=== PATIENT | female | born 1945 | race Caucasian/White ===

== ENCOUNTER 2024-12-25 12:41 | Emergency (ER) | payer MEDICARE, BC, SELFPAY ==
--- OUTSIDE RECORDS SUMMARY | 2024-12-12 08:05 | XMS_ITS | Encounter Summary ---
Author Organization [facility] Address [address] [facility] [place] [address] Care Team Providers Care Machine Filler Shredder Name Role Phone Jadyn Leung MD Primary Care Provider [phone] Jadyn Leung MD Unavailable [phone] Encounter Details Date Type Department Care Team (Late st Contact Info) Description 12/12/2024 8:05 AM EDT Ancillary Procedure [facility] [address] [place] [address] Social History Tobacco Use Types Packs/Day Years Used Date Smoking Tobacco: Unknown Alcohol Use Standard Drinks/Week Comments Yes 0 (1 standard drink = 0.6 oz pure alcohol) monthly, Caffeine intake: 1 cup coffee PHQ-2 Answer Date Recorded Patient Health Questionnaire-2 Score 0 10/20/2022 Comments No Sex and Gender Information Value Date Recorded Sex Assigned at Not on file Legal Sex Female 7:24 PM EDT Gender Identity Not on file Sexual Orientation Not on file documented as of this encounter Plan of Treatment Upcoming Encounters Date Type Department Care Team (Late st Contact Info) Description 02/06/2025 1:15 PM EST Office Visit [facility] [address] [place] [address] Catalino Collins DO [address] [place], [place] [id number] documented as of this encounter Visit Diagnoses Not on filedocumented in this encounter Additional Health Concerns Assessment Noted Time PHQ-9 Depression Total Score: 0 10/20/19 23 12:00 PM EDT documented as of this encounter Care Teams Machine Filler Shredder Relationship Specialty Start Date End Date Jadyn Leung MD [address] [place] [address] PCP - General Family Medicine 08/11/22 Jadyn Leung MD [address] [place] [address] PCP - ACO Reach 07/21/23 documented as of this encounter
--- OUTSIDE RECORDS SUMMARY | 2024-12-12 09:45 | XMS_ITS | Encounter Summary ---
Author Organization [facility] Address [address] [facility] [place] [address] Care Team Providers Care Manager Purchasing Name Role Phone Jadyn Leung MD Primary Care Provider [phone] Jadyn Leung MD Unavailable [phone] Encounter Details Date Type Department Care Team (Late st Contact Info) Description 12/12/2024 9:45 AM EDT Ancillary Procedure [facility] [address] [place] [address] Social History Tobacco Use Types [...] Description 02/06/2025 1:15 PM EST Office Visit [facility] [address] [address] Catalino Collins DO [address] [place], [place] [phone] documented as of this encounter Visit Diagnoses Not on filedocumented in this encounter Additional Health Concerns Assessment Noted Time PHQ-9 Depression Total Score: 0 10/20/19 23 12:00 PM EDT documented as of this encounter Care Teams Manager Purchasing Relationship Specialty Start Date End Date Jadyn Leung MD [address] [place] [address] PCP - General Family Medicine 08/11/22 Jadyn Leung MD [address] [place] [address] PCP - ACO Reach 07/21/23 documented as of this encounter
--- OUTSIDE RECORDS SUMMARY | 2024-12-12 09:45 | XMS_ITS | Encounter Summary ---
Author Organization [facility] Address [address] [facility] [place] [address] Care Team Providers Care Coagulating Bath Mixer Name Role Phone Jadyn Leung MD Primary Care Provider [phone] Jadyn Leung MD Unavailable [phone] Reason for Visit * Reason Comments Post-op R Hip Bipolar Chaitanya Encounter Details Date Type Department Care Team (Late st Contact Info) Description 12/12/2024 9:45 AM EDT Office Visit [facility] [address] [place] [id number] Catalino Collins DO [address] [place] [address] Closed fracture of right hip requiring operative repair, sequela (Primary Dx); Right elbow pain Social History Tobacco Use Types Packs/Day Years [...] on file documented as of this encounter Last Filed Vital Signs Vital Sign Reading Time Taken Comments Blood Pressure - - Pulse - - Temperature - - Respiratory Rate - - Oxygen Saturation - - Inhaled Oxygen Concentration - - Weight - - Height 162.6 cm (5' 4 ) 12/12/2024 9:33 AM EDT Body Mass Index - - documented in this encounter Progress Notes * Latha Rodriguez - 12/12/2024 9:45 AM EDT Images from the original note were not included. Tracie Banuelos is a 79 y.o. female presents with chief complaint of PO < 90 days status post right bipolar hemiarthroplasty for displaced femoral neck fracture with right supracondylar elbow fracture. HPI: Usha is here for her first postoperative visit. She went to transitional care unit. She has had some drainage. They did call initially with this two to three weeks ago. There has been no follow up with this. She is barely mobile. She is still confused and has some dementia as well as alcohol encephalopathy. Her spouse is present and very supportive. He presents to the office today. SUBJECTIVE: MEDICATIONS: Current Outpatient Medications Medication Instructions carboxymethylcellulose (Artificial Tears) 1 % ophthalmic solution 1 drop, 3 times daily diphenhydrAMINE-zinc acetate (BENADryl) cream 3 times daily PRN folic acid (FOLVITE) 0.4 mg, Daily magnesium hydroxide (Milk of Magnesia) 400 MG/5ML suspension Nightly Multiple Vitamin (multivitamin) tablet 1 tablet, Daily nystatin (Mycostatin) 844463 UNIT/GM powder 2 times daily oxyCODONE-acetaminophen (Percocet) 5-325 MG tablet Take by mouth pantoprazole (ProtoNix) 40 MG EC tablet TAKE 1 TABLET BY MOUTH EVERY DAY IN THE MORNING DO NOT SPLIT, CRUSH, OR CHEW pramipexole (MIRAPEX) 0.25 mg, Oral, Nightly Probiotic Product (PROBIOTIC BLEND PO) sodium chloride 1 g, Oral, Daily Thiamine HCl (vitamin B-1) 250 MG tablet ALLERGIES: Allergies Allergen Reactions Codeine Unknown Moxifloxacin Unknown Penicillin G Unknown SURGICAL HISTORY: Past Surgical History: Procedure Laterality Date ADENOIDECTOMY APPENDECTOMY 1964 CATARACT EXTRACTION GALLBLADDER SURGERY 1971 NEUROMA SURGERY Right foot OTHER SURGICAL HISTORY repatcher sx OTHER SURGICAL HISTORY ovarian cysts PARTIAL HYSTERECTOMY 1975 SPINE SURGERY disk x 4 TONSILLECTOMY FAMILY HISTORY: Family History Problem Relation Name Age of Onset Leukemia Mother Heart attack Father Diabetes Maternal Grandmother Diabetes Maternal Grandfather Breast cancer Other grandmother, cousin, aunt Colon cancer Other uncle SOCIAL HISTORY: Social History Tobacco Use Smoking status: Unknown Substance Use Topics Alcohol use: Yes Comment: monthly, Caffeine intake: 1 cup coffee Drug use: Defer Depression: Not at risk (10/20/2022) PHQ-2 PHQ-2 Score: 0 REVIEW OF SYMPTOMS: The review of systems, history and current medications list are all reviewed today. OBJECTIVE: Visit Vitals Ht 5' 4 LMP (LMP Unknown) BMI 18.44 kg/m?? OB Status Postmenopausal Smoking Status Unknown BSA 1.48 m?? Physical Exam On physical exam, she is alert and oriented. Vital signs are stable. She is not toxic. She still is confused. Her elbow splint is removed. She does have dry skin and flaking. Elbow alignment is appropriate. Fracture tenderness is mild. She has a stable arc of motion with stiffness as expected. She is neurovascularly intact distally. She did scratch her arm which required a band aid. The right hip required three people to stand her today. We are not able to get x-rays in the officedue to the inability to stand and hold still. She subsequently has an intact incision. The mid portion has a draining hematoma seroma. There is no active purulence. There is mild drainage on the gauze. The hip appears to be clinically reduced, although she holds her leg internally rotated, but length appears to be acceptable. She has minimal pain with stance phase on the hip itself. X-rays will be ordered through transitional care unit. We will call her Kennedi with the results as soon as we get these. Unfortunately we could not accommodate her immobility today in the office with our standing x-ray plates. ASSESSMENT AND PLAN: Assessment/Plan Status post right bipolar hemiarthroplasty for displaced fracture. Hematoma seroma with drainage. Right supracondylar elbow fracture. History of alcohol abuse. Dementia. Metabolic syndrome. The nature of the findings were discussed at length. It is a very challenging situation. Her tissues are not overly compatible with good healing. We did place a new dressing on the hip today. We willconsult wound care through TCU to see if they can get this to dry up. She states she is on antibiotic. We do not have an active MAR. We will call weekly to check on her. Pending x-rays, we will change her weight bearing status. We discussed if there is continued drainage, hematoma, seroma or infection or any form of instability or dislocation of the hip, this would require tertiary referral due to her medical comorbidities. We discussed her elbow. Splint was reapplied today. If her x-ray is stable, we will progress out of that and start active and passive range of motion exercises. Further information pending the x-ray findings. It will be done this afternoon and we will coordinate with chicho through nursing care with discussion of options. They voice verbal understanding. Spouse ispresent. She is discharged in stable condition. Addendum: Follow up on x-rays from Mila from TCU done this afternoon shows her bipolar hemiarthroplasty to be dislocated. 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 It appears to be somewhat subacute on x-ray. Her x-ray of her humerus shows progressive healing of the supracondylar fracture. Degenerative changes are noted. There is no significant displacement or angulation. There is progressive healing. A lengthy conversation occurred with the , Kennedi, as well as Fiona TCU nurse. Given hermedical comorbidities and significant issues with poor heal ability, it is not recommended her to go to the Emergency Room. Conversation occurred with ER staff as well with sedation issues. The recomm endation is tertiary referral to attempt to try to do more of a constrained product or total hip replacement, if they will do this. She does have significant medical compromise with cachexia, alcoholabuse, dementia. Of note, nursing staff from the TCU does state she has not been compliant with abduction pillow placement throughout the last month. She, per Dr. Burton, is going to be shipped laterally to a tertiary level 1 center for further treatment and discussion of options. Follow up here will be postoperatively as needed. Cosigned by Catalino Collins DO at 12/15/2024 2:25 PM EDT documented in this encounter Plan of Treatment Upcoming Encounters Date Type Department Care Team (Late st Contact Info) Description 02/06/2025 1:15 PM EST Office Visit [facility] [address] [place] [address] Catalino Collins DO [address] [place] [address] Scheduled Orders Name Type Priority Associated Diagnoses Orde r Schedule XR elbow 3+ views right Imaging Routine Right elbow pain Expected: 12/12/2024, Expires: 12/12/2025 XR hip right 2 or 3 views Imaging Routine Closed fracture of right hip requiring operative repair, sequela Expected: 12/12/2024, Expires: 12/12/2025 documented as of this encounter Visit Diagnoses Diagnosis Closed fracture of right hip requiring operative repair, sequela- Primary Right elbow pain Pain in joint, upper arm documented in this encounter Additional Health Concerns Assessment Noted Time PHQ-9 Depression Total Score: 0 10/20/19 23 12:00 PM EDT documented as of this encounter Care Teams Coagulating Bath Mixer Relationship Specialty Start Date End Date Jadyn Leung MD [address] [place] [address] PCP - General Family Medicine 08/11/22 Jadyn Leung MD [address] [place] [address] PCP - ACO Reach 07/21/23 documented as of this encounter
--- OUTSIDE RECORDS SUMMARY | 2024-12-12 09:50 | XMS_ITS | Encounter Summary ---
Author Organization [facility] Address [address] [facility] [place] [address] Care Team Providers Care Senior Automation Engineer Name Role Phone Jadyn Leung MD Primary Care Provider [phone] Jadyn Leung MD Unavailable [phone] Encounter Details Date Type Department Care Team (Late st Contact Info) Description 12/12/2024 9:50 AM EDT Ancillary Procedure [facility] [address] [facility] [place] [address] Social History Tobacco Use Types [...] Description 02/06/2025 1:15 PM EST Office Visit [facility] [address] [place] [address] Catalino Collins DO [address] [place], [place] [id number] documented as of this encounter Visit Diagnoses Not on filedocumented in this encounter Additional Health Concerns Assessment Noted Time PHQ-9 Depression Total Score: 0 10/20/19 23 12:00 PM EDT documented as of this encounter Care Teams Senior Automation Engineer Relationship Specialty Start Date End Date Jadyn Leung MD [address] [place] [address] PCP - General Family Medicine 08/11/22 Jadyn Leung MD [address] [place] [address] PCP - ACO Reach 07/21/23 documented as of this encounter
--- OUTSIDE RECORDS SUMMARY | 2024-12-13 15:18 | XMS_ITS | Encounter Summary ---
Author Organization [facility] Address [address], [address] [place] [address] Care Team Providers Care Purchasing Expeditor Name Role Phone Anju Jacobsen MD Primary Care Provider [phone] Reason for Visit * Reason Comments Hip Pain * Auth/Cert Specialty Diagnoses / Procedures Referred By Contac t Referred To Contact Diagnoses Anterior dislocation of right hip, initial encounter (HCC) Naif Barron DO [address] [place] [address] [place] [address] Phone: tel: fax: [facility] [address] [place] [address] Referral ID Status Reason Start Date Expiration Date Visits Re quested Visits Authorized [id number] Encounter Details Date Type Department Care Team (Late st Contact Info) Description 12/13/2024 3:18 PM EDT - 12/20/2024 2:16 PM EDT Hospital Encounter [facility] Ortho/Med Surg [address] [place] [id number] Alek Joe MD [address] [place] [address] [address] Francisco Dalton DO [address] [place] [address] Naif Barron DO [address] [place] [address] [address] [place], [place] [id number] All Schmidt DO [address] [place] [address] Edgar Roche MD [address] [place] [address] Closed dislocation of right hip, initial encounter (HCC) (Primary Dx); 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 No 12/14/2024 In the past 12 months, how m any times have you moved where you were living? 0 12/14/2024 At any time in the past 12 [facility], were you homeless or living in a mcc (including now)? No 12/14/2024 AUDIT-C Answer Date Recorded Q1: How often do you have a drink containing alcohol? Never 12/13/2024 Q2: How many drinks containi ng alcohol do you have on a typical day when you are drinking? Patient does not drink Q3: How often do you have si x or more drinks on one occasion? Never 12/13/2024 Hunger Vital Sign Answer Date Recorded Within the past 12 months, y ou worried that your food would run out before you got the money to buy more. Never true 12/15/19 25 Within the past 12 months, t he food you bought just didn't last and you didn't have money to get more. Never true 12/14/2024 PRAPARE - Transportation Answer Date Re corded In the past 12 months, has l ack of transportation kept you from medical appointments or from getting medications? No 11/21 In the past 12 months, has l ack of transportation kept you from meetings, work, or from getting things needed for daily living? No 12/14/2024 [facility] Utilities Answer Date Recorded In the past 12 months has e electric, gas, oil, or water [employer] threatened to shut off services in your home? No 12/14/2024 Interpersonal Safety Domain Source: IP Abuse Scr eening Answer Date Recorded Physical abuse Denies 12/14/2024 Verbal abuse Denies 12/14/2024 Emotional abuse Denies 12/14/2024 Financial abuse Denies 12/14/2024 Sexual abuse Denies 12/14/2024 Comments Unknown Sex and Gender Information Value Date Recorded Sex Assigned at Not on file Legal Sex Female 11:43 PM EST Gender Identity Not on file Sexual Orientation Not on file documented as of this encounter Last Filed Vital Signs Vital Sign Reading Time Taken Comments Blood Pressure 153/60 12/20/2024 7:27 AM EDT Pulse 77 12/20/2024 7:27 AM EDT Temperature 36.5 C (97.7 F) 12/20/2024 7:27 AM EDT Respiratory Rate 14 12/20/2024 7:27 AM EDT Oxygen Saturation 98% 12/20/2024 8:46 AM EDT Inhaled Oxygen Concentration - - Weight 54.9 kg (121 lb) 12/14/2024 12:42 PM EDT Height 162.6 cm (5' 4 ) 12/14/2024 12:42 PM EDT Body Mass Index 20.77 12/14/2024 12:42 PM EDT documented in this encounter Functional Status documented as of this encounter Discharge Summaries * Edgar Roche MD - 12/20/2024 9:27 AM EDT Images from the original note were not included. [facility] Office: [phone] Flex Nicolas DO, Solo Rivas DO, Ananda Galaviz DO, Wilner Wilson DO, Zabrina Landin MD, Charmaine Kendrick MD, Vandana Sotomayor MD, Jaki Borja MD, Antwan Fowler MD, Hermilo Qureshi MD, Nikole Coleman MD, All Schmidt DO, Catalino Nicolas DO, Kate Ling MD, Ranjit Vann DO, Bev Connolly MD, Lisa Caceres MD, America Tucker MD, Lamont Maguire MD, Ankit Ridley MD,Edgar Roche MD, Quinten Quigley MD, River Zuniga MD, Kolby Vasquez MD, Lucius Nickerson DO,Briana Newberry MD, Naif Barron DO, Jimy Davis MD, Moises Valentine MD, All Duong MD, Elen Duong MD, Elaine Herzog MD, Esther Eason, BICYCLE COURIER, Roxana Dimas, BICYCLE COURIER, Lucius Ramos, BICYCLE COURIER, Samira, [facility], Fany Limon, BICYCLE COURIER, Leeann Costello, BICYCLE COURIER, Trini Lewis, BICYCLE COURIER, Sherice Dolan, BICYCLE COURIER, Grecia Brown, PA-C, Gloria Tucker, BICYCLE COURIER, Rosalia Franco, BICYCLE COURIER, Sylwia Foreman, BICYCLE COURIER, Harleen Mercado, BICYCLE COURIER, Franklin Valencia, PA-C, Barbara Stapleton, PA-C, Joana Geiger, BICYCLE COURIER, Isreal Taylor, BICYCLE COURIER, Melyssa Hernadez, BICYCLE COURIER, Sagrario Gould, HEARING STENOGRAPHER, Kelly Lopes, BICYCLE COURIER, Tena Blanchard, BICYCLE COURIER [facility] IN-PATIENT SERVICE [facility] Discharge Summary Patient ID: Suzan Escalona : 1945 ACCOUNT: [id number] Patient's PCP: Anju Jaocbsen MD Admit Date: 12/13/2024 Discharge Date: 12/20/2024 Length of Stay: 7 Code Status: Prior Admitting Physician: No admitting provider for patient encounter. Discharge Physician: Edgar Delaney Sra, MD Active Discharge Diagnoses: Hospital Problem Lists: Principal Problem: Anterior dislocation of right hip, initial encounter ([facility]) Active Problems: GERD (gastroesophageal reflux disease) Anemia Hyponatremia Hypokalemia Closed dislocation of right hip (HCC) Infection of right prosthetic hip joint CRP elevated Acute on chronic urinary retention Moderate malnutrition Resolved Problems: Hypothyroidism Admission Condition: stable Discharged Condition: stable Hospital Stay: Hospital Course: 79-year-old female who was admitted for right hip anterior dislocation from previous hemiarthroplasty with infection, seen by orthopedic surgery, ID status post Procedure (DOS): 12/14/24 Explantation with placement of antibiotic cement spacer right hip Prophylactic cable fixation right proximal femur Saucerization right femur Application Prevena negative pressure wound Plan to discharge on aspirin twice daily for 30 days and follow-up with Dr. Abarca on 01/01, recommended Posterior Hip Precautions Don???t bend your hip past a 90 degree angle. Don???t cross your legs. Don???t twist your hip inwards- keep knees and toes pointed upwards. Patient has been on Zosyn/Zyvox plan to discharge on ceftriaxone/daptomycin for 6 weeks followed bydoxycycline recommended follow-up with ID as outpatient Received 2 units of PRBC/Venofer for anemia Was recommended dysphagia diet however per patient's POA refused this recommendation Has had low potassium/magnesium throughout the stay will plan to send on supplements Currently stable for discharge Significant therapeutic interventions: As described above Significant Diagnostic Studies: Labs / Micro: CBC: Lab Results Component Value Date/Time WBC 5.8 12/20/2024 06:09 AM RBC 2.44 12/20/2024 06:09 AM HGB 7.2 12/20/2024 06:09 AM HCT 21.2 12/20/2024 06:09 AM MCV 86.9 12/20/2024 06:09 AM MCH 29.5 12/20/2024 06:09 AM MCHC 34.0 12/20/2024 06:09 AM RDW 14.1 12/20/2024 06:09 AM PLT 296 12/20/2024 06:09 AM BMP: Lab Results Component Value Date/Time GLUCOSE 106 12/20/2024 06:09 AM NA 129 12/20/2024 06:09 AM K 3.1 12/20/2024 06:09 AM CL 96 12/20/2024 06:09 AM CO2 21 12/20/2024 06:09 AM ANIONGAP 12 12/20/2024 06:09 AM BUN 3 12/20/2024 06:09 AM CREATININE 0.4 12/20/2024 06:09 AM CALCIUM 7.8 12/20/2024 06:09 AM LABGLOM >90 12/20/2024 06:09 AM HFP: No components found for: AP , ALB , PROT , SGOT , SGPT , TBIL , DBILCALC CMP: Lab Results Component Value Date/Time GLUCOSE 106 12/20/2024 06:09 AM NA 129 12/20/2024 06:09 AM K 3.1 12/20/2024 06:09 AM CL 96 12/20/2024 06:09 AM CO2 21 12/20/2024 06:09 AM BUN 3 12/20/2024 06:09 AM CREATININE 0.4 12/20/2024 06:09 AM ANIONGAP 12 12/20/2024 06:09 AM ALKPHOS 80 12/14/2024 04:11 AM ALT 11 12/14/2024 04:11 AM AST 40 12/14/2024 04:11 AM BILITOT 0.3 12/14/2024 04:11 AM ALBUMIN 2.5 12/14/2024 04:11 AM LABGLOM >90 12/20/2024 06:09 AM CALCIUM 7.8 12/20/2024 06:09 AM PT/INR: Lab Results Component Value Date/Time PROTIME 20.0 12/14/2024 04:11 AM INR 1.6 12/14/2024 04:11 AM PTT: No results found for: APTT FLP: No results found for: CHOL , TRIG , HDL U/A: No results found for: COLORU , TURBIDITY , SPECGRAV , HGBUR , PHUR , PROTEINU , GLUCOSEU , KETUA , BILIRUBINUR , UROBILINOGEN , NITRU , LEUKOCYTESUR TSH: Lab Results Component Value Date/Time TSH 0.97 12/15/2024 06:40 AM Radiology: IR PICC WO SQ PORT/PUMP > 5 YEARS Result Date: 12/19/2024 Successful ultrasound and fluoroscopy guided left upper extremity PICC placement; PICC is ready foruse at this time. FL MODIFIED BARIUM SWALLOW W VIDEO Result Date: 12/15/2024 1. Deep penetration without aspiration, followed by reflexive cough with the thin liquid substance.2. Penetration without aspiration with the thick liquid substance. 3. No penetration or aspiration with the pureed/pudding thick substance. Please see separate speech pathology report for full discussion of findings and recommendations. XR HIP 2-3 VW W PELVIS RIGHT Result Date: 12/14/2024 1. 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 CT HEAD WO CONTRAST Result Date: 12/14/2024 1. No acute intracranial abnormality. 2. Severe chronic microvascular disease. 3. 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 CT HIP RIGHT WO CONTRAST Result Date: 12/14/2024 1. Right hip arthroplasty hardware. No obvious periprosthetic lucency or acute osseous abnormality.2. Region of fluid overlying the right greater trochanter measuring 7.0 x 1.9 x 3.8 cm likely a seroma. Infection/abscess or liquefying hematoma not entirely excluded in the appropriate clinical setting. 3. Gas in the subcutaneous fat along the right posterolateral thigh which may be related to recent surgery, trauma and/or infection. 4. Zjfs-ni-miqabjaf edema in the subcutaneous fat about the bilateral hip/thighs, right greater than left. 5. Moderate edema/fluid in the presacral fat. 6. Mild fat stranding of the urinary bladder which can be seen with cystitis. Correlate with urinalysis. 7. Mild left hip osteoarthrosis. XR CHEST PORTABLE Result Date: 12/14/2024 No acute airspace disease identified. XR FEMUR RIGHT (MIN 2 VIEWS) Result Date: 12/14/2024 1. Right hip prosthesis in place. XR HIP RIGHT (2-3 VIEWS) Result Date: 12/13/2024 Successful reduction right total hip arthroplasty. No fracture. Consultations: Consults: Final Specialist Recommendations/Findings: IP CONSULT TO ORTHOPEDIC SURGERY IP CONSULT TO INTERNAL MEDICINE IP CONSULT TO INFECTIOUS DISEASES IP CONSULT TO VASCULAR ACCESS TEAM IP CONSULT TO VASCULAR ACCESS TEAM IP CONSULT TO VASCULAR ACCESS TEAM The patient was seen and examined on day of discharge and this discharge summary is in conjunction with any daily progress note from day of discharge. Discharge plan: Disposition: [facility] Physician Follow Up: Rafaela Yen MD [address], [address] [facility] [address] Schedule an appointment as soon as possible for a visit in 1 month(s) Anju Jacobsen MD [facility], [address] [facility] [address] Schedule an appointment as soon as possible for a visit in 1 week(s) Requiring Further Evaluation/Follow Up POST HOSPITALIZATION/Incidental Findings: As described above Diet: regular diet Activity: As tolerated Instructions to Patient: Orthopaedic Instructions: -Weight bearing status: Weight bearing as tolerated with the right leg. - The Prevena, the negative pressure dressing overlying the surgical site. Has an internal battery that will roughly 7 days. When this happens you are free to cut the cord from the machine. Please keep foam on however. Please keep the machine charged up to this point. -Posterior hip precautions - avoid flexion and internal rotation of hip, do no cross leg over other, avoid bending at the waist past 90 degrees -Do not remove dressings until your post-operative follow up visit. -Always look for signs of compartment syndrome: pain out of proportion to the injury, pain not controlled with pain medication, numbness in digits, changing of color of digits (paleness). If these signs occur return to ED immediately for reassessment. -Ice (20 minutes on and off 1 hour) and elevate to reduce swelling and throbbing pain. -Should urinate within 8 hours of surgery. -Call the office or come to Emergency Room if signs of infection appear (hot, swollen, red, draining pus, fever) -Take medications as prescribed. -Wean off narcotics (percocet/norco) as soon as possible. Do not take tylenol if still taking narcotics. -Follow up with Dr. Abarca in his office on 01/01 at 8:00am. Call [phone] to schedule/confirmor with any questions/concerns. Discharge Medications: Medication List START taking these medications ascorbic acid 500 MG tablet Commonly known as: VITAMIN C aspirin 81 MG chewable tablet Take 1 tablet by mouth in the morning and at bedtime cefTRIAXone infusion Commonly known as: ROCEPHIN Infuse 2,000 mg intravenously every 12 hours Stop after 01/27/25 - then stop and pull line - DAPTOmycin infusion Commonly known as: CUBICIN Infuse 219.2 mg intravenously in the morning. 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 ferrous sulfate 325 (65 Fe) MG tablet Commonly known as: IRON 325 magnesium oxide 400 MG tablet Commonly known as: MAG-OX Take 1 tablet by mouth daily potassium chloride 10 MEQ extended release tablet Commonly known as: KLOR-CON M Take 1 tablet by mouth 2 times daily therapeutic multivitamin-minerals tablet CHANGE how you take these medications oxyCODONE-acetaminophen 5-325 MG per tablet Commonly known as: PERCOCET Take 1 tablet by mouth every 6 hours as needed for Pain for up to 5 days. Max Daily Amount: 4 tablets What changed: when to take this pantoprazole 40 MG tablet Commonly known as: PROTONIX What changed: Another medication with the same name was removed. Continue taking this medication, and follow the directions you see here. pramipexole 0.25 MG tablet Commonly known as: MIRAPEX What changed: Another medication with the same name was removed. Continue taking this medication, and follow the directions you see here. CONTINUE taking these medications carboxymethylcellulose 1 % ophthalmic solution magnesium hydroxide 400 MG/5ML suspension Commonly known as: MILK OF MAGNESIA sodium chloride 1 g tablet STOP taking these medications folic acid 1 MG tablet Commonly known as: FOLVITE ibuprofen 800 MG tablet Commonly known as: ADVIL;MOTRIN levothyroxine 25 MCG tablet Commonly known as: SYNTHROID oxyBUTYnin 5 MG tablet Commonly known as: DITROPAN sulfamethoxazole-trimethoprim 400-80 MG per tablet Commonly known as: BACTRIM;SEPTRA thiamine 100 MG/ML injection Commonly known as: B-1 Where to Get Your Medications You can get these medications from any pharmacy Bring a paper prescription for each of these medications oxyCODONE-acetaminophen 5-325 MG per tablet Information about where to get these medications is not yet available Ask your nurse or doctor about these medications aspirin 81 MG chewable tablet cefTRIAXone infusion DAPTOmycin infusion magnesium oxide 400 MG tablet potassium chloride 10 MEQ extended release tablet Discharge Procedure Orders Basic Metabolic Panel Standing Status: Future Standing Exp. Date: 12/17/25 Order Comments: Send results to Anju Jacobsen MD Time Spent on discharge is 35 mins in patient examination, evaluation, counseling as well as medication reconciliation, prescriptions for required medications, discharge plan and follow up. Electronically signed by Edgar Delaney Sra, MD 12/20/2024 4:55 PM Thank you Anju Callejas MD for the opportunity to be involved in this patient's care. documented in this encounter Discharge Instructions * Discharge Instructions* Antwan Martines DO - 12/14/2024 5:18 PM EDT Orthopaedic Instructions: -Weight bearing status: Weight bearing as tolerated with the right leg. - The Prevena, the negative pressure dressing overlying the surgical site. Has an internal battery that will roughly 7 days. When this happens you are free to cut the cord from the machine. Please keep foam on however. Please keep the machine charged up to this point. -Posterior hip precautions - avoid flexion and internal rotation of hip, do no cross leg over other, avoid bending at the waist past 90 degrees -Do not remove dressings until your post-operative follow up visit. -Always look for signs of compartment syndrome: pain out of proportion to the injury, pain not controlled with pain medication, numbness in digits, changing of color of digits (paleness). If these signs occur return to ED immediately for reassessment. -Ice (20 minutes on and off 1 hour) and elevate to reduce swelling and throbbing pain. -Should urinate within 8 hours of surgery. -Call the office or come to Emergency Room if signs of infection appear (hot, swollen, red, draining pus, fever) -Take medications as prescribed. -Wean off narcotics (percocet/norco) as soon as possible. Do not take tylenol if still taking narcotics. -Follow up with Dr. Abarca in his office on 01/01 at 8:00am. Call [phone] to schedule/confirmor with any questions/concerns. * Discharge Instr - JOSE MANUEL* Nikki Hartley RN - 12/17/2024 4:00 PM EDT Continuity of Care Form Patient Name: Suzan Escalona : 1945 Admit date: 12/13/2024 Discharge date: 12/20/24 Code Status Order: DNR-CC Advance Directives: Date/Time Healthcare Directive Type of Healthcare Directive Copy in Chart Healthcare Agent Appointed Healthcare Agent's Name Healthcare Agent's Phone Number 12/14/24 1243 No, patient does not have an advance directive for healthcare treatment -- -- -- -- -- Admitting Physician: All Taylor DO PCP: Anju Jacobsen MD Discharging Nurse: [facility] Unit/Room#: 0234/0234-01 Discharging Unit Emergency Contact: Extended Emergency Contact Information Primary Emergency Contact: Erwin Escalona [facility] Mobile Relation: Spouse Past Surgical History: Past Surgical History: Procedure Laterality Date APPENDECTOMY BACK SURGERY CHOLECYSTECTOMY COLONOSCOPY 2005 2015 HIP SURGERY Right 12/14/2024 HIP IRRIGATION AND DEBRIDEMENT, REVISION OF HEMIARTHROPLASTY - Right HIP SURGERY Right 12/14/2024 HIP IRRIGATION AND DEBRIDEMENT, REVISION OF HEMIARTHROPLASTY performed by Ramses Abarca DO at [facility] OR HYSTERECTOMY (CERVIX STATUS UNKNOWN) Immunization History: Immunization History Administered Date(s) Administered COVID-19, Inactive, MODERNA BLUE border, Primary or Immunocompromised, (age 12y+) 06/18/2020, 07/16/2020, 08/09/2020, 10/08/2021 COVID-19, Inactive, MODERNA Bivalent, (age 12y+) 04/29/2022 Active Problems: Patient Active Problem List Diagnosis Code Lumbar degenerative disc disease M51.369 Anterior dislocation of right hip, initial encounter ([facility]) S73.034A Hypothyroidism E03.9 GERD (gastroesophageal reflux disease) K21.9 Anemia D64.9 Hyponatremia E87.1 Hypokalemia E87.6 Closed dislocation of right hip ([facility]) S73.004A Infection of right prosthetic hip joint T84.51XA CRP elevated R79.82 Acute on chronic urinary retention R33.9 Isolation/Infection: Isolation No Isolation Patient Infection Status None to display Nurse Assessment: Last Vital Signs: BP 136/67 Pulse 82 Temp 97.2 ??F (36.2 ??C) (Oral) Resp 20 Ht 1.626 m (5'4 ) Wt 54.9 kg (121 lb) SpO2 99% BMI 20.77 kg/m?? Last documented pain score (0-10 scale): Pain Level: 5 Last Weight: Wt Readings from Last 1 Encounters: 12/14/24 54.9 kg (121 lb) Mental Status: oriented and alert IV Access: - PICC - site L Basilic, insertion date: 12/19/24 Nursing Mobility/ADLs: Walking Dependent Transfer Dependent Bathing Dependent Dressing Dependent Toileting Dependent Feeding Assisted Special Inspector Independent Med Delivery split in half one at a time with water Wound Care Documentation and Therapy: Wound 12/14/24 Thigh Right (Active) Dressing Status Clean;Dry;Intact 12/17/24 0800 Wound Cleansed Not Cleansed 12/17/24 0800 Dressing/Treatment Negative pressure wound therapy;Foam 12/17/24 0800 Wound Assessment Other (Comment) 12/17/24 0800 Drainage Amount None (dry) 12/17/24 0800 Odor None 12/17/24 0800 Patience-wound Assessment Other (Comment) 12/17/24 0800 Margins Other (Comment) 12/17/24 0800 Number of days: 3 Incision 12/14/24 Hip Right (Active) Dressing Status Clean;Dry;Intact 12/17/24 0800 Incision Cleansed Not Cleansed 12/17/24 0800 Dressing/Treatment Foam 12/17/24 0800 Closure Other (Comment) 12/17/24 0800 Incision Assessment Other (Comment) 12/17/24 0800 Drainage Amount None (dry) 12/17/24 0800 Odor None 12/17/24 0800 Patience-incision Assessment Other (Comment) 12/17/24 0800 Number of days: 3 Elimination: Continence: Bowel: No Bladder: No Urinary Catheter: Last Change Date 12/20/24 Colostomy/Ileostomy/Ileal Conduit: No Date of Last BM: 12/19/24 Intake/Output Summary (Last 24 hours) at 12/17/2024 1559 Last data filed at 12/17/2024 0444 Gross per 24 hour Intake -- Output 1150 ml Net -1150 ml I/O last 3 completed shifts: In: - Out: 1924 [Urine:1924] Safety Concerns: History of Falls (last 30 days) and At Risk for Falls Impairments/Disabilities: None Nutrition Therapy: Current Nutrition Therapy: - Oral Diet: General Routes of Feeding: Oral Liquids: Thin Liquids Daily Fluid Restriction: no Last Modified Barium Swallow with Video (Video Swallowing Test): not done Treatments at the Time of Hospital Discharge: Respiratory Treatments: none Oxygen Therapy: is not on home oxygen therapy. Ventilator: - No ventilator support Rehab Therapies: Physical Therapy and Occupational Therapy Weight Bearing Status/Restrictions: No weight bearing restrictions Other Medical Equipment (for information only, NOT a DME order): walker Other Treatments: none Patient's personal belongings (please select all that are sent with patient): leticia ROE SIGNATURE: CASE MANAGEMENT/SOCIAL WORK SECTION Inpatient Status Date: 12-13-2024 Readmission Risk Assessment Score: [facility] RISK OF UNPLANNED READMISSION 2.0 16.9 Total Score Discharging to Facility/ Agency Name: Jasmin Ramirez Address: Phone: Fax: Dialysis Facility (if applicable) Name: Address: Dialysis Schedule: Phone: Fax: Licensed Psychiatric Technician/Bid Writer signature: PHYSICIAN SECTION Prognosis: Fair Condition at Discharge: Stable Rehab Potential (if transferring to Rehab): Fair Recommended Labs or Other Treatments After Discharge: DNR CC. Diet waiver has been signed. Recommend nutritional supplements with meals. Patient enjoys Magic cup. Continue antibiotics. . Recommend chronic indwelling catheter exchange on the first of the month. BMP in 2 days post DC to evaluate sodium levels which are chronically low Follow up with PCP and infectious disease doctor as outpatient Follow up with 01/01. Posterior Hip Precautions Don???t bend your hip past a 90 degree angle. Don???t cross your legs. Don???t twist your hip inwards- keep knees and toes pointed upwards. Physician Certification: I certify the above information and transfer of Suzan Escalona is necessaryfor the continuing treatment of the diagnosis listed and that she requires Jail Facilityfor less [facility] days. Update Admission H&P: Changes in H&P as follows - see discharge summary PHYSICIAN SIGNATURE: documented in this encounter Medications at Time of Discharge potassium chloride (KLOR-CON M) 10 MEQ extended release tablet Take 1 tablet by mouth 2 times daily 12/20/2024 magnesium oxide (MAG-OX) 400 MG tablet Take 1 tablet by mouth daily 12/20/2024 aspirin 81 MG chewable tablet Take 1 tablet by mouth in the morning and at bedtime 12/19/2024 DAPTOmycin (CUBICIN) infusion Infuse 219.2 mg intravenously in the morning. Till 01/27/25- cpk cbc diff creat LFT 2 x per week -no line draw - stop after 01/27 and pull ;line -and start doxy 100 mg po bid x chcf - if CK 200 stop dapto and call Dr Yen ID [id number] - 4457. 7 g 1 12/18/2024 cefTRIAXone (ROCEPHIN) infusion Infuse 2,000 mg intravenously every 12 hours Stop after 01/27/25 - then stop and pull line - 120 g 1 12/18/2024 pramipexole (MIRAPEX) 0.25 MG tablet Take 1 tablet by mouth nightly pantoprazole (PROTONIX) 40 MG tablet Take 1 tablet by mouth daily Multiple Vitamins-Mineral s (THERAPEUTIC MULTIVITAMIN-MIN ERALS) tablet Take 1 tablet by mouth daily ascorbic acid (VITAMIN C) 500 MG tablet Take 1 tablet by mouth daily ferrous sulfate (IRON 325) 325 (65 Fe) MG tablet Take 1 tablet by mouth daily (with breakfast) sodium chloride 1 g tablet Take 1 tablet by mouth 3 times daily carboxymethylcel lulose 1 % ophthalmic solution Place 1 drop into both eyes every 2 hours as needed for Dry Eyes magnesium hydroxide (MILK OF MAGNESIA) 400 MG/5ML suspension Take 30 mLs by mouth daily as needed for Constipation oxyCODONE-acetam inophen (PERCOCET) 5-325 MG per tabletIndication s:Closed dislocation of right hip, initial encounter ([facility]) Take 1 tablet by mouth every 6 hours as needed for Pain for up to 5 days. Max Daily Amount: 4 tablets 20 tablet 12/17/2024 documented as of this encounter Progress Notes * Edgar Roche MD - 12/20/2024 2:16 PM EDT Physician Progress Note PATIENT: SUZAN ESCALONA CSN #: [id number] : 1945 ADMIT DATE: 12/13/2024 3:18 PM DISCH DATE: 12/20/2024 2:16 PM RESPONDING PROVIDER #: Edgar Saavedra Sra, MD QUERY TEXT: The attending physician is required to clarify conflicting documentation in the medical record. Noted documentation of Acute encephalopathy: Dementia versus metabolic in H&P and the PN from 12/14 on. Based on your medical judgement, please clarify the following: The clinical indicators include: Admission with fall and multiple fractures. Noted to have ongoing dementia with alcohol abuse with chronic hyponatremia, hypokalemia and Hypomagnesium LABS- - NA- 136, 130, 128, 127, 131 - K - 3.4, 3.4, 3.1, 3.3, 3.2 - MAG - 1.0, 1.7, 1.4, 1.6, MENTATION 12/14 @ 1700- oriented to person, time 12/15@ 0400- oriented to person, time, situation 12/15 @ 0820-Orineted to person, situation. 12/17 @ 0800 - oriented to person, place and situation 12/18 @ 0800- A&O x4 - Neuro checks every 4 hours or as needed. - correct electrolyte abnormalities Options provided: -- After Study, metabolic encephalopathy with underlying dementia confirmed -- After Study, metabolic encephalopathy ruled out and only dementia -- Other - I will add my own diagnosis -- Disagree - Not applicable / Not valid -- Refer to Clinical Documentation Reviewer PROVIDER RESPONSE TEXT: After Study, metabolic encephalopathy ruled out and only dementia Query created by: Catalino Thompson on 12/19/2024 8:49 AM Electronically signed by: Edgar Saavedra Sra, MD 12/22/2024 9:19 AM * Nikki Hartley RN - 12/20/2024 1:00 PM EDT Report called to Jasmin, all questions answered. Pt left with all belongings via transport. * Rafaela Yen MD - 12/20/2024 10:14 AM EDT Images from the original note were not included. [facility] - Infectious diseases evaluation admission date 12/13/2024 reason for consultation: Right hip drainage Impression : Current: Right hip hemiarthroplasty November 10, 202412/13 dislocated hip, had to be repositioned and surgery 12/13 surgical wound drainage - infected deep hardware Explantation 12/14 CRP elevation 88 Other: Discussion / summary of stay / plan of care/ Recommendations: HENCE: R hip prosthetic infection hardware removal 12/14 and cx sent neg BC neg Swall study abnormal but no aspiration antibiotics IV Zosyn and zyvox- stop both since all cx are neg and Dc on ceftriaxone and daptomycin v- CPK 50 I will reconsiled 6 weeks then jail doxy Case disc w Dr Abarca and family Infection Control Recommendations [place] Precautions Contact Isolation Antimicrobial Stewardship Recommendations Simplification of therapy Targeted therapy History of Present Illness: Initial history: Suzan Escalona is a 79 y.o.-year-old female who had a right hip hemiarthroplasty in November 10, 2024,comes in because of pain in that right hip, along with active drainage from the surgical site ongoing for few days. X-ray suggested a dislocation of the right hip. She does have slight dementia, some confusion at baseline, CRP 88, WBC normal Taken to surgery will include a reduction fracture dislocation, Infectious disease consulted for concern for surgical wound infection No Surgical wound culture taken Blood cultures are pending negative No fever Interval changes 12/20/2024 Patient Vitals for the past 8 hrs: BP Temp Temp src Pulse Resp SpO2 12/20/24 0846 -- -- -- -- -- 98 % 12/20/24 0727 (!) 153/60 97.7 ??F (36.5 ??C) Oral 77 14 100 % 12/15 No fever and no chills - abd soft non tender- Confused and OR cx pend 12/18 Confused pleasant - abd soft pain controlled 12/19 Confused - eating well - abd soft non tender - no rash - CK ok - and all cx still neg 12/20 Confused pleasant - no fever - picc in place Summary of relevant labs: Labs: Micro: Procedures Cardiology Imaging: I have personally reviewed the past medical history, past surgical history, medications, social history, and family history, and I haveupdated the database accordingly. Allergies: Moxifloxacin, Codeine, Duramorph [morphine], and Penicillins Review of Systems: Review of Systems Constitutional: Negative for activity change, chills, diaphoresis, fatigue and fever. HENT: Negative for congestion. Eyes: Negative for photophobia, discharge and redness. Respiratory: Negative for apnea. Cardiovascular: Negative for chest pain. Gastrointestinal: Negative for abdominal pain. Endocrine: Negative for cold intolerance, polyphagia and polyuria. Genitourinary: Negative for dysuria. Musculoskeletal: Positive for arthralgias. Skin: Negative for color change. Allergic/Immunologic: Negative for immunocompromised state. Neurological: Negative for dizziness. Hematological: Negative for adenopathy. Psychiatric/Behavioral: Negative for agitation. Physical Examination : Physical Exam Constitutional: General: She is not in acute distress. Appearance: Normal appearance. She is not ill-appearing, toxic-appearing or diaphoretic. HENT: Head: Normocephalic and atraumatic. Nose: Nose normal. Mouth/Throat: Mouth: Mucous membranes are moist. Eyes: General: No scleral icterus. Conjunctiva/sclera: Conjunctivae normal. Cardiovascular: Rate and Rhythm: Normal rate and regular rhythm. Heart sounds: No murmur heard. No friction rub. Pulmonary: Effort: No respiratory distress. Breath sounds: No stridor. No wheezing. Abdominal: General: There is no distension. Tenderness: There is no abdominal tenderness. Musculoskeletal: General: Tenderness present. No swelling, deformity or signs of injury. Cervical back: No rigidity. Skin: Coloration: Skin is not jaundiced or pale. Findings: No bruising, erythema, lesion or rash. Neurological: Mental Status: She is alert and oriented to person, place, and time. Cranial Nerves: No cranial nerve deficit. Psychiatric: Mood and Affect: Mood normal. Thought Content: Thought content normal. Past Medical History: Past Medical History: Diagnosis Date Anemia GERD (gastroesophageal reflux disease) Hypothyroidism Past Surgical History: Past Surgical History: Procedure Laterality Date APPENDECTOMY BACK SURGERY CHOLECYSTECTOMY COLONOSCOPY 2005 2015 HIP SURGERY Right 12/14/2024 HIP IRRIGATION AND DEBRIDEMENT, REVISION OF HEMIARTHROPLASTY - Right HIP SURGERY Right 12/14/2024 HIP IRRIGATION AND DEBRIDEMENT, REVISION OF HEMIARTHROPLASTY performed by Ramses Abarca DO at [facility] OR HYSTERECTOMY (CERVIX STATUS UNKNOWN) Medications: aspirin 81 mg Oral BID cefTRIAXone (ROCEPHIN) IV 2,000 mg IntraVENous Q24H DAPTOmycin (CUBICIN) 330 mg in sodium chloride 0.9 % 50 mL IVPB 6 mg/kg IntraVENous Q24H sodium chloride flush 5-40 mL IntraVENous 2 times per day lidocaine 1 % injection 50 mg IntraDERmal Once sodium chloride 2 g Oral TID WC sodium chloride flush 5-40 mL IntraVENous 2 times per day ferrous sulfate 325 mg Oral Daily with breakfast ascorbic acid 500 mg Oral Daily therapeutic multivitamin-minerals 1 tablet Oral Daily pantoprazole 40 mg Oral Daily pramipexole 0.25 mg Oral Nightly thiamine 100 mg Oral Daily Social History: Social History Socioeconomic History Marital status: Spouse name: Not on file Number of children: Not on file Years of education: Not on file Highest education level: Not on file Occupational History Not on file Tobacco Use Smoking status: Never Smokeless tobacco: Never Substance and Sexual Activity Alcohol use: Never Drug use: Not on file Sexual activity: Not on file Other Topics Concern Not on file Social History Narrative Not on file Social Drivers of Health Financial Resource Strain: Not on file Food Insecurity: No Food Insecurity (12/14/2024) Hunger Vital Sign Worried About Running Out of Food in the Last Year: Never true Ran Out of Food in the Last Year: Never true Transportation Needs: No Transportation Needs (12/14/2024) PRAPARE - Transportation Lack of Transportation (Medical): No Lack of Transportation (Non-Medical): No Physical Activity: Not on file Stress: Not on file Social Connections: Not on file Intimate Partner Violence: Not on file Housing Stability: Low Risk (12/14/2024) Housing Stability Vital Sign Unable to Pay for Housing in the Last Year: No Number of Times Moved in the Last Year: 0 Homeless in the Last Year: No Family History: Family History Problem Relation Age of Onset Cancer Mother leukemia Medical Decision Making: I have independently reviewed/ordered the following labs: CBC with Differential: Recent Labs 12/17/24 1513 12/19/24 0503 WBC -- 7.3 HGB 9.3* 7.5* HCT 29.1* 23.0* PLT -- 293 LYMPHOPCT -- 16* MONOPCT -- 9 EOSPCT -- 19* BMP: Recent Labs 12/18/24 0832 12/19/24 0503 12/19/24 2034 NA 127* 128* -- K 3.2* 3.1* -- CL 98 95* -- CO2 19* 17* -- BUN 6* 4* -- CREATININE 0.4* 0.4* -- MG 1.6 1.3* 2.1 Hepatic Function Panel: No results for input(s): LABALBU , BILIDIR , IBILI , BILITOT , ALKPHOS , ALT , AST in the last 72 hours. Invalid input(s): PROT No results for input(s): RPR in the last 72 hours. No results for input(s): HIV in the last 72 hours. No results for input(s): BC in the last 72 hours. Lab Results Component Value Date/Time CREATININE 0.4 12/19/2024 05:03 AM GLUCOSE 71 12/19/2024 05:03 AM Detailed results: Thank you for allowing us to participate in the care of this patient.Please call with questions. This note is created with the assistance of a speech recognition program. While intending to generate adocument that actually reflects the content of the visit, the document can still have some errors including those of syntax and sound a like substitutions which may escape proof reading. It such instances, actual meaningcan be extrapolated by contextual diversion. Rafaela Yen MD Office: Perfect serve / office [phone] * Wendy Samuel, CONTROL CENTER OPERATOR - 12/20/2024 9:51 AM EDT Physical Therapy Facility/Department: [address] ORTHO/MED SURG Physical Therapy Daily Treatment Note Patient Name: Suzan Escalona : 1945 Date of Service: 12/20/2024 Chief Complaint Patient presents with Hip Pain Past Medical History: has a past medical history of Anemia, GERD (gastroesophageal reflux disease),and Hypothyroidism. Past Surgical History: has a past surgical history that includes Appendectomy; back surgery; Cholecystectomy; Colonoscopy (2005 2015); Hysterectomy; hip surgery (Right, 12/14/2024); and hip surgery (Right, 12/14/2024). Discharge Recommendations Discharge Recommendations: Patient would benefit from continued therapy after discharge PT Equipment Recommendations Equipment Needed: No (pt states that she owns a RW. Pt requires extensive assistance to ambulate atthis time.) Assessment Body Structures, Functions, Activity Limitations Requiring Skilled Therapeutic Intervention: Decreased functional mobility ;Decreased strength;Decreased endurance;Increased pain;Decreased safe awareness Assessment: Pt had a decline in PT session today requiring maxAx2 for all bed mobility and dependent to maintain R hip precautions. Pt required maxA to maintain sitting at EOB d/t significant L lateral lean as pt pushing with R UE; unable to correct with several attempts. Pt is WBAT R LE with posterior hip precautions. She could benefit from a continuation of PT for gait , strengthening and functional mobility prior to her DC Therapy Prognosis: Fair Activity Tolerance Activity Tolerance: Patient limited by pain, Treatment limited secondary to decreased cognition Safety Devices Type of Devices: Bed alarm in place, Call light within reach, Gait belt, Patient at risk for falls,Nurse notified, Left in bed, Heels elevated for pressure relief (positioned R LE in neutral position) AM-PAC AM-PAC Basic Mobility - Inpatient How much help is needed turning from your back to your side while in a flat bed without using bedrails?: Total How much help is needed moving from lying on your back to sitting on the side of a flat bed withoutusing bedrails?: Total How much help is needed moving to and from a bed to a chair?: Total How much help is needed standing up from a chair using your arms?: Total How much help is needed walking in hospital room?: Total How much help is needed climbing 3-5 steps with a railing?: Total AM-[facility] Inpatient Mobility Raw Score : 6 AM-[facility] Inpatient T-Scale Score : 23.55 Mobility Inpatient CMS 0-100% Score: 100 Mobility Inpatient [facility] G-Code Modifier : CN Restrictions/Precautions Restrictions/Precautions Restrictions/Precautions: Weight Bearing Activity Level: Up with Assist Required Braces or Orthoses?: No Lower Extremity Weight Bearing Restrictions Right Lower Extremity Weight Bearing: Weight Bearing As Tolerated Position Activity Restriction Hip Precautions: Posterior hip precautions;No hip flexion > 90 degrees;No ADduction;No hip internal rotation (Per Ortho note: Posterior Hip Precautions Don???t bend your hip past a 90 degree angle. Don???t cross your legs. Don???t twist your hip inwards- keep knees and toes pointed upwards.) Other Position/Activity Restrictions: s/p: R HIP IRRIGATION AND DEBRIDEMENT, REVISION OF HEMIARTHROPLASTY on 12/14. 1500mL restriction. Restraints Restraints Initially in Place: No Subjective General Patient assessed for rehabilitation services?: Yes Response To Previous Treatment: Patient unable to report, no changes reported from family or staff (d/t cognition.) Family/Caregiver Present: No General General Comments: Pt retired to bed. pillow between B knees to keep R hip in neutral position, offloading B heel. Call light. Bed alarm set. RN present. Subjective Subjective: RN and pt agreeable to PT. Pt alert in bed upon arrival. Pt confused t/o session requiring max redirection. Pain Pre-Pain: 8 Post-Pain: 7 Pain Location: Right;Hip Pain Interventions: Repositioning;Rest;Other (Comment) (distraction. emotional support. positioned R hip in neutral with supportive pillows. RN present) Objective Orientation Overall Orientation Status: Impaired Orientation Level: Oriented to place;Oriented to person;Disoriented to situation Cognition Overall Cognitive Status: Exceptions Arousal/Alertness: Appropriate responses to stimuli Following Commands: Follows one step commands with increased time;Follows one step commands with repetition;Inconsistently follows commands Attention Span: Difficulty dividing attention;Difficulty attending to directions Safety Judgement: Decreased awareness of need for assistance;Decreased awareness of need for safety Problem Solving: Decreased awareness of errors;Assistance required to implement solutions;Assistance required to generate solutions;Assistance required to identify errors made;Assistance required to correct errors made Insights: Decreased awareness of deficits Initiation: Requires cues for all Sequencing: Requires cues for all Cognition Comment: pt very resistive to movement using R UE to push to the L. Mobility Bed mobility Rolling to Left: Substantial/Maximal assistance;2 Person assistance (HOB flat. Pillow between B knees with support given to R LE to maintain hip precautions. Pt grabbing for bed rail and pushing withR UE so had to defer pt from using bed rail.) Rolling to Right: Substantial/Maximal assistance;2 Person assistance (HOB flat. pillow between B knees. Slight roll for linen adjustment maintaining R hip precautions.) Supine to Sit: Substantial/Maximal assistance;2 Person assistance (HOB elevated ~30 degrees. Progressed pt to left side of bed with use of protective sheet maintaining R hip precautions. Pt yelling t/o because of R hip pain.) Sit to Supine: 2 Person assistance;Dependent/Total Scooting: Substantial/Maximal assistance;2 Person assistance Bed Mobility Comments: Once positioned at EOB, pt required maxA to maintain sitting balance with B UEs on B elevated bed rails. Deferred R UE from holding onto bed rail as pt with significant L lateral lean as pt pushing with R UE with attempts to redirect but unable. Returned pt to supine d/t safety concerns. Transfers Comment: deferred d/t poor sitting balance. Balance Balance Posture: Poor Sitting - Static: Poor Sitting - Dynamic: Poor Comments: Assessed sitting at EOB maxA Exercise PT Exercises PROM Exercises: R LE: ankle pumps and knee<>chest to 70 degrees of hip flexion maintaining R hip in neutral position returning to R knee extension x 10 reps with slow, controlled mvmt d/t pain.gastro stretch x 3 reps,20s hold. A/AROM Exercises: L LE: ankle pumps and knee<>chest x 10 reps with slow, controlled mvmt. gastro stretch x 3 reps,20s hold. Patient Education Patient Education Education Given To: Patient Education Provided: Role of Therapy;Orientation;Precautions;Mobility Training;Fall Prevention Strategies Education Provided Comments: max verbal and tactile cues for all mobility. Importance of movement and ROM. Education Method: Verbal Barriers to Learning: Cognition;Readiness to Learn Education Outcome: Continued education needed Plan Physical Therapy Plan General Plan: 6-7 times per week Current Treatment Recommendations: Strengthening, Balance training, Functional mobility training, Transfer training, Gait training, Endurance training, Stair training, Pain management, Safety education & training, Therapeutic activities Goals Short Term Goals Time Frame for Short Term Goals: 10 visits Short Term Goal 1: transfers with SBA Short Term Goal 2: amb 50 ft with a RW x SBA with WBAT R LE Short Term Goal 3: ascend/descend 2 steps with SBA Short Term Goal 4: 20 min strengthening exercises x SBA Minutes PT Individual Minutes Time In: 855 Time Out: 926 Minutes: 31 Time Code Minutes Timed Code Treatment Minutes: 28 Minutes Cosigned by Juan Wade PT at 12/20/2024 3:44 PM EDT * Edgar Roche MD - 12/19/2024 7:12 PM EDT Images from the original note were not included. [facility] Office: [phone] Flex Nicolas DO, Solo Rivas DO, Ananda Galaviz DO, Wilner Wilson DO, Zabrina Landin MD, Charmaine Kendrick MD, Vandana Sotomayor MD, Jaki Borja MD, Antwan Fowler MD, Hermilo Qureshi MD, Nikole Coleman MD, All Schmidt DO, Catalino Nicolas DO, Kate Ling MD, Ranjit Vann DO, Bev Connolly MD, Lisa Caceres MD, America Tucker MD, Lamont Maguire MD, Ankit Ridley MD,Edgar Roche MD, Quinten Quigley MD, River Zuniga MD, Kolby Vasquez MD, Lucius Nickerson DO,Briana Newberry MD, Naif Barron DO, Jimy Davis MD, Moises Valentine MD, All Duong MD, Elen Duong MD, Elaine Herzog MD, Esther Eason, BICYCLE COURIER, Roxana Dimas, BICYCLE COURIER, Lucius Ramos, BICYCLE COURIER, Samira [facility], Fany Limon, BICYCLE COURIER, Leeann Costello, BICYCLE COURIER, Trini Lewis, BICYCLE COURIER, Sherice Dolan, BICYCLE COURIER, Grecia Brown, PA-C, Gloria Tucker, BICYCLE COURIER, Rosalia Franco, BICYCLE COURIER, Sylwia Foreman, BICYCLE COURIER, Harleen Mercado, BICYCLE COURIER, Franklin Valencia, PA-C, Barbara Stapleton, PA-C, Joana Geiger, BICYCLE COURIER, Isreal Taylor, BICYCLE COURIER, Melyssa Hernadez, BICYCLE COURIER, Sagrario Gould, [facility], Kelly Lopes, [facility], Tena Blanchard, [facility] IN-PATIENT SERVICE [facility] Progress Note 12/19/2024 7:21 PM Name: Suzan Escalona Acct: [id number] Room: 0234/0234-01 IP Day: 6 Admit Date: 12/13/2024 3:18 PM PCP: Anju Jacobsen MD Code Status: DNR-CC Subjective: Seen at bedside, hemodynamically stable Intermittently confused Labs reviewed electrolytes replaced Hemoglobin 7.5 Brief History: Per previous documentation 79-year-old [facility] pain. Patient had a fall on 11/08, underwent right hip hemiarthroplasty on 11/10/2024. X-ray performed on 12/13 showed complete superior dislocation of right hip. Transferred to ED for further evaluation. Unclear when dislocation happened. Patient did not have any fall or trauma at facility, she was found tohave an anterior dislocation of her right hip. Ortho was consulted in the emergency department. Shehad a closed reduction in the emergency department with anesthesia and plan is for OR intervention on 12/14/2024. Initially there were concerns for encephalopathy and UTI. She does have a chronic indwelling Cam catheter from the facility. Patient was made a full code for surgery however postprocedure she is going to return to a DNR CC it would appear. There is dementia at baseline per patient's spouse documented on H&P Medications: Allergies: Allergies Allergen Reactions Moxifloxacin Anaphylaxis Codeine Other reaction(s): Mental Status Change Duramorph [Morphine] Rash Penicillins Nausea And Vomiting Current Meds: Scheduled Meds: aspirin 81 mg Oral BID cefTRIAXone (ROCEPHIN) IV 2,000 mg IntraVENous Q24H DAPTOmycin (CUBICIN) 330 mg in sodium chloride 0.9 % 50 mL IVPB 6 mg/kg IntraVENous Q24H sodium chloride flush 5-40 mL IntraVENous 2 times per day lidocaine 1 % injection 50 mg IntraDERmal Once sodium chloride 2 g Oral TID WC sodium chloride flush 5-40 mL IntraVENous 2 times per day ferrous sulfate 325 mg Oral Daily with breakfast ascorbic acid 500 mg Oral Daily therapeutic multivitamin-minerals 1 tablet Oral Daily pantoprazole 40 mg Oral Daily pramipexole 0.25 mg Oral Nightly thiamine 100 mg Oral Daily Continuous Infusions: sodium chloride sodium chloride PRN Meds: sodium chloride flush, sodium chloride, sodium chloride flush, sodium chloride, potassiumchloride OR potassium alternative oral replacement OR potassium chloride, magnesium sulfate, ondansetron OR ondansetron, polyethylene glycol, acetaminophen OR acetaminophen, hypromellose, oxyCODONE-acetaminophen OR oxyCODONE-acetaminophen Data: Vitals: BP (!) 173/52 Pulse 82 Temp 97.7 ??F (36.5 ??C) (Axillary) Resp 16 Ht 1.626 m (5' 4 ) Wt 54.9 kg (121 lb) SpO2 99% BMI 20.77 kg/m?? Temp (24hrs), Av.8 ??F (36.6 ??C), Min:97.7 ??F (36.5 ??C), Max:97.9 ??F (36.6 ??C) Recent Labs 12/19/24 1700 POCGLU 97 I/O (24Hr): Intake/Output Summary (Last 24 hours) at 12/19/2024 1921 Last data filed at 12/19/2024 1842 Gross per 24 hour Intake -- Output 2200 ml Net -2200 ml Labs: Hematology: Recent Labs 12/17/24 0427 12/17/24 0841 12/17/24 1513 12/19/24 0503 WBC 6.9 -- -- 7.3 RBC 2.39* -- -- 2.57* HGB 7.0* 7.3* 9.3* 7.5* HCT 20.9* 21.1* 29.1* 23.0* MCV 87.4 -- -- 89.5 MCH 29.3 -- -- 29.2 MCHC 33.5 -- -- 32.6 RDW 13.5 -- -- 13.8 PLT 190 -- -- 293 MPV 9.4 -- -- 9.7 CRP 20.7* -- -- 16.8* Chemistry: Recent Labs 12/17/2442612/18/24 0832 12/19/24 0503 NA 128* 127* 128* K 3.3* 3.2* 3.1* CL 98 98 95* CO2 22 19* 17* GLUCOSE 88 78 71* BUN 7* 6* 4* CREATININE 0.5* 0.4* 0.4* MG 1.4* 1.6 1.3* ANIONGAP 8* 10 16 LABGLOM >90 >90 >90 CALCIUM 8.2* 7.8* 8.0* CKTOTAL -- -- 70 Recent Labs 12/19/24 1700 POCGLU 97 ABG: Lab Results Component Value Date/Time PHART 7.333 12/14/2024 04:06 PM TWU5HYO 41.1 12/14/2024 04:06 PM PO2ART 203.9 12/14/2024 04:06 PM WGZ5QKL 21.3 12/14/2024 04:06 PM NBEA 4.2 12/14/2024 04:06 PM X7HVPSHY 99.3 12/14/2024 04:06 PM FIO2 60% 12/14/2024 04:06 PM Lab Results Component Value Date/Time SPECIAL Site: Swab 12/14/2024 03:35 PM Lab Results Component Value Date/Time CULTURE NORMAL SKIN DANN 12/14/2024 03:35 PM CULTURE No anaerobic organisms isolated at 5 days. 12/14/2024 03:35 PM Radiology: FL MODIFIED BARIUM SWALLOW W VIDEO Result Date: 12/15/2024 1. Deep penetration without aspiration, followed by reflexive cough with the thin liquid substance.2. Penetration without aspiration with the thick liquid substance. 3. No penetration or aspiration with the pureed/pudding thick substance. Please see separate speech pathology report for full discussion of findings and recommendations. XR HIP 2-3 VW W PELVIS RIGHT Result Date: 12/14/2024 1. 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 CT HEAD WO CONTRAST Result Date: 12/14/2024 1. No acute intracranial abnormality. 2. Severe chronic microvascular disease. 3. 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 CT HIP RIGHT WO CONTRAST Result Date: 12/14/2024 1. Right hip arthroplasty hardware. No obvious periprosthetic lucency or acute osseous abnormality.2. Region of fluid overlying the right greater trochanter measuring 7.0 x 1.9 x 3.8 cm likely a seroma. Infection/abscess or liquefying hematoma not entirely excluded in the appropriate clinical setting. 3. Gas in the subcutaneous fat along the right posterolateral thigh which may be related to recent surgery, trauma and/or infection. 4. [id number] edema in the subcutaneous fat about the bilateral hip/thighs, right greater than left. 5. Moderate edema/fluid in the presacral fat. 6. Mild fat stranding of the urinary bladder which can be seen with cystitis. Correlate with urinalysis. 7. Mild left hip osteoarthrosis. XR CHEST PORTABLE Result Date: 12/14/2024 No acute airspace disease identified. XR FEMUR RIGHT (MIN 2 VIEWS) Result Date: 12/14/2024 1. Right hip prosthesis in place. XR HIP RIGHT (2-3 VIEWS) Result Date: 12/13/2024 Successful reduction right total hip arthroplasty. No fracture. XR HIP RIGHT (2-3 VIEWS) Result Date: 12/13/2024 1. Right hip dislocation with the femoral head seen superior in relation to the acetabulum. 2. Right hip hemiarthroplasty. Physical Examination: General appearance: alert, cooperative and no distress, frail, elderly Mental Status: Confused intermittently Lungs: clear to auscultation bilaterally, normal effort Heart: regular rate and rhythm, no murmur Abdomen: soft, nontender, nondistended, normal bowel sounds, no masses, hepatomegaly, splenomegaly Extremities: no edema, redness, tenderness in the calves Skin: no gross lesions, rashes, induration Assessment: Hospital Problems Last Modified POA * (Principal) Anterior dislocation of right hip, initial encounter ([facility]) 12/13/2024 Yes GERD (gastroesophageal reflux disease) 12/13/2024 Yes Anemia 12/13/2024 Yes Hyponatremia 12/13/2024 Yes Hypokalemia 12/13/2024 Yes Closed dislocation of right hip ([facility]) 12/14/2024 Yes Infection of right prosthetic hip joint 12/14/2024 Yes CRP elevated 12/14/2024 Yes Acute on chronic urinary retention 12/17/2024 Yes Moderate malnutrition 12/18/2024 Yes Plan: Right hip anterior dislocation from previous hemiarthroplasty with infection: Ortho signed off. WBAT to RLE. ASA 81 mg BID for 30 days. Follow up with 01/01. Posterior Hip Precautions Don???t bend your hip past a 90 degree angle. Don???t cross your legs. Don???t twist your hip inwards- keep knees and toes pointed upwards. Pain medications as needed Surgical site infection: Right hip. Antibiotics per infectious disease, has been on Zosyn/Zyvox plan to discharge on ceftriaxone/daptomycin IV for 6 weeks followed by doxycycline Chronic hyponatremia Continue sodium tablets, fluid restriction Hypokalemia/hypomagnesemia: Monitor and replace Dementia with delirium Could be worsened by infection and hospital stay. CT head completed on admission demonstrated no acute findings, did demonstrate severe chronic microvascular disease and old bilateral basal ganglier lacunar infarcts Mentation is improving Acute anemia on normocytic normochromic anemia: Status post 2 PRBC status post Venofer currently onoral iron supplementation continue to monitor H&H transfuse as needed Chronic indwelling cath: Patient had Cam exchanged at [employer] on 11/20/2024 per patient's spouse. Will aim to have this exchanged again on 12/20/2024 as patient is still admitted Dysphagia: Patient passed a modified barium swallow study with dysphagia 1 diet with thin liquids however patient's POA is refusing this recommendation GERD continue Protonix Continues to be stable for discharge, awaiting placement Medical Decision Making: Medium Disposition awaiting placement Edgar Delaney Sra, MD 12/19/2024 7:21 PM * Harleen Lawson RN - 12/19/2024 4:37 PM EDT PICC line trimmed at 34cm * Hollie Whitmore, OT - 12/19/2024 2:42 PM EDT Occupational Therapy Occupational Therapy Initial Evaluation Facility/Department: [address] ORTHO/MED SURG Patient Name: Suzan Escalona : 1945 Date of Service: 12/19/2024 Chief Complaint Patient presents with Hip Pain Past Medical History: has a past medical history of Anemia, GERD (gastroesophageal reflux disease),and Hypothyroidism. Past Surgical History: has a past surgical history that includes Appendectomy; back surgery; Cholecystectomy; Colonoscopy (2005 2015); Hysterectomy; hip surgery (Right, 12/14/2024); and hip surgery (Right, 12/14/2024). Discharge Recommendations Discharge Recommendations: Patient would benefit from continued therapy after discharge OT Equipment Recommendations Equipment Needed: (CTA) Assessment Performance deficits / Impairments: Decreased functional mobility ;Decreased ADL status;Decreased strength;Decreased safe awareness;Decreased cognition;Decreased endurance;Decreased balance;Decreasedhigh-level IADLs;Decreased posture Assessment: Pt currently requiring assistance to complete ADLs, functional transfers, and functional mobility this date; therefore pt is currently unsafe to return to prior living arrangements. Pt would continue to benefit from OT services to address deficits listed above and improve overall functional performance prior to discharge. Prognosis: Good Decision Making: Medium Complexity REQUIRES OT FOLLOW-UP: Yes Activity Tolerance Activity Tolerance: Patient limited by pain, Treatment limited secondary to decreased cognition Safety Devices Type of Devices: Bed alarm in place, Call light within reach, Gait belt, Patient at risk for falls,Nurse notified, Left in bed AM-PAC AM-PAC Daily Activity - Inpatient How much help is needed for putting on and taking off regular lower body clothing?: A Lot How much help is needed for bathing (which includes washing, rinsing, drying)?: A Lot How much help is needed for toileting (which includes using toilet, bedpan, or urinal)?: A Lot How much help is needed for putting on and taking off regular upper body clothing?: A Little How much help is needed for taking care of personal grooming?: A Little How much help for eating meals?: None [facility] Inpatient Daily Activity Raw Score: 16 [facility] Inpatient ADL T-Scale Score : 35.96 ADL Inpatient CMS 0-100% Score: 53.32 ADL Inpatient CMS G-Code Modifier : CK Restrictions/Precautions Restrictions/Precautions Restrictions/Precautions: Weight Bearing Activity Level: Up with Assist Required Braces or Orthoses?: No Lower Extremity Weight Bearing Restrictions Right Lower Extremity Weight Bearing: Weight Bearing As Tolerated Position Activity Restriction Hip Precautions: Posterior hip precautions;No hip flexion > 90 degrees;No ADduction;No hip internal rotation Other Position/Activity Restrictions: s/p: R HIP IRRIGATION AND DEBRIDEMENT, REVISION OF HEMIARTHROPLASTY on 12/14 Restraints Restraints Initially in Place: No Subjective General Patient assessed for rehabilitation services?: Yes Family / Caregiver Present: No General Comment Comments: RN ok'd OT tom this date. Pt agreeable to therapy with encouragement, limited by decreased cognition. Pain Pre-Pain: 8 Post-Pain: 8 Pain Location: Right;Hip;Back Pain Descriptor: Aching Pain Interventions: Repositioning;Rest Home Setup/Prior Level of Function Social/Functional History Lives With: Spouse Type of Home: House Home Layout: One level Home Access: Stairs to enter with rails Entrance Stairs - Number of Steps: 4 Entrance Stairs - Rails: Right Bathroom Toilet: Standard Bathroom Equipment: Grab bars in shower Home Equipment: Walker - Rolling Receives Help From: Family;Other (Comment) Prior Level of Assist for ADLs: Independent Prior Level of Assist for Homemaking: Independent Homemaking Responsibilities: No () Prior Level of Assist for Ambulation: Independent household ambulator, with or without device Prior Level of Assist for Transfers: Independent Active Wrapper Stemmer Operator: No Patient's Wrapper Stemmer Operator Info: 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 Leisure & Hobbies: Likes to watch TV Additional Comments: She is R hand dominate Vision/Hearing Vision Vision: Impaired Vision Exceptions: Wears glasses for reading Hearing Hearing: Within functional limits BUE Assessment Gross Assessment AROM: Within functional limits Strength: Generally decreased, functional (BUE's grossly 4/5) Coordination: Within functional limits Tone: Normal Sensation: Intact Objective Orientation Overall Orientation Status: Within Functional Limits Cognition Overall Cognitive Status: Exceptions Arousal/Alertness: Appropriate responses to stimuli Following Commands: Follows one step commands with increased time;Follows one step commands with repetition Attention Span: Attends with cues to redirect;Difficulty attending to directions Safety Judgement: Decreased awareness of need for assistance;Decreased awareness of need for safety Problem Solving: Decreased awareness of errors;Assistance required to implement solutions;Assistance required to generate solutions;Assistance required to identify errors made;Assistance required to correct errors made Insights: Decreased awareness of deficits Initiation: Requires cues for some Sequencing: Requires cues for some Activities of Daily Living Feeding: Independent;Setup;Based on clinical judgement Grooming: Stand by assistance;Based on clinical judgement UE Bathing: Stand by assistance;Based on clinical judgement LE Bathing: Maximum assistance;Based on clinical judgement UE Dressing: Stand by assistance;Based on clinical judgement LE Dressing: Maximum assistance;Based on clinical judgement Toileting: Maximum assistance Toileting Skilled Clinical Factors: Pt standing at EOB for brief change with Max A for transfer,hygiene and brief management. Balance Balance Sitting: With support (unsupported sitting during functional activities with Min A d/t posterior lean. pt sitting unsupported for ~20 mins) Standing: With support (static standing at EOB with Max A and use of RW. Pt standing for total of ~3 mins with x1 seated rest break) Transfers/Mobility Bed mobility Rolling to Left: Substantial/Maximal assistance Rolling to Right: Substantial/Maximal assistance Supine to Sit: Substantial/Maximal assistance Sit to Supine: Substantial/Maximal assistance Scooting: Substantial/Maximal assistance Bed Mobility Comments: HOB elevated. Pt requiring assistance for BLE and trunk progression. Pt rolling to R/L sides of bed while supine for brief change. Transfers Sit to stand: Maximum assistance Stand to sit: Maximum assistance Transfer Comments: Pt with x2 STS transfers from EOB with Max A and use of RW. Functional Mobility: Unable to assess (Comment) Functional Mobility Skilled Clinical Factors: TOM d/t poor standing balance and tolerance. Patient Education Patient Education Education Given To: Patient Education Provided: Role of Therapy;Plan of Care;ADL Adaptive Strategies;Transfer Training;Energy Conservation;Precautions;Fall Prevention Strategies Education Method: Demonstration;Verbal Barriers to Learning: Cognition Education Outcome: Continued education needed Goals Short Term Goals Time Frame for Short Term Goals: By discharge, pt will: Short Term Goal 1: demo UB ADLs Independently. Short Term Goal 2: demo LB ADLs with Min A, adaptive techniques PRN. Short Term Goal 3: demo safe functional transfers/mobility with Min A, LRD PRN for engagement in ADLs. Short Term Goal 4: demo dynamic standing during functional activities for 5+ mins with Min A, LRD PRN. Short Term Goal 5: engage in 25+ mins of functional activities to improve overall endurance and independence. Plan Occupational Therapy Plan Times Per Week: 3-5x/wk Current Treatment Recommendations: Balance training, Functional mobility training, Endurance training, Pain management, Safety education & training, Patient/Caregiver education & training, Equipment evaluation, education, & procurement, Self-Care / ADL, Cognitive reorientation, Cognitive/Perceptual training, Strengthening Minutes OT Individual Minutes Time In: 1028 Time Out: 1109 Minutes: 41 Time Code Minutes Timed Code Treatment Minutes: 38 Minutes * Rafaela Yen MD - 12/19/2024 1:48 PM EDT Images from the original note were not included. [facility] - Infectious diseases evaluation admission date 12/13/2024 reason for consultation: Right hip drainage Impression : Current: Right hip hemiarthroplasty November 10, 202412/13 dislocated hip, had to be repositioned and surgery 12/13 surgical wound drainage - infected deep hardware Explantation 12/14 CRP elevation 88 Other: Discussion / summary of stay / plan of care/ Recommendations: HENCE: R hip prosthetic infection hardware removal 12/14 and cx sent neg BC neg Swall study abnormal but no aspiration antibiotics IV Zosyn and zyvox- stop both since all cx are neg and Dc on ceftriaxone and daptomycin v- I will reconsiled 6 weeks then jail doxy Case disc w Dr Abarca and family Infection Control Recommendations [place] Precautions Contact Isolation Antimicrobial Stewardship Recommendations Simplification of therapy Targeted therapy History of Present Illness: Initial history: Suzan Escalona is a 79 y.o.-year-old female who had a right hip hemiarthroplasty in November 10, 2024,comes in because of pain in that right hip, along with active drainage from the surgical site ongoing for few days. X-ray suggested a dislocation of the right hip. She does have slight dementia, some confusion at baseline, CRP 88, WBC normal Taken to surgery will include a reduction fracture dislocation, Infectious disease consulted for concern for surgical wound infection No Surgical wound culture taken Blood cultures are pending negative No fever Interval changes 12/19/2024 Patient Vitals for the past 8 hrs: BP Temp Temp src Pulse Resp SpO2 12/19/24 1112 -- 97.7 ??F (36.5 ??C) Axillary 78 18 -- 12/19/24 0740 (!) 153/61 97.7 ??F (36.5 ??C) Axillary 81 16 99 % 12/15 No fever and no chills - abd soft non tender- Confused and OR cx pend 12/18 Confused pleasant - abd soft pain controlled 12/19 Confused - eating well - abd soft non tender - no rash - CK ok - and all cx still neg Summary of relevant labs: Labs: Micro: Procedures Cardiology Imaging: I have personally reviewed the past medical history, past surgical history, medications, social history, and family history, and I haveupdated the database accordingly. Allergies: Moxifloxacin, Codeine, Duramorph [morphine], and Penicillins Review of Systems: Review of Systems Constitutional: Negative for activity change, diaphoresis and fatigue. HENT: Negative for congestion. Eyes: Negative for photophobia, discharge and redness. Respiratory: Negative for apnea. Cardiovascular: Negative for chest pain. Gastrointestinal: Negative for abdominal pain. Endocrine: Negative for cold intolerance, polyphagia and polyuria. Genitourinary: Negative for dysuria. Musculoskeletal: Positive for arthralgias. Skin: Negative for color change. Allergic/Immunologic: Negative for immunocompromised state. Neurological: Negative for dizziness. Hematological: Negative for adenopathy. Psychiatric/Behavioral: Negative for agitation. Physical Examination : Physical Exam Constitutional: General: She is not in acute distress. Appearance: Normal appearance. She is not ill-appearing, toxic-appearing or diaphoretic. HENT: Head: Normocephalic and atraumatic. Nose: Nose normal. Mouth/Throat: Mouth: Mucous membranes are moist. Eyes: General: No scleral icterus. Conjunctiva/sclera: Conjunctivae normal. Cardiovascular: Rate and Rhythm: Normal rate and regular rhythm. Heart sounds: No murmur heard. No friction rub. Pulmonary: Effort: No respiratory distress. Breath sounds: No stridor. No wheezing. Abdominal: General: There is no distension. Tenderness: There is no abdominal tenderness. Musculoskeletal: General: Tenderness present. No swelling, deformity or signs of injury. Cervical back: No rigidity. Skin: Coloration: Skin is not jaundiced or pale. Findings: No bruising or erythema. Neurological: Mental Status: She is alert and oriented to person, place, and time. Cranial Nerves: No cranial nerve deficit. Psychiatric: Mood and Affect: Mood normal. Thought Content: Thought content normal. Past Medical History: Past Medical History: Diagnosis Date Anemia GERD (gastroesophageal reflux disease) Hypothyroidism Past Surgical History: Past Surgical History: Procedure Laterality Date APPENDECTOMY BACK SURGERY CHOLECYSTECTOMY COLONOSCOPY 2005 2015 HIP SURGERY Right 12/14/2024 HIP IRRIGATION AND DEBRIDEMENT, REVISION OF HEMIARTHROPLASTY - Right HIP SURGERY Right 12/14/2024 HIP IRRIGATION AND DEBRIDEMENT, REVISION OF HEMIARTHROPLASTY performed by Ramses Abarca DO at [facility] OR HYSTERECTOMY (CERVIX STATUS UNKNOWN) Medications: aspirin 81 mg Oral BID cefTRIAXone (ROCEPHIN) IV 2,000 mg IntraVENous Q24H DAPTOmycin (CUBICIN) 330 mg in sodium chloride 0.9 % 50 mL IVPB 6 mg/kg IntraVENous Q24H sodium chloride flush 5-40 mL IntraVENous 2 times per day lidocaine 1 % injection 50 mg IntraDERmal Once sodium chloride 2 g Oral TID WC sodium chloride flush 5-40 mL IntraVENous 2 times per day ferrous sulfate 325 mg Oral Daily with breakfast folic acid 1 mg Oral Daily ascorbic acid 500 mg Oral Daily therapeutic multivitamin-minerals 1 tablet Oral Daily pantoprazole 40 mg Oral Daily pramipexole 0.25 mg Oral Nightly thiamine 100 mg Oral Daily Social History: Social History Socioeconomic History Marital status: Spouse name: Not on file Number of children: Not on file Years of education: Not on file Highest education level: Not on file Occupational History Not on file Tobacco Use Smoking status: Never Smokeless tobacco: Never Substance and Sexual Activity Alcohol use: Never Drug use: Not on file Sexual activity: Not on file Other Topics Concern Not on file Social History Narrative Not on file Social Drivers of Health Financial Resource Strain: Not on file Food Insecurity: No Food Insecurity (12/14/2024) Hunger Vital Sign Worried About Running Out of Food in the Last Year: Never true Ran Out of Food in the Last Year: Never true Transportation Needs: No Transportation Needs (12/14/2024) PRAPARE - Transportation Lack of Transportation (Medical): No Lack of Transportation (Non-Medical): No Physical Activity: Not on file Stress: Not on file Social Connections: Not on file Intimate Partner Violence: Not on file Housing Stability: Low Risk (12/14/2024) Housing Stability Vital Sign Unable to Pay for Housing in the Last Year: No Number of Times Moved in the Last Year: 0 Homeless in the Last Year: No Family History: Family History Problem Relation Age of Onset Cancer Mother leukemia Medical Decision Making: I have independently reviewed/ordered the following labs: CBC with Differential: Recent Labs 12/17/24 0427 12/17/24 0841 12/17/24 1513 12/19/24 0503 WBC 6.9 -- -- 7.3 HGB 7.0* < > 9.3* 7.5* HCT 20.9* < > 29.1* 23.0* PLT 190 -- -- 293 LYMPHOPCT -- -- -- 16* MONOPCT -- -- -- 9 EOSPCT -- -- -- 19* < > = values in this interval not displayed. BMP: Recent Labs 12/18/24 0832 12/19/24 0503 NA 127* 128* K 3.2* 3.1* CL 98 95* CO2 19* 17* BUN 6* 4* CREATININE 0.4* 0.4* MG 1.6 1.3* Hepatic Function Panel: No results for input(s): LABALBU , BILIDIR , IBILI , BILITOT , ALKPHOS , ALT , AST in the last 72 hours. Invalid input(s): PROT No results for input(s): RPR in the last 72 hours. No results for input(s): HIV in the last 72 hours. No results for input(s): BC in the last 72 hours. Lab Results Component Value Date/Time CREATININE 0.4 12/19/2024 05:03 AM GLUCOSE 71 12/19/2024 05:03 AM Detailed results: Thank you for allowing us to participate in the care of this patient.Please call with questions. This note is created with the assistance of a speech recognition program. While intending to generate adocument that actually reflects the content of the visit, the document can still have some errors including those of syntax and sound a like substitutions which may escape proof reading. It such instances, actual meaningcan be extrapolated by contextual diversion. Rafaela Yen MD Office: [facility] / office [phone] * Juan Wade, PT - 12/19/2024 12:41 PM EDT Physical Therapy Facility/Department: [address] ORTHO/MED SURG Physical Therapy Initial Evaluation Patient Name: Suzan Escalona : 1945 Date of Service: 12/19/2024 Chief Complaint Patient presents with Hip Pain Past Medical History: has a past medical history of Anemia, GERD (gastroesophageal reflux disease),and Hypothyroidism. Past Surgical History: has a past surgical history that includes Appendectomy; back surgery; Cholecystectomy; Colonoscopy (2005 2015); Hysterectomy; hip surgery (Right, 12/14/2024); and hip surgery (Right, 12/14/2024). Discharge Recommendations Discharge Recommendations: Patient would benefit from continued therapy after discharge PT Equipment Recommendations Equipment Needed: No Assessment Body Structures, Functions, Activity Limitations Requiring Skilled Therapeutic Intervention: Decreased functional mobility , Decreased strength, Decreased endurance, Increased pain, Decreased safe awareness Assessment: The pt took 2 steps with a RW x mod assist with WBAT R LE. Transfer sit to stand x 3 with a RW x mod assist with WBAT R LE. She could benefit from a continuation of PT for gait , strengthening and functional mobility prior to her DC Therapy Prognosis: Good Decision Making: Medium Complexity Requires PT Follow-Up: Yes Activity Tolerance Activity Tolerance: Patient limited by pain, Patient limited by endurance, Patient limited by fatigue Safety Devices Type of Devices: Bed alarm in place, Call light within reach, Left in bed, Patient at risk for falls, Gait belt [facility] Basic Mobility - Inpatient How much help is needed turning from your back to your side while in a flat bed without using bedrails?: A Little How much help is needed moving from lying on your back to sitting on the side of a flat bed withoutusing bedrails?: A Little How much help is needed moving to and from a bed to a chair?: A Lot How much help is needed standing up from a chair using your arms?: A Lot How much help is needed walking in hospital room?: A Lot How much help is needed climbing 3-5 steps with a railing?: Total [facility] Inpatient Mobility Raw Score : 13 [facility] Inpatient T-Scale Score : 36.74 Mobility Inpatient CMS 0-100% Score: 64.91 Mobility Inpatient [facility] G-Code Modifier : CL Restrictions/Precautions Restrictions/Precautions Restrictions/Precautions: Weight Bearing Activity Level: Up with Assist Required Braces or Orthoses?: No Lower Extremity Weight Bearing Restrictions Right Lower Extremity Weight Bearing: Weight Bearing As Tolerated Position Activity Restriction Hip Precautions: Posterior hip precautions, No hip flexion > 90 degrees, No ADduction, No hip internal rotation Other Position/Activity Restrictions: s/p: R HIP IRRIGATION AND DEBRIDEMENT, REVISION OF HEMIARTHROPLASTY on 12/14 Restraints Restraints Initially in Place: No Subjective General Patient assessed for rehabilitation services?: Yes Response To Previous Treatment: Not applicable Family/Caregiver Present: No Follows Commands: Within Functional Limits Subjective Subjective: The pt was agreeable to a PT evaluation Pain Pre-Pain: 8 Post-Pain: 8 Pain Location: Right;Hip;Back Pain Descriptor: Aching Pain Interventions: Repositioning;Rest Home Setup/Prior Level of Function Social/Functional History Lives With: Spouse Type of Home: House Home Layout: One level Home Access: Stairs to enter with rails Entrance Stairs - Number of Steps: 4 Entrance Stairs - Rails: Right Bathroom Toilet: Standard Bathroom Equipment: Grab bars in shower Home Equipment: Walker - Rolling Receives Help From: Family, Other (Comment) Prior Level of Assist for ADLs: Independent Prior Level of Assist for Homemaking: Independent Homemaking Responsibilities: No () Prior Level of Assist for Ambulation: Independent household ambulator, with or without device Prior Level of Assist for Transfers: Independent Active Wrapper Stemmer Operator: No Patient's Wrapper Stemmer Operator Info: 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 Leisure & Hobbies: Likes to watch TV Additional Comments: She is R hand dominate Vision/Hearing Vision Vision: Impaired Vision Exceptions: Wears glasses for reading Hearing Hearing: Within Functional Limits Objective Orientation Overall Orientation Status: Within Functional Limits Cognition Overall Cognitive Status: Exceptions Arousal/Alertness: Appropriate responses to stimuli Following Commands: Follows one step commands with increased time;Follows one step commands with repetition Attention Span: Attends with cues to redirect;Difficulty attending to directions Safety Judgement: Decreased awareness of need for assistance;Decreased awareness of need for safety Problem Solving: Decreased awareness of errors;Assistance required to implement solutions;Assistance required to generate solutions;Assistance required to identify errors made;Assistance required to correct errors made Insights: Decreased awareness of deficits Initiation: Requires cues for some Sequencing: Requires cues for some AROM RLE (degrees) RLE AROM: WFL AROM LLE (degrees) LLE AROM : WNL AROM RUE (degrees) RUE AROM : WFL AROM LUE (degrees) LUE AROM : WFL Strength RLE Comment: N/T Strength LLE Strength LLE: WFL Strength RUE Strength RUE: WFL Strength LUE Strength LUE: WFL Mobility Bed mobility Supine to Sit: Partial/Moderate assistance Sit to Supine: Partial/Moderate assistance Scooting: Partial/Moderate assistance Transfers Sit to Stand: Substantial/Maximal assistance Stand to Sit: Substantial/Maximal assistance Ambulation Surface: Level tile Device: Rolling Walker Assistance: Substantial/Maximal assistance Distance: 2 steps with a RW x mod assist with WBAT R LE Transfer sit to stand x 3 with a RW x mod assist with WBAT R LE Balance Balance Posture: Good Sitting - Static: Good Sitting - Dynamic: Fair Standing - Static: Poor Standing - Dynamic: Poor Exercise Patient Education Patient Education Education Given To: Patient Education Provided: Role of Therapy;Plan of Care Education Method: Verbal Barriers to Learning: None Education Outcome: Verbalized understanding Plan Physical Therapy Plan General Plan: 6-7 times per week Current Treatment Recommendations: Strengthening, Balance training, Functional mobility training, Transfer training, Gait training, Endurance training, Stair training, Pain management, Safety education & training, Therapeutic activities Goals Short Term Goals Time Frame for Short Term Goals: 10 visits Short Term Goal 1: transfers with SBA Short Term Goal 2: amb 50 ft with a RW x SBA with WBAT R LE Short Term Goal 3: ascend/descend 2 steps with SBA Short Term Goal 4: 20 min strengthening exercises x SBA Minutes PT Individual Minutes Time In: 0750 Time Out: 08 Minutes: 28 * Hali Ridley SLP - 12/19/2024 10:58 AM EDT [facility] Speech Language Pathology Date: 12/19/2024 Patient Name: Suzan Escalona Date of : 1945 AGE: 79 y.o. Patient Not Available for Speech Therapy Due to: [] Testing [] Hemodialysis [] Cancelled by RN [] Surgery [] Intubation/Sedation/Pain Medication [] Medical instability [x] Other: Pt with PT/OT. Next scheduled treatment: 12/19 PM as able. Completed by: Hali Ridley M.A., [facility]-TELESCOPE OPERATOR * Rafaela Yen MD - 12/18/2024 3:53 PM EDT Images from the original note were not included. [facility] - Infectious diseases evaluation admission date 12/13/2024 reason for consultation: Right hip drainage Impression : Current: Right hip hemiarthroplasty November 10, 202412/13 dislocated hip, had to be repositioned and surgery 12/13 surgical wound drainage - infected deep hardware Explantation 12/14 CRP elevation 88 Other: Discussion / summary of stay / plan of care/ Recommendations: HENCE: R hip prosthetic infection hardware removal 12/14 and cx sent neg BC neg Swall study abnormal but no aspiration antibiotics IV Zosyn and zyvox- stop both since all cx are neg and Dc on ceftriaxone and daptomycin v- I will reconsiled 6 weeks then jail doxy Case disc w Dr Abarca and family Infection Control Recommendations [place] Precautions Contact Isolation Antimicrobial Stewardship Recommendations Simplification of therapy Targeted therapy History of Present Illness: Initial history: Suzan Escalona is a 79 y.o.-year-old female who had a right hip hemiarthroplasty in November 10, 2024,comes in because of pain in that right hip, along with active drainage from the surgical site ongoing for few days. X-ray suggested a dislocation of the right hip. She does have slight dementia, some confusion at baseline, CRP 88, WBC normal Taken to surgery will include a reduction fracture dislocation, Infectious disease consulted for concern for surgical wound infection No Surgical wound culture taken Blood cultures are pending negative No fever Interval changes 12/18/2024 Patient Vitals for the past 8 hrs: BP Temp Temp src Pulse Resp SpO2 12/18/24 0845 (!) 168/84 98 ??F (36.7 ??C) Oral (!) 111 16 100 % 12/15 No fever and no chills - abd soft non tender- Confused and OR cx pend 12/18 Confused pleasant - abd soft pain controlled Summary of relevant labs: Labs: Micro: Procedures Cardiology Imaging: I have personally reviewed the past medical history, past surgical history, medications, social history, and family history, and I haveupdated the database accordingly. Allergies: Moxifloxacin, Codeine, Duramorph [morphine], and Penicillins Review of Systems: Review of Systems Constitutional: Negative for activity change. HENT: Negative for congestion. Eyes: Negative for photophobia, discharge and redness. Respiratory: Negative for apnea. Cardiovascular: Negative for chest pain. Gastrointestinal: Negative for abdominal pain. Endocrine: Negative for cold intolerance, polyphagia and polyuria. Genitourinary: Negative for dysuria. Musculoskeletal: Positive for arthralgias. Skin: Negative for color change. Allergic/Immunologic: Negative for immunocompromised state. Neurological: Negative for dizziness. Hematological: Negative for adenopathy. Psychiatric/Behavioral: Negative for agitation. Physical Examination : Physical Exam Constitutional: General: She is not in acute distress. Appearance: Normal appearance. She is not ill-appearing, toxic-appearing or diaphoretic. HENT: Head: Normocephalic and atraumatic. Nose: Nose normal. Mouth/Throat: Mouth: Mucous membranes are moist. Eyes: General: No scleral icterus. Conjunctiva/sclera: Conjunctivae normal. Cardiovascular: Rate and Rhythm: Normal rate and regular rhythm. Heart sounds: No murmur heard. No friction rub. Pulmonary: Effort: No respiratory distress. Breath sounds: No stridor. No wheezing. Abdominal: General: There is no distension. Tenderness: There is no abdominal tenderness. Musculoskeletal: General: Tenderness present. No swelling, deformity or signs of injury. Cervical back: No rigidity. Skin: Coloration: Skin is not jaundiced. Findings: No bruising. Neurological: Mental Status: She is alert and oriented to person, place, and time. Cranial Nerves: No cranial nerve deficit. Psychiatric: Mood and Affect: Mood normal. Thought Content: Thought content normal. Past Medical History: Past Medical History: Diagnosis Date Anemia GERD (gastroesophageal reflux disease) Hypothyroidism Past Surgical History: Past Surgical History: Procedure Laterality Date APPENDECTOMY BACK SURGERY CHOLECYSTECTOMY COLONOSCOPY 2005 2015 HIP SURGERY Right 12/14/2024 HIP IRRIGATION AND DEBRIDEMENT, REVISION OF HEMIARTHROPLASTY - Right HIP SURGERY Right 12/14/2024 HIP IRRIGATION AND DEBRIDEMENT, REVISION OF HEMIARTHROPLASTY performed by Ramses Abarca DO at [facility] OR HYSTERECTOMY (CERVIX STATUS UNKNOWN) Medications: aspirin 81 mg Oral BID sodium chloride 2 g Oral TID WC linezolid 600 mg Oral 2 times per day sodium chloride flush 5-40 mL IntraVENous 2 times per day ferrous sulfate 325 mg Oral Daily with breakfast folic acid 1 mg Oral Daily ascorbic acid 500 mg Oral Daily therapeutic multivitamin-minerals 1 tablet Oral Daily pantoprazole 40 mg Oral Daily pramipexole 0.25 mg Oral Nightly thiamine 100 mg Oral Daily piperacillin-tazobactam 3,375 mg IntraVENous Q8H Social History: Social History Socioeconomic History Marital status: Spouse name: Not on file Number of children: Not on file Years of education: Not on file Highest education level: Not on file Occupational History Not on file Tobacco Use Smoking status: Never Smokeless tobacco: Never Substance and Sexual Activity Alcohol use: Never Drug use: Not on file Sexual activity: Not on file Other Topics Concern Not on file Social History Narrative Not on file Social Drivers of Health Financial Resource Strain: Not on file Food Insecurity: No Food Insecurity (12/14/2024) Hunger Vital Sign Worried About Running Out of Food in the Last Year: Never true Ran Out of Food in the Last Year: Never true Transportation Needs: No Transportation Needs (12/14/2024) PRAPARE - Transportation Lack of Transportation (Medical): No Lack of Transportation (Non-Medical): No Physical Activity: Not on file Stress: Not on file Social Connections: Not on file Intimate Partner Violence: Not on file Housing Stability: Low Risk (12/14/2024) Housing Stability Vital Sign Unable to Pay for Housing in the Last Year: No Number of Times Moved in the Last Year: 0 Homeless in the Last Year: No Family History: Family History Problem Relation Age of Onset Cancer Mother leukemia Medical Decision Making: I have independently reviewed/ordered the following labs: CBC with Differential: Recent Labs 12/16/24 1103 12/17/24 0427 12/17/24 0841 12/17/24 1513 WBC 9.2 6.9 -- -- HGB 8.4* 7.0* 7.3* 9.3* HCT 25.0* 20.9* 21.1* 29.1* PLT 206 190 -- -- BMP: Recent Labs 12/17/24 0427 12/18/24 0832 NA 128* 127* K 3.3* 3.2* CL 98 98 CO2 22 19* BUN 7* 6* CREATININE 0.5* 0.4* MG 1.4* 1.6 Hepatic Function Panel: No results for input(s): LABALBU , BILIDIR , IBILI , BILITOT , ALKPHOS , ALT , AST in the last 72 hours. Invalid input(s): PROT No results for input(s): RPR in the last 72 hours. No results for input(s): HIV in the last 72 hours. No results for input(s): BC in the last 72 hours. Lab Results Component Value Date/Time CREATININE 0.4 12/18/2024 08:32 AM GLUCOSE 78 12/18/2024 08:32 AM Detailed results: Thank you for allowing us to participate in the care of this patient.Please call with questions. This note is created with the assistance of a speech recognition program. While intending to generate adocument that actually reflects the content of the visit, the document can still have some errors including those of syntax and sound a like substitutions which may escape proof reading. It such instances, actual meaningcan be extrapolated by contextual diversion. Rafaela Yen MD Office: [facility] / office [phone] * All Schmidt DO - 12/18/2024 3:25 PM EDT Physician Progress Note PATIENT: SUZAN ESCALONA CSN #: [id number] : 1945 ADMIT DATE: 12/13/2024 3:18 PM DISCH DATE: RESPONDING PROVIDER #: All Schmidt DO QUERY TEXT: Based on your medical judgment, please clarify these findings and document if any of the following are being evaluated and/or treated: The clinical indicators include: admission with an infected Right prosthetic joint with dislocation. Already noted to have Iron deficiency anemia. 12/14 - OP note- removed joint and replaced with temporary spacer with antibiotics. EBL- 225 ml HBG - - 12/13 - 8.0; 12/14 - 7.9, 9.1, 10.3 12/14 - IV - PRBC X2 12/14- IV D5% and 0.45% NS @ 50 IV - Zosyn, Ancef, Vancomycin. Options provided: -- Precipitous drop in Hemoglobin and Hematocrit -- Postoperative acute blood loss anemia -- Acute blood loss anemia -- Other - I will add my own diagnosis -- Disagree - Not applicable / Not valid -- Refer to Clinical Documentation Reviewer PROVIDER RESPONSE TEXT: This patient has postoperative acute blood loss anemia. Query created by: Catalino Thompson on 12/15/2024 9:49 AM Electronically signed by: All Schmidt DO 12/18/2024 3:24 PM * Nuvia Sims RD - 12/18/2024 1:40 PM EDT Comprehensive Nutrition Assessment Type and Reason for Visit: Reassess Nutrition Recommendations/Plan: Modify ONS to Ensure Clear BID Encourage PO intake as able Will monitor PO/ONS intake, wt, GI status, and POC Malnutrition Assessment: Malnutrition Status: Moderate malnutrition (12/18/24 1338) Context: Chronic Illness Findings of the 6 clinical characteristics of malnutrition: Energy Intake: Unable to assess Weight Loss: Unable to assess Body Fat Loss: (Moderate body fat loss) Orbital, Triceps, Buccal region Muscle Mass Loss: Severe muscle mass loss Temples (temporalis), Clavicles (pectoralis & deltoids), Hand (interosseous) Fluid Accumulation: Mild Extremities [place] Former Strength: Not Performed Nutrition Assessment: RD f/u for intake. Pt s/p ortho surgery. PO intake reported as 50-75% of meals. Pt was ordered Ensure and then Magic Cup. Pt reports not liking them. RD to try Ensure Clear, pt is agreeable. NFPE finds moderate to severe muscle/fat loss. Pt meets criteria for moderate (at least) malnutrition. RD will continue to monitor per protocol. Nutrition Related Findings: LBM on 12/18. Non-pitting RUE; trace RLE edema. Wound Type: Pressure Injury Current Nutrition Intake & Therapies: Average Meal Intake: 51-75% Average Supplements Intake: 0% ADULT DIET; Regular ADULT ORAL NUTRITION SUPPLEMENT; Dinner, Breakfast; Clear Liquid Oral Supplement Anthropometric Measures: Height: 162.6 cm (5' 4 ) [place] Body Weight (IBW): 120 lbs (55 kg) Current Body Weight: 54.9 kg (121 lb 0.5 oz), 100.9 % IBW. Current BMI (kg/m2): 20.8 Estimated Daily Nutrient Needs: Energy Requirements Based On: Kcal/kg Weight Used for Energy Requirements: Current Energy (kcal/day): 0371-7610 kcals/day Weight Used for Protein Requirements: Current Protein (g/day): 66-76 g/day Method Used for Fluid Requirements: 1 ml/kcal Fluid (ml/day): 2135-6592 ml/day Nutrition Diagnosis: Moderate malnutrition related to inadequate protein-energy intake as evidenced by criteria as identified in malnutrition assessment Nutrition Interventions: Food and/or Nutrient Delivery: Continue Current Diet, Modify Oral Nutrition Supplement Nutrition Education/Counseling: Survival skills/brief education completed Coordination of Nutrition Care: Continue to monitor while inpatient Plan of Care discussed with: Pt Goals: Goals: Meet at least 75% of estimated needs, prior to discharge Type of Goal: New goal Nutrition Monitoring and Evaluation: Behavioral-Environmental Outcomes: None Identified Food/Nutrient Intake Outcomes: Food and Nutrient Intake, Supplement Intake Physical Signs/Symptoms Outcomes: Biochemical Data, GI Status, Meal Time Behavior, Weight Discharge Planning: Too soon to determine Nuvia Sims RDN, LD, MS Contact: [phone] * All Schmidt DO - 12/18/2024 8:19 AM EDT Images from the original note were not included. [facility] Office: [phone] Flex Nicolas DO, Solo Rivas DO, Ananda Galaviz DO, Wilner Wilson DO, Zabrina Landin MD, Charmaine Kendrick MD, Vandana Sotomayor MD, Jaki Borja MD, Antwan Fowler MD, Hermilo Qureshi MD, Nikole Coleman MD, All Schmidt DO, Catalino Nicolas DO, Kate Ling MD, Ranjit Vann DO, Bev Connolly MD, Lisa Caceres MD, America Tucker MD, Lamont Maguire MD, Ankit Ridley MD,Edgar Roche MD, Quitnen Quigley MD, River Zuniga MD, Kolby aVsquez MD, Lucius Nickesron DO,Briana Newberry MD, Naif Barron DO, Jimy Davis MD, Moises Valentine MD, All Duong MD, Elen Duong MD, Elaine Herzog MD, Esther Eason, BICYCLE COURIER, Roxana Dimas CNP, Lucius Ramos CNP, OPAL Hogan, Fany Limon CNP, Leeann Costello BICYCLE COURIER, Trini Lewis BICYCLE COURIER, Sherice Dolan BICYCLE COURIER, DEQUAN RichardC, Gloria Tucker, BICYCLE COURIER, Rosalia Franco, BICYCLE COURIER, Sylwia Foreman, BICYCLE COURIER, Harleen Mercado, BICYCLE COURIER, Franklin Valencia PA-C, Barbara Stapleton PA-C, Joana Geiger, BICYCLE COURIER, Isreal Taylor, BICYCLE COURIER, Melyssa Hernadez, BICYCLE COURIER, Sagrario Gould, HEARING STENOGRAPHER, Kelly Lopes, BICYCLE COURIER, Tena Blanchard, BICYCLE COURIER [facility] IN-PATIENT SERVICE [facility] Progress Note 12/18/2024 8:19 AM Name: Suzan Escalona Acct: [id number] Room: [address] [place], [place] [address]-[facility] Day: 5 Admit Date: 12/13/2024 3:18 PM PCP: Anju Jacobsen MD Code Status: DNR-CC Subjective: No acute events overnight. Patient is oriented to person place time and year. Tells me her fell down and her shoulder and is currently being seen in the ER. She does have some back pain and was nauseated this morning. Potassium 3.2 sodium 127 Brief History: 79-year-[facility] extremity pain. Patient had a fall on 11/08, underwent right hip hemiarthroplasty on 11/10/2024. X-ray performed on 12/13 showed complete superior dislocation of right hip. Transferred to ED for further evaluation. Unclear when dislocation happened. Patient did not have any fall or trauma at facility, she was found tohave an anterior dislocation of her right hip. Ortho was consulted in the emergency department. Shehad a closed reduction in the emergency department with anesthesia and plan is for OR intervention on 12/14/2024. Initially there were concerns for encephalopathy and UTI. She does have a chronic indwelling Cam catheter from the facility. Patient was made a full code for surgery however postprocedure she is going to return to a DNR CC it would appear. There is dementia at baseline per patient's spouse documented on H&P Medications: Allergies: Allergies Allergen Reactions Moxifloxacin Anaphylaxis Codeine Other reaction(s): Mental Status Change Duramorph [Morphine] Rash Penicillins Nausea And Vomiting Current Meds: Scheduled Meds: sodium chloride 2 g Oral TID enoxaparin 40 mg SubCUTAneous Daily linezolid 600 mg Oral 2 times per day sodium chloride flush 5-40 mL IntraVENous 2 times per day ferrous sulfate 325 mg Oral Daily with breakfast folic acid 1 mg Oral Daily ascorbic acid 500 mg Oral Daily therapeutic multivitamin-minerals 1 tablet Oral Daily pantoprazole 40 mg Oral Daily pramipexole 0.25 mg Oral Nightly thiamine 100 mg Oral Daily piperacillin-tazobactam 3,375 mg IntraVENous Q8H Continuous Infusions: sodium chloride PRN Meds: sodium chloride flush, sodium chloride, potassium chloride OR potassium alternative oral replacement OR potassium chloride, magnesium sulfate, ondansetron OR ondansetron, polyethylene glycol, acetaminophen OR acetaminophen, hypromellose, oxyCODONE-acetaminophen OR oxyCO DONE-acetaminophen Data: Vitals: BP 118/65 Pulse 79 Temp 98.1 ??F (36.7 ??C) (Temporal) Resp 20 Ht 1.626 m (5' 4 ) Wt 54.9kg (121 lb) SpO2 100% BMI 20.77 kg/m?? Temp (24hrs), Av.1 ??F (36.7 ??C), Min:98.1 ??F (36.7 ??C), Max:98.1 ??F (36.7 ??C) No results for input(s): POCGLU in the last 72 hours. I/O (24Hr): Intake/Output Summary (Last 24 hours) at 12/18/2024 0819 Last data filed at 12/17/20241999 Gross per 24 hour Intake -- Output 1200 ml Net -1200 ml Labs: Hematology: Recent Labs 12/16/24 1103 12/17/24 0427 12/17/24 0841 12/17/24 1513 WBC 9.2 6.9 -- -- RBC 2.82* 2.39* -- -- HGB 8.4* 7.0* 7.3* 9.3* HCT 25.0* 20.9* 21.1* 29.1* MCV 88.7 87.4 -- -- MCH 29.8 29.3 -- -- MCHC 33.6 33.5 -- -- RDW 13.4 13.5 -- -- PLT 206 190 -- -- MPV 9.5 9.4 -- -- CRP -- 20.7* -- -- Chemistry: Recent Labs 12/16/24 1103 12/17/24 0427 NA 130* 128* K 3.1* 3.3* CL 99 98 CO2 20 22 GLUCOSE 94 88 BUN 6* 7* CREATININE 0.5* 0.5* MG 1.7 1.4* ANIONGAP 11 8* LABGLOM >90 >90 CALCIUM 9.0 8.2* No results for input(s): LABALBU , LABA1C , P0TUJGN , FT4 , TSH , AST , ALT , LDH , GGT , ALKPHOS , BILITOT , BILIDIR , AMMONIA , AMYLASE , LIPASE , LACTATE , CHOL , HDL , CHOLHDLRATIO , TRIG , VLDL , VFU02BU , PHENYTOIN , PHENYF , URICACID , POCGLU in the last 72 hours. Invalid input(s): PROT , D2LXVNY , LABGGT , LDLCHOLESTEROL ABG: Lab Results Component Value Date/Time PHART 7.333 12/14/2024 04:06 PM QDU0FSK 41.1 12/14/2024 04:06 PM PO2ART 203.9 12/14/2024 04:06 PM RTH6OYZ 21.3 12/14/2024 04:06 PM NBEA 4.2 12/14/2024 04:06 PM I8TKLLGV 99.3 12/14/2024 04:06 PM FIO2 60% 12/14/2024 04:06 PM Lab Results Component Value Date/Time SPECIAL Site: Swab 12/14/2024 03:35 PM Lab Results Component Value Date/Time CULTURE NORMAL SKIN DANN 12/14/2024 03:35 PM CULTURE No anaerobic organisms isolated at 4 days. 12/14/2024 03:35 PM Radiology: FL MODIFIED BARIUM SWALLOW W VIDEO Result Date: 12/15/2024 1. Deep penetration without aspiration, followed by reflexive cough with the thin liquid substance.2. Penetration without aspiration with the thick liquid substance. 3. No penetration or aspiration with the pureed/pudding thick substance. Please see separate speech pathology report for full discussion of findings and recommendations. XR HIP 2-3 VW W PELVIS RIGHT Result Date: 12/14/2024 1. 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 CT HEAD WO CONTRAST Result Date: 12/14/2024 1. No acute intracranial abnormality. 2. Severe chronic microvascular disease. 3. 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 CT HIP RIGHT WO CONTRAST Result Date: 12/14/2024 1. Right hip arthroplasty hardware. No obvious periprosthetic lucency or acute osseous abnormality.2. Region of fluid overlying the right greater trochanter measuring 7.0 x 1.9 x 3.8 cm likely a seroma. Infection/abscess or liquefying hematoma not entirely excluded in the appropriate clinical setting. 3. Gas in the subcutaneous fat along the right posterolateral thigh which may be related to recent surgery, trauma and/or infection. 4. Dyyp-jq-sfkacwep edema in the subcutaneous fat about the bilateral hip/thighs, right greater than left. 5. Moderate edema/fluid in the presacral fat. 6. Mild fat stranding of the urinary bladder which can be seen with cystitis. Correlate with urinalysis. 7. Mild left hip osteoarthrosis. XR CHEST PORTABLE Result Date: 12/14/2024 No acute airspace disease identified. XR FEMUR RIGHT (MIN 2 VIEWS) Result Date: 12/14/2024 1. Right hip prosthesis in place. XR HIP RIGHT (2-3 VIEWS) Result Date: 12/13/2024 Successful reduction right total hip arthroplasty. No fracture. XR HIP RIGHT (2-3 VIEWS) Result Date: 12/13/2024 1. Right hip dislocation with the femoral head seen superior in relation to the acetabulum. 2. Right hip hemiarthroplasty. Physical Examination: General appearance: alert, cooperative and no distress, frail, elderly Mental Status: oriented to person, place and time and normal affect Lungs: clear to auscultation bilaterally, normal effort Heart: regular rate and rhythm, no murmur Abdomen: soft, nontender, nondistended, normal bowel sounds, no masses, hepatomegaly, splenomegaly Extremities: no edema, redness, tenderness in the calves Skin: no gross lesions, rashes, induration Assessment: Hospital Problems Last Modified POA * (Principal) Anterior dislocation of right hip, initial encounter ([facility]) 12/13/2024 Yes Hypothyroidism 12/13/2024 Yes GERD (gastroesophageal reflux disease) 12/13/2024 Yes Anemia 12/13/2024 Yes Hyponatremia 12/13/2024 Yes Hypokalemia 12/13/2024 Yes Closed dislocation of right hip ([facility]) 12/14/2024 Yes Infection of right prosthetic hip joint 12/14/2024 Yes CRP elevated 12/14/2024 Yes Acute on chronic urinary retention 12/17/2024 Yes Plan: Right hip anterior dislocation from previous hemiarthroplasty with infection: Ortho signed off. WBAT to RLE. ASA 81 mg BID for 30 days. Follow up with 01/01. Surgical site infection: Right hip. Antibiotics per infectious disease, currently on Zyvox, Zosyn BCx 2 NGTD. Surgical culture pending- further abx tailoring per ID Chronic hyponatremia sodium level 131 on admission, currently 128 takes sodium chloride 1 g 3 times daily at home. . Continue fluid restriction. Hypokalemia: Continue aggressive supplementation, BMP today Dementia with delirium Could be worsened by infection and hospital stay. CT head completed on admission demonstrated no acute findings, did demonstrate severe chronic microvascular disease and old bilateral basal ganglier lacunar infarcts Mentation is improving Hypothyroid: Continue levothyroxine. Check TSH/T4 Acute anemia on normocytic normochromic anemia: Iron studies reviewed demonstrating iron deficiency anemia. Continue Venofer x 3 days. Did receive 2 units PRBCs after surgery for hemoglobin of 5.9. Hgb today 9.3. Hypomagnesemia: Supplement magnesium today Chronic indwelling cath: Patient had Cam exchanged at [facility] on 11/20/2024 per patient's spouse. Will aim to have this exchanged again on 12/20/2024 as patient is still admitted Protonix, resume Lovenox Dysphagia: Patient passed a modified barium swallow study with dysphagia 1 diet with thin liquids however patient's POA is refusing this recommendation Continues to be stable for discharge, awaiting placement Medical Decision Making: Medium Disposition awaiting placement All Schmidt DO 12/18/2024 8:19 AM * Anju Garland APRN - [facility] - 12/17/2024 7:58 AM EDT Images from the original note were not included. [facility] Office: [phone] Flex Nicolas DO, Solo Rivas DO, Ananda Galaviz DO, Wilner Wilson DO, Zabrina Landin MD, Charmaine Kendrick MD, Vandana Sotomayor MD, Jaki Borja MD, Antwan Fowler MD, Hermilo Qureshi MD, Nikole Coleman MD, All Schmidt DO, Catalino Nicolas DO, Kate Ling MD, Ranjit Vann DO, Bev Connolly MD, Lisa Caceres MD, America Tucker MD, Lamont Maguire MD, Ankit Ridley MD,Edgar Roche MD, Quinten Quigley MD, River Zuniga MD, Kolby Vasquez MD, Lucius Nickerson DO,Briana Newberry MD, Naif Barron DO, Jimy Davis MD, Moises Valentine MD, All Duong MD, Elen Duong MD, Elaine Herzog MD, Esther Eason, BICYCLE COURIER, Roxana Dimas, BICYCLE COURIER, Lucius Ramos, BICYCLE COURIER, Samira, [facility], Fayn Limon, BICYCLE COURIER, Leeann Costello, BICYCLE COURIER, Trini Lewis, BICYCLE COURIER, Sherice Dolan, BICYCLE COURIER, Grecia Brown, PA-C, Gloria Tucker, BICYCLE COURIER, Rosalia Franco, BICYCLE COURIER, Sylwia Foreman, BICYCLE COURIER, Harleen Mercado, BICYCLE COURIER, Franklin Valencia, PA-C, Barbara Stapleton, PA-C, Joana Geiger, BICYCLE COURIER, Isreal Taylor, BICYCLE COURIER, Melyssa Hernadez, BICYCLE COURIER, Sagrario Gould, HEARING STENOGRAPHER, Kelly Lopes, BICYCLE COURIER, Tena Blanchard, BICYCLE COURIER [facility] IN-PATIENT SERVICE [facility] Progress Note 12/17/2024 7:58 AM Name: Suzan Escalona Acct: [id number] Room: [facility] Day: 4 Admit Date: 12/13/2024 3:18 PM PCP: Anju Jacobsen MD Code Status: DNR-CC Subjective: C/C: Chief Complaint Patient presents with Hip Pain Interval History Status: not changed. Patient seen and evaluated in room sitting in bed. No acute events overnight. Continues to await placement. Hemoglobin low but stable this morning. Potassium supplementation underway. Sodium level still low, patient is chronically low and on supplementation in the outpatient setting Labs, vitals reviewed Hemoglobin low at 7.0 today. Recheck H&H ordered, there is consent for blood if needed No new diagnostics over the last 24 hours Discussed with nursing Brief History: 79-year-old [facility] pain. Patient had a fall on 11/08, underwent right hip hemiarthroplasty on 11/10/2024. X-ray performed on 12/13 showed complete superior dislocation of right hip. Transferred to ED for further evaluation. Unclear when dislocation happened. Patient did not have any fall or trauma at facility, she was found to have an anterior dislocation of her right hip. Ortho was consulted in the emergency department. She had a closed reduction in the emergency department with anesthesia and plan is for OR intervention on 12/14/2024. Initially there were concerns for encephalopathy and UTI. She does have a chronic indwelling Cam catheter from the facility. Patient was made a full code for surgery however postprocedure she is going to return to a DNR CC it would appear. There is dementia at baseline per patient's spouse documented on H&P Review of Systems: Constitutional: negative for chills, fevers, sweats, + fatigue, + thirst Respiratory: negative for cough, dyspnea on exertion, shortness of breath, wheezing Cardiovascular: negative for chest pain, chest pressure/discomfort, lower extremity edema, palpitations Gastrointestinal: negative for abdominal pain, constipation, diarrhea, nausea, vomiting Neurological: negative for dizziness, headache + right hip pain Medications: Allergies: Allergies Allergen Reactions Moxifloxacin Anaphylaxis Codeine Other reaction(s): Mental Status Change Duramorph [Morphine] Rash Penicillins Nausea And Vomiting Current Meds: Scheduled Meds: enoxaparin 40 mg SubCUTAneous Daily sodium chloride 2 g Oral BID WC linezolid 600 mg Oral 2 times per day sodium chloride flush 5-40 mL IntraVENous 2 times per day ferrous sulfate 325 mg Oral Daily with breakfast folic acid 1 mg Oral Daily ascorbic acid 500 mg Oral Daily therapeutic multivitamin-minerals 1 tablet Oral Daily pantoprazole 40 mg Oral Daily pramipexole 0.25 mg Oral Nightly thiamine 100 mg Oral Daily piperacillin-tazobactam 3,375 mg IntraVENous Q8H Continuous Infusions: sodium chloride PRN Meds: sodium chloride flush, sodium chloride, potassium chloride OR potassium alternative oral replacement OR potassium chloride, magnesium sulfate, ondansetron OR ondansetron, polyethylene glycol, acetaminophen OR acetaminophen, hypromellose, oxyCODONE-acetaminophen OR oxyCO DONE-acetaminophen Data: Past Medical History: has a past medical history of Anemia, GERD (gastroesophageal reflux disease),and Hypothyroidism. Social History: reports that she has never smoked. She has never used smokeless tobacco. She reports that she does not drink alcohol. Family History: Family History Problem Relation Age of Onset Cancer Mother leukemia Vitals: BP 136/67 Pulse 82 Temp 97.2 ??F (36.2 ??C) (Oral) Resp 20 Ht 1.626 m (5' 4 ) Wt 54.9 kg (121 lb) SpO2 99% BMI 20.77 kg/m?? Temp (24hrs), Av.8 ??F (36.6 ??C), Min:97.2 ??F (36.2 ??C), Max:98.4 ??F (36.9 ??C) Recent Labs 12/14/24 14512/14/24 1606 POCGLU 142* 151* I/O (24Hr): Intake/Output Summary (Last 24 hours) at 12/17/2024 0758 Last data filed at 12/17/2024 0444 Gross per 24 hour Intake -- Output 1150 ml Net -1150 ml Labs: Hematology: Recent Labs 12/15/24 0640 12/16/24 11012/17/24 0427 WBC 10.0 9.2 6.9 RBC 3.14* 2.82* 2.39* HGB 9.1* 8.4* 7.0* HCT 27.6* 25.0* 20.9* MCV 87.9 88.7 87.4 MCH 29.0 29.8 29.3 MCHC 33.0 33.6 33.5 RDW 13.4 13.4 13.5 PLT 200 206 190 MPV 9.5 9.5 9.4 CRP 50.6* -- 20.7* Chemistry: Recent Labs 12/14/24 1450 12/14/24 1606 12/15/24 0640 12/16/24 1103 12/17/24 0427 NA 134* 133* 136 130* 128* K 2.7* 3.0* 3.4* 3.1* 3.3* CL -- -- 106 99 98 CO2 -- -- 17* 20 22 GLUCOSE -- -- 167* 94 88 BUN -- -- 5* 6* 7* CREATININE -- -- 0.5* 0.5* 0.5* MG -- -- 1.0* 1.7 1.4* ANIONGAP -- -- 13 11 8* LABGLOM -- -- >90 >90 >90 CALCIUM -- -- 8.5* 9.0 8.2* CAION 1.09* 1.05* -- -- -- LACTACIDWB 0.8 0.8 -- -- -- Recent Labs 12/14/24 1450 12/14/24 1606 12/15/24 0640 TSH -- -- 0.97 POCGLU 142* 151* -- ABG: Lab Results Component Value Date/Time PHART 7.333 12/14/2024 04:06 PM XKW2PHG 41.1 12/14/2024 04:06 PM PO2ART 203.9 12/14/2024 04:06 PM TLA8NUA 21.3 12/14/2024 04:06 PM NBEA 4.2 12/14/2024 04:06 PM Q2FCOGPY 99.3 12/14/2024 04:06 PM FIO2 60% 12/14/2024 04:06 PM Lab Results Component Value Date/Time SPECIAL Site: Swab 12/14/2024 03:35 PM Lab Results Component Value Date/Time CULTURE NORMAL SKIN DANN 12/14/2024 03:35 PM CULTURE No anaerobic organisms isolated at 3 days. 12/14/2024 03:35 PM Radiology: XR HIP 2-3 VW W PELVIS RIGHT Result Date: 12/14/2024 1. 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 CT HEAD WO CONTRAST Result Date: 12/14/2024 1. No acute intracranial abnormality. 2. Severe chronic microvascular disease. 3. 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 CT HIP RIGHT WO CONTRAST Result Date: 12/14/2024 1. Right hip arthroplasty hardware. No obvious periprosthetic lucency or acute osseous abnormality.2. Region of fluid overlying the right greater trochanter measuring 7.0 x 1.9 x 3.8 cm likely a seroma. Infection/abscess or liquefying hematoma not entirely excluded in the appropriate clinical setting. 3. Gas in the subcutaneous fat along the right posterolateral thigh which may be related to recent surgery, trauma and/or infection. 4. Qhyl-en-qbnshsll edema in the subcutaneous fat about the bilateral hip/thighs, right greater than left. 5. Moderate edema/fluid in the presacral fat. 6. Mild fat stranding of the urinary bladder which can be seen with cystitis. Correlate with urinalysis. 7. Mild left hip osteoarthrosis. XR CHEST PORTABLE Result Date: 12/14/2024 No acute airspace disease identified. XR FEMUR RIGHT (MIN 2 VIEWS) Result Date: 12/14/2024 1. Right hip prosthesis in place. XR HIP RIGHT (2-3 VIEWS) Result Date: 12/13/2024 Successful reduction right total hip arthroplasty. No fracture. XR HIP RIGHT (2-3 VIEWS) Result Date: 12/13/2024 1. Right hip dislocation with the femoral head seen superior in relation to the acetabulum. 2. Right hip hemiarthroplasty. Physical Examination: General appearance: alert, cooperative and no distress Mental Status: oriented to person, place and time and normal affect Lungs: clear to auscultation bilaterally, normal effort Heart: regular rate and rhythm, no murmur Abdomen: soft, nontender, nondistended, normal bowel sounds Extremities: no edema, redness, tenderness in the calves Skin: Pale, no gross lesions, rashes, induration, drain intact postsurgically to right hip Assessment: Hospital Problems Last Modified POA * (Principal) Anterior dislocation of right hip, initial encounter ([facility]) 12/13/2024 Yes Hypothyroidism 12/13/2024 Yes GERD (gastroesophageal reflux disease) 12/13/2024 Yes Anemia 12/13/2024 Yes Hyponatremia 12/13/2024 Yes Hypokalemia 12/13/2024 Yes Closed dislocation of right hip ([facility]) 12/14/2024 Yes Infection of right prosthetic hip joint 12/14/2024 Yes CRP elevated 12/14/2024 Yes Plan: Right hip anterior dislocation from previous hemiarthroplasty with infection: Management per Ortho. Surgical site infection: Right hip. Antibiotics per infectious disease, currently on Zyvox, Zosyn BCx 2 NGTD. Surgical culture pending- further abx tailoring per ID Chronic hyponatremia sodium level 131 on admission, currently 128 takes sodium chloride 1 g 3 timesdaily at home. Dose increased. Continue fluid restriction. Hypokalemia: Continue aggressive supplementation, BMP tomorrow Hypocalcemia: BMP ordered for today Acute encephalopathy: Dementia versus metabolic. 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 Check TSH/T4 Acute anemia on normocytic normochromic anemia: Iron studies reviewed demonstrating iron deficiencyanemia. Start Venofer x 3 days. Did receive 2 units PRBCs after surgery for hemoglobin of 5.9. Hgb today 7.0. repeat H & H ordered, resulted at 7.2. Will track H&H at 1500 today Hypomagnesemia: Supplement magnesium today Chronic indwelling cath: Patient had Cam exchanged at [facility] on 11/20/2024 per patient's spouse. Will aim to have this exchanged again on 12/20/2024 as patient is still admitted Protonix, resume Lovenox Dysphagia: Patient passed a modified barium swallow study with dysphagia 1 diet with thin liquids however patient's POA is refusing this recommendation, risks and benefits were discussed with patientand POA Continues to be stable for discharge, awaiting placement SETH Diego NP 12/17/2024 7:58 AM * Jemima Fishman RN - 12/17/2024 7:50 AM EDT Notified [facility] Anju HgB 7.0 this morning. * Luc Gutierrez MD - 12/17/2024 5:36 AM EDT [facility] - Daily Progress Note Today's Date and Time: 12/17/2024, 5:37 AM Impression : Right hip hemiarthroplasty November 10, 202412/13 dislocated hip, had to be repositioned 12/13 surgical wound drainage - infected deep hardware S/p explantation 12/14 Culture: Normal skin dann CRP elevation 88 Alcohol abuse with chronic hyponatremia Hypothyroidism Urinary retention with chronic Cam Dementia Avelox allergy PCN allergy: Nausea and emesis DNR-CC Recommendations: PO Zyvox and IV Zosyn continue No growth on blood cultures Surgical culture 12-14-24: Normal skin dann Dr Yen to review and simplify treatment on 12-18-28 Interval History: HPI: Patient has a history of: Alcohol abuse with chronic hyponatremia Hypothyroidism Urinary retention with chronic Cam Dementia Avelox allergy PCN allergy DNR-CC She presented as a transfer from [facility] for Ortho evaluation of right hip dislocation. She is s/p right hip hemiarthroplasty on 11/10/24 after fall with right hip fracture. It is not knownwhen the dislocation occurred, and there was no documented fall or injury, but it was revealed on imaging on 12/13/24. There was surgical wound drainage noted and ID was consulted. The patient was started on IV Zosyn and PO Zyvox. She underwent washout with hardware removal on 12/14/24, and was noted to have infected deep hardware. Hardware removal was performed with prophylactic cable fixation, antibiotic cement placement, andsaucerization of the right femur with Prevena wound vac placement. Surgical cultures have yielded normal skin dann. Of note, the patient has a DNR-CC code status. Plans to transfer to [facility] with outpatient follow-up with Ortho in 2 weeks. CURRENT EVALUATION : 12/17/2024 BP 114/65 Pulse 82 Temp 98.2 ??F (36.8 ??C) (Oral) Resp 20 Ht 1.626 m (5' 4 ) Wt 54.9 kg (121 lb) SpO2 98% BMI 20.77 kg/m?? Afebrile VS stable Patient is stable with underlying dementia Prevena wound vac to right hip in place No new issues reported Medications reviewed: Zyvox and Zosyn continue Dr Yen to review and simplify treatment on 12-18-28 Lab-work reviewed CRP on a down-trend No growth on blood cultures Wound culture: Normal skin dann D/C planning underway to SNF Physical Examination : Temp (24hrs), Av.2 ??F (36.8 ??C), Min:97.3 ??F (36.3 ??C), Max:98.8 ??F (37.1 ??C) General Appearance: Awake, alert, and in no apparent distress Eyes: Sclera anicteric; conjunctivae pink, No hemorhages, no embolic phenomena. ENT: Oropharynx clear, without erythema, exudate, or thrush.No tenderness of sinuses. No nasal drainage. Neck: Supple, without lymphadenopathy. No JVD Pulmonary/Chest: Clear to auscultation, without wheezes, rales, or rhonchi. No areas of consolidation.Good air movement bilaterally. No egophony. Cardiovascular: Regular rate and rhythm without murmurs, rubs, or gallops. S1 and S2 normal. Abdomen: Soft, no tenderness, bowel sounds normal All four Extremities: No cyanosis, clubbing, edema, or effusions. Right hip wound vac in place to surgical site. Neurologic: No gross sensory or motor deficits. Underlying dementia Skin: Right hip wound vac in place to surgical site. . IV site inspected: no inflammation. Medical Decision Making: I have independently reviewed/ordered the following labs: CBC with Differential: Recent Labs 12/16/24 1103 12/17/24 0427 WBC 9.2 6.9 HGB 8.4* 7.0* HCT 25.0* 20.9* PLT 206 190 BMP: Recent Labs 12/15/24 0640 12/16/24 1103 12/17/24 0427 NA 136 130* 128* K 3.4* 3.1* 3.3* CL 106 99 98 CO2 17* 20 22 BUN 5* 6* 7* CREATININE 0.5* 0.5* 0.5* MG 1.0* 1.7 -- Hepatic Function Panel: No results for input(s): LABALBU , BILIDIR , IBILI , BILITOT , ALKPHOS , ALT , AST in the last 72 hours. Invalid input(s): PROT No results found for: VANCOTROUGH Medications: enoxaparin 40 mg SubCUTAneous Daily sodium chloride 2 g Oral BID WC linezolid 600 mg Oral 2 times per day sodium chloride flush 5-40 mL IntraVENous 2 times per day ferrous sulfate 325 mg Oral Daily with breakfast folic acid 1 mg Oral Daily ascorbic acid 500 mg Oral Daily therapeutic multivitamin-minerals 1 tablet Oral Daily pantoprazole 40 mg Oral Daily pramipexole 0.25 mg Oral Nightly thiamine 100 mg Oral Daily piperacillin-tazobactam 3,375 mg IntraVENous Q8H Elements of Medical Decision Making: Note: I have independently performed the steps listed below as part of the medical decision making and evaluation. Examined and discussed with patient. Right hip hemiarthroplasty November 10, 202412/13 dislocated hip, had to be repositioned and surgery 12/13 surgical wound drainage - infected deep hardware S/p explantation 12/14 No growth on culture thus far CRP elevation 88 Alcohol abuse with chronic hyponatremia Hypothyroidism Urinary retention with chronic Cam Dementia Avelox allergy PCN allergy DNR-CC Labs, medications, radiologic studies were reviewed with personal review of films Radiologic studies Lab work Cultures Large amounts of data were reviewed Please see the history of present illness and progress note Discussed with nursing Staff, operations planner Dr Schmidt Infection Control and Prevention measures reviewed [place] precaution All prior entries were reviewed IM notes reviewed Administer medications as ordered Meesygwendolyn Linezolirick Yen to review and simplify treatment on 12-18-28 Prognosis: Guarded Discharge planning reviewed Follow up as outpatient. Thank you for allowing us to participate in the care of this patient. Please call with questions. Luc Gutierrez MD 12/17/2024 Office: * Lily Bustillo - 12/16/2024 11:23 AM EDT [facility] Shift date: 12/16/2024 Shift day: Wednesday Shift # 1 Room # 0234/0234-01 Name: Suzan Escalona Mormonism: Non-druze Place of mu-ism: None Referral: Routine Visit/Referral from previous marble setter Admit Date & Time: 12/13/2024 3:18 PM Assessment: Suzan Escalona is a 79 y.o. female in the hospital. Upon entering the room clinical writer observes patient sitting upright in bed. She is alert. is also in the room, sitting bedside on couch. Intervention: Ship Mate introduced self and title as Chaplain Lily from [facility]. Ship Mate offered space for patient and spouse to express feelings, needs, and concerns and provided a ministry presence. Patient shares concern about when she will be able to go home. She misses her benavides retriever at home. We engage in conversation about their home and their love of their dog. Outcome: This clinical writer provides supportive presence by affirmations and active listening. Ship Mate offers prayerat bedside. Patient and are both receptive. expresses gratitude for this visit. Plan: Chaplains will remain available to offer spiritual and emotional support as needed. 12/16/24 1122 Encounter Summary Encounter Overview/Reason Spiritual/Emotional Needs Service Provided For Patient and family together Referral/Consult From [facility] Support System Spouse Last Encounter 12/16/24 Complexity of Encounter Low Begin Time 1105 End Time 1120 Total Time Calculated 15 min Assessment/Intervention/Outcome Assessment Anxious;Sad Intervention Active listening;Prayer (assurance of)/[place];Sustaining Presence/Ministry of presence Outcome Engaged in conversation;Receptive;Coping . [facility] [phone] * Anju Garland APRN - NP - 12/16/2024 10:49 AM EDT Images from the original note were not included. [facility] Office: [phone] Flex Nicolas DO, Solo Rivas DO, Ananda Galaviz DO, Wilner Wilson DO, Zabrina Landin MD, Charmaine Kendrick MD, Vandana Sotomayor MD, Jaki Borja MD, Antwan Fowlre MD, Hermilo Qureshi MD, Nikole Coleman MD, All Schmidt DO, Catalino Nicolas DO, Kate Ling MD, Ranjit Vann DO, Bev Connolly MD, Lisa Caceres MD, America Tucker MD, Lamont Maguire MD, Ankit Ridley MD,Edgar Roche MD, Quinten Quigley MD, Rivre Zuniga MD, Kolby Vasquez MD, Lucius Nickerson DO,Briana Newberry MD, Naif Barron DO, Jimy Davis MD, Moises Valentine MD, All Duong MD, Elen Duong MD, Elaine Herzog MD, Esther Eason, BICYCLE COURIER, Roxana Dimas, BICYCLE COURIER, Lucius Ramos, BICYCLE COURIER, Samira, [facility]AL, Fany Limon, BICYCLE COURIER, Leeann Costello, BICYCLE COURIER, Trini Lewis, BICYCLE COURIER, Sherice Dolan, BICYCLE COURIER, Grecia Brown, PA-C, Gloria Tucker, BICYCLE COURIER, Rosalia Franco, BICYCLE COURIER, Sylwia Foreman, BICYCLE COURIER, Harleen Mercado, BICYCLE COURIER, Franklin Valencia, PA-C, Barbara Stapleton, PA-C, Joana Geiger, BICYCLE COURIER, Isreal Taylor, BICYCLE COURIER, Melyssa Hernadez, BICYCLE COURIER, Sagrario Gould, [facility], Kelly Lopes, BICYCLE COURIER, Tena Blanchard, BICYCLE COURIER [facility] IN-PATIENT SERVICE [facility] Progress Note 12/16/2024 10:49 AM Name: Suzan Escalona Acct: [id number] Room: 0234/0234-01 Day: 3 Admit Date: 12/13/2024 3:18 PM PCP: Anju Jacobsen MD Code Status: DNR-CC Subjective: C/C: Chief Complaint Patient presents with Hip Pain Interval History Status: not changed. Patient seen and evaluated in room. Mouth is dry, IV fluids were discontinued this morning with concern for dilution with low hemoglobin however hemoglobin did come back within normal limits. She is scheduled to undergo a modified barium swallow study for assessment of safe diet. She is intermittently confused. Had discussion with patient's spouse this morning. Did verify CODE STATUS as a DNR CC,now that surgical intervention has been completed. Patient spouse did consent to blood administration as well. Patient appears profoundly fatigued on assessment. Intermittently oriented, states the year appropriately, states she is in a hospital in [place] but then her speech has a tendency to drift off Labs, vitals reviewed, patient on 4 L nasal cannula Potassium and magnesium both low today, supplementation ordered Receiving Venofer for ELE Swallow study planned Brief History: 79-year-old [facility] pain. Patient had a fall on 11/08, underwent right hip hemiarthroplasty on 11/10/2024. X-ray performed on 12/13 showed complete superior dislocation of right hip. Transferred to ED for further evaluation. Unclear when dislocation happened. Patient did not have any fall or trauma at facility, she was found to have an anterior dislocation of her right hip. Ortho was consulted in the emergency department. She had a closed reduction in the emergency department with anesthesia and plan is for OR intervention on 12/14/2024. Initially there were concerns for encephalopathy and UTI. She does have a chronic indwelling Cam catheter from the facility. Patient was made a full code for surgery however postprocedure she is going to return to a DNR CC it would appear. There is dementia at baseline per patient's spouse documented on H&P Review of Systems: Constitutional: negative for chills, fevers, sweats, + fatigue, + thirst Respiratory: negative for cough, dyspnea on exertion, shortness of breath, wheezing Cardiovascular: negative for chest pain, chest pressure/discomfort, lower extremity edema, palpitations Gastrointestinal: negative for abdominal pain, constipation, diarrhea, nausea, vomiting Neurological: negative for dizziness, headache + right hip pain Medications: Allergies: Allergies Allergen Reactions Moxifloxacin Anaphylaxis Codeine Other reaction(s): Mental Status Change Duramorph [Morphine] Rash Penicillins Nausea And Vomiting Current Meds: Scheduled Meds: linezolid 600 mg Oral 2 times per day sodium chloride flush 5-40 mL IntraVENous 2 times per day ferrous sulfate 325 mg Oral Daily with breakfast folic acid 1 mg Oral Daily ascorbic acid 500 mg Oral Daily therapeutic multivitamin-minerals 1 tablet Oral Daily pantoprazole 40 mg Oral Daily sodium chloride 1 g Oral TID pramipexole 0.25 mg Oral Nightly thiamine 100 mg Oral Daily ketorolac 15 mg IntraVENous Q6H piperacillin-tazobactam 3,375 mg IntraVENous Q8H Continuous Infusions: sodium chloride PRN Meds: sodium chloride flush, sodium chloride, potassium chloride OR potassium alternative oral replacement OR potassium chloride, magnesium sulfate, ondansetron OR ondansetron, polyethylene glycol, acetaminophen OR acetaminophen, hypromellose, oxyCODONE-acetaminophen OR oxyCODONE- acetaminophen, potassium chloride OR potassium alternative oral replacement OR potassium chloride Data: Past Medical History: has a past medical history of Anemia, GERD (gastroesophageal reflux disease),and Hypothyroidism. Social History: reports that she has never smoked. She has never used smokeless tobacco. She reports that she does not drink alcohol. Family History: Family History Problem Relation Age of Onset Cancer Mother leukemia Vitals: BP (!) 109/46 Pulse 75 Temp 98.8 ??F (37.1 ??C) (Axillary) Resp 16 Ht 1.626 m (5' 4 ) Wt 54.9 kg (121 lb) SpO2 99% BMI 20.77 kg/m?? Temp (24hrs), Av.9 ??F (36.6 ??C), Min:97.3 ??F (36.3 ??C), Max:98.8 ??F (37.1 ??C) Recent Labs 12/14/24 0746 12/14/24 1450 12/14/24 1606 POCGLU 109* 142* 151* I/O (24Hr): Intake/Output Summary (Last 24 hours) at 12/16/2024 1049 Last data filed at 12/16/2024 0600 Gross per 24 hour Intake -- Output 775 ml Net -775 ml Labs: Hematology: Recent Labs 12/13/24 1630 12/13/24205412/13/24205412/14/24 0411 12/14/24 1450 12/14/24 1606 12/15/24 0640 WBC -- 9.1 -- 7.4 -- -- 10.0 RBC -- 2.79* -- 2.69* -- -- 3.14* HGB -- 8.0* < > 7.9* 8.3* 5.9* 9.1* HCT -- 24.7* < > 23.7* 24.0* 17.0* 27.6* MCV -- 88.5 -- 88.1 -- -- 87.9 MCH -- 28.7 -- 29.4 -- -- 29.0 MCHC -- 32.4 -- 33.3 -- -- 33.0 RDW -- 13.2 -- 13.3 -- -- 13.4 PLT -- 325 -- 323 -- -- 200 MPV -- 9.0 -- 9.2 -- -- 9.5 SEDRATE 12 -- -- -- -- -- -- CRP 88.6* -- -- -- -- -- 50.6* INR -- -- -- 1.6 -- -- -- < > = values in this interval not displayed. Chemistry: Recent Labs 12/13/24205412/14/2441012/14/24144912/14/24 16012/15/24 0640 NA 131* 133* 134* 133* 136 K 3.4* 3.8 2.7* 3.0* 3.4* CL 98 99 -- -- 106 CO2 20 19* -- -- 17* GLUCOSE 117* 113* -- -- 167* BUN 7* 6* -- -- 5* CREATININE 0.4* 0.4* -- -- 0.5* MG -- -- -- -- 1.0* ANIONGAP 13 15 -- -- 13 LABGLOM >90 >90 -- -- >90 CALCIUM 8.6 8.6 -- -- 8.5* CAION -- -- 1.09* 1.05* -- TROPHS 14 -- -- -- -- LACTACIDWB -- -- 0.8 0.8 -- Recent Labs 12/14/2441012/14/2474512/14/24144912/14/24 16012/15/24 0640 TSH -- -- -- -- 0.97 AST 40* -- -- -- -- ALT 11 -- -- -- -- ALKPHOS 80 -- -- -- -- BILITOT 0.3 -- -- -- -- POCGLU -- 109* 142* 151* -- ABG: Lab Results Component Value Date/Time PHART 7.333 12/14/2024 04:06 PM OTB1NSZ 41.1 12/14/2024 04:06 PM PO2ART 203.9 12/14/2024 04:06 PM CUU1JSO 21.3 12/14/2024 04:06 PM NBEA 4.2 12/14/2024 04:06 PM C7PNDWHI 99.3 12/14/2024 04:06 PM FIO2 60% 12/14/2024 04:06 PM Lab Results Component Value Date/Time SPECIAL Site: Swab 12/14/2024 03:35 PM Lab Results Component Value Date/Time CULTURE NORMAL SKIN DANN 12/14/2024 03:35 PM CULTURE No anaerobic organisms isolated at 2 days. 12/14/2024 03:35 PM Radiology: XR HIP 2-3 VW W PELVIS RIGHT Result Date: 12/14/2024 1. 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 CT HEAD WO CONTRAST Result Date: 12/14/2024 1. No acute intracranial abnormality. 2. Severe chronic microvascular disease. 3. 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 CT HIP RIGHT WO CONTRAST Result Date: 12/14/2024 1. Right hip arthroplasty hardware. No obvious periprosthetic lucency or acute osseous abnormality.2. Region of fluid overlying the right greater trochanter measuring 7.0 x 1.9 x 3.8 cm likely a seroma. Infection/abscess or liquefying hematoma not entirely excluded in the appropriate clinical setting. 3. Gas in the subcutaneous fat along the right posterolateral thigh which may be related to recent surgery, trauma and/or infection. 4. [id number] edema in the subcutaneous fat about the bilateral hip/thighs, right greater than left. 5. Moderate edema/fluid in the presacral fat. 6. Mild fat stranding of the urinary bladder which can be seen with cystitis. Correlate with urinalysis. 7. Mild left hip osteoarthrosis. XR CHEST PORTABLE Result Date: 12/14/2024 No acute airspace disease identified. XR FEMUR RIGHT (MIN 2 VIEWS) Result Date: 12/14/2024 1. Right hip prosthesis in place. XR HIP RIGHT (2-3 VIEWS) Result Date: 12/13/2024 Successful reduction right total hip arthroplasty. No fracture. XR HIP RIGHT (2-3 VIEWS) Result Date: 12/13/2024 1. Right hip dislocation with the femoral head seen superior in relation to the acetabulum. 2. Right hip hemiarthroplasty. Physical Examination: General appearance: alert, cooperative and no distress Mental Status: oriented to person, place and time and normal affect Lungs: clear to auscultation bilaterally, normal effort Heart: regular rate and rhythm, no murmur Abdomen: soft, nontender, nondistended, normal bowel sounds Extremities: no edema, redness, tenderness in the calves Skin: Pale, no gross lesions, rashes, induration, drain intact postsurgically to right hip Assessment: Hospital Problems Last Modified POA * (Principal) Anterior dislocation of right hip, initial encounter ([facility]) 12/13/2024 Yes Hypothyroidism 12/13/2024 Yes GERD (gastroesophageal reflux disease) 12/13/2024 Yes Anemia 12/13/2024 Yes Hyponatremia 12/13/2024 Yes Hypokalemia 12/13/2024 Yes Closed dislocation of right hip ([facility]) 12/14/2024 Yes Infection of right prosthetic hip joint 12/14/2024 Yes CRP elevated 12/14/2024 Yes Plan: Right hip anterior dislocation from previous hemiarthroplasty with infection: Management per Ortho.POD 2 Surgical site infection: Right hip. Antibiotics per infectious disease, currently on Vanco/Zosyn. BCx 2 NGTD. Surgical culture pending Chronic hyponatremia sodium level 131 on admission, currently 136 takes sodium chloride 1 g 3 timesdaily at home Hypokalemia: Continue aggressive supplementation, BMP ordered for today Hypocalcemia: BMP ordered for today Acute encephalopathy: Dementia versus metabolic. 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 Check TSH/T4 Acute anemia on normocytic normochromic anemia: Iron studies reviewed demonstrating iron deficiencyanemia. Start Venofer x 3 days. Did receive 2 units PRBCs after surgery for hemoglobin of 5.9. Repeat hemoglobin today 9.1 Hypomagnesemia: BMP ordered for today Chronic indwelling cath: Patient had Cam exchanged at [employer] on 11/20/2024 per patient's spouse. Will aim to have this exchanged again on 12/20/2024 as patient is still admitted Protonix, resume Lovenox Dysphagia: Patient passed a modified barium swallow study with dysphagia 1 diet with thin liquids however patient's POA is refusing this recommendation, risks and benefits were discussed with patientand POA SETH Diego NP 12/16/2024 10:49 AM * Luc Gutierrez MD - 12/16/2024 10:09 AM EDT ATTESTATION: I have discussed the case, including pertinent history and exam findings with the LEARNING AND DEVELOPMENT INTERN. I have evaluated the History, physical findings and pictures of the patient and the hernandez elements of the encounter have been performed by me. I have reviewed the laboratory data, other diagnostic studies and discussed them with the LEARNING AND DEVELOPMENT INTERN. I have updated the medical record where necessary. I agree with the assessment, plan and orders as documented by the LEARNING AND DEVELOPMENT INTERN. In addition diagnostic and decision making elements, performed by the Attending Physician, are included in the Diagnostic and Decision Making Section of the text. Elements of Medical Decision Making: Note: I have independently performed the steps listed below as part of the medical decision making and evaluation. Examined and discussed with patient. Right hip hemiarthroplasty November 10, 202412/13 dislocated hip, had to be repositioned and surgery 12/13 surgical wound drainage - infected deep hardware S/p explantation 12/14 No growth on culture thus far CRP elevation 88 Alcohol abuse with chronic hyponatremia Hypothyroidism Urinary retention with chronic Cam Dementia Avelox allergy PCN allergy DNR-CC Labs, medications, radiologic studies were reviewed with personal review of films Radiologic studies Lab work Cultures Large amounts of data were reviewed Please see the history of present illness and progress note Discussed with nursing Staff, operations planner Dr Schmidt Infection Control and Prevention measures reviewed [place] precaution All prior entries were reviewed IM notes reviewed Administer medications as ordered Zosyn Linezolid Prognosis: Guarded Discharge planning reviewed Follow up as outpatient. Luc Gutierrez MD 12/16/2024 [facility] - Daily Progress Note Today's Date and Time: 12/16/2024, 10:09 AM Impression : Right hip hemiarthroplasty November 10, 202412/13 dislocated hip, had to be repositioned and surgery 12/13 surgical wound drainage - infected deep hardware S/p explantation 12/14 No growth on culture thus far CRP elevation 88 Alcohol abuse with chronic hyponatremia Hypothyroidism Urinary retention with chronic Cam Dementia Avelox allergy PCN allergy DNR-CC Recommendations: Please follow suggestions as per Dr Gutierrez's recommendations: PO Zyvox and IV Zosyn continue No growth on surgical culture thus far Interval History: HPI: Patient has a history of: Alcohol abuse with chronic hyponatremia Hypothyroidism Urinary retention with chronic Cam Dementia Avelox allergy PCN allergy DNR-CC She presented as a transfer from [facility] for Ortho evaluation of right hip dislocation. She is s/p right hip hemiarthroplasty on 11/10/24 s/p fall with right hip fracture. It is not known when the dislocation occurred, and there was no documented fall or injury, but it was revealed on imaging on 12/13/24. There was surgical wound drainage noted and ID was consulted. The patient was started on IV Zosyn and PO Zyvox. She underwent washout with hardware removal on 12/14/24, and was noted to have infected deep hardware. With prophylactic cable fixation, antibiotic cement placement, and saucerization of the right femur with Prevena wound vac placement. Surgical cultures have yielded no growth thus far. Of note, the patient has a DNR-CC code status. Plans to transfer to SNF with outpatient follow-up with Ortho in 2 weeks. 12/16/2024 BP (!) 109/46 Pulse 75 Temp 98.8 ??F (37.1 ??C) (Axillary) Resp 16 Ht 1.626 m (5' 4 ) Wt 54.9 kg (121 lb) SpO2 99% BMI 20.77 kg/m?? Afebrile VSS on NC The patient is stable with underlying dementia Prevena wound vac to right hip. Lab-work reviewed CRP on a down-trend Zyvox and Zosyn continue No growth on cultures thus far D/C planning underway to SNF Physical Examination : Patient Vitals for the past 8 hrs: BP Temp Temp src Pulse Resp SpO2 12/16/24 0730 (!) 109/46 98.8 ??F (37.1 ??C) Axillary 75 16 99 % Temp (24hrs), Av.9 ??F (36.6 ??C), Min:97.3 ??F (36.3 ??C), Max:98.8 ??F (37.1 ??C) General Appearance: Awake, alert, and in no apparent distress Eyes: Sclera anicteric; conjunctivae pink, No hemorhages, no embolic phenomena. ENT: Oropharynx clear, without erythema, exudate, or thrush.No tenderness of sinuses. No nasal drainage. Neck: Supple, without lymphadenopathy. No JVD Pulmonary/Chest: Clear to auscultation, without wheezes, rales, or rhonchi. No areas of consolidation.Good air movement bilaterally. No egophony. Cardiovascular: Regular rate and rhythm without murmurs, rubs, or gallops. S1 and S2 normal. Abdomen: Soft, no tenderness, bowel sounds normal All four Extremities: No cyanosis, clubbing, edema, or effusions. Right hip wound vac in place to surgical site. Neurologic: No gross sensory or motor deficits. Underlying dementia Skin: Right hip wound vac in place to surgical site. . IV site inspected: no inflammation. Medical Decision Making: I have independently reviewed/ordered the following labs: CBC with Differential: Recent Labs 12/14/2441012/14/24 1450 12/14/24 1606 12/15/24 0640 WBC 7.4 -- -- 10.0 HGB 7.9* < > 5.9* 9.1* HCT 23.7* < > 17.0* 27.6* PLT 323 -- -- 200 < > = values in this interval not displayed. BMP: Recent Labs 12/14/2441012/14/24 1450 12/14/24 1606 12/15/24 0640 NA 133* < > 133* 136 K 3.8 < > 3.0* 3.4* CL 99 -- -- 106 CO2 19* -- -- 17* BUN 6* -- -- 5* CREATININE 0.4* -- -- 0.5* MG -- -- -- 1.0* < > = values in this interval not displayed. Hepatic Function Panel: Recent Labs 12/14/24410 BILITOT 0.3 ALKPHOS 80 ALT 11 AST 40* No results found for: [facility] Medications: linezolid 600 mg Oral 2 times per day sodium chloride flush 5-40 mL IntraVENous 2 times per day ferrous sulfate 325 mg Oral Daily with breakfast folic acid 1 mg Oral Daily ascorbic acid 500 mg Oral Daily therapeutic multivitamin-minerals 1 tablet Oral Daily pantoprazole 40 mg Oral Daily sodium chloride 1 g Oral TID pramipexole 0.25 mg Oral Nightly thiamine 100 mg Oral Daily ketorolac 15 mg IntraVENous Q6H piperacillin-tazobactam 3,375 mg IntraVENous Q8H Thank you for allowing us to participate in the care of this patient. Please call with questions. Wendy Mittal APRN Pager: - Office: * Quang Givens, - 12/16/2024 6:00 AM EDT Orthopedic Progress Note Patient: Suzan Escalona Date of : 1945 79 y.o. female Subjective: Patient seen and examined this morning. No complaints or concerns. No issues overnight per nursing.Pain is well controlled on current regimen. Denies CP, SOB. Voiding appropriately. Was not evaluated by physical therapy post- operatively 12/15. Hemoglobin 9.1. CRP downtreaded to 51 12/15 from 89 12/13. No growth to date from intraoperative surgical cultures. Patient was also visited 12/15 evening with in room and questions regarding the procedure/patient's care was discussed. Vitals reviewed, afebrile Objective: Vitals: 12/15/24 2159 BP: 118/61 Pulse: 78 Resp: 18 Temp: 97.7 ??F (36.5 ??C) SpO2: 97% Gen: NAD, cooperative Cardiovascular: Regular rate Respiratory: No acute respiratory distress, breathing comfortably Orthopedic Exam RLE: Prevena dressings are clean, dry, and intact without strike-through or air leak with lateral incision. No output in cannister. Patient able to tolerate reposition by nursing while examiner in room. Leg lengths equal in length and alignment. Patient able to be logrolled without pain or reaction. Compartment soft and easily compressible without pain behind the calf. Sensation intact to light touch in sural/saphenous/common peroneal/tibial nerve distribution. Gross motor intact to TA/GS/EHL/FHL. DP pulse 2+ with a warm and well-perfused leg. Recent Labs 12/14/24 0411 12/14/24 1450 12/15/24 0640 WBC 7.4 -- 10.0 HGB 7.9* < > 9.1* HCT 23.7* < > 27.6* PLT 323 -- 200 INR 1.6 -- -- NA 133* < > 136 K 3.8 < > 3.4* BUN 6* -- 5* CREATININE 0.4* -- 0.5* GLUCOSE 113* -- 167* < > = values in this interval not displayed. Meds: Abx: Zyvox and Zosyn per infectious disease DVT ppx: None See rec for complete list Impression 79 y.o. female who is being seen for: - Right hip hemiarthroplasty dislocation - Right hip surgical site infection Procedure (DOS): 12/14/24 Explantation with placement of antibiotic cement spacer right hip Prophylactic cable fixation right proximal femur Saucerization right femur Application Prevena negative pressure wound Plan - No further plans for orthopedic intervention at this time - Completed post-op ancef - Prevena on RLE. Please measure and record output every shift. Okay to reinforce/maintain by nursing if necessary. Please notify Ortho if saturated or malfunctioning. - WBAT to the RLE. Posterior hip precautions. - Pain control and medical management per primary: IM - Abx: Zyvox and Zosyn per ID. Awaiting culture results. - DVT ppx: At minimum recommend ASA 81mg BID for 30 days post-op on discharge if medically able. - Ice/Elevate to control pain and edema - Diet: Adult diet okay from orthopedic perspective - Encourage Incentive Spirometry use - PT/OT will evaluate today - Okay to discharge to SNF - F/u with Dr. Abarca 01/01 - Please page Ortho lead application architect with any questions Posterior Hip Precautions Don???t bend your hip past a 90 degree angle. Don???t cross your legs. Don???t twist your hip inwards- keep knees and toes pointed upwards. Quang Givens DO Orthopedic Surgery, PGY-1 [place], [place] Cosigned by Ramses Abarca DO at 12/16/2024 9:37 AM EDT * Rafaela Yen MD - 12/15/2024 12:41 PM EDT Images from the original note were not included. [facility] - Infectious diseases evaluation admission date 12/13/2024 reason for consultation: Right hip drainage Impression : Current: Right hip hemiarthroplasty November 10, 202412/13 dislocated hip, had to be repositioned and surgery 12/13 surgical wound drainage - infected deep hardware Explantation 12/14 CRP elevation 88 Other: Discussion / summary of stay / plan of care/ Recommendations: HENCE: R hip prosthetic infection hardware removal 12/14 and cx sent BC pend Swall study abnormal but no asporation antibiotics IV Zosyn and zyvox- Adjust AB to final cx Case disc w Dr Abarca and family Infection Control Recommendations [place] Precautions Contact Isolation Antimicrobial Stewardship Recommendations Simplification of therapy Targeted therapy History of Present Illness: Initial history: Suzan Escalona is a 79 y.o.-year-old female who had a right hip hemiarthroplasty in November 10, 2024,comes in because of pain in that right hip, along with active drainage from the surgical site ongoing for few days. X-ray suggested a dislocation of the right hip. She does have slight dementia, some confusion at baseline, CRP 88, WBC normal Taken to surgery will include a reduction fracture dislocation, Infectious disease consulted for concern for surgical wound infection No Surgical wound culture taken Blood cultures are pending negative No fever Interval changes 12/15/2024 Patient Vitals for the past 8 hrs: BP Temp Temp src Pulse Resp SpO2 12/15/24 0730 (!) 143/73 98.2 ??F (36.8 ??C) Oral 85 14 100 % 12/15 No fever and no chills - abd soft non tender- Confused and OR cx pend Summary of relevant labs: Labs: Micro: Procedures Cardiology Imaging: I have personally reviewed the past medical history, past surgical history, medications, social history, and family history, and I haveupdated the database accordingly. Allergies: Moxifloxacin, Codeine, Duramorph [morphine], and Penicillins Review of Systems: Review of Systems Constitutional: Negative for activity change. HENT: Negative for congestion. Eyes: Negative for discharge. Respiratory: Negative for apnea. Cardiovascular: Negative for chest pain. Gastrointestinal: Negative for abdominal pain. Endocrine: Negative for cold intolerance, polyphagia and polyuria. Genitourinary: Negative for dysuria. Musculoskeletal: Positive for arthralgias. Skin: Negative for color change. Allergic/Immunologic: Negative for immunocompromised state. Neurological: Negative for dizziness. Hematological: Negative for adenopathy. Psychiatric/Behavioral: Negative for agitation. Physical Examination : Physical Exam Constitutional: General: She is not in acute distress. Appearance: Normal appearance. She is not ill-appearing, toxic-appearing or diaphoretic. HENT: Head: Normocephalic and atraumatic. Nose: Nose normal. Mouth/Throat: Mouth: Mucous membranes are moist. Eyes: General: No scleral icterus. Conjunctiva/sclera: Conjunctivae normal. Cardiovascular: Rate and Rhythm: Normal rate and regular rhythm. Heart sounds: No murmur heard. No friction rub. Pulmonary: Effort: No respiratory distress. Breath sounds: No wheezing. Abdominal: General: There is no distension. Tenderness: There is no abdominal tenderness. Musculoskeletal: General: Tenderness present. No swelling or deformity. Cervical back: No rigidity. Skin: Coloration: Skin is not jaundiced. Findings: No bruising. Neurological: Mental Status: She is alert and oriented to person, place, and time. Cranial Nerves: No cranial nerve deficit. Psychiatric: Mood and Affect: Mood normal. Thought Content: Thought content normal. Past Medical History: Past Medical History: Diagnosis Date Anemia GERD (gastroesophageal reflux disease) Hypothyroidism Past Surgical History: Past Surgical History: Procedure Laterality Date APPENDECTOMY BACK SURGERY CHOLECYSTECTOMY COLONOSCOPY 2005 2015 HIP SURGERY Right 12/14/2024 HIP IRRIGATION AND DEBRIDEMENT, REVISION OF HEMIARTHROPLASTY - Right HIP SURGERY Right 12/14/2024 HIP IRRIGATION AND DEBRIDEMENT, REVISION OF HEMIARTHROPLASTY performed by Ramses Abarca DO at [facility] OR HYSTERECTOMY (CERVIX STATUS UNKNOWN) Medications: calcium gluconate 2,000 mg IntraVENous Once Followed by calcium gluconate-NaCl 1,000 mg IntraVENous Once magnesium sulfate 4,000 mg IntraVENous Once sodium chloride flush 5-40 mL IntraVENous 2 times per day iron sucrose 200 mg IntraVENous Q24H ferrous sulfate 325 mg Oral Daily with breakfast folic acid 1 mg Oral Daily ascorbic acid 500 mg Oral Daily therapeutic multivitamin-minerals 1 tablet Oral Daily pantoprazole 40 mg Oral Daily sodium chloride 1 g Oral TID pramipexole 0.25 mg Oral Nightly thiamine 100 mg Oral Daily ketorolac 15 mg IntraVENous Q6H piperacillin-tazobactam 3,375 mg IntraVENous Q8H vancomycin 750 mg IntraVENous Q12H vancomycin (VANCOCIN) intermittent dosing (placeholder) Other RX Placeholder Social History: Social History Socioeconomic History Marital status: Spouse name: Not on file Number of children: Not on file Years of education: Not on file Highest education level: Not on file Occupational History Not on file Tobacco Use Smoking status: Never Smokeless tobacco: Never Substance and Sexual Activity Alcohol use: Never Drug use: Not on file Sexual activity: Not on file Other Topics Concern Not on file Social History Narrative Not on file Social Drivers of Health Financial Resource Strain: Not on file Food Insecurity: No Food Insecurity (12/14/2024) Hunger Vital Sign Worried About Running Out of Food in the Last Year: Never true Ran Out of Food in the Last Year: Never true Transportation Needs: No Transportation Needs (12/14/2024) PRAPARE - Transportation Lack of Transportation (Medical): No Lack of Transportation (Non-Medical): No Physical Activity: Not on file Stress: Not on file Social Connections: Not on file Intimate Partner Violence: Not on file Housing Stability: Low Risk (12/14/2024) Housing Stability Vital Sign Unable to Pay for Housing in the Last Year: No Number of Times Moved in the Last Year: 0 Homeless in the Last Year: No Family History: Family History Problem Relation Age of Onset Cancer Mother leukemia Medical Decision Making: I have independently reviewed/ordered the following labs: CBC with Differential: Recent Labs 12/14/24 0411 12/14/24 1450 12/14/24 1606 12/15/24 0640 WBC 7.4 -- -- 10.0 HGB 7.9* < > 5.9* 9.1* HCT 23.7* < > 17.0* 27.6* PLT 323 -- -- 200 < > = values in this interval not displayed. BMP: Recent Labs 12/14/24 04112/14/24 1450 12/14/24 1606 12/15/24 0640 NA 133* < > 133* 136 K 3.8 < > 3.0* 3.4* CL 99 -- -- 106 CO2 19* -- -- 17* BUN 6* -- -- 5* CREATININE 0.4* -- -- 0.5* MG -- -- -- 1.0* < > = values in this interval not displayed. Hepatic Function Panel: Recent Labs 12/14/24 0411 BILITOT 0.3 ALKPHOS 80 ALT 11 AST 40* No results for input(s): RPR in the last 72 hours. No results for input(s): HIV in the last 72 hours. No results for input(s): BC in the last 72 hours. Lab Results Component Value Date/Time CREATININE 0.5 12/15/2024 06:40 AM GLUCOSE 167 12/15/2024 06:40 AM Detailed results: Thank you for allowing us to participate in the care of this patient.Please call with questions. This note is created with the assistance of a speech recognition program. While intending to generate adocument that actually reflects the content of the visit, the document can still have some errors including those of syntax and sound a like substitutions which may escape proof reading. It such instances, actual meaningcan be extrapolated by contextual diversion. Rafaela Yen MD Office: [facility] / office [phone] * Nella Isaacs RN - 12/15/2024 9:04 AM EDT Per [facility] Anju Garland, pt came with cam and was exchanged at [employer] and to keep it in and gets it exchanged every month outpt. * Anju Garland APRN - NP - 12/15/2024 7:57 AM EDT Images from the original note were not included. [facility] Office: [phone] Flex Nicolas DO, Solo Rivas, DO, Ananda Galaviz, DO, Wilner Wilson, DO, Zabrina Landin MD, Charmaine Kendrick MD, Vandana Sotomayor MD, Jaki Borja MD, Antwan Fowler MD, Hermilo Qureshi MD, Nikole Coleman MD, All Schmidt, DO, Catalino Nicolas, DO, Kate Ling MD, Ranjit Vann DO, Bev Connolly MD, Lisa Caceres MD, America Tucker MD, Lamont Maguire MD, Ankit Ridley MD,Edgar Roche MD, Quinten Quigley MD, River Zuniga MD, Kolby Vasquez MD, Lucius Nickerson, DO,Briana Newberry MD, Naif Barron DO, Jimy Davis MD, Moises Valentine MD, All Duong MD, Elen Duong MD, Elaine Herzog MD, Esther Eason, BICYCLE COURIER, Roxana Dimas, BICYCLE COURIER, Lucius Ramos, BICYCLE COURIER, Samira, DNP, Fany Limon, BICYCLE COURIER, Leeann Costello, BICYCLE COURIER, Trini Lewis, BICYCLE COURIER, Sherice Dolan, BICYCLE COURIER, Grecia Brown, PA-C, Gloria Tucker, BICYCLE COURIER, Rosalia Franco, BICYCLE COURIER, Sylwia Foreman, BICYCLE COURIER, Harleen Mercado, BICYCLE COURIER, Franklin Valencia, PA-C, Barbara Stapleton, PA-C, Joana Geiger, BICYCLE COURIER, Isreal Taylor, BICYCLE COURIER, Melyssa Hernadez, BICYCLE COURIER, Sagrario Gould, HEARING STENOGRAPHER, Kelly Lopes, BICYCLE COURIER, Tena Blanchard, BICYCLE COURIER [facility] IN-PATIENT SERVICE [facility] Progress Note 12/15/2024 7:57 AM Name: Suzan Escalona Acct: [id number] Room: 0234/0234-01 IP Day: 2 Admit Date: 12/13/2024 3:18 PM PCP: Anju Jacobsen MD Code Status: Full Code Subjective: C/C: Chief Complaint Patient presents with Hip Pain Interval History Status: not changed. Patient seen and evaluated in room. Mouth is dry, IV fluids were discontinued this morning with concern for dilution with low hemoglobin however hemoglobin did come back within normal limits. She is scheduled to undergo a modified barium swallow study for assessment of safe diet. She is intermittently confused. Had discussion with patient's spouse this morning. Did verify CODE STATUS as a DNR CC,now that surgical intervention has been completed. Patient spouse did consent to blood administration as well. Patient appears profoundly fatigued on assessment. Intermittently oriented, states the year appropriately, states she is in a hospital in [place] but then her speech has a tendency to drift off Labs, vitals reviewed, patient on 4 L nasal cannula Potassium and magnesium both low today, supplementation ordered Receiving Venofer for ELE Swallow study planned Brief History: 79-year-old [facility] extremity pain. Patient had a fall on 11/08, underwent right hip hemiarthroplasty on 11/10/2024. X-ray performed on 12/13 showed complete superior dislocation of right hip. Transferred to ED for further evaluation. Unclear when dislocation happened. Patient did not have any fall or trauma at facility, she was found to have an anterior dislocation of her right hip. Ortho was consulted in the emergency department. She had a closed reduction in the emergency department with anesthesia and plan is for OR intervention on 12/14/2024. Initially there were concerns for encephalopathy and UTI. She does have a chronic indwelling Cam catheter from the facility. Patient was made a full code for surgery however postprocedure she is going to return to a DNR CC it would appear. There is dementia at baseline per patient's spouse documented on H&P Review of Systems: Constitutional: negative for chills, fevers, sweats, + fatigue, + thirst Respiratory: negative for cough, dyspnea on exertion, shortness of breath, wheezing Cardiovascular: negative for chest pain, chest pressure/discomfort, lower extremity edema, palpitations Gastrointestinal: negative for abdominal pain, constipation, diarrhea, nausea, vomiting Neurological: negative for dizziness, headache + right hip pain Medications: Allergies: Allergies Allergen Reactions Moxifloxacin Anaphylaxis Codeine Other reaction(s): Mental Status Change Duramorph [Morphine] Rash Penicillins Nausea And Vomiting Current Meds: Scheduled Meds: calcium gluconate 3,000 mg in sodium chloride 0.9 % 100 mL IVPB 3,000 mg IntraVENous Once sodium chloride flush 5-40 mL IntraVENous 2 times per day iron sucrose 200 mg IntraVENous Q24H ferrous sulfate 325 mg Oral Daily with breakfast folic acid 1 mg Oral Daily ascorbic acid 500 mg Oral Daily therapeutic multivitamin-minerals 1 tablet Oral Daily pantoprazole 40 mg Oral Daily sodium chloride 1 g Oral TID pramipexole 0.25 mg Oral Nightly thiamine 100 mg Oral Daily ceFAZolin 2,000 mg IntraVENous Q8H ketorolac 15 mg IntraVENous Q6H piperacillin-tazobactam 3,375 mg IntraVENous Q8H vancomycin 750 mg IntraVENous Q12H vancomycin (VANCOCIN) intermittent dosing (placeholder) Other RX Placeholder Continuous Infusions: sodium chloride PRN Meds: sodium chloride flush, sodium chloride, potassium chloride OR potassium alternative oral replacement OR potassium chloride, magnesium sulfate, ondansetron OR ondansetron, polyethylene glycol, acetaminophen OR acetaminophen, hypromellose, oxyCODONE-acetaminophen OR oxyCODONE- acetaminophen, potassium chloride OR potassium alternative oral replacement OR potassium chloride Data: Past Medical History: has a past medical history of Anemia, GERD (gastroesophageal reflux disease),and Hypothyroidism. Social History: reports that she has never smoked. She has never used smokeless tobacco. She reports that she does not drink alcohol. Family History: Family History Problem Relation Age of Onset Cancer Mother leukemia Vitals: BP (!) 143/73 Pulse 85 Temp 98.2 ??F (36.8 ??C) (Oral) Resp 14 Ht 1.626 m (5' 4 ) Wt 54.9kg (121 lb) SpO2 100% BMI 20.77 kg/m?? Temp (24hrs), Av.9 ??F (36.6 ??C), Min:96.8 ??F (36 ??C), Max:98.4 ??F (36.9 ??C) Recent Labs 12/14/24 0746 12/14/24 1450 12/14/24 1606 POCGLU 109* 142* 151* I/O (24Hr): Intake/Output Summary (Last 24 hours) at 12/15/2024 0757 Last data filed at 12/15/2024 0605 Gross per 24 hour Intake 3863.34 ml Output 1750 ml Net 2113.34 ml Labs: Hematology: Recent Labs 12/13/24 16312/13/24205412/13/24205412/14/2441012/14/24 14512/14/24 1606 12/15/24 0640 WBC -- 9.1 -- 7.4 -- -- -- RBC -- 2.79* -- 2.69* -- -- -- HGB -- 8.0* < > 7.9* 8.3* 5.9* -- HCT -- 24.7* < > 23.7* 24.0* 17.0* -- MCV -- 88.5 -- 88.1 -- -- -- MCH -- 28.7 -- 29.4 -- -- -- MCHC -- 32.4 -- 33.3 -- -- -- RDW -- 13.2 -- 13.3 -- -- -- PLT -- 325 -- 323 -- -- -- MPV -- 9.0 -- 9.2 -- -- -- SEDRATE 12 -- -- -- -- -- -- CRP 88.6* -- -- -- -- -- 50.6* INR -- -- -- 1.6 -- -- -- < > = values in this interval not displayed. Chemistry: Recent Labs 12/13/24205412/14/2441012/14/24 14512/14/24 1606 NA 131* 133* 134* 133* K 3.4* 3.8 2.7* 3.0* CL 98 99 -- -- CO2 20 19* -- -- GLUCOSE 117* 113* -- -- BUN 7* 6* -- -- CREATININE 0.4* 0.4* -- -- ANIONGAP 13 15 -- -- LABGLOM >90 >90 -- -- CALCIUM 8.6 8.6 -- -- CAION -- -- 1.09* 1.05* TROPHS 14 -- -- -- LACTACIDWB -- -- 0.8 0.8 Recent Labs 12/14/24 0411 12/14/24 0746 12/14/24 1450 12/14/24 1606 AST 40* -- -- -- ALT 11 -- -- -- ALKPHOS 80 -- -- -- BILITOT 0.3 -- -- -- POCGLU -- 109* 142* 151* ABG: Lab Results Component Value Date/Time PHART 7.333 12/14/2024 04:06 PM IFR7HDP 41.1 12/14/2024 04:06 PM PO2ART 203.9 12/14/2024 04:06 PM IUB1HBE 21.3 12/14/2024 04:06 PM NBEA 4.2 12/14/2024 04:06 PM H7FZBQBT 99.3 12/14/2024 04:06 PM FIO2 60% 12/14/2024 04:06 PM Lab Results Component Value Date/Time SPECIAL Site: Swab 12/14/2024 03:35 PM Lab Results Component Value Date/Time CULTURE PENDING 12/14/2024 03:35 PM Radiology: XR HIP 2-3 VW W PELVIS RIGHT Result Date: 12/14/2024 1. 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 CT HEAD WO CONTRAST Result Date: 12/14/2024 1. No acute intracranial abnormality. 2. Severe chronic microvascular disease. 3. 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 CT HIP RIGHT WO CONTRAST Result Date: 12/14/2024 1. Right hip arthroplasty hardware. No obvious periprosthetic lucency or acute osseous abnormality.2. Region of fluid overlying the right greater trochanter measuring 7.0 x 1.9 x 3.8 cm likely a seroma. Infection/abscess or liquefying hematoma not entirely excluded in the appropriate clinical setting. 3. Gas in the subcutaneous fat along the right posterolateral thigh which may be related to recent surgery, trauma and/or infection. 4. Srka-us-gvsxbpat edema in the subcutaneous fat about the bilateral hip/thighs, right greater than left. 5. Moderate edema/fluid in the presacral fat. 6. Mild fat stranding of the urinary bladder which can be seen with cystitis. Correlate with urinalysis. 7. Mild left hip osteoarthrosis. XR CHEST PORTABLE Result Date: 12/14/2024 No acute airspace disease identified. XR FEMUR RIGHT (MIN 2 VIEWS) Result Date: 12/14/2024 1. Right hip prosthesis in place. XR HIP RIGHT (2-3 VIEWS) Result Date: 12/13/2024 Successful reduction right total hip arthroplasty. No fracture. XR HIP RIGHT (2-3 VIEWS) Result Date: 12/13/2024 1. Right hip dislocation with the femoral head seen superior in relation to the acetabulum. 2. Right hip hemiarthroplasty. Physical Examination: General appearance: alert, cooperative and no distress Mental Status: oriented to person, place and time and normal affect Lungs: clear to auscultation bilaterally, normal effort Heart: regular rate and rhythm, no murmur Abdomen: soft, nontender, nondistended, normal bowel sounds Extremities: no edema, redness, tenderness in the calves Skin: Pale, no gross lesions, rashes, induration, drain intact postsurgically to right hip Assessment: Hospital Problems Last Modified POA * (Principal) Anterior dislocation of right hip, initial encounter ([facility]) 12/13/2024 Yes Hypothyroidism 12/13/2024 Yes GERD (gastroesophageal reflux disease) 12/13/2024 Yes Anemia 12/13/2024 Yes Hyponatremia 12/13/2024 Yes Hypokalemia 12/13/2024 Yes Closed dislocation of right hip ([facility]) 12/14/2024 Yes Infection of right prosthetic hip joint 12/14/2024 Yes CRP elevated 12/14/2024 Yes Plan: Right hip anterior dislocation from previous hemiarthroplasty: Management per Ortho. POD 1 Surgical site infection: Right hip. Antibiotics per infectious disease, currently on Vanco/Zosyn Chronic hyponatremia sodium level 131 on admission, currently 136 takes sodium chloride 1 g 3 timesdaily at home Hypokalemia: Continue aggressive supplementation Acute encephalopathy: Dementia versus metabolic. 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 Check TSH/T4 Acute anemia on normocytic normochromic anemia: Iron studies reviewed demonstrating iron deficiencyanemia. Start Venofer x 3 days. Did receive 2 units PRBCs after surgery for hemoglobin of 5.9. Repeat hemoglobin today 9.1 Hypomagnesemia: Supplement today Chronic indwelling cath: Patient had Cam exchanged at [facility] on 11/20/2024 per patient's spouse. Will aim to have this exchanged again on 12/20/2024 as patient is still admitted Protonix, hold Lovenox Dysphagia: Follow-up on modified barium swallow study ordered for today, advance diet as indicated SETH Diego NP 12/15/2024 7:57 AM * Quang Givens, - 12/15/2024 5:19 AM EDT Orthopedic Progress Note Patient: Suzan Escalona Date of : 1945 79 y.o. female Subjective: Patient seen and examined this morning. No complaints or concerns. No issues overnight per nursing.Pain is well controlled on current regimen. Denies CP, SOB. Voiding appropriately. Was not able to work with PT yesterday as was in the OR with Dr. Abarca 12/14 for revision of Right hemiarthroplastyand irrigation/debridement. Hemoglobin 5.9 after sugery and patient has received 2 uPRBC. Awaiting morning hemoglobin after transfusion. Vitals reviewed, afebrile Objective: Vitals: 12/15/24 0400 BP: 138/63 Pulse: 79 Resp: 15 Temp: 98.4 ??F (36.9 ??C) SpO2: 99% Gen: NAD, cooperative Cardiovascular: Regular rate Respiratory: No acute respiratory distress, breathing comfortably Orthopedic Exam RLE: Prevena dressings are clean, dry, and intact without strike-through or air leak with lateral incision. No output in cannister. Patient resting slightly internally rotated with a pillow and legs belowknee. Pillow removed by clinical writer for better examination and appropriate alignment of the right hip. Leg lengths equal in length and alignment. Patient able to be logrolled without pain or reaction. Compartment soft and easily compressible without pain behind the calf. Sensation intact to light touch in sural/saphenous/common peroneal/tibial nerve distribution. Gross motor intact to TA/GS/EHL/FHL. DP pulse 2+ with a warm and well-perfused leg. Recent Labs 12/14/24 0411 12/14/24 1450 12/14/24 1606 WBC 7.4 -- -- HGB 7.9* < > 5.9* HCT 23.7* < > 17.0* PLT 323 -- -- INR 1.6 -- -- NA 133* < > 133* K 3.8 < > 3.0* BUN 6* -- -- CREATININE 0.4* -- -- GLUCOSE 113* -- -- < > = values in this interval not displayed. Meds: Abx: Ancef, vancomycin, Zosyn per infectious disease DVT ppx: Lovenox See rec for complete list Impression 79 y.o. female who is being seen for: - Right hip hemiarthroplasty dislocation - Right hip surgical site infection Procedure (DOS): 12/14/24 Explantation with placement of antibiotic cement spacer right hip Prophylactic cable fixation right proximal femur Saucerization right femur Application Prevena negative pressure wound Plan - No further plans for orthopedic intervention at this time - Post-op Ancef q8h x2 doses - Prevena on RLE. Please measure and record output every shift. Okay to reinforce/maintain by nursing if necessary. Please notify Ortho if saturated or malfunctioning. - WBAT to the RLE. Posterior hip precautions. - Pain control and medical management per primary: IM - DVT ppx: Lovenox per primary. At minimum recommend ASA 81mg BID for 30 days post-op on discharge if medically able. - Ice/Elevate to control pain and edema - Diet: Adult diet okay from orthopedic perspective - Encourage Incentive Spirometry use - PT/OT will evaluate today - Okay to discharge to SNF pending evaluation by PT and completion of post-op ancef - F/u with Dr. Abarca 01/01 - Please page Ortho lead application architect with any questions Posterior Hip Precautions Don???t bend your hip past a 90 degree angle. Don???t cross your legs. Don???t twist your hip inwards- keep knees and toes pointed upwards. Quang Givens DO Orthopedic Surgery, PGY-1 [place], [place] Cosigned by Ramses Abarca DO at 12/15/2024 1:16 PM EDT * Marco Antonio Pastor - 12/14/2024 6:48 PM EDT Ship Mate introduced self to spouse who was in hallway. Spouse did not appear to mind marble setter presence and engaged in conversation. Spouse discussed patient's health over the past month and what led tohospital visit. Spouse stated, She just got out of surgery . Ship Mate provided a supportive presencethrough active listening and words of affirmation. * Tevin Guerrero RN - 12/14/2024 5:[address] Cazares that hgb was 5.9, 2 units PRBC as given Asked if want to repeat H and H Okay to repeat * Tevin Guerrero RN - 12/14/2024 5:21 PM EDT Xray at bedside * Maryan Campbell SLP - 12/14/2024 12:10 PM EDT TELESCOPE OPERATOR Therapy [facility] Speech Language Pathology Date: 12/14/2024 Patient Name: Suzan Escalona Date of : 1945 AGE: 79 y.o. Patient Not Available for Speech Therapy Due to: [] Testing [] Hemodialysis [] Cancelled by RN [] Surgery [] Intubation/Sedation/Pain Medication [] Medical instability [x] Other: Pt NPO for surgery Next scheduled treatment: 12/15/24 Completed by: Maryan Campbell, TELESCOPE OPERATOR, [facility]-TELESCOPE OPERATOR * Nuvia Sims, RD - 12/14/2024 9:55 AM EDT Comprehensive Nutrition Assessment Type and Reason for Visit: Initial, Positive nutrition screen Nutrition Recommendations/Plan: Continue NPO as medically necessary Recommend high kcal/high PRO ONS TID post-op Will monitor diet adv, GI status, wt, NFPE, and POC Malnutrition Assessment: Malnutrition Status: Insufficient data (12/14/24 0954) Nutrition Assessment: 79 y.o.F admitted d/t R hip dislocation. Pt NPO for OR today. +nutrition screen r/t wt loss, decreased intake. Pt out of room at time of RD visit. Per chart, limited wt hx to assess, no recent hx. TOM PO intake CONTROL CENTER OPERATOR. RD recommends high kcal/high PRO ONS post-op to promote healing. RD will f/u per protocol. Nutrition Related Findings: Non-pitting RUE edema. Meds: D5 @ 50 ml/hr, MVI, thiamine. Labs: Na+ 131, K+ 3.4, BG 109-117 mg/dL x 24 hrs. Wound Type: Pressure Injury Current Nutrition Intake & Therapies: Average Meal Intake: NPO Average Supplements Intake: NPO Diet NPO Additional Calorie Sources: D5 @ 50 ml/hr = 204 kcals/day Anthropometric Measures: Height: 162.6 cm (5' 4.02 ) [place] Body Weight (IBW): 120 lbs (55 kg) Current Body Weight: 54.9 kg (121 lb 0.5 oz), 100.9 % IBW. Current BMI (kg/m2): 20.8 Estimated Daily Nutrient Needs: Energy Requirements Based On: Kcal/kg Weight Used for Energy Requirements: Current Energy (kcal/day): 8632-8261 kcals/day Weight Used for Protein Requirements: Current Protein (g/day): 66-76 g/day Method Used for Fluid Requirements: 1 ml/kcal Fluid (ml/day): 6218-2716 ml/day Nutrition Diagnosis: Predicted inadequate energy intake related to (decreased ability to consume adequate nutrient intake) as evidenced by (pt reported decreased PO intake, wt loss) Nutrition Interventions: Food and/or Nutrient Delivery: Continue NPO Nutrition Education/Counseling: No recommendation at this time Coordination of Nutrition Care: Continue to monitor while inpatient Goals: Goals: Initiate PO diet, within 7 days Type of Goal: New goal Nutrition Monitoring and Evaluation: Behavioral-Environmental Outcomes: None Identified Food/Nutrient Intake Outcomes: Diet Advancement/Tolerance Physical Signs/Symptoms Outcomes: Biochemical Data, GI Status, Fluid Status or Edema, Weight Discharge Planning: Too soon to determine Nuvia Sims RDN, LD, MS Contact: [phone] * Hollie Whitmore OT - 12/14/2024 8:07 AM EDT Images from the original note were not included. Occupational Therapy [facility] Occupational Therapy Not Seen Note DATE: 12/14/2024 NAME: Suzan Escalona : 1945 Patient not seen this date for Occupational Therapy due to: Surgery/Procedure: Pt plan for OR this date with ortho. Next Scheduled Treatment: 12/15/24 * Anju Garland APRN - NP - 12/14/2024 8:04 AM EDT Images from the original note were not included. [facility] Office: [phone] Flex Nicolas DO, Solo Rivas DO, Ananda Galaviz DO, Wilner Wilson DO, Zabrina Landin MD, Charmaine Kendrick MD, Vandana Sotomayor MD, Jaki Borja MD, Antwan Fowler MD, Hermilo Qureshi MD, Nikole Coleman MD, All Schmidt DO, Catalino Nicolas DO, Kate Ling MD, Ranjit Vann, DO, Bev Connolly MD, Lisa Caceres MD, America Tucker MD, Lamont Maguire MD, Ankit Ridley MD,Edgar Roche MD, Quinten Quigley MD, River Zuniga MD, Kolby Vasquez MD, Lucius Nickerson, DO,Briana Newberry MD, Naif Barron DO, Jimy Davis MD, Moises Valentine MD, All Duong MD, Elen Duong MD, Elaine Herzog MD, Esther Eason, BICYCLE COURIER, Roxana Dimas, BICYCLE COURIER, Lucius Ramos, BICYCLE COURIER, Samira [facility], Fany Limon, BICYCLE COURIER, Leeann Costello, BICYCLE COURIER, Trini Lewis, BICYCLE COURIER, Sherice Dolan, BICYCLE COURIER, Grecia Brown, PA-C, Gloria Tucker, BICYCLE COURIER, Rosalia Franco, BICYCLE COURIER, Sylwia Foreman, BICYCLE COURIER, Harleen Mercado, BICYCLE COURIER, Frankiln Valencia, PA-C, Barbara Stapleton, PA-C, Joana Geiger, BICYCLE COURIER, Isreal Taylor, BICYCLE COURIER, Melyssa Hernadez, BICYCLE COURIER, Sagrario Gould, [facility], Kelly Lopes, BICYCLE COURIER, Tena Blanchard, BICYCLE COURIER [facility] IN-PATIENT SERVICE [facility] Progress Note 12/14/2024 8:04 AM Name: Suzan Escalona Acct: [id number] Room: OBS Day: 1 Admit Date: 12/13/2024 3:18 PM PCP: Anju Jacobsen MD Code Status: Full Code Subjective: C/C: Chief Complaint Patient presents with Hip Pain Interval History Status: not changed. Patient seen and evaluated in room. Endorsing right hip pain. She is oriented x 3 this morning. Hasbeen n.p.o. for upcoming surgical intervention later this afternoon No new labs to review this morning. Vital signs reviewed No new diagnostics, CT head still pending Discussed with nursing, one time dose fentanyl for acute pain this am. Brief History: 79-year-old [facility] pain. Patient had a fall on 11/08, underwent right hip hemiarthroplasty on 11/10/2024. X-ray performed on 12/13 showed complete superior dislocation of right hip. Transferred to ED for further evaluation. Unclear when dislocation happened. Patient did not have any fall or trauma at facility, she was found to have an anterior dislocation of her right hip. Ortho was consulted in the emergency department. She had a closed reduction in the emergency department with anesthesia and plan is for OR intervention on 12/14/2024. Initially there were concerns for encephalopathy and UTI. She does have a chronic indwelling Cam catheter from the facility. Patient was made a full code for surgery however postprocedure she is going to return to a DNR CC it would appear. There is dementia at baseline per patient's spouse documented on H&P Review of Systems: Constitutional: negative for chills, fevers, sweats Respiratory: negative for cough, dyspnea on exertion, shortness of breath, wheezing Cardiovascular: negative for chest pain, chest pressure/discomfort, lower extremity edema, palpitations Gastrointestinal: negative for abdominal pain, constipation, diarrhea, nausea, vomiting Neurological: negative for dizziness, headache + right hip pain Medications: Allergies: Allergies Allergen Reactions Moxifloxacin Anaphylaxis Codeine Other reaction(s): Mental Status Change Duramorph [Morphine] Rash Penicillins Nausea And Vomiting Current Meds: Scheduled Meds: sodium chloride flush 5-40 mL IntraVENous 2 times per day enoxaparin 40 mg SubCUTAneous Daily ceFAZolin 2,000 mg IntraVENous Ring Conductor to OR piperacillin-tazobactam 3,375 mg IntraVENous Q8H vancomycin 750 mg IntraVENous Q12H vancomycin (VANCOCIN) intermittent dosing (placeholder) Other RX Placeholder Continuous Infusions: sodium chloride dextrose 5 % and 0.45 % NaCl 50 mL/hr at 12/14/24 0546 PRN Meds: sodium chloride flush, sodium chloride, potassium chloride OR potassium alternative oral replacement OR potassium chloride, magnesium sulfate, ondansetron OR ondansetron, polyethylene glycol, acetaminophen OR acetaminophen, potassium chloride OR potassium alternative oral replacement OR potassium chloride Data: Past Medical History: has a past medical history of Anemia, GERD (gastroesophageal reflux disease),and Hypothyroidism. Social History: reports that she has never smoked. She has never used smokeless tobacco. She reports that she does not drink alcohol. Family History: Family History Problem Relation Age of Onset Cancer Mother leukemia Vitals: BP 130/67 Pulse 91 Temp 98.8 ??F (37.1 ??C) (Oral) Resp 16 Ht 1.626 m (5' 4 ) Wt 54.9 kg (121 lb) SpO2 100% BMI 20.77 kg/m?? Temp (24hrs), Av.2 ??F (36.8 ??C), Min:97.7 ??F (36.5 ??C), Max:98.8 ??F (37.1 ??C) Recent Labs 12/14/24 0746 POCGLU 109* I/O (24Hr): Intake/Output Summary (Last 24 hours) at 12/14/2024 0804 Last data filed at 12/14/2024 0546 Gross per 24 hour Intake 369.52 ml Output 350 ml Net 19.52 ml Labs: Hematology: Recent Labs 12/13/24 1630 12/13/24205412/14/24 0411 WBC -- 9.1 -- RBC -- 2.79* -- HGB -- 8.0* -- HCT -- 24.7* -- MCV -- 88.5 -- MCH -- 28.7 -- MCHC -- 32.4 -- RDW -- 13.2 -- PLT -- 325 -- MPV -- 9.0 -- SEDRATE 12 -- -- CRP 88.6* -- -- INR -- -- 1.6 Chemistry: Recent Labs 12/13/242054 NA 131* K 3.4* CL 98 CO2 20 GLUCOSE 117* BUN 7* CREATININE 0.4* ANIONGAP 13 LABGLOM >90 CALCIUM 8.6 TROPHS 14 Recent Labs 12/14/24 0746 POCGLU 109* ABG:No results found for: POCPH , PHART , PH , POCPCO2 , WIW1MSD , PCO2 , POCPO2 , PO2ART , PO2 , POCHCO3 , LSF2DYI , HCO3 , NBEA , PBEA , BEART , BE , THGBART , THB , VUJ0VFF , CMOS3SOR , T8PTVXEL , O2SAT , FIO2 Lab Results Component Value Date/Time SPECIAL LEFT AC 9 ML 12/14/2024 04:11 AM Lab Results Component Value Date/Time CULTURE NO GROWTH <24 HRS 12/14/2024 04:11 AM Radiology: XR CHEST PORTABLE Result Date: 12/14/2024 No acute airspace disease identified. XR FEMUR RIGHT (MIN 2 VIEWS) Result Date: 12/14/2024 1. Right hip prosthesis in place. XR HIP RIGHT (2-3 VIEWS) Result Date: 12/13/2024 Successful reduction right total hip arthroplasty. No fracture. XR HIP RIGHT (2-3 VIEWS) Result Date: 12/13/2024 1. Right hip dislocation with the femoral head seen superior in relation to the acetabulum. 2. Right hip hemiarthroplasty. Physical Examination: General appearance: alert, cooperative and in mild disress 2/2 hip pain Mental Status: oriented to person, place and time and normal affect Lungs: clear to auscultation bilaterally, normal effort Heart: regular rate and rhythm, no murmur Abdomen: soft, nontender, nondistended, normal bowel sounds : cam Extremities: no edema, redness, tenderness in the calves, abductor pillow intact Skin: no gross lesions, rashes, induration on exposed areas of skin Assessment: Hospital Problems Last Modified POA * (Principal) Anterior dislocation of right hip, initial encounter ([facility]) 12/13/2024 Yes Hypothyroidism 12/13/2024 Yes GERD (gastroesophageal reflux disease) 12/13/2024 Yes Anemia 12/13/2024 Yes Hyponatremia 12/13/2024 Yes Hypokalemia 12/13/2024 Yes Closed dislocation of right hip ([facility]) 12/14/2024 Yes Plan: Right hip anterior dislocation from previous hemiarthroplasty: Management per Ortho. OR intervention planned for today. Continue n.p.o. status Surgical site infection: Right hip. Antibiotics per infectious disease, currently on Vanco/Zosyn Questionable alcohol use resulting in electrolyte abnormalities. Sodium level 131 on admission. Potassium 3.4. Chronic hyponatremia sodium level 131 on admission. Take sodium chloride 1 g 3 times daily at home Hypokalemia: Check labs now, supplement preop if necessary Acute encephalopathy: Dementia versus metabolic. CT head pending Hypothyroid: Continue levothyroxine. Check TSH/T4 Normocytic normochromic anemia: Iron studies reviewed demonstrating iron deficiency anemia. Start Venofer x 3 days Chronic indwelling cath: follow up on UA Recheck labs now Medical clearance given via H&P however waiting on results of CT head given acute encephalopathy versus baseline dementia Protonix, hold Lovenox SETH Diego NP 12/14/2024 8:04 AM * Oliver Real, - 12/14/2024 5:00 AM EDT Orthopedic Progress Note Patient: Suzan Escalona Date of : 1945 79 y.o. female Subjective: Patient seen and examined this morning. Sleeping comfortably upon entering the room. No complaintsor concerns. No issues overnight per nursing. Pain is well controlled on current regimen. Denies fever, NGUYEN, CP, SOB, N/V, new numbness/tingling. Planning for OR today with Dr. Abarca. Vitals reviewed, afebrile Objective: Vitals: 12/14/24 0354 BP: Pulse: Resp: Temp: SpO2: 100% Gen: NAD, cooperative Cardiovascular: Regular rate Respiratory: No acute respiratory distress, breathing comfortably Orthopedic Exam RLE: Abduction pillow between legs. Soft dressings intact overlying right hip prior surgical incision. Skin otherwise intact. Leg lengths equal. Surgical site marked. Mildly tender to palpation. Compartments soft compressible. TA/EHL/FHL/GS motor complexes intact. Sural/saphenous/SPN/DPN/plantar nerves s ensitive to light touch. Extremity is warm well-perfused with BCR. Recent Labs 12/13/24205412/14/24 0411 WBC 9.1 -- HGB 8.0* -- HCT 24.7* -- PLT 325 -- INR -- 1.6 NA 131* -- K 3.4* -- BUN 7* -- CREATININE 0.4* -- GLUCOSE 117* -- Meds: Abx: Zosyn, vancomycin DVT ppx: Lovenox 40 mg daily See rec for complete list Impression 79 y.o. female being seen for: - Right hip hemiarthroplasty dislocation - Right hip surgical site infection Plan - Plan for OR 12/[address] Abarca pending risk stratification from primary team. Would appreciaterecs. - Ancef OCTOR - Soft dressings on RLE. Okay to reinforce/maintain by nursing if necessary. Please notify Ortho ifsaturated. - NWB to the RLE - Pain control and medical management per primary - Multimodal pain control ordered - DVT ppx: Okay for chemical anticoagulation from orthopedic perspective - Ice right hip to control pain and edema - Diet: NPO 12/14 status in anticipation for OR - Encourage Incentive Spirometry use - PT/OT will evaluate post-op - Please page Ortho lead application architect with any questions Oliver Real DO Orthopedic Surgery Resident, PGY-2 [place], [place] Cosigned by Ramses Abarca DO at 12/14/2024 5:25 AM EDT * Erwin Gaming, [facility] - 12/13/2024 11:17 PM EDT [facility] Pharmacokinetic Monitoring Service - Vancomycin Suzan Escalona is a 79 y.o. female starting on vancomycin therapy for bone/joint infection. Pharmacyconsulted by Ankit Bedolla for monitoring and adjustment. Target Concentration: Goal AUC/DIONTE 400-600 mg*hr/L Additional Antimicrobials: Zosyn Pertinent Laboratory Values: Wt Readings from Last 1 Encounters: 12/13/24 54.9 kg (121 lb) Temp Readings from Last 1 Encounters: 12/13/24 97.7 ??F (36.5 ??C) Estimated Creatinine Clearance: 102 mL/min (A) (based on SCr of 0.4 mg/dL (L)). Recent Labs 12/13/242054 CREATININE 0.4* BUN 7* WBC 9.1 Procalcitonin: Pertinent Cultures: Culture Date Source Results MRSA Nasal Swab: N/A. Non-respiratory infection. Plan: Dosing recommendations based on Bayesian software Start vancomycin 1250 mg IV x1 dose now, then followed by vancomycin 750 mg IV every 12 hours Anticipated AUC of 466 and trough concentration of 13.4 at steady state Renal labs as indicated Pharmacy will continue to monitor patient and adjust therapy as indicated Thank you for the consult, Erwin Gaming RPH 12/13/2024 11:15 PM * Rob Mcgowan, RN - 12/13/2024 3:37 PM EDT Pre-transfer report: R hip d/L Spoke with Don Escalona [age] yo R hip stu Nov 10 Dislocated on XR Ortho there asking for transfer documented in this encounter Plan of Treatment Upcoming Encounters Date Type Department Care Team (Late st Contact Info) Description 01/03/2025 11:30 AM EDT Office Visit [facility] [address] [facility] [address] [place] [id number] Ramses Abarca DO [address] [facility] [address] [place] [address] DOS: 12/14, R hip I&D/Hemirev 01/31/2025 2:15 PM EST Office Visit [facility], [facility]. [address] [place], [place] [id number] Rafaela Yen MD [address] [facility], [address] [address] 1 month post hospital follow up Scheduled Orders Name Type Priority Associated Diagnoses Orde r Schedule Basic Metabolic Panel Lab Routine Hyponatremia Expected: 12/20/2024, Expires: 12/17/2025 documented as of this encounter Procedures Procedure Name Priority Date/Time Associated Diagnosis Comments POC GLUCOSE FINGERSTICK Routine 12/21/19 7:17 AM EDT CBC WITH AUTO DIFFERENTIAL Routine 12/20/2024 6:09 AM EDT MAGNESIUM Routine 12/20/2024 6:09 AM EDT CK Routine 12/20/2024 6:09 AM EDT BASIC METABOLIC PANEL Routine 12/20/2024 6:09 AM EDT MAGNESIUM Routine 12/19/2024 8:34 PM EDT XR HIP 2-3 VW W PELVIS RIGHT STAT 12/19/2024 5:00 PM EDT POC GLUCOSE FINGERSTICK Routine 12/20/19 5:00 PM EDT IR PICC WO SQ PORT/PUMP > 5 YEARS Routine 12/19/2024 4:39 PM EDT CBC WITH AUTO DIFFERENTIAL Routine 12/19/2024 5:03 AM EDT C-REACTIVE PROTEIN Routine 12/19/2024 5: 03 AM EDT MAGNESIUM Routine 12/19/2024 5:03 AM EDT CK Routine 12/19/2024 5:03 AM EDT BASIC METABOLIC PANEL Routine 12/19/2024 5:03 AM EDT BASIC METABOLIC PANEL W/ REFLEX TO MG FOR LOW K Routine 12/18/2024 8:32 AM EDT MAGNESIUM Routine 12/18/2024 8:32 AM EDT HEMOGLOBIN AND HEMATOCRIT Timed 12/17/2024 3:13 PM EDT HEMOGLOBIN AND HEMATOCRIT Routine 12/17/2024 8:41 AM EDT BASIC METABOLIC PANEL W/ REFLEX TO MG FOR LOW K Routine 12/17/2024 4:27 AM EDT CBC Routine 12/17/2024 4:27 AM EDT C-REACTIVE PROTEIN Routine 12/17/2024 4: 27 AM EDT MAGNESIUM Routine 12/17/2024 4:27 AM EDT BASIC METABOLIC PANEL W/ REFLEX TO MG FOR LOW K Routine 12/16/2024 11:03 AM EDT CBC Routine 12/16/2024 11:03 AM EDT MAGNESIUM Routine 12/16/2024 11:03 AM EDT INFECTIOUS DISEASE INTERVENTION Routine 12/15/2024 1:00 PM EDT FL MODIFIED BARIUM SWALLOW W VIDEO Routine 12/15/2024 10:31 AM EDT TSH REFLEX TO FT4 Routine 12/15/2024 6:4 0 AM EDT BASIC METABOLIC PANEL W/ REFLEX TO MG FOR LOW K Routine 12/15/2024 6:40 AM EDT CBC Routine 12/15/2024 6:40 AM EDT C-REACTIVE PROTEIN Routine 12/15/2024 6: 40 AM EDT MAGNESIUM Routine 12/15/2024 6:40 AM EDT HGB/HCT Routine 12/14/2024 5:29 PM EDT XR HIP 2-3 VW W PELVIS RIGHT STAT 12/14/2024 5:28 PM EDT TRANSFUSE RED BLOOD CELLS Routine 12/14/2024 4:35 PM EDT FLUORO FOR SURGICAL PROCEDURES Routine 12/14/2024 4:24 PM EDT TRANSFUSE RED BLOOD CELLS Routine 12/14/2024 4:21 PM EDT OPEN HEART PANEL Routine 12/14/2024 4:06 PM EDT LACTIC ACID Routine 12/14/2024 4:06 PM EDT CALCIUM, IONIZED Routine 12/14/2024 4:06 PM EDT CULTURE, ANAEROBIC AND AEROBIC Routine 12/14/2024 3:35 PM EDT 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, initial encounter OPEN HEART PANEL Routine 12/14/2024 2:50 PM EDT LACTIC ACID Routine 12/14/2024 2:50 PM EDT CALCIUM, IONIZED Routine 12/14/2024 2:50 PM EDT HIP HEMIARTHROPLASTY 12/14/2024 1:50 PM EDT 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, initial encounter TYPE AND SCREEN Routine 12/14/2024 1:[address] HEAD WO CONTRAST Routine 12/14/2024 8 :32 AM EDT POC GLUCOSE FINGERSTICK Routine 12/15/19 7:[address] HIP RIGHT WO CONTRAST STAT 12/14/2024 6:38 AM EDT CULTURE, BLOOD 2 Stat [employer] Label print 12/14/2024 4:11 AM EDT COMPREHENSIVE METABOLIC PANEL W/ REFLEX TO MG FOR LOW K Routine 12/14/2024 4:11 AM EDT PROTIME-INR Routine 12/14/2024 4:11 AM EDT CBC Routine 12/14/2024 4:11 AM EDT CULTURE, BLOOD 1 Stat [employer] Label print 12/14/2024 4:00 AM EDT XR CHEST PORTABLE STAT 12/14/2024 2:2 8 AM EDT EKG 12-LEAD STAT 12/13/2024 11:34 PM EDT VITAMIN B12 & FOLATE Stat [employer] Label print 12/13/2024 11:27 PM EDT IRON AND TIBC Stat [employer] Label print 12/13/2024 11:27 PM EDT RETICULOCYTES Stat [employer] Label print 12/13/2024 11:27 PM EDT FERRITIN Stat [employer] Label print 12/13/2024 11:27 PM EDT ETHANOL Stat [employer] Label print 12/13/2024 11:27 PM EDT XR FEMUR RIGHT (MIN 2 VIEWS) STAT 12/13/2024 11:02 PM EDT XR HIP RIGHT (2-3 VIEWS) STAT 12/13/2024 9:45 PM EDT TROPONIN Routine 12/13/2024 8:55 PM EDT CBC Stat [employer] Label print 12/13/2024 8:55 PM EDT BASIC METABOLIC PANEL Stat [employer] Label print 12/13/2024 8:55 PM EDT XR HIP RIGHT (2-3 VIEWS) STAT 12/13/2024 4:40 PM EDT SEDIMENTATION RATE Stat [employer] Label print 12/13/2024 4:30 PM EDT C-REACTIVE PROTEIN Stat [employer] Label print 12/13/2024 4:30 PM EDT documented in this encounter Results * POC Glucose Fingerstick (12/20/2024 7:17 AM EDT) [facility] POC Glucose 105 65 - 105 mg/dL 12/20/2024 7:17 AM EDT [facility] 12/20/2024 7:17 AM EDT 12/20/2024 7:44 AM EDT Edgar Delaney Sra, MD POINT OF CARE TEST ORDERA BLES Final Result Performing Organization Address City/[facility]/[place] [address], [facility] [phone] * Magnesium (12/20/2024 6:09 AM EDT) [facility] Magnesium 1.7 1.6 - 2.4 mg/dL 12/20/2024 6:09 AM EDT [facility] 12/20/2024 6:09 AM EDT 12/20/2024 6:20 AM EDT Rafaela Yen MD CHEMISTRY ORDERABLES Final Re sult Performing Organization Address City/[facility]/ZIP Co de Phone Number [facility] [employer] [address] [place] [address], [facility] [phone] * (ABNORMAL) CBC with Auto Differential (12/20/2024 6:09 AM EDT) [facility] WBC 5.8 3.5 - 11.3 k/uL 12/20/2024 6:09 AM EDT [facility] RBC 2.44(L) 3.95 - 5.11 m/uL 12/20/2024 6:09 AM EDT [facility] Hemoglobin 7.2(L) 11.9 - 15.1 g/dL 12/20/2024 6:09 AM EDT [facility] Hematocrit 21.2(L) 36.3 - 47.1 % 12/20/2024 6:09 AM EDT [facility] MCV 86.9 82.6 - 102.9 fL 12/20/2024 6:09 AM EDT [facility] MCH 29.5 25.2 - 33.5 pg 12/20/2024 6:09 AM EDT [facility] MCHC 34.0 28.4 - 34.8 g/dL 12/20/2024 6:09 AM EDT [facility] RDW 14.1 11.8 - 14.4 % 12/20/2024 6:09 AM EDT [facility] Platelets 296 138 - 453 k/uL 12/20/2024 6:09 AM EDT [facility] MPV 9.2 8.1 - 13.5 fL 12/20/2024 6:09 AM EDT [facility] NRBC Automated 0.0 0.0 per 100 WBC 12/20/2024 6:09 AM EDT [facility] Neutrophils % 42 36 - 65 % 12/20/2024 6:09 AM EDT [facility] Lymphocytes % 22(L) 24 - 43 % 12/20/2024 6:09 AM EDT [facility] Monocytes % 15(H) 3 - 12 % 12/20/2024 6:09 AM EDT [facility] Eosinophils % 19(H) 1 - 4 % 12/20/2024 6:09 AM EDT [facility] Basophils % 0 0 - 2 % 12/20/2024 6:09 AM EDT [facility] Immature Granulocytes % 2(H) 0 % 12/20/2024 6:09 AM EDT [facility] Neutrophils Absolute 2.45 1.50 - 8.10 k/uL 12/20/2024 6:09 AM EDT [facility] Lymphocytes Absolute 1.25 1.10 - 3.70 k/uL 12/20/2024 6:09 AM EDT [facility] Monocytes Absolute 0.87 0.10 - 1.20 k/uL 12/20/2024 6:09 AM EDT [facility] Eosinophils Absolute 1.12(H) 0.00 - 0.44 k/uL 12/20/2024 6:09 AM EDT [facility] Basophils Absolute <0.03 0.00 - 0.20 k/uL 12/20/2024 6:09 AM EDT [facility] Immature Granulocytes Absolute 0.11 0.00 - 0.30 k/uL 12/20/2024 6:09 AM [facility] 12/20/2024 6:09 AM EDT 12/20/2024 6:20 AM EDT us Rafaela Yen MD HEMATOLOGY ORDERABLES Final R esult [facility] [address] [place] [address], [facility] [phone] * (ABNORMAL) Basic Metabolic Panel (12/20/2024 6:09 AM EDT) Sodium 129(L) 136 - 145 mmol/L 12/20/2024 6:09 AM EDT [facility] Potassium 3.1(L) 3.7 - 5.3 mmol/L 12/20/2024 6:09 AM EDT [facility] Chloride 96(L) 98 - 107 mmol/L 12/20/2024 6:09 AM EDT [facility] CO2 21 20 - 31 mmol/L 12/20/2024 6:09 AM EDT [facility] Anion Gap 12 9 - 16 mmol/L 12/20/2024 6:09 AM EDT [facility] Glucose 106(H) 74 - 99 mg/dL 12/20/2024 6:09 AM EDT [facility] BUN 3(L) 8 - 23 mg/dL 12/20/2024 6:09 AM EDT [facility] Creatinine 0.4(L) 0.6 - 0.9 mg/dL 12/20/2024 6:09 AM EDT [facility] Est, Glom Filt Rate >90 >60 mL/min/1. 73m2 12/20/2024 6:09 AM EDT [facility] Comment: These results are not intended for use in patients <18 years of age. eGFR results are calculated without a race factor using the 2020 CKD-EPI equation. Careful clinical correlation is recommended, particularly when comparing to results calculated using previous equations. The CKD-EPI equation is less accurate in patients with extremes of muscle mass, extra-renal metabolism of creatine, excessive creatine ingestion, or following therapy that affects renal tubular secretion. Calcium 7.8(L) 8.6 - 10.4 mg/dL 12/20/2024 6:09 AM EDT [facility] 12/20/2024 6:09 AM EDT 12/20/2024 6:20 AM EDT Rafaela Yen MD CHEMISTRY ORDERABLES Final Re sult Performing Organization Address [facility]/[place] [address], [facility] [phone] * CK (12/20/2024 6:09 AM EDT) Total CK 50 26 - 192 U/L 12/20/2024 6:09 AM EDT [facility] Blood BLOOD SPECIMEN / Unknown 12/20/2024 6:09 AM EDT 12/20/2024 6:20 AM EDT Rafaela Yen MD CHEMISTRY ORDERABLES Final Re sult Performing Organization Address [facility] [place] [address], [facility] [phone] * Magnesium (12/19/2024 8:34 PM EDT) Magnesium 2.1 1.6 - 2.4 mg/dL 12/19/2024 8:34 PM EDT [facility] Blood BLOOD SPECIMEN / Unknown 12/19/2024 8:34 PM EDT 12/19/2024 8:49 PM EDT Edgar Delaney Sra, MD CHEMISTRY ORDERABLES Angelina l Result Performing Organization Address [facility]/ZIP Co de Phone Number [place] [address], [facility] [phone] * POC Glucose Fingerstick (12/19/2024 5:00 PM EDT) POC Glucose 97 65 - 105 mg/dL 12/19/2024 5:00 PM EDT [facility] 12/19/2024 5:00 PM EDT 12/19/2024 5:07 PM EDT Edgar Delaney Sra, MD POINT OF CARE TEST ORDERA BLES Final Result [place] [id number] [place] [address], [facility] [phone] * XR HIP 2-3 VW W PELVIS RIGHT (12/19/2024 5:00 PM EDT) Anatomical Region Laterality Modality Pelvis, Hip Computed Radiogr aphy 12/19/2024 5:29 PM EDT Narrative 12/19/2024 5:31 PM EDT EXAMINATION: ONE XRAY VIEW OF THE PELVIS AND TWO XRAY VIEWS RIGHT HIP 12/19/2024 2:50 pm COMPARISON: None. HISTORY: ORDERING SYSTEM PROVIDED HISTORY: post op TECHNOLOGIST PROVIDED HISTORY: AP and cross-table lateral of the hip please, low AP pelvis, thank you post op FINDINGS/IMPRESSION: Patient is status post total right hip arthroplasty and cerclage wire fixation without evidence of hardware complication. No acute fracture. Mild soft tissue swelling around the right hip. Incompletely imaged presacral nerve stimulator. Procedure Note Flavio Madden MD - 12/19/2024 EXAMINATION: ONE XRAY VIEW OF THE PELVIS AND TWO XRAY VIEWS RIGHT HIP 12/19/2024 2:50 pm COMPARISON: None. HISTORY: ORDERING SYSTEM PROVIDED HISTORY: post op TECHNOLOGIST PROVIDED HISTORY: AP and cross-table lateral of the hip please, low AP pelvis, thank you post op FINDINGS/IMPRESSION: Patient is status post total right hip arthroplasty and cerclage wire fixation without evidence of hardware complication. No acute fracture.Mild soft tissue swelling around the right hip. Incompletely imagedpresacral nerve stimulator. Oliver Real DO IMSepide[facility] DIAGNOSTIC IMAGING ORDERABLE S Final Result * IR PICC WO SQ PORT/PUMP > 5 YEARS (12/19/2024 4:39 PM EDT) Anatomical Region Laterality Modality Vascular X-Ray Angiograph y 12/19/2024 4:56 PM EDT Impressions 12/19/2024 4:59 PM EDT Successful ultrasound and fluoroscopy guided left upper extremity PICC placement; PICC is ready for use at this time. Narrative 12/19/2024 4:59 PM EDT PROCEDURE: ULTRASOUND GUIDED VASCULAR ACCESS. FLUOROSCOPY GUIDED PICC PLACEMENT 12/19/2024. HISTORY: ORDERING SYSTEM PROVIDED HISTORY: Left upper extremity picc line placement TECHNOLOGIST PROVIDED HISTORY: picc line placement How many lumens are being requested?->1 What site is the preferred site?->Basilic What side should this line be placed?->Right SEDATION: Local anesthesia FLUOROSCOPY DOSE AND TYPE: Fluoroscopy time-2.7 minutes Radiation Exposure Index: PKA cGy*cm2, 125 TECHNIQUE: Informed consent was obtained after a detailed explanation of the procedure including risks, benefits, and alternatives. [place] protocol was observed. The left upper arm was prepped and draped in sterile fashion using maximum sterile barrier technique. Local anesthesia was achieved with lidocaine. A micropuncture needle was used to access the left basilic vein using ultrasound guidance. An ultrasound image demonstrating patency of the vein with needle tip located within it. An image was obtained and stored in PACs. Small amount of contrast was injected; a 0.018 guidewire was then used to place a peel-a-way sheath and a 34 cm 4 Wallisian PICC was advanced with fluoroscopic guidance with the tip at the cavo-atrial junction; a 0.018 inch glidewire was required to pass somewhat angled segment at the axillary subclavian junction, followed by a 4 Wallisian angled glide catheter. Through the latter, the standard guidewire was inserted and the PICC successfully inserted, as above. The catheter flushed easily and there was a good blood return. The catheter was secured to the skin. The patient tolerated the procedure well and there were no immediate complications. FINDINGS: Fluoroscopic image demonstrates the tip of the catheter at the cavo-atrial junction. Procedure Note Roger Perez MD - 12/19/2024 PROCEDURE: ULTRASOUND GUIDED VASCULAR ACCESS. FLUOROSCOPY GUIDED PICC PLACEMENT 12/19/2024. HISTORY: ORDERING SYSTEM PROVIDED HISTORY: Left upper extremity picc lineplacement TECHNOLOGIST PROVIDED HISTORY: picc line placement How many lumens are being requested?->1 What site is the preferred site?->Basilic What side should this line be placed?->Right SEDATION: Local anesthesia FLUOROSCOPY DOSE AND TYPE: Fluoroscopy time-2.7 minutes Radiation Exposure Index: PKA cGy*cm2, 125 TECHNIQUE: Informed consent was obtained after a detailed explanation of theprocedure including risks, benefits, and alternatives. [place] protocol wasobserved. The left upper arm was prepped and draped in sterile fashion usingmaximum sterile barrier technique. Local anesthesia was achieved with lidocaine.A micropuncture needle was used to access the left basilic vein using ultrasound guidance. An ultrasound image demonstrating patency of thevein with needle tip located within it. An image was obtained and stored inPACs. Small amount of contrast was injected; a 0.018 guidewire was then usedto place a peel-a-way sheath and a 34 cm 4 Wallisian PICC was advanced with fluoroscopic guidance with the tip at the cavo-atrial junction; a 0.018inch glidewire was required to pass somewhat angled segment at the axillary subclavian junction, followed by a 4 Wallisian angled glide catheter.Through the latter, the standard guidewire was inserted and the PICCsuccessfully inserted, as above. The catheter flushed easily and there was a goodblood return. The catheter was secured to the skin. The patient tolerated the procedure well and there were no immediate complications. FINDINGS: Fluoroscopic image demonstrates the tip of the catheter at thecavo-atrial junction. IMPRESSION: Successful ultrasound and fluoroscopy guided left upper extremity PICC placement; PICC is ready for use at this time. Edgar Delaney Sra, MD IMG IR ORDERABLES Final R esult * (ABNORMAL) Magnesium (12/19/2024 5:03 AM EDT) [facility] Magnesium 1.3(L) 1.6 - 2.4 mg/dL 12/19/2024 5:03 AM EDT [facility] 12/19/2024 5:03 AM EDT 12/19/2024 5:22 AM EDT Quang Givens DO CHEMISTRY ORDERABLES Final Resul t [facility] [address] [place] [address], [facility] [phone] * (ABNORMAL) CBC with Auto Differential (12/19/2024 5:03 AM EDT) [facility] WBC 7.3 3.5 - 11.3 k/uL 12/19/2024 5:03 AM EDT [facility] RBC 2.57(L) 3.95 - 5.11 m/uL 12/19/2024 5:03 AM EDT [facility] Hemoglobin 7.5(L) 11.9 - 15.1 g/dL 12/19/2024 5:03 AM EDT [facility] Hematocrit 23.0(L) 36.3 - 47.1 % 12/19/2024 5:03 AM EDT [facility] MCV 89.5 82.6 - 102.9 fL 12/19/2024 5:03 AM EDT [facility] MCH 29.2 25.2 - 33.5 pg 12/19/2024 5:03 AM EDT [facility] MCHC 32.6 28.4 - 34.8 g/dL 12/19/2024 5:03 AM EDT [facility] RDW 13.8 11.8 - 14.4 % 12/19/2024 5:03 AM EDT [facility] Platelets 293 138 - 453 k/uL 12/19/2024 5:03 AM EDT [facility] MPV 9.7 8.1 - 13.5 fL 12/19/2024 5:03 AM EDT [facility] NRBC Automated 0.0 0.0 per 100 WBC 12/19/2024 5:03 AM EDT [facility] Neutrophils % 54 36 - 65 % 12/19/2024 5:03 AM EDT [facility] Lymphocytes % 16(L) 24 - 43 % 12/19/2024 5:03 AM EDT [facility] Monocytes % 9 3 - 12 % 12/19/2024 5:03 AM EDT [facility] Eosinophils % 19(H) 1 - 4 % 12/19/2024 5:03 AM EDT [facility] Basophils % 1 0 - 2 % 12/19/2024 5:03 AM EDT [facility] Immature Granulocytes % 2(H) 0 % 12/19/2024 5:03 AM EDT [facility] Neutrophils Absolute 3.96 1.50 - 8.10 k/uL 12/19/2024 5:03 AM EDT [facility] Lymphocytes Absolute 1.15 1.10 - 3.70 k/uL 12/19/2024 5:03 AM EDT [facility] Monocytes Absolute 0.63 0.10 - 1.20 k/uL 12/19/2024 5:03 AM EDT [facility] Eosinophils Absolute 1.41(H) 0.00 - 0.44 k/uL 12/19/2024 5:03 AM EDT [facility] Basophils Absolute 0.05 0.00 - 0.20 k/uL 12/19/2024 5:03 AM EDT [facility] Immature Granulocytes Absolute 0.14 0.00 - 0.30 k/uL 12/19/2024 5:03 AM EDT [facility] 12/19/2024 5:03 AM EDT 12/19/2024 5:22 AM EDT us Quang Givens DO HEMATOLOGY ORDERABLES Final Resu lt [facility] [address] [phone] * (ABNORMAL) Basic Metabolic Panel (12/19/2024 5:03 AM EDT) Sodium 128(L) 136 - 145 mmol/L 12/19/2024 5:03 AM EDT [facility] Potassium 3.1(L) 3.7 - 5.3 mmol/L 12/19/2024 5:03 AM EDT [facility] Chloride 95(L) 98 - 107 mmol/L 12/19/2024 5:03 AM EDT [facility] CO2 17(L) 20 - 31 mmol/L 12/19/2024 5:03 AM EDT [facility] Anion Gap 16 9 - 16 mmol/L 12/19/2024 5:03 AM EDT [facility] Glucose 71(L) 74 - 99 mg/dL 12/19/2024 5:03 AM EDT [facility] BUN 4(L) 8 - 23 mg/dL 12/19/2024 5:03 AM EDT [facility] Creatinine 0.4(L) 0.6 - 0.9 mg/dL 12/19/2024 5:03 AM EDT [facility] Est, Glom Filt Rate >90 >60 mL/min/1. 73m2 12/19/2024 5:03 AM EDT [facility] Comment: These results are not intended for use in patients <18 years of age. eGFR results are calculated without a race factor using the 2020 CKD-EPI equation. Careful clinical correlation is recommended, particularly when comparing to results calculated using previous equations. The CKD-EPI equation is less accurate in patients with extremes of muscle mass, extra-renal metabolism of creatine, excessive creatine ingestion, or following therapy that affects renal tubular secretion. Calcium 8.0(L) 8.6 - 10.4 mg/dL 12/19/2024 5:03 AM EDT [facility] 12/19/2024 5:03 AM EDT 12/19/2024 5:22 AM EDT Quang Chon CHEMISTRY ORDERABLES Final Resul t Performing Organization Address City/[facility]/ZIP Co de Phone Number [facility] [address] [place] [address], [facility] [phone] * CK (12/19/2024 5:03 AM EDT) Total CK 70 26 - 192 U/L 12/19/2024 5:03 AM EDT [facility] 12/19/2024 5:03 AM EDT 12/19/2024 5:22 AM EDT [email or web address] CHEMISTRY ORDERABLES Final Resul t Performing Organization Address City/[facility]/ZIP Co de Phone Number [facility] [address] [place] [address] * (ABNORMAL) C-Reactive Protein (12/19/2024 5:03 AM EDT) CRP 16.8(H) 0.0 - 5.0 mg/L 12/19/2024 5:03 AM EDT [facility] Blood BLOOD SPECIMEN / Unknown 12/19/2024 5:03 AM EDT 12/19/2024 5:22 AM EDT Quang Givens DO CHEMISTRY ORDERABLES Final Resul t [facility] [address] [place] [address], [facility] [phone] * Magnesium (12/18/2024 8:32 AM EDT) Pathologist [facility] Magnesium 1.6 1.6 - 2.4 mg/dL 12/18/2024 8:32 AM EDT [facility] 12/18/2024 8:32 AM EDT 12/18/2024 8:37 AM EDT All Schmidt I DO CHEMISTRY ORDERABLES Fin al Result Performing Organization Address City/[facility]/ZIP Co de Phone Number [facility] [address] [place] [address], [facility] [phone] * (ABNORMAL) Basic Metabolic Panel w/ Reflex to MG (12/18/2024 8:32 AM EDT) Sodium 127(L) 136 - 145 mmol/L 12/18/2024 8:32 AM EDT [facility] Potassium 3.2(L) 3.7 - 5.3 mmol/L 12/18/2024 8:32 AM EDT [facility] Chloride 98 98 - 107 mmol/L 12/18/2024 8:32 AM EDT [facility] CO2 19(L) 20 - 31 mmol/L 12/18/2024 8:32 AM EDT [facility] Anion Gap 10 9 - 16 mmol/L 12/18/2024 8:32 AM EDT [facility] Glucose 78 74 - 99 mg/dL 12/18/2024 8:32 AM EDT [facility] BUN 6(L) 8 - 23 mg/dL 12/18/2024 8:32 AM EDT [facility] Creatinine 0.4(L) 0.6 - 0.9 mg/dL 12/18/2024 8:32 AM EDT [facility] Est, Glom Filt Rate >90 >60 mL/min/1. 73m2 12/18/2024 8:32 AM EDT [facility] Comment: These results are not intended for use in patients <18 years of age. eGFR results are calculated without a race factor using the 2020 CKD-EPI equation. Careful clinical correlation is recommended, particularly when comparing to results calculated using previous equations. The CKD-EPI equation is less accurate in patients with extremes of muscle mass, extra-renal metabolism of creatine, excessive creatine ingestion, or following therapy that affects renal tubular secretion. Calcium 7.8(L) 8.6 - 10.4 mg/dL 12/18/2024 8:32 AM EDT [facility] Blood BLOOD SPECIMEN / Unknown 12/18/2024 8:32 AM EDT 12/18/2024 8:37 AM EDT All Taylor DO CHEMISTRY ORDERABLES Fin al Result Performing Organization Address City/[facility]/ZIP Co de Phone Number [facility] [address] [place] [address], [facility] [phone] * (ABNORMAL) Hemoglobin and Hematocrit (12/17/2024 3:13 PM EDT) Hemoglobin 9.3(L) 11.9 - 15.1 g/dL 12/17/2024 3:13 PM EDT [facility] Hematocrit 29.1(L) 36.3 - 47.1 % 12/17/2024 3:13 PM EDT [facility] BLOOD SPECIMEN / Unknown 12/17/2024 3:13 PM EDT 12/17/2024 3:16 PM EDT Anju Edwards NP HEMATOLOGY ORDERABLES Fin al Result Performing Organization Address City/[facility]/[place] [address], [facility] [phone] * (ABNORMAL) Hemoglobin and Hematocrit (12/17/2024 8:41 AM EDT) Hemoglobin 7.3(L) 11.9 - 15.1 g/dL 12/17/2024 8:41 AM EDT [facility] Hematocrit 21.1(L) 36.3 - 47.1 % 12/17/2024 8:41 AM EDT [facility] BLOOD SPECIMEN / Unknown 12/17/2024 8:41 AM EDT 12/17/2024 8:52 AM EDT Anju Garland APRN - [employer] HEMATOLOGY ORDERABLES Fin al Result Performing Organization Address [facility]/ZIP Co de Phone Number [facility] [address] [place] [address], [facility] [phone] * (ABNORMAL) Magnesium (12/17/2024 4:27 AM EDT) Magnesium 1.4(L) 1.6 - 2.4 mg/dL 12/17/2024 4:27 AM EDT [facility] 12/17/2024 4:27 AM EDT 12/17/2024 4:32 AM EDT Anju Garland APRN - [employer] CHEMISTRY ORDERABLES Angelina l Result Performing Organization Address [facility] de Phone Number [facility] [address] [place] [address], [facility] [phone] * (ABNORMAL) C-Reactive Protein (12/17/2024 4:27 AM EDT) CRP 20.7(H) 0.0 - 5.0 mg/L 12/17/2024 4:27 AM EDT [facility] 12/17/2024 4:27 AM EDT 12/17/2024 4:32 AM EDT Anju Garland APRN - [employer] CHEMISTRY ORDERABLES Angelina l Result Performing Organization Address [facility] de Phone Number [facility] [address] [place] [address], [facility] [phone] * (ABNORMAL) Basic Metabolic Panel w/ Reflex to MG (12/17/2024 4:27 AM EDT) Sodium 128(L) 136 - 145 mmol/L 12/17/2024 4:27 AM EDT [facility] Potassium 3.3(L) 3.7 - 5.3 mmol/L 12/17/2024 4:27 AM EDT [facility] Chloride 98 98 - 107 mmol/L 12/17/2024 4:27 AM EDT [facility] CO2 22 20 - 31 mmol/L 12/17/2024 4:27 AM EDT [facility] Anion Gap 8(L) 9 - 16 mmol/L 12/17/2024 4:27 AM EDT [facility] Glucose 88 74 - 99 mg/dL 12/17/2024 4:27 AM EDT [facility] BUN 7(L) 8 - 23 mg/dL 12/17/2024 4:27 AM EDT [facility] Creatinine 0.5(L) 0.6 - 0.9 mg/dL 12/17/2024 4:27 AM EDT [facility] Est, Glom Filt Rate >90 >60 mL/min/1. 73m2 12/17/2024 4:27 AM EDT [facility] Comment: These results are not intended for use in patients <18 years of age. eGFR results are calculated without a race factor using the 2020 CKD-EPI equation. Careful clinical correlation is recommended, particularly when comparing to results calculated using previous equations. The CKD-EPI equation is less accurate in patients with extremes of muscle mass, extra-renal metabolism of creatine, excessive creatine ingestion, or following therapy that affects renal tubular secretion. Calcium 8.2(L) 8.6 - 10.4 mg/dL 12/17/2024 4:27 AM EDT [facility] Blood BLOOD SPECIMEN / Unknown 12/17/2024 4:27 AM EDT 12/17/2024 4:32 AM EDT us Anju Garland LEARNING AND DEVELOPMENT INTERN - [employer] CHEMISTRY ORDERABLES Angelina diamond Result [facility] [place] [address], [facility] [phone] * (ABNORMAL) CBC (12/17/2024 4:27 AM EDT) WBC 6.9 3.5 - 11.3 k/uL 12/17/2024 4:27 AM EDT [facility] RBC 2.39(L) 3.95 - 5.11 m/uL 12/17/2024 4:27 AM EDT [facility] Hemoglobin 7.0(LL) 11.9 - 15.1 g/dL 12/17/2024 4:27 AM EDT [facility] Hematocrit 20.9(L) 36.3 - 47.1 % 12/17/2024 4:27 AM EDT [facility] MCV 87.4 82.6 - 102.9 fL 12/17/2024 4:27 AM EDT [facility] MCH 29.3 25.2 - 33.5 pg 12/17/2024 4:27 AM EDT [facility] MCHC 33.5 28.4 - 34.8 g/dL 12/17/2024 4:27 AM EDT [facility] RDW 13.5 11.8 - 14.4 % 12/17/2024 4:27 AM EDT [facility] Platelets 190 138 - 453 k/uL 12/17/2024 4:27 AM EDT [facility] MPV 9.4 8.1 - 13.5 fL 12/17/2024 4:27 AM EDT [facility] NRBC Automated 0.0 0.0 per 100 WBC 12/17/2024 4:27 AM EDT [facility] Blood BLOOD SPECIMEN / Unknown 12/17/2024 4:27 AM EDT 12/17/2024 4:32 AM EDT Anju Edwards NP HEMATOLOGY ORDERABLES Fin al Result [facility] [address] [phone] * Magnesium (12/16/2024 11:03 AM EDT) Magnesium 1.7 1.6 - 2.4 mg/dL 12/16/2024 11:03 AM EDT [facility] 12/16/2024 11:0 3 AM EDT 12/16/2024 11:16 AM EDT Anju Garland LEARNING AND DEVELOPMENT INTERN - [employer] CHEMISTRY ORDERABLES Angelina diamond Result [facility] [address] [place] [address], [facility] [phone] * (ABNORMAL) Basic Metabolic Panel w/ Reflex to MG (12/16/2024 11:03 AM EDT) Sodium 130(L) 136 - 145 mmol/L 12/16/2024 11:03 AM EDT [facility] Comment: TEST CONFIRMED Potassium 3.1(L) 3.7 - 5.3 mmol/L 12/16/2024 11:03 AM [employer] [facility] Comment: Specimen hemolysis has exceeded the interference as defined by Barber. Value may be falsely increased. Suggest recollection if clinically indicated. TEST CONFIRMED Chloride 99 98 - 107 mmol/L 12/16/2024 11:03 AM [employer] [facility] Comment: TEST CONFIRMED CO2 20 20 - 31 mmol/L 12/16/2024 11:03 AM EDT [facility] Anion Gap 11 9 - 16 mmol/L 12/16/2024 11:03 AM EDT [facility] Glucose 94 74 - 99 mg/dL 12/16/2024 11:03 AM EDT [facility] BUN 6(L) 8 - 23 mg/dL 12/16/2024 11:03 AM T [facility] Creatinine 0.5(L) 0.6 - 0.9 mg/dL 12/16/2024 11:03 AM EDT [facility] Est, Glom Filt Rate >90 >60 mL/min/1. 73m2 12/16/2024 11:03 AM EDT [facility] Comment: These results are not intended for use in patients <18 years of age. eGFR results are calculated without a race factor using the 2020 CKD-EPI equation. Careful clinical correlation is recommended, particularly when comparing to results calculated using previous equations. The CKD-EPI equation is less accurate in patients with extremes of muscle mass, extra-renal metabolism of creatine, excessive creatine ingestion, or following therapy that affects renal tubular secretion. Calcium 9.0 8.6 - 10.4 mg/dL 12/16/2024 11:03 AM [facility] Blood BLOOD SPECIMEN / Unknown 12/16/2024 11:03 AM EDT 12/16/2024 11:16 AM EDT Anju Edwards NP CHEMISTRY ORDERABLES Angelina diamond Result [facility] [address] [place] [address], [facility] [phone] * (ABNORMAL) CBC (12/16/2024 11:03 AM EDT) WBC 9.2 3.5 - 11.3 k/uL 12/16/2024 11:03 AM EDT [facility] RBC 2.82(L) 3.95 - 5.11 m/uL 12/16/2024 11:03 AM EDT [facility] Hemoglobin 8.4(L) 11.9 - 15.1 g/dL 12/16/2024 11:03 AM EDT [facility] Hematocrit 25.0(L) 36.3 - 47.1 % 12/16/2024 11:03 AM EDT [facility] MCV 88.7 82.6 - 102.9 fL 12/16/2024 11:03 AM EDT [facility] MCH 29.8 25.2 - 33.5 pg 12/16/2024 11:03 AM EDT [facility] MCHC 33.6 28.4 - 34.8 g/dL 12/16/2024 11:03 AM EDT [facility] RDW 13.4 11.8 - 14.4 % 12/16/2024 11:03 AM EDT [facility] Platelets 206 138 - 453 k/uL 12/16/2024 11:03 AM EDT [facility] MPV 9.5 8.1 - 13.5 fL 12/16/2024 11:03 AM EDT [facility] NRBC Automated 0.0 0.0 per 100 WBC 12/16/2024 11:03 AM EDT [facility] Blood BLOOD SPECIMEN / Unknown 12/16/2024 11:03 AM EDT 12/16/2024 11:16 AM EDT Anju Schira LEARNING AND DEVELOPMENT INTERN - [employer] HEMATOLOGY ORDERABLES Fin al Result Performing Organization Address City/[facility]/ZIP Co de Phone Number [facility] [address] [place] [address], [facility] [phone] * Infectious Disease Intervention (12/15/2024 1:00 PM EDT) Intervention Drug-Lab Mismatch 12/15/2024 1:00 PM EDT [facility] 12/15/2024 1:00 PM EDT 12/15/2024 3:25 PM EDT us Rafaela Yen MD MICROBIOLOGY - GENERAL ORDERA BLES Final Result Performing Organization Address [facility] Co de Phone Number [facility] [address] [place] [address], [facility] [phone] * FL MODIFIED BARIUM SWALLOW W VIDEO (12/15/2024 10:31 AM EDT) Anatomical Region Laterality Modality Head, Neck Digital Radiogra phy 12/15/2024 11:2 5 AM EDT Impressions 12/15/2024 11:26 AM EDT 1. Deep penetration without aspiration, followed by reflexive cough with the thin liquid substance. 2. Penetration without aspiration with the thick liquid substance. 3. No penetration or aspiration with the pureed/pudding thick substance. Please see separate speech pathology report for full discussion of findings and recommendations. Narrative 12/15/2024 11:26 AM EDT EXAMINATION: MODIFIED BARIUM SWALLOW WAS PERFORMED IN CONJUNCTION WITH SPEECH PATHOLOGY SERVICES TECHNIQUE: Under fluoroscopic evaluation cineradiography/videoradiography recordings were performed in conjunction with the speech-language pathologist (TELESCOPE OPERATOR). Various liquid, solid and/or semi-solid barium preparations were used to assess swallowing function. FLUOROSCOPY DOSE AND TYPE: Fluoro time: 2.5 minutes DAP: 82.772 dGycm2 Air kerma: 18.904 mGy COMPARISON: None HISTORY: ORDERING SYSTEM PROVIDED HISTORY: Eval for safe diet TECHNOLOGIST PROVIDED HISTORY: Eval for safe diet Reason for Exam: eval for safe diet 79-year-old female; evaluate for safe diet FINDINGS: Deep penetration without aspiration followed by a reflexive cough with the thin liquid substance. No penetration or aspiration with the pureed/pudding thick substance. There was poor bolus control in oral loss with the pureed/pudding thick substance. Penetration without aspiration with the thick liquid substance. Soft solid and cookie solid substances were not attempted. Procedure Note Dennis Hewitt MD - 12/15/2024 EXAMINATION: MODIFIED BARIUM SWALLOW WAS PERFORMED IN CONJUNCTION WITH SPEECHPATHOLOGY SERVICES TECHNIQUE: Under fluoroscopic evaluation cineradiography/videoradiographyrecordings were performed in conjunction with the speech-language pathologist(TELESCOPE OPERATOR). Various liquid, solid and/or semi-solid barium preparations were used to assess swallowing function. FLUOROSCOPY DOSE AND TYPE: Fluoro time: 2.5 minutes DAP: 82.772 dGycm2 Air kerma: 18.904 mGy COMPARISON: None HISTORY: ORDERING SYSTEM PROVIDED HISTORY: Eval for safe diet TECHNOLOGIST PROVIDED HISTORY: Eval for safe diet Reason for Exam: eval for safe diet 79-year-old female; evaluate for safe diet FINDINGS: Deep penetration without aspiration followed by a reflexive cough withthe thin liquid substance. No penetration or aspiration with the pureed/pudding thick substance. There was poor bolus control in oral loss with the pureed/pudding thick substance. Penetration without aspiration with the thick liquid substance. Soft solid and cookie solid substances were not attempted. IMPRESSION: 1. Deep penetration without aspiration, followed by reflexive cough withthe thin liquid substance. 2. Penetration without aspiration with the thick liquid substance. 3. No penetration or aspiration with the pureed/pudding thick substance. Please see separate speech pathology report for full discussion offindings and recommendations. Anju Garland LEARNING AND DEVELOPMENT INTERN - [employer] IMG FLUOROSCOPY ORDERABLE S Final Result * TSH reflex to FT4 (12/15/2024 6:40 AM EDT) TSH 0.97 0.27 - 4.20 uIU/mL 12/15/2024 6:40 AM EDT [facility] 12/15/2024 6:40 AM EDT 12/15/2024 6:56 AM EDT Quang Givens DO CHEMISTRY ORDERABLES Final Resul t Performing Organization Address City/[facility]/ZIP Co de Phone Number [facility] [address] [place] [address], [facility] [phone] * (ABNORMAL) Magnesium (12/15/2024 6:40 AM EDT) Pathologist [facility] Magnesium 1.0(L) 1.6 - 2.4 mg/dL 12/15/2024 6:40 AM EDT [facility] 12/15/2024 6:40 AM EDT 12/15/2024 6:56 AM EDT [email or web address] CHEMISTRY ORDERABLES Final Resul t Performing Organization Address [facility]/ZIP Co de Phone Number [facility] [address] [place] [address], [facility] [phone] * (ABNORMAL) CBC (12/15/2024 6:40 AM EDT) Pathologist [facility] WBC 10.0 3.5 - 11.3 k/uL 12/15/2024 6:40 AM EDT [facility] RBC 3.14(L) 3.95 - 5.11 m/uL 12/15/2024 6:40 AM EDT [facility] Hemoglobin 9.1(L) 11.9 - 15.1 g/dL 12/15/2024 6:40 AM EDT [facility] Hematocrit 27.6(L) 36.3 - 47.1 % 12/15/2024 6:40 AM EDT [facility] MCV 87.9 82.6 - 102.9 fL 12/15/2024 6:40 AM EDT [facility] MCH 29.0 25.2 - 33.5 pg 12/15/2024 6:40 AM EDT [facility] MCHC 33.0 28.4 - 34.8 g/dL 12/15/2024 6:40 AM EDT [facility] RDW 13.4 11.8 - 14.4 % 12/15/2024 6:40 AM EDT [facility] Platelets 200 138 - 453 k/uL 12/15/2024 6:40 AM EDT [facility] MPV 9.5 8.1 - 13.5 fL 12/15/2024 6:40 AM EDT [facility] NRBC Automated 0.0 0.0 per 100 WBC 12/15/2024 6:40 AM EDT [facility] 12/15/2024 6:40 AM EDT 12/15/2024 6:56 AM EDT us Quang Givens DO HEMATOLOGY ORDERABLES Final Resu lt [facility] [address] [place] [address], [facility] [phone] * (ABNORMAL) Basic Metabolic Panel w/ Reflex to MG (12/15/2024 6:40 AM EDT) Sodium 136 136 - 145 mmol/L 12/15/2024 6:40 AM EDT [facility] Potassium 3.4(L) 3.7 - 5.3 mmol/L 12/15/2024 6:40 AM EDT [facility] Comment: Specimen hemolysis has exceeded the interference as defined by Barber. Value may be falsely increased. Suggest recollection if clinically indicated. Chloride 106 98 - 107 mmol/L 12/15/2024 6:40 AM EDT [facility] CO2 17(L) 20 - 31 mmol/L 12/15/2024 6:40 AM EDT [facility] Anion Gap 13 9 - 16 mmol/L 12/15/2024 6:40 AM EDT [facility] Glucose 167(H) 74 - 99 mg/dL 12/15/2024 6:40 AM EDT [facility] BUN 5(L) 8 - 23 mg/dL 12/15/2024 6:40 AM EDT [facility] Creatinine 0.5(L) 0.6 - 0.9 mg/dL 12/15/2024 6:40 AM EDT [facility] Est, Glom Filt Rate >90 >60 mL/min/1. 73m2 12/15/2024 6:40 AM EDT [facility] Comment: These results are not intended for use in patients <18 years of age. eGFR results are calculated without a race factor using the 2020 CKD-EPI equation. Careful clinical correlation is recommended, particularly when comparing to results calculated using previous equations. The CKD-EPI equation is less accurate in patients with extremes of muscle mass, extra-renal metabolism of creatine, excessive creatine ingestion, or following therapy that affects renal tubular secretion. Calcium 8.5(L) 8.6 - 10.4 mg/dL 12/15/2024 6:40 AM EDT [facility] 12/15/2024 6:40 AM EDT 12/15/2024 6:56 AM EDT Quang Givens DO CHEMISTRY ORDERABLES Final Resul t Performing Organization Address [facility] Phone Number [facility] [address] [place] [address], [facility] [phone] * (ABNORMAL) C-Reactive Protein (12/15/2024 6:40 AM EDT) Pathologist [facility] CRP 50.6(H) 0.0 - 5.0 mg/L 12/15/2024 6:40 AM EDT [facility] Blood BLOOD SPECIMEN / Unknown 12/15/2024 6:40 AM EDT 12/15/2024 6:56 AM EDT Quang Givens DO CHEMISTRY ORDERABLES Final Resul t Performing Organization Address [facility] Phone Number [facility] [address] [place] [address], [facility] [phone] * (ABNORMAL) Hemoglobin and hematocrit, blood (12/14/2024 5:29 PM EDT) Pathologist [facility] POC Hemoglobin (calc) 10.3(L) 12.0 - 16.0 g/dL 12/14/2024 5:29 PM EDT [facility] POC Hematocrit 30(L) 36 - 46 % 12/14/2024 5:29 PM EDT [facility] 12/14/2024 5:29 PM EDT 12/14/2024 5:32 PM EDT All Taylor DO HEMATOLOGY ORDERABLES Fi nal Result Performing Organization Address City/[facility] Co de Phone Number [facility] [address] [place] [address], [facility] [phone] * XR HIP 2-3 VW W PELVIS RIGHT (12/14/2024 5:28 PM EDT) Anatomical Region Laterality Modality Pelvis, Hip Computed Radiogr aphy 12/14/2024 7:32 PM EDT Impressions 12/14/2024 7:33 PM EDT 1. 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 Narrative 12/14/2024 7:33 PM EDT EXAM: 2 or 3 VIEW(S) XRAY OF THE PELVIS AND RIGHT HIP 12/14/2024 05:28:00 PM COMPARISON: Comparison imaging 12/13/2024. CLINICAL HISTORY: s/p revtha. FINDINGS: JOINTS: SI joints are symmetric. No acute fracture. 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 The left hip demonstrates normal alignment. SOFT TISSUES: The soft tissues are unremarkable. Procedure Note Cesar Sapp MD - 12/14/2024 EXAM: 2 or 3 VIEW(S) XRAY OF THE PELVIS AND RIGHT HIP 12/14/2024 05:28:00 PM COMPARISON: Comparison imaging 12/13/2024. CLINICAL HISTORY: s/p revtha. FINDINGS: JOINTS: SI joints are symmetric. No acute fracture. Status post revisionright-sided total hip arthroplasty with no hardware complication andexpected postoperative changes. The left hip demonstrates normalalignment. SOFT TISSUES: The soft tissues are unremarkable. IMPRESSION: 1. Status post revision right-sided total hip arthroplasty with nohardware complication and expected postoperative changes. Roberto Lopez DO IMG DIAGNOSTIC IMAGING ORDE RABLES Final Result * Transfuse RBC (12/14/2024 4:35 PM EDT) Beverley Huber MD NURSING TREATMENT ORDERABLES - BLOOD ADMIN Final Result * FLUORO FOR SURGICAL PROCEDURES (12/14/2024 4:24 PM EDT) Narrative PN RIS CONSOLIDATED - 12/14/2024 4:25 PM EDT Radiology exam is complete. No Radiologist dictation. Please follow up with ordering provider. us Ramses Abarca DO IMG FLUOROSCOPY ORDERABLES Final Result [facility]PN RIS CONSOLIDATED * Transfuse RBC (12/14/2024 4:23 PM EDT) us Beverley Huber MD NURSING TREATMENT ORDERABLES - BLOOD ADMIN Final Result * (ABNORMAL) OPEN HEART PANEL (12/14/2024 4:06 PM EDT) pH, Arterial 7.333(L) 7.350 - 7.450 12/14/2024 4:06 PM EDT [facility] pCO2, Arterial 41.1 32 - 45 mmHg 12/14/2024 4:06 PM EDT [facility] pO2, Arterial 203.9(H) 75 - 95 mmHg 12/14/2024 4:06 PM EDT [facility] HCO3, Arterial 21.3(L) 22 - 27 mmol/L 12/14/2024 4:06 PM EDT [facility] Negative Base Excess, Art 4.2(H) 0.0 - 2.0 mmol/L 12/14/2024 4:06 PM EDT [facility] O2 Sat, Arterial 99.3 94 - 100 % 12/14/2024 4:06 PM EDT [facility] Carboxyhemoglobin 0.2 0 - 5 % 025 4:06 PM EDT [facility] Comment: Reference Range: Non-Smokers 0-2% Average Smoker 2-4% Heavy Smoker <10% Pt Temp 36.3 12/14/2024 4:06 PM EDT [facility] Mauro Test INFORMATION NOT PROVIDED 12/14/2024 4:06 PM EDT [facility] FIO2 60% 12/14/2024 4:06 PM EDT [facility] Hemoglobin 5.9(LL) 11.9 - 15.1 gm/dL 12/14/2024 4:06 PM EDT [facility] Hematocrit 17.0(L) 36.3 - 47.1 % 12/14/2024 4:06 PM EDT [facility] POC Glucose 151(H) 65 - 105 mg/dL 12/14/2024 4:06 PM EDT [facility] Chloride, Whole Blood 108 98 - 110 mmol/L 12/14/2024 4:06 PM EDT [facility] Potassium, Whole Blood 3.0(L) 3.6 - 5.0 mmol/L 12/14/2024 4:06 PM EDT [facility] Sodium, Whole Blood 133(L) 136 - 145 mmol/L 12/14/2024 4:06 PM EDT [facility] 12/14/2024 4:06 PM EDT 12/14/2024 4:12 PM EDT All Taylor DO CHEMISTRY ORDERABLES Fin al Result Performing Organization Address City/[facility]/[place] [address], [facility] [phone] * Lactic Acid (12/14/2024 4:06 PM EDT) Lactic Acid, Whole Blood 0.8 0.7 - 2.1 mmol/L 12/14/2024 4:06 PM EDT [facility] 12/14/2024 4:06 PM EDT 12/14/2024 4:12 PM EDT All Taylor DO CHEMISTRY ORDERABLES Fin al Result Performing Organization Address [facility] [place] [address], [facility] [phone] * (ABNORMAL) Calcium, Ionized (12/14/2024 4:06 PM EDT) Calcium, Ionized 1.05(L) 1.13 - 1.33 mmol/L 12/14/2024 4:06 PM EDT [facility] 12/14/2024 4:06 PM EDT 12/14/2024 4:12 PM EDT All Taylor DO CHEMISTRY ORDERABLES Fin al Result Performing Organization Address City/[facility]/ZIP Co de Phone Number [facility] [address] [place] [address], [facility] [phone] * Culture, Anaerobic and Aerobic (12/14/2024 3:35 PM EDT) Specimen Description .HIP SWAB 12/14/2024 3:35 PM EDT [facility] Special Requests Site: Swab 12/14/2024 3:35 PM EDT [facility] Direct Exam FEW NEUTROPHILS 12/14/2024 3:35 PM EDT [facility] Direct Exam NO ORGANISMS SEEN 12/14/2024 3:35 PM EDT [facility] Culture NORMAL SKIN DANN 12/14/2024 3:35 PM EDT [facility] Culture No anaerobic organisms isolated at 5 days. 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, initial encounter [T84.51XA] Ramses Abarca DO MICROBIOLOGY - GENERAL ORD ERABLES Final Result Performing Organization Address [facility]/ZIP Co de Phone Number [facility] [address] [place] [address], [facility] [phone] * (ABNORMAL) OPEN HEART PANEL (12/14/2024 2:50 PM EDT) pH, Arterial 7.367 7.350 - 7.450 12/14/2024 2:50 PM EDT [facility] pCO2, Arterial 37.2 32 - 45 mmHg 12/14/2024 2:50 PM EDT [facility] pO2, Arterial 222.3(H) 75 - 95 mmHg 12/14/2024 2:50 PM EDT [facility] HCO3, Arterial 20.9(L) 22 - 27 mmol/L 12/14/2024 2:50 PM EDT [facility] Negative Base Excess, Art 4.0(H) 0.0 - 2.0 mmol/L 12/14/2024 2:50 PM EDT [facility] O2 Sat, Arterial 99.5 94 - 100 % 12/14/2024 2:50 PM EDT [facility] Carboxyhemoglobin 0.3 0 - 5 % 025 2:50 PM EDT [facility] Comment: Reference Range: Non-Smokers 0-2% Average Smoker 2-4% Heavy Smoker <10% Pt Temp 36.5 12/14/2024 2:50 PM EDT [facility] Mauro Test INFORMATION NOT PROVIDED 12/14/2024 2:50 PM EDT [facility] FIO2 60 12/14/2024 2:50 PM EDT [facility] Hemoglobin 8.3(L) 11.9 - 15.1 gm/dL 12/14/2024 2:50 PM EDT [facility] Hematocrit 24.0(L) 36.3 - 47.1 % 12/14/2024 2:50 PM EDT [facility] POC Glucose 142(H) 65 - 105 mg/dL 12/14/2024 2:50 PM EDT [facility] Chloride, Whole Blood 104 98 - 110 mmol/L 12/14/2024 2:50 PM EDT [facility] Potassium, Whole Blood 2.7(LL) 3.6 - 5.0 mmol/L 12/14/2024 2:50 PM EDT [facility] Sodium, Whole Blood 134(L) 136 - 145 mmol/L 12/14/2024 2:50 PM EDT [facility] 12/14/2024 2:50 PM EDT 12/14/2024 3:00 PM EDT All Schmidt I, DO CHEMISTRY ORDERABLES Fin al Result [facility] [address] [place] [address], [facility] [phone] * Lactic Acid (12/14/2024 2:50 PM EDT) Lactic Acid, Whole Blood 0.8 0.7 - 2.1 mmol/L 12/14/2024 2:50 PM EDT [facility] 12/14/2024 2:50 PM EDT 12/14/2024 3:00 PM EDT [facility] Schmidt [facility], DO CHEMISTRY ORDERABLES Fin al Result Performing Organization Address City/[facility]/ZIP Co de Phone Number [facility] [address] [place] [address], [facility] [phone] * (ABNORMAL) Calcium, Ionized (12/14/2024 2:50 PM EDT) [facility] Calcium, Ionized 1.09(L) 1.13 - 1.33 mmol/L 12/14/2024 2:50 PM EDT [facility] 12/14/2024 2:50 PM EDT 12/14/2024 3:00 PM EDT [facility] Brayan I, DO CHEMISTRY ORDERABLES Fin al Result Performing Organization Address [facility]/ZIP Co de Phone Number [facility] [address] [place] [address], [facility] [phone] * TYPE AND SCREEN (12/14/2024 1:42 PM EDT) [facility] Blood Bank Sample Expiration 12/17/2024,2359 12/14/2024 2:13 PM EDT [facility] Arm Band Number [id number] 12/14/2024 2:16 PM EDT [facility] ABO/Rh O POSITIVE 12/14/2024 2:13 PM EDT [facility] Antibody Screen NEGATIVE 12/14/2024 2:16 PM EDT [facility] Unit Number [id number] 12/14/2024 2:16 PM EDT [facility] Component Leukocyte Reduced Red Cell 12/14/2024 2:16 PM EDT [facility] Unit Divison 00 12/14/2024 2:16 PM EDT [facility] Dispense Status Blood Bank TRANSFUSED 12/15/2024 6:54 AM EDT [facility] Unit Issue Date/Time [id number] 12/15/2024 6:54 AM EDT [facility] Product Code Blood Bank [id number] 12/15/2024 6:54 AM EDT [facility] Blood Bank Unit Type and Rh O POS 12/15/2024 6:54 AM EDT [facility] Blood Bank ISBT Product Blood Type 5100 12/15/2024 6:54 AM EDT [facility] Blood Bank Blood Product Expiration Date [id number] 12/15/2024 6:54 AM EDT [facility] Transfusion Status OK TO TRANSFUSE 12/14/2024 2:16 PM EDT [facility] Crossmatch Result COMPATIBLE 12/14/2024 2:16 PM EDT [facility] Unit Number [id number] 12/14/2024 2:16 PM EDT [facility] Component Leukocyte Reduced Red Cell 12/14/2024 2:16 PM EDT [facility] Unit Divison 00 12/14/2024 2:16 PM EDT [facility] Dispense Status Blood Bank TRANSFUSED 12/15/2024 6:54 AM EDT [facility] Unit Issue Date/Time [id number] 12/15/2024 6:54 AM EDT [facility] Product Code Blood Bank [id number] 12/15/2024 6:54 AM EDT [facility] Blood Bank Unit Type and Rh O POS 12/15/2024 6:54 AM EDT [facility] Blood Bank ISBT Product Blood Type 5100 12/15/2024 6:54 AM EDT [facility] Blood Bank Blood Product Expiration Date [id number] 12/15/2024 6:54 AM EDT [facility] Transfusion Status OK TO TRANSFUSE 12/14/2024 2:16 PM EDT [facility] Crossmatch Result COMPATIBLE 12/14/2024 2:16 PM EDT [facility] Blood BLOOD SPECIMEN / Unknown 12/14/2024 1:42 PM EDT 12/14/2024 1:42 PM EDT us Beverley Huber MD BLOOD BANK TEST ORDERABLES Fi nal Result [facility] [address] [place] [address], [facility] [phone] * CT HEAD WO CONTRAST (12/14/2024 8:32 AM EDT) Anatomical Region Laterality Modality Head Computed Tomogra phy 12/14/2024 10:5 2 AM EDT Impressions 12/14/2024 10:53 AM EDT 1. No acute intracranial abnormality. 2. Severe chronic microvascular disease. 3. 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 Narrative 12/14/2024 10:53 AM EDT EXAMINATION: CT OF THE HEAD WITHOUT CONTRAST 12/14/2024 8:27 am TECHNIQUE: CT of the head was performed without the administration of intravenous contrast. Automated exposure control, iterative reconstruction, and/or weight based adjustment of the mA/kV was utilized to reduce the radiation dose to as low as reasonably achievable. COMPARISON: None. HISTORY: ORDERING SYSTEM PROVIDED HISTORY: confused TECHNOLOGIST PROVIDED HISTORY: confused FINDINGS: BRAIN/VENTRICLES: There is no acute intracranial hemorrhage, mass effect or midline shift. No abnormal extra-axial fluid collection. The villeda-white differentiation is maintained without evidence of an acute infarct. There is no evidence of hydrocephalus. Severe chronic microvascular disease is identified within the periventricular white matter both cerebral hemispheres. 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 Mild atrophy appears age-appropriate ORBITS: The visualized portion of the orbits demonstrate no acute abnormality. SINUSES: The visualized paranasal sinuses and mastoid air cells demonstrate no acute abnormality. SOFT TISSUES/SKULL: No acute abnormality of the visualized skull or soft tissues. Procedure Note Chevy Ruiz MD - 12/14/2024 EXAMINATION: CT OF THE HEAD WITHOUT CONTRAST 12/14/2024 8:27 am TECHNIQUE: CT of the head was performed without the administration of intravenous contrast. Automated exposure control, iterative reconstruction, and/orweight based adjustment of the mA/kV was utilized to reduce the radiation dose toas low as reasonably achievable. COMPARISON: None. HISTORY: ORDERING SYSTEM PROVIDED HISTORY: confused TECHNOLOGIST PROVIDED HISTORY: confused FINDINGS: BRAIN/VENTRICLES: There is no acute intracranial hemorrhage, mass effector midline shift. No abnormal extra-axial fluid collection. Thegray-white differentiation is maintained without evidence of an acute infarct. Thereis no evidence of hydrocephalus. Severe chronic microvascular disease is identified within theperiventricular white matter both cerebral hemispheres. 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 Mild atrophy appears age-appropriate ORBITS: The visualized portion of the orbits demonstrate no acuteabnormality. SINUSES: The visualized paranasal sinuses and mastoid air cellsdemonstrate no acute abnormality. SOFT TISSUES/SKULL: No acute abnormality of the visualized skull orsoft tissues. IMPRESSION: 1. No acute intracranial abnormality. 2. Severe chronic microvascular disease. 3. 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 Ankit Ridley MD IMG CT ORDERABLES Final Result * (ABNORMAL) POC Glucose Fingerstick (12/14/2024 7:46 AM EDT) POC Glucose 109(H) 65 - 105 mg/dL 12/14/2024 7:46 AM EDT [facility] 12/14/2024 7:46 AM EDT 12/14/2024 7:52 AM EDT All Schmidt I, DO POINT OF CARE TEST ORDER CINTHYA Final Result Performing Organization Address City/State/[facility] Co de Phone Number [facility] [address] [place] [address], [facility] [phone] * CT HIP RIGHT WO CONTRAST (12/14/2024 6:38 AM EDT) Anatomical Region Laterality Modality Hip, Pelvis, Thigh Computed Sunny graphy 12/14/2024 8:04 AM EDT Impressions 12/14/2024 8:11 AM EDT 1. Right hip arthroplasty hardware. No obvious periprosthetic lucency or acute osseous abnormality. 2. Region of fluid overlying the right greater trochanter measuring 7.0 x 1.9 x 3.8 cm likely a seroma. Infection/abscess or liquefying hematoma not entirely excluded in the appropriate clinical setting. 3. Gas in the subcutaneous fat along the right posterolateral thigh which may be related to recent surgery, trauma and/or infection. 4. Okil-wt-ileplwns edema in the subcutaneous fat about the bilateral hip/thighs, right greater than left. 5. Moderate edema/fluid in the presacral fat. 6. Mild fat stranding of the urinary bladder which can be seen with cystitis. Correlate with urinalysis. 7. Mild left hip osteoarthrosis. Narrative 12/14/2024 8:11 AM EDT EXAMINATION: CT OF THE RIGHT HIP WITHOUT CONTRAST 12/14/2024 6:35 am TECHNIQUE: CT of the right hip was performed without the administration of intravenous contrast. Multiplanar reformatted images are provided for review. Automated exposure control, iterative reconstruction, and/or weight based adjustment of the mA/kV was utilized to reduce the radiation dose to as low as reasonably achievable. COMPARISON: Right hip radiographs from 12/13/2024 HISTORY ORDERING SYSTEM PROVIDED HISTORY: Metal suppression due to R hip replacement. Thin cuts in all planes please. TECHNOLOGIST PROVIDED HISTORY: Metal suppression due to R hip replacement. Thin cuts in all planes please. 79-year-old female with right hip replacement FINDINGS: Bones: Exam is somewhat limited due to beam hardening artifact from right hip arthroplasty hardware. Mild degenerative changes at the pubic symphysis. No obvious periprosthetic lucency or acute osseous abnormality. Soft Tissue: Atherosclerotic calcification of the vasculature. Pelvic phleboliths. Cam catheter within a relatively nondistended urinary bladder. Mild fat stranding of the urinary bladder which can be seen with cystitis. Nkba-th-obmbixwg edema in the subcutaneous fat about the bilateral hip/thighs, right greater than left. Moderate edema/fluid in the presacral fat. Electronic device and sacral stimulator lead wire at the left posterolateral flank and left sacral ala. Region of fluid overlying the right greater trochanter measuring 7.0 x 1.9 by 3.8 cm on image 58, series 601 and image 66, series 3 likely a seroma. Infection/abscess or liquefying hematoma not entirely excluded in the appropriate clinical setting. Gas in the subcutaneous fat along the right posterolateral thigh which may be related to recent surgery, trauma and/or infection. Joint: Right hip arthroplasty hardware. Right femoral head component properly located in the right acetabular component. Mild left hip osteoarthrosis. Bilateral SI joints appear patent. No SI joint fusion, effusion or erosive change. Procedure Note Dennis Hewitt MD - 12/14/2024 EXAMINATION: CT OF THE RIGHT HIP WITHOUT CONTRAST 12/14/2024 6:35 am TECHNIQUE: CT of the right hip was performed without the administration ofintravenous contrast. Multiplanar reformatted images are provided for review.Automated exposure control, iterative reconstruction, and/or weight based adjustmentof the mA/kV was utilized to reduce the radiation dose to as low asreasonably achievable. COMPARISON: Right hip radiographs from 12/13/2024 HISTORY ORDERING SYSTEM PROVIDED HISTORY: Metal suppression due to R hipreplacement. Thin cuts in all planes please. TECHNOLOGIST PROVIDED HISTORY: Metal suppression due to R hip replacement. Thin cuts in all planesplease. 79-year-old female with right hip replacement FINDINGS: Bones: Exam is somewhat limited due to beam hardening artifact from righthip arthroplasty hardware. Mild degenerative changes at the pubic symphysis.No obvious periprosthetic lucency or acute osseous abnormality. Soft Tissue: Atherosclerotic calcification of the vasculature. Pelvic phleboliths. Cam catheter within a relatively nondistended urinary bladder. Mild fat stranding of the urinary bladder which can be seenwith cystitis. Dsqb-ya-kmboykcx edema in the subcutaneous fat about the bilateral hip/thighs, right greater than left. Moderate edema/fluid in thepresacral fat. Electronic device and sacral stimulator lead wire at the leftposterolateral flank and left sacral ala. Region of fluid overlying the right greater trochanter measuring 7.0 x 1.9 by 3.8 cm on image 58, series 601 andimage 66, series 3 likely a seroma. Infection/abscess or liquefying hematomanot entirely excluded in the appropriate clinical setting. Gas in the subcutaneous fat along the right posterolateral thigh which may be relatedto recent surgery, trauma and/or infection. Joint: Right hip arthroplasty hardware. Right femoral head component properly located in the right acetabular component. Mild left hip osteoarthrosis. Bilateral SI joints appear patent. No SI joint fusion, effusion or erosive change. IMPRESSION: 1. Right hip arthroplasty hardware. No obvious periprosthetic lucency or acute osseous abnormality. 2. Region of fluid overlying the right greater trochanter measuring 7.0 x1.9 x 3.8 cm likely a seroma. Infection/abscess or liquefying hematoma not entirely excluded in the appropriate clinical setting. 3. Gas in the subcutaneous fat along the right posterolateral thigh whichmay be related to recent surgery, trauma and/or infection. 4. Cgpx-wu-osfmkhqb edema in the subcutaneous fat about the bilateral hip/thighs, right greater than left. 5. Moderate edema/fluid in the presacral fat. 6. Mild fat stranding of the urinary bladder which can be seen withcystitis. Correlate with urinalysis. 7. Mild left hip osteoarthrosis. us Neetu Felipe DO IMG CT ORDERABLES Final Result * (ABNORMAL) Comprehensive Metabolic Panel w/ Reflex to MG (12/14/2024 4:11 AM EDT) Sodium 133(L) 136 - 145 mmol/L 12/14/2024 4:11 AM EDT [facility] Potassium 3.8 3.7 - 5.3 mmol/L 12/14/2024 4:11 AM EDT [facility] Chloride 99 98 - 107 mmol/L 12/14/2024 4:11 AM EDT [facility] CO2 19(L) 20 - 31 mmol/L 12/14/2024 4:11 AM EDT [facility] Anion Gap 15 9 - 16 mmol/L 12/14/2024 4:11 AM EDT [facility] Glucose 113(H) 74 - 99 mg/dL 12/14/2024 4:11 AM EDT [facility] BUN 6(L) 8 - 23 mg/dL 12/14/2024 4:11 AM EDT [facility] Creatinine 0.4(L) 0.6 - 0.9 mg/dL 12/14/2024 4:11 AM EDT [facility] Est, Glom Filt Rate >90 >60 mL/min/1. 73m2 12/14/2024 4:11 AM EDT [facility] Comment: These results are not intended for use in patients <18 years of age. eGFR results are calculated without a race factor using the 2020 CKD-EPI equation. Careful clinical correlation is recommended, particularly when comparing to results calculated using previous equations. The CKD-EPI equation is less accurate in patients with extremes of muscle mass, extra-renal metabolism of creatine, excessive creatine ingestion, or following therapy that affects renal tubular secretion. Calcium 8.6 8.6 - 10.4 mg/dL 12/14/2024 4:11 AM EDT [facility] Total Protein 5.5(L) 6.6 - 8.7 g/dL 12/14/2024 4:11 AM EDT [facility] Albumin 2.5(L) 3.5 - 5.2 g/dL 12/14/2024 4:11 AM EDT [facility] Albumin/Globulin Ratio 0.8(L) 1.0 - 2.5 12/14/2024 4:11 AM EDT [facility] Total Bilirubin 0.3 0.0 - 1.2 mg/dL 12/14/2024 4:11 AM EDT [facility] Alkaline Phosphatase 80 35 - 104 U/L 12/14/2024 4:11 AM EDT [facility] ALT 11 10 - 35 U/L 12/14/2024 4:11 AM EDT [facility] AST 40(H) 10 - 35 U/L 12/14/2024 4:11 AM EDT [facility] 12/14/2024 4:11 AM EDT 12/14/2024 4:22 AM EDT us Naif Barron DO CHEMISTRY ORDERABLES Final Result [facility] [address] [place] [address], [facility] [phone] * (ABNORMAL) CBC (12/14/2024 4:11 AM EDT) WBC 7.4 3.5 - 11.3 k/uL 12/14/2024 4:11 AM EDT [facility] RBC 2.69(L) 3.95 - 5.11 m/uL 12/14/2024 4:11 AM EDT [facility] Hemoglobin 7.9(L) 11.9 - 15.1 g/dL 12/14/2024 4:11 AM EDT [facility] Hematocrit 23.7(L) 36.3 - 47.1 % 12/14/2024 4:11 AM EDT [facility] MCV 88.1 82.6 - 102.9 fL 12/14/2024 4:11 AM EDT [facility] MCH 29.4 25.2 - 33.5 pg 12/14/2024 4:11 AM EDT [facility] MCHC 33.3 28.4 - 34.8 g/dL 12/14/2024 4:11 AM EDT [facility] RDW 13.3 11.8 - 14.4 % 12/14/2024 4:11 AM EDT [facility] Platelets 323 138 - 453 k/uL 12/14/2024 4:11 AM EDT [facility] MPV 9.2 8.1 - 13.5 fL 12/14/2024 4:11 AM EDT [facility] NRBC Automated 0.0 0.0 per 100 WBC 12/14/2024 4:11 AM EDT [facility] 12/14/2024 4:11 AM EDT 12/14/2024 4:22 AM EDT us Naif Barron DO HEMATOLOGY ORDERABLES Final Result Performing Organization Address [facility]/ZIP Co de Phone Number [facility] [address] [place] [address], [facility] [phone] * (ABNORMAL) Protime-INR (12/14/2024 4:11 AM EDT) Protime 20.0(H) 11.7 - 14.9 sec 12/14/2024 4:11 AM EDT [facility] INR 1.6 12/14/2024 4:11 AM EDT [facility] Comment: Therapeutic Range: Moderate Anticoagulant Intensity: INR = 2.0-3.0 High Anticoagulant Intensity: INR = 2.5-3.5 12/14/2024 4:11 AM EDT 12/14/2024 4:22 AM EDT us Naif Barron DO HEMATOLOGY ORDERABLES Final Result Performing Organization Address [facility]/ZIP Co de Phone Number [facility] [address] [place] [address], [facility] [phone] * Culture, Blood 2 (12/14/2024 4:11 AM EDT) Specimen Description .BLOOD 12/14/2024 4:11 AM EDT [facility] Special Requests LEFT AC 9 ML 12/14/2024 4:11 AM EDT [facility] Culture NO GROWTH 5 DAYS 12/14/2024 4:11 AM EDT [facility] BLOOD SPECIMEN / Unknown 12/14/2024 4:11 AM EDT 12/14/2024 4:26 AM EDT us Ankit Ridley MD MICROBIOLOGY - GENERAL ORDERABL ES Final Result Performing Organization Address [facility] Co de Phone Number [facility] [address] [place] [address], [facility] [phone] * Culture, Blood 1 (12/14/2024 4:00 AM EDT) Specimen Description .BLOOD 12/14/2024 4:00 AM EDT [facility] Special Requests LEFT UPPER ARM 7 ML 12/14/2024 4:00 AM EDT [facility] Culture NO GROWTH 5 DAYS 12/14/2024 4:00 AM EDT [facility] BLOOD SPECIMEN / Unknown 12/14/2024 4:00 AM EDT 12/14/2024 4:27 AM EDT Ankit Ridley MD MICROBIOLOGY - GENERAL ORDERABL ES Final Result Performing Organization Address [facility] de Phone Number [facility] [address] [place] [address], [facility] [phone] * XR CHEST PORTABLE (12/14/2024 2:28 AM EDT) Anatomical Region Laterality Modality Chest Computed Radiogr aphy 12/14/2024 2:52 AM EDT Impressions 12/14/2024 2:53 AM EDT No acute airspace disease identified. Narrative 12/14/2024 2:53 AM EDT EXAMINATION: ONE XRAY VIEW OF THE CHEST 12/14/2024 2:23 am COMPARISON: None. HISTORY: ORDERING SYSTEM PROVIDED HISTORY: Aspiration r/o TECHNOLOGIST PROVIDED HISTORY: Aspiration r/o Reason for Exam: aspiration upright port FINDINGS: External artifacts are noted projecting over the patient. Cardiac and mediastinal contours appear within normal limits. Dense mitral annular calcification. There is no consolidation, pneumothorax or evidence for edema. No evidence for effusion. No acute osseous abnormality is identified. Procedure Note Roger Fowler MD - 12/14/2024 EXAMINATION: ONE XRAY VIEW OF THE CHEST 12/14/2024 2:23 am COMPARISON: None. HISTORY: ORDERING SYSTEM PROVIDED HISTORY: Aspiration r/o TECHNOLOGIST PROVIDED HISTORY: Aspiration r/o Reason for Exam: aspiration upright port FINDINGS: External artifacts are noted projecting over the patient. Cardiac and mediastinal contours appear within normal limits. Dense mitral annular calcification. There is no consolidation, pneumothorax or evidence for edema. No evidence for effusion. No acute osseous abnormality isidentified. IMPRESSION: No acute airspace disease identified. [facility] LEARNING AND DEVELOPMENT INTERN - BICYCLE COURIER IMG DIAGNOSTIC IMAGING ORDERABLES Final Result * EKG 12 Lead (12/13/2024 11:34 PM EDT) Ventricular Rate 88 BPM [facility] Atrial Rate 88 BPM [facility] P-R Interval 130 ms [facility] QRS Duration 82 ms [facility] Q-T Interval 380 ms [facility] QTc Calculation (Bazett) 459 ms [facility] MUSE P [place] 69 degrees [facility] MUSE R [place] -13 degrees [facility] T [place] 18 degrees [facility] M[facility] 12/13/2024 11:3 4 PM EDT Narrative [facility] - 12/14/2024 4:47 PM EDT Normal sinus rhythm Normal ECG No previous ECGs available Procedure Note Carrie Guajardo MD - 12/14/2024 Normal sinus rhythm Normal ECG No previous ECGs available Ankit Ridley MD ECG ORDERABLES Final Result [facility] * (ABNORMAL) Iron and TIBC (12/13/2024 11:27 PM EDT) Iron 17(L) 37 - 145 ug/dL 12/13/2024 11:27 PM EDT [facility] TIBC 106(L) 250 - 450 ug/dL 12/13/2024 11:27 PM EDT [facility] Iron % Saturation 16(L) 20 - 55 % 12/13/2024 11:27 PM EDT [facility] UIBC 89(L) 112 - 347 ug/dL 12/13/2024 11:27 PM EDT [facility] BLOOD SPECIMEN / Unknown 12/13/2024 11:27 PM EDT 12/13/2024 11:32 PM EDT Ankit Ridley MD CHEMISTRY ORDERABLES Final Resu lt Performing Organization Address [facility] Co de Phone Number [facility] [address] [place] [address] * (ABNORMAL) Reticulocytes (12/13/2024 11:27 PM EDT) Retic Ct Pct 1.4 0.5 - 1.9 % 12/13/2024 11:27 PM EDT [facility] Absolute Retic # 0.034 0.030 - 0.080 M/uL 12/13/2024 11:27 PM EDT [facility] Immature Retic Fract 15.2 2.7 - 18.3 % 12/13/2024 11:27 PM EDT [facility] Retic Hemoglobin 28.0(L) 28.2 - 35.7 pg 12/13/2024 11:27 PM EDT [facility] BLOOD SPECIMEN / Unknown 12/13/2024 11:27 PM EDT 12/13/2024 11:32 PM EDT Ankit Ridley MD HEMATOLOGY ORDERABLES Final Res ult Performing Organization Address [facility] Co de Phone Number [facility] [address] [place] [address] * (ABNORMAL) Vitamin B12 & Folate (12/13/2024 11:27 PM EDT) Vitamin B-12 1423(H) 232 - 1245 pg/mL 12/13/2024 11:27 PM EDT [facility] Folate 22.4 4.8 - 24.2 ng/mL 12/13/2024 11:27 PM EDT [facility] BLOOD SPECIMEN / Unknown 12/13/2024 11:27 PM EDT 12/13/2024 11:32 PM EDT us Ankit Ridley MD CHEMISTRY ORDERABLES Final Resu lt Performing Organization Address [facility] de Phone Number [facility] [address] [place] [address], [facility] [phone] * Ferritin (12/13/2024 11:27 PM EDT) Ferritin 316 ng/mL 12/13/2024 11:27 PM EDT [facility] Comment:No reference range e stablished for this age/gender. BLOOD SPECIMEN / Unknown 12/13/2024 11:27 PM EDT 12/13/2024 11:32 PM EDT us Ankit Ridley MD CHEMISTRY ORDERABLES Final Resu lt Performing Organization Address [facility] Phone Number [facility] [address] [place] [address] * Ethanol (12/13/2024 11:27 PM EDT) Ethanol Lvl <10 <10 mg/dL 12/13/2024 11:27 PM EDT [facility] Ethanol percent <0.010 <0.010 % 12/13/2024 11:27 PM EDT [facility] BLOOD SPECIMEN / Unknown 12/13/2024 11:27 PM EDT 12/13/2024 11:32 PM EDT us Ankit Ridley MD CHEMISTRY ORDERABLES Final Resu lt Performing Organization Address [facility] de Phone Number [facility] [address] [place] [address], [facility] [phone] * XR FEMUR RIGHT (MIN 2 VIEWS) (12/13/2024 11:02 PM EDT) Anatomical Region Laterality Modality Hip, Thigh, Knee Computed Radiog arcadio 12/14/2024 12:1 1 AM EDT Impressions 12/14/2024 12:13 AM EDT 1. Right hip prosthesis in place. Narrative 12/14/2024 12:13 AM EDT EXAM: 2 VIEW(S) XRAY OF THE RIGHT FEMUR 12/13/2024 11:02:08 PM COMPARISON: Radiographs same day. CLINICAL HISTORY: AP/Lat for preop planning. FINDINGS: BONES AND JOINTS: Right hip prosthesis in place. SOFT TISSUES: Atherosclerotic vascular calcifications noted. Procedure Note Roger Fowler MD - 12/14/2024 EXAM: 2 VIEW(S) XRAY OF THE RIGHT FEMUR 12/13/2024 11:02:08 PM COMPARISON: Radiographs same day. CLINICAL HISTORY: AP/Lat for preop planning. FINDINGS: BONES AND JOINTS: Right hip prosthesis in place. SOFT TISSUES: Atherosclerotic vascular calcifications noted. IMPRESSION: 1. Right hip prosthesis in place. us Antwan T Conrad DO IMG DIAGNOSTIC IMAGING ORDER CINTHYA Final Result * XR HIP RIGHT (2-3 VIEWS) (12/13/2024 9:45 PM EDT) Anatomical Region Laterality Modality Hip, Pelvis, Thigh Computed Radi ography 12/13/2024 10:2 4 PM EDT Impressions 12/13/2024 10:26 PM EDT Successful reduction right total hip arthroplasty. No fracture. Narrative 12/13/2024 10:26 PM EDT EXAMINATION: TWO XRAY VIEWS OF THE RIGHT HIP 12/13/2024 9:45 pm COMPARISON: 4:31 p.m. today pre reduction HISTORY: ORDERING SYSTEM PROVIDED HISTORY: Right AP hip/cross table lat please TECHNOLOGIST PROVIDED HISTORY: Right AP hip/cross table lat please FINDINGS: Total hip arthroplasty now in anatomic alignment. Vascular calcifications noted. Cortical margins intact. Procedure Note Luis Bowden MD - 12/13/2024 EXAMINATION: TWO XRAY VIEWS OF THE RIGHT HIP 12/13/2024 9:45 pm COMPARISON: 4:31 p.m. today pre reduction HISTORY: ORDERING SYSTEM PROVIDED HISTORY: Right AP hip/cross table lat please TECHNOLOGIST PROVIDED HISTORY: Right AP hip/cross table lat please FINDINGS: Total hip arthroplasty now in anatomic alignment. Vascularcalcifications noted. Cortical margins intact. IMPRESSION: Successful reduction right total hip arthroplasty. No fracture. Marshall Kelly DO IMG DIAGNOSTIC IMAGING ORDERABLE S Final Result * Troponin (12/13/2024 8:55 PM EDT) Pathologist [facility] Troponin, High Sensitivity 14 0 - 14 ng/L 12/13/2024 8:55 PM EDT [facility] Comment:High Sensitivity Tro ponin values cannot be compared with other Troponin methodologies. 12/13/2024 8:55 PM EDT 12/13/2024 9:00 PM EDT Antwan Martines DO CHEMISTRY ORDERABLES Final R esult [facility] [address] [place] [address], [facility] [phone] * (ABNORMAL) Basic Metabolic Panel (12/13/2024 8:55 PM EDT) Pathologist [facility] Sodium 131(L) 136 - 145 mmol/L 12/13/2024 8:55 PM EDT [facility] Potassium 3.4(L) 3.7 - 5.3 mmol/L 12/13/2024 8:55 PM EDT [facility] Comment: Specimen hemolysis has exceeded the interference as defined by Barber. Value may be falsely increased. Suggest recollection if clinically indicated. Chloride 98 98 - 107 mmol/L 12/13/2024 8:55 PM EDT [facility] CO2 20 20 - 31 mmol/L 12/13/2024 8:55 PM EDT [facility] Anion Gap 13 9 - 16 mmol/L 12/13/2024 8:55 PM EDT [facility] Glucose 117(H) 74 - 99 mg/dL 12/13/2024 8:55 PM EDT [facility] BUN 7(L) 8 - 23 mg/dL 12/13/2024 8:55 PM EDT [facility] Creatinine 0.4(L) 0.6 - 0.9 mg/dL 12/13/2024 8:55 PM EDT [facility] Est, Glom Filt Rate >90 >60 mL/min/1. 73m2 12/13/2024 8:55 PM EDT [facility] Comment: These results are not intended for use in patients <18 years of age. eGFR results are calculated without a race factor using the 2020 CKD-EPI equation. Careful clinical correlation is recommended, particularly when comparing to results calculated using previous equations. The CKD-EPI equation is less accurate in patients with extremes of muscle mass, extra-renal metabolism of creatine, excessive creatine ingestion, or following therapy that affects renal tubular secretion. Calcium 8.6 8.6 - 10.4 mg/dL 12/13/2024 8:55 PM EDT [facility] Blood BLOOD SPECIMEN / Unknown 12/13/2024 8:55 PM EDT 12/13/2024 9:00 PM EDT us Antwan Martines DO CHEMISTRY ORDERABLES Final R esult [facility] [address] [phone] * (ABNORMAL) CBC (12/13/2024 8:55 PM EDT) WBC 9.1 3.5 - 11.3 k/uL 12/13/2024 8:55 PM EDT [facility] RBC 2.79(L) 3.95 - 5.11 m/uL 12/13/2024 8:55 PM EDT [facility] Hemoglobin 8.0(L) 11.9 - 15.1 g/dL 12/13/2024 8:55 PM EDT [facility] Hematocrit 24.7(L) 36.3 - 47.1 % 12/13/2024 8:55 PM EDT [facility] MCV 88.5 82.6 - 102.9 fL 12/13/2024 8:55 PM EDT [facility] MCH 28.7 25.2 - 33.5 pg 12/13/2024 8:55 PM EDT [facility] MCHC 32.4 28.4 - 34.8 g/dL 12/13/2024 8:55 PM EDT [facility] RDW 13.2 11.8 - 14.4 % 12/13/2024 8:55 PM EDT [facility] Platelets 325 138 - 453 k/uL 12/13/2024 8:55 PM EDT [facility] MPV 9.0 8.1 - 13.5 fL 12/13/2024 8:55 PM EDT [facility] NRBC Automated 0.0 0.0 per 100 WBC 12/13/2024 8:55 PM EDT [facility] BLOOD SPECIMEN / Unknown 12/13/2024 8:55 PM EDT 12/13/2024 9:00 PM EDT us Antwan Martines DO HEMATOLOGY ORDERABLES Final Result [facility] [address] [place] [address], [facility] [phone] * XR HIP RIGHT (2-3 VIEWS) (12/13/2024 4:40 PM EDT) Anatomical Region Laterality Modality Hip, Pelvis, Thigh Computed Radi ography 12/13/2024 5:52 PM EDT Impressions 12/13/2024 5:53 PM EDT 1. Right hip dislocation with the femoral head seen superior in relation to the acetabulum. 2. Right hip hemiarthroplasty. Narrative 12/13/2024 5:53 PM EDT EXAM: 2 VIEW(S) XRAY OF THE RIGHT HIP 12/13/2024 04:40:00 PM COMPARISON: None available. CLINICAL HISTORY: AP, lateral. Dislocation. Images OK'd by Dr. Martines. FINDINGS: BONES AND JOINTS: Hip dislocation with the femoral head seen superior in relation to the acetabulum. There is hip hemiarthroplasty. SOFT TISSUES: The soft tissues are unremarkable. Procedure Note Symone Flores MD - 12/13/2024 EXAM: 2 VIEW(S) XRAY OF THE RIGHT HIP 12/13/2024 04:40:00 PM COMPARISON: None available. CLINICAL HISTORY: AP, lateral. Dislocation. Images OK'd by Dr. Martines. FINDINGS: BONES AND JOINTS: Hip dislocation with the femoral head seen superior in relation to theacetabulum. There is hip hemiarthroplasty. SOFT TISSUES: The soft tissues are unremarkable. IMPRESSION: 1. Right hip dislocation with the femoral head seen superior in relationto the acetabulum. 2. Right hip hemiarthroplasty. us Antwan Martines DO IMG DIAGNOSTIC IMAGING ORDER CINTHYA Final Result * Sedimentation Rate (12/13/2024 4:30 PM EDT) Sed Rate, Automated 12 0 - 30 mm/Hr 12/13/2024 4:30 PM EDT [facility] Blood BLOOD SPECIMEN / Unknown 12/13/2024 4:30 PM EDT 12/13/2024 4:35 PM EDT us Antwan Martines DO HEMATOLOGY ORDERABLES Final Result Performing Organization Address [facility] de Phone Number [facility] [address] [place] [address] * (ABNORMAL) C-Reactive Protein (12/13/2024 4:30 PM EDT) Pathologist [facility] CRP 88.6(H) 0.0 - 5.0 mg/L 12/13/2024 4:30 PM EDT [facility] BLOOD SPECIMEN / Unknown 12/13/2024 4:30 PM EDT 12/13/2024 4:35 PM EDT us Antwan Martines DO CHEMISTRY ORDERABLES Final R esult Performing Organization Address [facility] Co de Phone Number [facility] [address] [place] [address] documented in this encounter Visit Diagnoses Diagnosis Anterior dislocation of right hip, initial encounter (HCC)- Primary Closed dislocation of right hip, initial encounter (HCC) 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, initial encounter Hyponatremia Hyposmolality and/or hyponatremia Hypothyroidism Unspecified hypothyroidism GERD (gastroesophageal reflux disease) Esophageal reflux Anemia Anemia, unspecified Hyponatremia Hyposmolality and/or hyponatremia Hypokalemia Hypopotassemia Infection of right prosthetic hip joint Infection and inflammatory reaction due to internal joint prosthesis CRP elevated Elevated C-reactive protein (CRP) Acute on chronic urinary retention Moderate malnutrition Malnutrition of moderate degree documented in this encounter Admitting Diagnoses Diagnosis Anterior dislocation of right hip, initial encounter (HCC) Closed dislocation of right hip (HCC) Closed dislocation of hip, unspecified site documented in this encounter Administered Medications Inactive Administered Medications - up to 3 most recent administrations Medication Order MAR Action Action Date Dose Rate Site 0.9 % sodium chloride infusion IntraVENous, at 5-250 mL/hr, PRN, if patient receiving piggyback infusions and maintenance fluids are not ordered OR KVO fluids to protect IV site / prevent frequent line interruptions/ long duration, Starting on Wed12/18/24 at 1720, For piggyback infusion, administer at same rate as piggyback for a total of 25 mL. Enter 25 mL into dose field and piggyback rate into rate field of order. If piggyback is infusing at a rate less than 100 mL/hr, enter 25 mL into dose field and 100 mL/hr into rate field of order. For KVO fluids, enter rate of 20 mL/hr or less into rate field of order. acetaminophen (TYLENOL) suppository 650 mg 650 mg, Rectal, EVERY 6 HOURS PRN, Starting on Wed12/14/24 at 0128, Until Wed12/20/24 at 1616, Pain Mild (1-3) OR per patient request for pain score (4-10), Fever, For temp greater than 100.4 F (38 C), Administer if oral route cannot be used. acetaminophen (TYLENOL) tablet 650 mg 650 mg, Oral, EVERY 6 HOURS PRN, Starting on Wed12/14/24 at 0128, Until Wed12/20/24 at 1616, Pain Mild (1-3) OR per patient request for pain score (4-10), Fever, For temp greater than 100.4 F (38 C), Maximum dose of acetaminophen is 4000 mg from all sources in 24 hours. ascorbic acid (VITAMIN C) tablet 500 mg 500 mg, Oral, DAILY, First dose on Wed12/14/24 at 0900, Until Discontinued Given 12/20/2024 9:28 AM EDT 500 mg Given 12/19/2024 9:43 AM EDT 500 mg Given 12/17/2024 9:23 AM EDT 500 mg aspirin chewable tablet 81 mg 81 mg, Oral, 2 times daily, First dose on Wed12/18/24 at 0915, Until Discontinued Given 12/20/2024 9:28 AM EDT 81 mg Given 12/19/2024 9:39 PM EDT 81 mg Given 12/19/2024 9:43 AM EDT 81 mg calcium gluconate 1,000 mg in sodium chloride 50 mL 1,000 mg, IntraVENous, at 50 mL/hr, Administer over 60 Minutes, ONCE, On Wed12/15/24 at 1100, For 1 dose, Infuse 1 g over 60 min New Bag 12/15/2024 1:24 PM EDT 1,000 mg 50 mL/hr calcium gluconate 2,000 mg in sodium chloride 100 mL 2,000 mg, IntraVENous, at 50 mL/hr, Administer over 120 Minutes, ONCE, On Wed12/15/24 at 0900, For 1 dose New Bag 12/15/2024 11:18 AM EDT 2,000 mg 50 mL/hr ceFAZolin (ANCEF) 2000 mg in sterile water 20 mL IV syringe 2,000 mg, IntraVENous, EVERY 8 HOURS, First dose on Wed12/15/24 at 0030, For 2 doses, Administer over 5 mins. Given 12/15/2024 8:30 AM EDT 2,000 mg Given 12/15/2024 12:11 AM EDT 2,000 mg cefTRIAXone (ROCEPHIN) 2,000 mg in sterile water 20 mL IV syringe 2,000 mg, IntraVENous, EVERY 24 HOURS, First dose on Wed12/18/24 at 1800, Administer as slow IV Push over 5 mins Reconstitute 2 g vials with 19.2 mL of designated diluent to produce a 100mg/mL solution Given 12/19/2024 6:11 PM EDT 2,000 mg Given 12/18/2024 6:26 PM EDT 2,000 mg DAPTOmycin (CUBICIN) 330 mg in sodium chloride 0.9 % 50 mL IVPB 330 mg (rounded from 329.4 mg = 6 mg/kg 54.9 kg), IntraVENous, at 100 mL/hr, Administer over 30 Minutes, EVERY 24 HOURS, First dose on Wed12/18/24 at 1900, Incompatible with dextrose containing solutions. New Bag 12/19/2024 7:49 PM EDT 330 mg 100 mL/hr New Bag 12/18/2024 6:35 PM EDT 330 mg 100 mL/hr dextrose 5 % and 0.45 % sodium chloride infusion IntraVENous, at 50 mL/hr, CONTINUOUS, Starting on Karla 12/14/24 at 0130, For 24 hours, Complete last bag that is running at 24 hours and then saline lock IV NoRateChange 12/14/2024 1:50 PM EDT 50 mL/hr Rate/Dose Verify 12/14/2024 1:36 PM EDT 50 mL/h r Rate/Dose Verify 12/14/2024 10:35 AM EDT 50 mL/ hr fentaNYL (SUBLIMAZE) injection 25 mcg 25 mcg, IntraVENous, ONCE, 1 dose, On Karla 12/14/24 at 0845, If oral and IV narcotics ordered, use oral first and only use IV if oral is ineffective or cannot take oral. Do Not give oral and IV within 1 hour of each other unless specifically ordered. Given 12/14/2024 9:44 AM EDT 25 mcg ferrous sulfate (FE TABS 325) EC tablet 325 mg 325 mg, Oral, DAILY WITH BREAKFAST, First dose on Karla 12/14/24 at 0830, Until Discontinued Given 12/20/2024 9:29 AM EDT 325 mg Given 12/19/2024 9:43 AM EDT 325 mg Given 12/17/2024 9:23 AM EDT 325 mg folic acid (FOLVITE) tablet 1 mg 1 mg, Oral, DAILY, First dose on Karla 12/14/24 at 0900, Until Discontinued Given 12/19/2024 9:43 AM EDT 1 mg Given 12/17/2024 9:23 AM EDT 1 mg Given 12/16/2024 9:31 AM EDT 1 mg HYDROmorphone (DILAUDID) injection 0.5 mg 0.5 mg, IntraVENous, EVERY 5 MIN PRN, 4 doses, Starting on Karla 12/14/24 at 1706, Until Krala 12/14/24 at 1830, Pain Severe (7-10), Phase I - Initial therapy for severe pain., PACU only Given 12/14/2024 5:35 PM EDT 0.5 mg Given 12/14/2024 5:14 PM EDT 0.5 mg iohexol (OMNIPAQUE 240) Other 50 mL 50 mL, Other, IMG ONCE PRN, 1 dose, Starting on Wed12/19/24 at 1640, Until Wed12/19/24 at 1641, Other Given 12/19/2024 4:41 PM EDT 15 mLs iron sucrose (VENOFER) 200 mg in sodium chloride 0.9 % 100 mL IVPB 200 mg, IntraVENous, at 440 mL/hr, Administer over 15 Minutes, EVERY 24 HOURS, First dose on Wed12/14/24 at 0830, For 3 doses New Bag 12/16/2024 9:41 AM EDT 200 mg 440 mL/hr New Bag 12/15/2024 9:24 AM EDT 200 mg 440 mL/hr New Bag 12/14/2024 9:51 AM EDT 200 mg 440 mL/hr ketamine (KETALAR) IntraVENous 55 mg 55 mg (rounded from 54.9 mg = 1 mg/kg 54.9 kg), IntraVENous, ONCE, 1 dose, On Wed12/13/24 at 2130, STAT Given 12/13/2024 9:32 PM EDT 55 mg ketorolac (TORADOL) injection 15 mg 15 mg, IntraVENous, EVERY 6 HOURS, 8 doses, First dose on Wed12/14/24 at 2300, Last dose on Wed12/16/24 at 1700, Do not administer for more than 5 days Avoid in patient with renal insufficiency, severe asthma or peptic ulcer disease Given 12/16/2024 5:44 AM EDT 15 mg Given 12/15/2024 11:02 PM EDT 15 mg Given 12/15/2024 5:26 PM EDT 15 mg linezolid (ZYVOX) tablet 600 mg 600 mg, Oral, EVERY 12 HOURS SCHEDULED (2 times per day), First dose on Wed12/15/24 at 2100, Until Discontinued, Antimicrobial Indications: Bone and Joint Infection, Avoid aged, smoked, or fermented foods including cheese, sour cream, soy sauce, sauerkraut, yogurt, sausage, pepperoni, salami, and dried fruit. Limit caffeine. Given 12/17/2024 8:12 PM EDT 600 mg Given 12/17/2024 9:23 AM EDT 600 mg Given 12/16/2024 9:39 PM EDT 600 mg magnesium sulfate 2000 mg in 50 mL IVPB premix 2,000 mg, IntraVENous, at 25 mL/hr, Administer over 2 Hours, PRN, Other, Magnesium Replacement, Starting on Karla 12/14/24 at 0128, Mag Lab Replacement Action 1.4-1.6 mg/dL 2,000 mg Total Dose Given as 1,000 mg IVPB x 2 doses or 2,000 mg IVPB x 1 dose 1.0-1.3 mg/dL 4,000 mg Total Dose Given as 1,000 mg IVPB x 4 doses or 2,000 mg IVPB x 2 doses Less than 1.0 mg/dL CALL PHYSICIAN and give 4,000 mg Total Dose Given as 1,000 mg IVPB x 4 doses or 2,000 mg IVPB x 2 doses Infuse at 1,000 mg/hr consecutively Repeat Mag level 1 hour after final administration Protocol not for use in Patients with CrCl less than 30ml/min New Bag 12/19/2024 12:56 PM EDT 2,000 mg 2 5 mL/hr New Bag 12/19/2024 10:37 AM EDT 2,000 mg 25 mL/hr magnesium sulfate 3,000 mg in sodium chloride 0.9 % 100 mL IVPB 3,000 mg, IntraVENous, at 33.3 mL/hr, Administer over 3 Hours, ONCE, On Wed12/17/24 at 0830, For 1 dose, Recommended infusion rate not to exceed 1,000 mg (milligrams) per hour. New Bag 12/17/2024 10:17 AM EDT 3,000 mg 33.3 mL /hr magnesium sulfate 4000 mg in 100 mL IVPB premix 4,000 mg, IntraVENous, at 25 mL/hr, Administer over 4 Hours, ONCE, On Wed12/15/24 at 1200, For 1 dose, Recommended infusion rate not to exceed 1,000 mg (milligrams) per hour. New Bag 12/15/2024 1:27 PM EDT 4,000 mg 25 mL/hr morphine (PF) injection 2 mg 2 mg, IntraVENous, EVERY 4 HOURS PRN, 1 dose, Starting on Karla 12/14/24 at 2235, Until Karla 12/14/24 at 2247, Pain Severe (7-10), If oral and IV narcotics ordered, use oral first and only use IV if oral is ineffective or cannot take oral. Do Not give oral and IV within 1 hour of each other unless specifically ordered. Given 12/14/2024 10:47 PM EDT 2 mg ondansetron (ZOFRAN) injection 4 mg 4 mg, IntraVENous, EVERY 6 HOURS PRN, Starting on Karla 12/14/24 at 0128, Until Wed12/20/24 at 1616, Nausea, Vomiting, Administer if oral route cannot be used. Given 12/20/2024 12:19 PM EDT 4 mg Given 12/18/2024 9:54 AM EDT 4 mg ondansetron (ZOFRAN-ODT) disintegrating tablet 4 mg 4 mg, Oral, EVERY 8 HOURS PRN, Starting on Karla 12/14/24 at 0128, Until Wed12/20/24 at 1616, Nausea, Vomiting oxyCODONE-acetaminophen (PERCOCET) 5-325 MG per tablet 1 tablet 1 tablet, Oral, ONCE, 1 dose, On Wed12/13/24 at 1615, Maximum dose of acetaminophen is 4000 mg from all sources in 24 hours. Given 12/13/2024 4:31 PM EDT 1 tablet oxyCODONE-acetaminophen (PERCOCET) 5-325 MG per tablet 1 tablet 1 tablet, Oral, EVERY 4 HOURS PRN, Starting on Karla 12/14/24 at 2237, Until Wed12/20/24 at 1616, Pain Moderate (4-6) OR per patient request for pain score (7-10), Maximum dose of acetaminophen is 4000 mg from all sources in 24 hours. Given 12/19/2024 9:39 PM EDT 1 tablet Given 12/17/2024 9:23 AM EDT 1 tablet Given 12/17/2024 4:37 AM EDT 1 tablet oxyCODONE-acetaminophen (PERCOCET) 5-325 MG per tablet 2 tablet 2 tablet, Oral, EVERY 4 HOURS PRN, Starting on Karla 12/14/24 at 2237, Until Wed12/20/24 at 1616, Pain Severe (7-10), Maximum dose of acetaminophen is 4000 mg from all sources in 24 hours. Given 12/20/2024 12:13 PM EDT 2 tablets Given 12/20/2024 7:57 AM EDT 2 tablets Given 12/18/2024 6:04 AM EDT 2 tablets pantoprazole (PROTONIX) tablet 40 mg 40 mg, Oral, DAILY, First dose on Karla 12/14/24 at 0900, Until Discontinued, Do not crush or break. Given 12/20/2024 9:28 AM EDT 40 mg Given 12/19/2024 9:42 AM EDT 40 mg Given 12/17/2024 9:23 AM EDT 40 mg piperacillin-tazobactam (ZOSYN) 3,375 mg in sodium chloride 0.9 % 50 mL IVPB (addEASE) 3,375 mg, IntraVENous, EVERY 8 HOURS, First dose on Wed12/13/24 at 2315, Until Discontinued, Antimicrobial Indications: Bone and Joint Infection, Use 20mm (GREEN) addEASE Adapter Prep Instructions: Attach medication vial to one 20mm (GREEN) addEASE adapter. Dylan fluid bag with adapter, mix, and administer per order. New Bag 12/18/2024 10:00 AM EDT 3,375 mg 12.5 mL/ hr New Bag 12/17/2024 9:57 PM EDT 3,375 mg 12.5 mL/hr New Bag 12/17/2024 2:20 PM EDT 3,375 mg 12.5 mL/hr potassium bicarb-citric acid (EFFER-K) effervescent tablet 40 mEq 40 mEq, Oral, PRN, Starting on Wed12/14/24 at 0128, Until Wed12/20/24 at 1616, Per Potassium Replacement Protocol, Administer as alternative if patient unable to tolerate oral tablet. K Lab Replacement Action 3.1 to 3.5 40 mEq ORAL x 1 Under 3.1 Refer to IV replacement protocol Recheck K level in AM. Protocol not for use in patients with CrCl lessthan 30 mL/min. Do not chew or crush. Dissolve flavored tablets completely in 3 to 4 ounces of cold water; unflavored tablets may be dissolved in 3 to 4 ounces of cold juice. Patient to sip slowly over a 5 to 10 minute period. May further dilute if GI adverse effects occur. Given 12/19/2024 10:33 AM EDT 40 mEq Given 12/18/2024 1:01 PM EDT 40 mEq Given 12/17/2024 7:39 AM EDT 40 mEq potassium bicarb-citric acid (EFFER-K) effervescent tablet 40 mEq 40 mEq, Oral, PRN, Starting on Wed12/13/24 at 2311, Until 12/16/24 at 1413, Per Potassium Replacement Protocol, Administer as alternative if patient unable to tolerate oral tablet. K Lab Replacement Action 3.1 to 3.5 40 mEq ORAL x 1 Under 3.1 Refer to IV replacement protocol Recheck K level in AM. Protocol not for use in patients with CrCl lessthan 30 mL/min. Do not chew or crush. Dissolve flavored tablets completely in 3 to 4 ounces of cold water; unflavored tablets may be dissolved in 3 to 4 ounces of cold juice. Patient to sip slowly over a 5 to 10 minute period. May further dilute if GI adverse effects occur. Given 12/16/2024 12:55 PM EDT 40 mEq potassium bicarb-citric acid (EFFER-K) effervescent tablet 40 mEq 40 mEq, Oral, ONCE, 1 dose, On Wed12/20/24 at 1230, Do not chew or crush. Dissolve flavored tablets completely in 3 to 4 ounces of cold water; unflavored tablets may be dissolved in 3 to 4 ounces of cold juice. Patient to sip slowly over a 5 to 10 minute period. May further dilute if GI adverse effects occur. Given 12/20/2024 12:13 PM EDT 40 mEq potassium chloride (KLOR-CON M) extended release tablet 40 mEq 40 mEq, Oral, PRN, Starting on Karla 12/14/24 at 0128, Until Wed12/20/24 at 1616, Potassium Replacement, May give alternative linked oral order (ordered as effervescent, packet, or liquid solution) if patient unable to tolerate tablet. K Lab Replacement Action 3.1 to 3.5 40 mEq ORAL x 1 Under 3.1 Refer to IV replacement protocol Recheck K level in AM. Protocol not for use in patients with CrCl less than 30 mL/min. Do not crush, chew, or suck on tablet. Tablet may also be broken in half and each half swallowed separately. potassium chloride (KLOR-CON M) extended release tablet 40 mEq 40 mEq, Oral, PRN, Starting on Wed12/13/24 at 2311, Until 12/16/24 at 1413, Per Potassium Replacement Protocol, May give alternative linked oral order (ordered as effervescent, packet, or liquid solution) if patient unable to tolerate tablet. K Lab Replacement Action 3.1 to 3.5 40 mEq ORAL x 1 Under 3.1 Refer to IV replacement protocol Recheck K level in AM. Protocol not for use in patients with CrCl less than 30 mL/min. Do not crush, chew, or suck on tablet. Tablet may also be broken in half and each half swallowed separately. Given 12/14/2024 1:56 AM EDT 20 mEq potassium chloride 10 mEq/100 mL IVPB (Peripheral Line) 10 mEq, IntraVENous, PRN, Starting on Karla 12/14/24 at 0128, Until Wed12/20/24 at 1616, at 100 mL/hr, Other, Potassium Replacement, K Lab Replacement Action 2.7 to 3.0 10 mEq IVPB x 6 doses (60 mEq Total) Under 2.7 CALL PROVIDER and administer 10 mEq IVPB x 6 doses (60 mEq Total) Infuse at 10 mEq/hr consecutively. Repeat Potassium lab 1 hour after final administration., Protocol not for use in patients with CrCl less than 30 mL/min. potassium chloride 10 mEq/100 mL IVPB (Peripheral Line) 10 mEq, IntraVENous, PRN, Starting on Wed12/13/24 at 2311, Until 12/16/24 at 1413, at 100 mL/hr, Other, Per Potassium Replacement Protocol, K Lab Replacement Action 2.7 to 3.0 10 mEq IVPB x 6 doses (60 mEq Total) Under 2.7 CALL PROVIDER and administer 10 mEq IVPB x 6 doses (60 mEq Total) Infuse at 10 mEq/hr consecutively. Repeat Potassium lab 1 hour after final administration., Protocol not for use in patients with CrCl less than 30 mL/min. Rate/Dose Change 12/14/2024 3:08 AM EDT 75 mL/hr Restarted 12/14/2024 3:07 AM EDT 100 mL/hr New Bag 12/14/2024 2:20 AM EDT 10 mEq 100 mL/hr pramipexole (MIRAPEX) tablet 0.25 mg 0.25 mg, Oral, NIGHTLY, First dose on Karla 12/14/24 at 2100, Until Discontinued, Give 2-3 hours before bedtime. Given 12/19/2024 9:43 PM EDT 0.25 mg Given 12/18/2024 10:39 PM EDT 0.25 mg Given 12/17/2024 8:12 PM EDT 0.25 mg propofol bolus 20 mg 20 mg, IntraVENous, ONCE, On 12/13/24 at 2215, For 1 dose, Do not administer through the same I.V. catheter with blood or plasma. Tubing and any unused portions of propofol vials should be discarded after 12 hours., STAT Given 12/13/2024 9:36 PM EDT 20 mg sodium chloride flush 0.9 % injection 5-40 mL 5-40 mL, IntraVENous, EVERY 12 HOURS SCHEDULED (2 times per day), First dose on Karla 12/14/24 at 0900, Until Discontinued, For Line Patency: Peripheral IV = 5 mL; Midline or Central Line = 10 mL/lumen. If following IV push medication, administer flush at same rate as the IV push. Flush volume is determined by type of infusion therapy being given. For non-viscous solutions use: Peripheral IV = 5 mL Midline or Central Line = 10 mL/lumen For viscous solutions (i.e. blood components, parenteral nutrition, contrast media, or after obtaining blood sample) use: Peripheral IV = 10 mL Midline or Central Line = 20 mL/lumen Given 12/18/2024 8:58 AM EDT 10 mLs Given 12/17/2024 8:13 PM EDT 10 mLs Given 12/17/2024 9:24 AM EDT 10 mLs sodium chloride flush 0.9 % injection 5-40 mL 5-40 mL, IntraVENous, EVERY 12 HOURS SCHEDULED (2 times per day), First dose on 12/18/24 at 2100, Until Discontinued, For Line Patency: Peripheral IV = 5 mL; Midline or Central Line = 10 mL/lumen. If following IV push medication, administer flush at same rate as the IV push. Flush volume is determined by type of infusion therapy being given. For non-viscous solutions use: Peripheral IV = 5 mL Midline or Central Line = 10 mL/lumen For viscous solutions (i.e. blood components, parenteral nutrition, contrast media, or after obtaining blood sample) use: Peripheral IV = 10 mL Midline or Central Line = 20 mL/lumen Given 12/20/2024 9:29 AM EDT 10 mLs Given 12/19/2024 7:47 PM EDT 10 mLs Given 12/19/2024 10:09 AM EDT 10 mLs sodium chloride flush 0.9 % injection 5-40 mL 5-40 mL, IntraVENous, PRN, Starting on Wed12/18/24 at 1720, Until Wed12/20/24 at 1616, Line Care, After every IV line use, For Line Patency: Peripheral IV = 5 mL; Midline or Central Line = 10 mL/lumen. If following IV push medication, administer flush at same rate as the IV push. Flush volume is determined by type of infusion therapy being given. For non-viscous solutions use: Peripheral IV = 5 mL Midline or Central Line = 10 mL/lumen For viscous solutions (i.e. blood components, parenteral nutrition, contrast media, or after obtaining blood sample) use: Peripheral IV = 10 mL Midline or Central Line = 20 mL/lumen sodium chloride tablet 1 g 1 g, Oral, 3 TIMES DAILY, First dose on [facility] 12/14/24 at 0900, Until Discontinued Given 12/16/2024 2:43 PM EDT 1 g Given 12/16/2024 9:31 AM EDT 1 g Given 12/15/2024 10:10 PM EDT 1 g sodium chloride tablet 2 g 2 g, Oral, 3 TIMES DAILY WITH MEALS, First dose (after last modification) on Wed12/17/24 at 0815, Until Discontinued Given 12/20/2024 9:28 AM EDT 2 g Given 12/19/2024 6:10 PM EDT 2 g Given 12/19/2024 12:48 PM EDT 2 g therapeutic multivitamin-minerals 1 tablet 1 tablet, Oral, DAILY, First dose on [facility] 12/14/24 at 0900, Until Discontinued Given 12/20/2024 9:28 AM EDT 1 tablet Given 12/19/2024 9:42 AM EDT 1 tablet Given 12/17/2024 9:23 AM EDT 1 tablet thiamine tablet 100 mg 100 mg, Oral, DAILY, First dose on [facility] 12/14/24 at 0900, Until Discontinued Given 12/20/2024 9:29 AM EDT 100 mg Given 12/19/2024 9:42 AM EDT 100 mg Given 12/17/2024 9:23 AM EDT 100 mg vancomycin (VANCOCIN) 1,250 mg in sodium chloride 0.9 % 250 mL IVPB ([id number]) 1,250 mg (22.8 mg/kg), IntraVENous, at 166.7 mL/hr, Administer over 90 Minutes, ONCE, On Wed12/13/24 at 2330, For 1 dose, Use 20mm (Blue) [id number] Adapter Preparation instructions: Attach medication vial to one 20mm (Blue) [id number] adapter. Dylan fluid bag with adapter, mix, and administer per order. New Bag 12/14/2024 4:11 AM EDT 1,250 mg 166.7 mL/ hr vancomycin (VANCOCIN) 750 mg in sodium chloride 0.9 % 250 mL IVPB ([id number]) 750 mg (13.7 mg/kg), IntraVENous, at 250 mL/hr, Administer over 60 Minutes, EVERY 12 HOURS, First dose on Karla 12/14/24 at 1130, Use 20mm (Blue) [id number] Adapter Preparation instructions: Attach medication vial to one 20mm (Blue) [id number] adapter. Dylan fluid bag with adapter, mix, and administer per order. New Bag 12/15/2024 12:06 PM EDT 750 mg 250 mL/hr New Bag 12/15/2024 12:23 AM EDT 750 mg 250 mL/hr Rate/Dose Verify 12/14/2024 10:35 AM EDT 250 mL /hr documented in this encounter Active and Recently Administered Medications Times are shown in EDT. Scheduled Medication Order 12/18/2024 12/19/2024 12/20/2024 ascorbic acid (VITAMIN C) tablet 500 mg 500 mg, Oral, DAILY, First dose on Karla 12/14/24 at 0900, Until Discontinued 1011 (Not Given - Provider: Laura Felix RN - Reason: Nausea) 09 (Given - Provider: Jessica Ott RN) 09 (Given - Provider: Nikki Hartley, RN) aspirin chewable tablet 81 mg 81 mg, Oral, 2 times daily, First dose on 12/18/24 at 0915, Until Discontinued 1009 (Not Given - Provider: Laura Felix RN - Reason: Nausea)2238 (Given - Provider: Fritz Hanson RN) 0943 (Given - Provider: Jessica Ott RN)2138 (Given - Provider: Fariba Espinoza RN) 09 (Given - Provider: Nikki Hartley, RN) cefTRIAXone (ROCEPHIN) 2,000 mg in sterile water 20 mL IV syringe 2,000 mg, IntraVENous, EVERY 24 HOURS, First dose on Wed12/18/24 at 1800, Administer as slow IV Push over 5 mins Reconstitute 2 g vials with 19.2 mL of designated diluent to produce a 100mg/mL solution 1826 (Given - Provider: Laura Felix RN) 1810 (Given - Provider: Jessica Ott RN) DAPTOmycin (CUBICIN) 330 mg in sodium chloride 0.9 % 50 mL IVPB 330 mg (rounded from 329.4 mg = 6 mg/kg 54.9 kg), IntraVENous, at 100 mL/hr, Administer over 30 Minutes, EVERY 24 HOURS, First dose on Wed12/18/24 at 1900, Incompatible with dextrose containing solutions. 183 (New Bag - Provider: Laura Felix RN)1911 (Stopped - Provider: Laura Felix RN) 1948 (New Bag - Provider: Fariba Espinoza, JYOTHI)2028 (Stopped - Provider: Fariba Espinoza RN) ferrous sulfate (FE TABS 325) EC tablet 325 mg 325 mg, Oral, DAILY WITH BREAKFAST, First dose on Wed12/14/24 at 0830, Until Discontinued 1011 (Not Given - Provider: Laura Felix RN - Reason: Nausea) 0943 (Given - Provider: Jessica Ott RN) 0929 (Given - Provider: Nikki Hartley RN) folic acid (FOLVITE) tablet 1 mg (CANCELED) 1 mg, Oral, DAILY, First dose on Wed12/14/24 at 0900, Until Discontinued 1011 (Not Given - Provider: Laura Felix RN - Reason: Nausea) 0943 (Given - Provider: Jessica Ott RN) lidocaine PF 1 % injection 50 mg 50 mg, IntraDERmal, ONCE, 1 dose, On Wed12/18/24 at 1745 1745 (Due) pantoprazole (PROTONIX) tablet 40 mg 40 mg, Oral, DAILY, First dose on Wed12/14/24 at 0900, Until Discontinued, Do not crush or break. 1010 (Not Given - Provider: Laura Felix RN - Reason: Nausea) 0942 (Given - Provider: Jessica Ott RN) 0928 (Given - Provider: Nikki Hartley RN) piperacillin-tazobactam (ZOSYN) 3,375 mg in sodium chloride 0.9 % 50 mL IVPB (addEASE) (CANCELED) 3,375 mg, IntraVENous, EVERY 8 HOURS, First dose on Wed12/13/24 at 2315, Until Discontinued, Antimicrobial Indications: Bone and Joint Infection, Use 20mm (GREEN) addEASE Adapter Prep Instructions: Attach medication vial to one 20mm (GREEN) addEASE adapter. Dylan fluid bag with adapter, mix, and administer per order. 0200 (Stopped - Provider: Fariba Espinoza RN)1000 (New Bag - Provider: Laura Felix RN - Comment: previously left clamped)1459 (Stopped - Provider: Laura Felix RN) potassium bicarb-citric acid (EFFER-K) effervescent tablet 40 mEq (COMPLETED) 40 mEq, Oral, ONCE, 1 dose, On Wed12/20/24 at 1230, Do not chew or crush. Dissolve flavored tablets completely in 3 to 4 ounces of cold water; unflavored tablets may be dissolved in 3 to 4 ounces of cold juice. Patient to sip slowly over a 5 to 10 minute period. May further dilute if GI adverse effects occur. 1213 (Given - Provider: Nikki Hartley RN) pramipexole (MIRAPEX) tablet 0.25 mg 0.25 mg, Oral, NIGHTLY, First dose on Karla 12/14/24 at 2100, Until Discontinued, Give 2-3 hours before bedtime. 2239 (Given - Provider: Fritz Hanson RN) 2143 (Given - Provider: Fariba Espinoza RN) sodium chloride flush 0.9 % injection 5-40 mL 5-40 mL, IntraVENous, EVERY 12 HOURS SCHEDULED (2 times per day), First dose on Karla 12/14/24 at 0900, Until Discontinued, For Line Patency: Peripheral IV = 5 mL; Midline or Central Line = 10 mL/lumen. If following IV push medication, administer flush at same rate as the IV push. Flush volume is determined by type of infusion therapy being given. For non-viscous solutions use: Peripheral IV = 5 mL Midline or Central Line = 10 mL/lumen For viscous solutions (i.e. blood components, parenteral nutrition, contrast media, or after obtaining blood sample) use: Peripheral IV = 10 mL Midline or Central Line = 20 mL/lumen 0858 (Given - Provider: Laura Felix RN)2252 (Not Given - Provider: Fritz Hanson RN - Reason: Loss of IV access) 1012 (Not Given - Provider: Jessica Ott RN - Reason: Other - Comment: Flushed IV)194 (Not Given - Provider: Fariba Espinoza RN - Reason: Other - Comment: duplicate order) 09 (Not Given - Provider: Nikki Hartley RN - Reason: Other) sodium chloride flush 0.9 % injection 5-40 mL 5-40 mL, IntraVENous, EVERY 12 HOURS SCHEDULED (2 times per day), First dose on Wed12/18/24 at 2100, Until Discontinued, For Line Patency: Peripheral IV = 5 mL; Midline or Central Line = 10 mL/lumen. If following IV push medication, administer flush at same rate as the IV push. Flush volume is determined by type of infusion therapy being given. For non-viscous solutions use: Peripheral IV = 5 mL Midline or Central Line = 10 mL/lumen For viscous solutions (i.e. blood components, parenteral nutrition, contrast media, or after obtaining blood sample) use: Peripheral IV = 10 mL Midline or Central Line = 20 mL/lumen 2240 (Given - Provider: Fritz Hanson RN) 1009 (Given - Provider: Jessica Ott RN)194 (Given - Provider: Fariba Espinoza RN) 0929 (Given - Provider: Nikki Hartley RN) sodium chloride tablet 2 g 2 g, Oral, 3 TIMES DAILY WITH MEALS, First dose (after last modification) on Wed12/17/24 at 0815, Until Discontinued 1010 (Not Given - Provider: Laura Felix RN - Reason: Nausea)1309 (Given - Provider: Laura Felix RN)1835 (Given - Provider: Laura Felix RN) 0942 (Given - Provider: Jessica Ott RN)1248 (Given - Provider: Jessica Ott RN)1810 (Given - Provider: Jessica Ott RN) 0928 (Given - Provider: Nikki Hartley RN)1200 (Due) therapeutic multivitamin-minerals 1 tablet 1 tablet, Oral, DAILY, First dose on Karla 12/14/24 at 0900, Until Discontinued 1011 (Not Given - Provider: Laura Felix RN - Reason: Nausea) 09 (Given - Provider: Jessica Ott, RN) 09 (Given - Provider: Nikki Hartley, RN) thiamine tablet 100 mg 100 mg, Oral, DAILY, First dose on Karla 12/14/24 at 0900, Until Discontinued 101 (Not Given - Provider: Laura Felix RN - Reason: Nausea) 09 (Given - Provider: Jessica Ott RN) 09 (Given - Provider: Nikki Hartley, RN) PRN Medication Order 12/18/2024 12/19/2024 12/20/2024 0.9 % sodium chloride infusion IntraVENous, at 5-250 mL/hr, PRN, if patient receiving piggyback infusions and maintenance fluids are not ordered, Starting on Karla 12/14/24 at 0128, For piggyback infusion, administer at same rate as piggyback for a total of 25 mL. Enter 25 mL into dose field and piggyback rate into rate field of order. If piggyback is infusing at a rate less than 100 mL/hr, enter 25 mL into dose field and 100 mL/hr into rate field of order. 0.9 % sodium chloride infusion IntraVENous, at 5-250 mL/hr, PRN, if patient receiving piggyback infusions and maintenance fluids are not ordered OR KVO fluids to protect IV site / prevent frequent line interruptions/ long duration, Starting on 12/18/24 at 1720, For piggyback infusion, administer at same rate as piggyback for a total of 25 mL. Enter 25 mL into dose field and piggyback rate into rate field of order. If piggyback is infusing at a rate less than 100 mL/hr, enter 25 mL into dose field and 100 mL/hr into rate field of order. For KVO fluids, enter rate of 20 mL/hr or less into rate field of order. acetaminophen (TYLENOL) suppository 650 mg(Linked Group 1) 650 mg, Rectal, EVERY 6 HOURS PRN, Starting on Karla 12/14/24 at 0128, Until Wed12/20/24 at 1616, Pain Mild (1-3) OR per patient request for pain score (4-10), Fever, For temp greater than 100.4 F (38 C), Administer if oral route cannot be used. acetaminophen (TYLENOL) tablet 650 mg(Linked Group 1) 650 mg, Oral, EVERY 6 HOURS PRN, Starting on Wed12/14/24 at 0128, Until Wed12/20/24 at 1616, Pain Mild (1-3) OR per patient request for pain score (4-10), Fever, For temp greater than 100.4 F (38 C), Maximum dose of acetaminophen is 4000 mg from all sources in 24 hours. hypromellose (ISOPTO TEARS) 0.5 % ophthalmic solution 1 drop 1 drop, Both Eyes, EVERY 2 HOURS PRN, Starting on Wed12/14/24 at 0808, Until Wed12/20/24 at 1616, dry eyes iohexol (OMNIPAQUE 240) Other 50 mL (COMPLETED) 50 mL, Other, IMG ONCE PRN, 1 dose, Starting on Wed12/19/24 at 1640, Until Wed12/19/24 at 1641, Other 1641 (Given - Provider: Jovi Wills) magnesium sulfate 2000 mg in 50 mL IVPB premix 2,000 mg, IntraVENous, at 25 mL/hr, Administer over 2 Hours, PRN, Other, Magnesium Replacement, Starting on Wed12/14/24 at 0128, Mag Lab Replacement Action 1.4-1.6 mg/dL 2,000 mg Total Dose Given as 1,000 mg IVPB x 2 doses or 2,000 mg IVPB x 1 dose 1.0-1.3 mg/dL 4,000 mg Total Dose Given as 1,000 mg IVPB x 4 doses or 2,000 mg IVPB x 2 doses Less than 1.0 mg/dL CALL PHYSICIAN and give 4,000 mg Total Dose Given as 1,000 mg IVPB x 4 doses or 2,000 mg IVPB x 2 doses Infuse at 1,000 mg/hr consecutively Repeat Mag level 1 hour after final administration Protocol not for use in Patients with CrCl less than 30ml/min 1037 (New Bag - Provider: Jessica Ott RN)1248 (Stopped - Provider: Jessica Ott RN)1256 (New Bag - Provider: Jessica Ott RN)1525 (Stopped - Provider: Jessica Ott RN) ondansetron (ZOFRAN) injection 4 mg(Linked Group 2) 4 mg, IntraVENous, EVERY 6 HOURS PRN, Starting on Karla 12/14/24 at 0128, Until Wed12/20/24 at 1616, Nausea, Vomiting, Administer if oral route cannot be used. 0954 (Given - Provider: Laura Felix, RN) 1219 (Given - Provider: Nikki Hartley, RN) ondansetron (ZOFRAN-ODT) disintegrating tablet 4 mg(Linked Group 2) 4 mg, Oral, EVERY 8 HOURS PRN, Starting on Karla 12/14/24 at 0128, Until Wed12/20/24 at 1616, Nausea, Vomiting 0954 (See Alternative - Provider: Laura Felix RN) 1219 (See Alternative - Provider: Nikki Hartley RN) oxyCODONE-acetaminophen (PERCOCET) 5-325 MG per tablet 1 tablet(Linked Group 3) 1 tablet, Oral, EVERY 4 HOURS PRN, Starting on Karla 12/14/24 at 2237, Until Wed12/20/24 at 1616, Pain Moderate (4-6) OR per patient request for pain score (7-10), Maximum dose of acetaminophen is 4000 mg from all sources in 24 hours. 0014 (See Alternative - Provider: Fariba Espinoza RN)0604 (See Alternative - Provider: Fariba Espinoza RN) 2139 (Given - Provider: Fariba Espinoza RN) 0757 (See Alternative - Provider: Fariba Espinoza RN)1213 (See Alternative - Provider: Nikki Hartley RN) oxyCODONE-acetaminophen (PERCOCET) 5-325 MG per tablet 2 tablet(Linked Group 3) 2 tablet, Oral, EVERY 4 HOURS PRN, Starting on Karla 12/14/24 at 2237, Until Wed12/20/24 at 1616, Pain Severe (7-10), Maximum dose of acetaminophen is 4000 mg from all sources in 24 hours. 0014 (Given - Provider: Fariba Espinoza RN)0604 (Given - Provider: Fariba Espinoza RN) 213 (See Alternative - Provider: Fariba Espinoza RN) 0757 (Given - Provider: Fariba Espinoza RN)1213 (Given - Provider: Nikki Hartley RN) polyethylene glycol (GLYCOLAX) packet 17 g 17 g, Oral, DAILY PRN, Starting on Wed12/14/24 at 0128, Until Wed12/20/24 at 1616, Constipation, First line therapy for constipation potassium bicarb-citric acid (EFFER-K) effervescent tablet 40 mEq(Linked Group 4) 40 mEq, Oral, PRN, Starting on Karla 12/14/24 at 0128, Until Wed12/20/24 at 1616, Per Potassium Replacement Protocol, Administer as alternative if patient unable to tolerate oral tablet. K Lab Replacement Action 3.1 to 3.5 40 mEq ORAL x 1 Under 3.1 Refer to IV replacement protocol Recheck K level in AM. Protocol not for use in patients with CrCl lessthan 30 mL/min. Do not chew or crush. Dissolve flavored tablets completely in 3 to 4 ounces of cold water; unflavored tablets may be dissolved in 3 to 4 ounces of cold juice. Patient to sip slowly over a 5 to 10 minute period. May further dilute if GI adverse effects occur. 1301 (Given - Provider: Laura Felix RN) 1033 (Given - Provider: Jessica Ott, JYOTHI) potassium chloride (KLOR-CON M) extended release tablet 40 mEq(Linked Group 4) 40 mEq, Oral, PRN, Starting on Karla 12/14/24 at 0128, Until Wed12/20/24 at 1616, Potassium Replacement, May give alternative linked oral order (ordered as effervescent, packet, or liquid solution) if patient unable to tolerate tablet. K Lab Replacement Action 3.1 to 3.5 40 mEq ORAL x 1 Under 3.1 Refer to IV replacement protocol Recheck K level in AM. Protocol not for use in patients with CrCl less than 30 mL/min. Do not crush, chew, or suck on tablet. Tablet may also be broken in half and each half swallowed separately. 1301 (See Alternative - Provider: Laura Felix RN) 1033 (See Alternative - Provider: Jessica Ott, JYOTHI) potassium chloride 10 mEq/100 mL IVPB (Peripheral Line)(Linked Group 4) 10 mEq, IntraVENous, PRN, Starting on Karla 12/14/24 at 0128, Until Wed12/20/24 at 1616, at 100 mL/hr, Other, Potassium Replacement, K Lab Replacement Action 2.7 to 3.0 10 mEq IVPB x 6 doses (60 mEq Total) Under 2.7 CALL PROVIDER and administer 10 mEq IVPB x 6 doses (60 mEq Total) Infuse at 10 mEq/hr consecutively. Repeat Potassium lab 1 hour after final administration., Protocol not for use in patients with CrCl less than 30 mL/min. 1301 (See Alternative - Provider: Laura Felix RN) 1033 (See Alternative - Provider: Jessica Ott RN) sodium chloride flush 0.9 % injection 10 mL 10 mL, IntraVENous, PRN, Starting on Karla 12/14/24 at 0128, Until Wed12/20/24 at 1616, Line Care, After every IV line use sodium chloride flush 0.9 % injection 5-40 mL 5-40 mL, IntraVENous, PRN, Starting on 12/18/24 at 1720, Until Wed12/20/24 at 1616, Line Care, After every IV line use, For Line Patency: Peripheral IV = 5 mL; Midline or Central Line = 10 mL/lumen. If following IV push medication, administer flush at same rate as the IV push. Flush volume is determined by type of infusion therapy being given. For non-viscous solutions use: Peripheral IV = 5 mL Midline or Central Line = 10 mL/lumen For viscous solutions (i.e. blood components, parenteral nutrition, contrast media, or after obtaining blood sample) use: Peripheral IV = 10 mL Midline or Central Line = 20 mL/lumen Linked Groups Order Group 1: acetaminophen (TYLENOL) tablet 650 mgJump to med 650 mg, Oral, EVERY 6 HOURS PRN, Starting on Karla 12/14/24 at 0128, Until Wed12/20/24 at 1616, Pain Mild (1-3) OR per patient request for pain score (4-10), Fever, For temp greater than 100.4 F (38 C), Maximum dose of acetaminophen is 4000 mg from all sources in 24 hours. Or acetaminophen (TYLENOL) suppository 650 mgJump to med 650 mg, Rectal, EVERY 6 HOURS PRN, Starting on Karla 12/14/24 at 0128, Until Wed12/20/24 at 1616, Pain Mild (1-3) OR per patient request for pain score (4-10), Fever, For temp greater than 100.4 F (38 C), Administer if oral route cannot be used. Group 2: ondansetron (ZOFRAN-ODT) disintegrating tablet 4 mgJump to med 4 mg, Oral, EVERY 8 HOURS PRN, Starting on Karla 12/14/24 at 0128, Until Wed12/20/24 at 1616, Nausea, Vomiting Or ondansetron (ZOFRAN) injection 4 mgJump to med 4 mg, IntraVENous, EVERY 6 HOURS PRN, Starting on Karla 12/14/24 at 0128, Until Wed12/20/24 at 1616, Nausea, Vomiting, Administer if oral route cannot be used. Group 3: oxyCODONE-acetaminophen (PERCOCET) 5-325 MG per tablet 1 tabletJump to med 1 tablet, Oral, EVERY 4 HOURS PRN, Starting on Karla 12/14/24 at 2237, Until Wed12/20/24 at 1616, Pain Moderate (4-6) OR per patient request for pain score (7-10), Maximum dose of acetaminophen is 4000 mg from all sources in 24 hours. Or oxyCODONE-acetaminophen (PERCOCET) 5-325 MG per tablet 2 tabletJump to med 2 tablet, Oral, EVERY 4 HOURS PRN, Starting on Karla 12/14/24 at 2237, Until Wed12/20/24 at 1616, Pain Severe (7-10), Maximum dose of acetaminophen is 4000 mg from all sources in 24 hours. Group 4: potassium chloride (KLOR-CON M) extended release tablet 40 mEqJump to med 40 mEq, Oral, PRN, Starting on Karla 12/14/24 at 0128, Until Wed12/20/24 at 1616, Potassium Replacement, May give alternative linked oral order (ordered as effervescent, packet, or liquid solution) if patient unable to tolerate tablet. K Lab Replacement Action 3.1 to 3.5 40 mEq ORAL x 1 Under 3.1 Refer to IV replacement protocol Recheck K level in AM. Protocol not for use in patients with CrCl less than 30 mL/min. Do not crush, chew, or suck on tablet. Tablet may also be broken in half and each half swallowed separately. Or potassium bicarb-citric acid (EFFER-K) effervescent tablet 40 mEqJump to med 40 mEq, Oral, PRN, Starting on Karla 12/14/24 at 0128, Until Wed12/20/24 at 1616, Per Potassium Replacement Protocol, Administer as alternative if patient unable to tolerate oral tablet. K Lab Replacement Action 3.1 to 3.5 40 mEq ORAL x 1 Under 3.1 Refer to IV replacement protocol Recheck K level in AM. Protocol not for use in patients with CrCl lessthan 30 mL/min. Do not chew or crush. Dissolve flavored tablets completely in 3 to 4 ounces of cold water; unflavored tablets may be dissolved in 3 to 4 ounces of cold juice. Patient to sip slowly over a 5 to 10 minute period. May further dilute if GI adverse effects occur. Or potassium chloride 10 mEq/100 mL IVPB (Peripheral Line)Jump to med 10 mEq, IntraVENous, PRN, Starting on Karla 12/14/24 at 0128, Until Wed12/20/24 at 1616, at 100 mL/hr, Other, Potassium Replacement, K Lab Replacement Action 2.7 to 3.0 10 mEq IVPB x 6 doses (60 mEq Total) Under 2.7 CALL PROVIDER and administer 10 mEq IVPB x 6 doses (60 mEq Total) Infuse at 10 mEq/hr consecutively. Repeat Potassium lab 1 hour after final administration., Protocol not for use in patients with CrCl less than 30 mL/min. documented in this encounter Care Teams Purchasing Expeditor Relationship Specialty Start Date End Date Anju Jacobsen MD PCP - General Family Medicine 01/18/18 documented as of this encounter
--- OUTSIDE RECORDS SUMMARY | 2024-12-14 13:50 | XMS_ITS | Encounter Summary ---
Author Organization [facility] 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 Name Role Phone Anju Jacobsen MD Primary Care Provider [phone] Reason for Visit * Auth/Cert Specialty Diagnoses / Procedures Referred By Contac t Referred To Contact Diagnoses Anterior dislocation of right hip, initial encounter (HCC) Naif Barron DO [address] [place] [address] Phone: tel: fax: [facility] [address] [place] [address] Referral ID Status Reason Start Date Expiration Date Visits Re quested Visits Authorized [id number] Encounter Details Date Type Department Care Team (Late st Contact Info) Description 12/14/2024 1:50 PM EDT Anesthesia Event [facility] OR [address] [place] [address] Luis Salinas MD [address] [place] [address] Demetria Mancilla, SPACE [employer] - SURGICAL SCRUB TECHNICIAN [address] [place] [address] Anesthesia Record Procedure Summary Procedure Name Responsible Anesthesiologist Anesthesia Start Time Anesthesia Stop Time HIP IRRIGATION AND DEBRIDEMENT, REVISION OF HEMIARTHROPLASTY (Right) Luis Salinas MD 12/14/24 1350 12/14/24 1700 Events Date Time Event Comment 12/14/2024 1335 1350 An Start Location: {AN S tart Location:[id number]} 1350 An Start Data 1350 Timeout 1408 An Induction The patient was reevaluated immediately before anesthesia induction. 1410 An Intubation 1433 Anesthesia Ready 1643 An Extubation 1650 an stop data 1700 An Stop 1700 Handoff to RN Vital signs ar e within acceptable limits and stable, SBAR handoff/transfer of care to RN. Patient Handoff Status: Level of Response: -- Oxygen device: -- Airway Status: -- BP: -- Pulse: -- SpO2: -- Respirations: -- Temp: -- Temp Source: -- Meds Name Total propofol 10 mg/mL 200 MG/20ML 20 mg lidocaine PF 1 % 40 mg ondansetron 4 MG/2ML 2 mg dexAMETHasone 10 MG/ML 5 mg fentaNYL 100 MCG/2ML 200 mcg ceFAZolin (ANCEF) injection 2 g etomidate (AMIDATE) injection 10 mg esmolol (BREVIBLOC) injection 10 mg/ml 4 0 mg tranexamic acid injection 100 mg/mL 2,00 0 mg rocuronium 50 MG/5ML 65 mg albumin human solution 25% 25 g calcium chloride 10 % 0.5 g sugammadex 200 MG/2ML 200 mg labetalol 5 MG/ML 5 mg 0.9% sodium chloride infusion 2,000 mL 0.9% sodium chloride infusion 500 mL dextrose 5 % and 0.45 % sodium chloride infusion 0 mL * Agents Name O2 N2O Air Sevoflurane Inspired Sevoflurane Inspired N2O N2O * Blood Name Total PRBC 700 mL Lines, Drains, and Airways Type Details Placement Removal Negative Pressure Wound Therapy 12/14/24; Yes (pacu admission); Hip; Right 12/14/24 0000 by Tevin Guerrero RN Wound 12/14/24; 0334; Y; Surgical; Thigh; Right 12/14/24 0334 by Beverley Joshua RN Incision 12/14/24; 1458; Y; H ip; Right 12/14/24 1458 by Roger Vieira RN Peripheral IV Placement date 12/13; Placement time 1631; Size 20 g; Orientation Distal, Left; Location Forearm; Removal date 12/15/24; Removal time 1142; Removal reason Leaking 12/13/24 1631 by Bonita Villeda RN 12/15/24 1142 by Nella Isaacs RN Peripheral IV Placement date 12/13; Placement time 1722; Size 20 g; Orientation Left; Location Antecubital; Removal date 12/15/24; Removal time 0847; Removal reason Leaking 12/13/24 1722 by Teri Pedroza RN 12/15/24 0847 by Nella Isaacs RN Urinary Catheter 12/14/24; prior to arrival/SNF; Cam; 12/20/24; 1206 12/14/24 0000 by Stephanie Claros RN 12/20/24 1206 by Nikki Hartley RN Peripheral IV Placement date 12/14; Size 18 g; Orientation Right; Location Antecubital; Removal date 12/15/24; Removal time 0900; Removal reason Other (Comment) 12/14/24 0000 by Tevin Guerrero RN 12/15/24 0900 by Nella Isaacs RN ETT Placement date 12/14; Placement time 1410; Preoxygenation Yes; Technique Direct laryngoscopy, Stylet; Type Cuffed; Tube size 7 mm; Laryngoscope Sims; Blade size 2; Location Oral; Grade view 1; Insertion attempts 1 12/14/24 1410 by Roger Rincon APRN - CRNA 12/14/24 1643 by Roger Rincon APRN - CRNA documented in this encounter Social History Tobacco Use Types Packs/Day Years [...] any time in the past 12 m [facility], were you homeless or living in a [place] health care facility (including now)? No 12/14/2024 AUDIT-C Answer Date [...] money to buy more. Never true 12/15/19 Within the past 12 months, t he [...] things needed for daily living? No 12/14/2024 [facility] Utilities Answer Date Recorded In the past 12 months has e [employer], gas, oil, or water company threatened to shut off services in your [...] Description 01/03/2025 11:30 AM EDT Office Visit [facility] [address] [place] [id number] Ramses Abarca DO [address] [place] [address] DOS: 12/14, R hip I&D/Hemirev 01/31/2025 2:15 PM EST Office Visit [facility] [address] [place] [address] Rafaela Yen MD [address], [address] [place] [address] 1 month post hospital follow up documented as of this encounter Visit Diagnoses Not on filedocumented in this encounter Administered Medications Inactive Administered Medications - up to 3 most recent administrations Medication Order MAR Action Action Date Dose Rate Site 0.9 % sodium chloride infusion IntraVENous, ANES CONTINUOUS PRN, Starting on Karla 12/14/24 at 1350, Intra-op New Bag 12/14/2024 4:19 PM EDT New Bag 12/14/2024 3:28 PM EDT New Bag 12/14/2024 1:50 PM EDT 0.9 % sodium chloride infusion IntraVENous, ANES CONTINUOUS PRN, Starting on Karla 12/14/24 at 1352, Intra-op New Bag 12/14/2024 1:52 PM EDT albumin human 25% IV solution IntraVENous, ANES ONCE PRN, Starting on Karla 12/14/24 at 1416, Until Karla 12/14/24 at 1700, Administer over 60 Minutes, Intra-op Given 12/14/2024 3:08 PM EDT 12.5 g Given 12/14/2024 2:16 PM EDT 12.5 g calcium chloride 10 % injection IntraVENous, ANES ONCE PRN, Starting on Karla 12/14/24 at 1608, Until Karla 12/14/24 at 1700, Intra-op Given 12/14/2024 4:08 PM EDT 0.5 g ceFAZolin (ANCEF) injection IntraVENous, ANES ONCE PRN, Starting on Karla 12/14/24 at 1440, Until Karla 12/14/24 at 1700, Intra-op Given 12/14/2024 2:40 PM EDT 2 g dexAMETHasone (DECADRON) IntraVENous IntraVENous, ANES ONCE PRN, Starting on Karla 12/14/24 at 1440, Until Karla 12/14/24 at 1700, Intra-op Given 12/14/2024 2:40 PM EDT 5 mg dextrose 5 % and 0.45 % sodium chloride infusion IntraVENous, at 50 mL/hr, CONTINUOUS, Starting on Karla 12/14/24 at 0130, For 24 hours, Complete last bag that is running at 24 hours and then saline lock IV NoRateChange 12/14/2024 1:50 PM EDT 50 mL/hr Rate/Dose Verify 12/14/2024 1:36 PM EDT 50 mL/h r Rate/Dose Verify 12/14/2024 10:35 AM EDT 50 mL/ hr esmolol (BREVIBLOC) injection IntraVENous, ANES ONCE PRN, Starting on Karla 12/14/24 at 1410, Until Karla 12/14/24 at 1700, Intra-op Given 12/14/2024 2:58 PM EDT 20 mg Given 12/14/2024 2:10 PM EDT 20 mg etomidate (AMIDATE) injection IntraVENous, ANES ONCE PRN, Starting on Karla 12/14/24 at 1408, Until Karla 12/14/24 at 1700, Intra-op Given 12/14/2024 2:08 PM EDT 10 mg fentaNYL (SUBLIMAZE) injection IntraVENous, ANES ONCE PRN, Starting on Karla 12/14/24 at 1445, Until Karla 12/14/24 at 1700, Intra-op Given 12/14/2024 3:58 PM EDT 50 mcg Given 12/14/2024 3:19 PM EDT 50 mcg Given 12/14/2024 2:45 PM EDT 50 mcg labetalol (NORMODYNE;TRANDATE) injection IntraVENous, ANES ONCE PRN, Starting on Karla 12/14/24 at 1642, Until Karla 12/14/24 at 1700, Intra-op Given 12/14/2024 4:42 PM EDT 5 mg lidocaine PF 1 % injection IntraVENous, ANES ONCE PRN, Starting on Karla 12/14/24 at 1408, Until Karla 12/14/24 at 1700, Intra-op Given 12/14/2024 2:08 PM EDT 40 mg ondansetron (ZOFRAN) injection IntraVENous, ANES ONCE PRN, Starting on Karla 12/14/24 at 1629, Until Karla 12/14/24 at 1700, Intra-op Given 12/14/2024 4:29 PM EDT 2 mg propofol 10 mg/mL infusion IntraVENous, ANES ONCE PRN, Starting on Karla 12/14/24 at 1408, Until Karla 12/14/24 at 1700, Intra-op Given 12/14/2024 2:08 PM EDT 20 mg rocuronium (ZEMURON) injection IntraVENous, ANES ONCE PRN, Starting on Karla 12/14/24 at 1511, Until Karla 12/14/24 at 1700, Intra-op Given 12/14/2024 4:00 PM EDT 5 mg Given 12/14/2024 3:11 PM EDT 10 mg Given 12/14/2024 2:08 PM EDT 50 mg sugammadex (BRIDION) 200 MG/2ML injection IntraVENous, ANES ONCE PRN, Starting on Karla 12/14/24 at 1642, Until Karla 12/14/24 at 1700, Intra-op Given 12/14/2024 4:42 PM EDT 200 mg tranexamic acid (CYKLOKAPRON) injection IntraVENous, ANES ONCE PRN, Starting on Karla 12/14/24 at 1501, Until Karla 12/14/24 at 1700, Intra-op Given 12/14/2024 4:09 PM EDT 1,000 mg Given 12/14/2024 3:01 PM EDT 1,000 mg Transfuse RBC Routine, On Karla 12/14/24 at 1622 New Bag 12/14/2024 4:21 PM EDT Transfuse RBC Routine, On Karla 12/14/24 at 1634 New Bag 12/14/2024 4:35 PM EDT documented in this encounter Care Teams 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
--- OUTSIDE RECORDS SUMMARY | 2024-12-14 13:55 | XMS_ITS | Encounter Summary ---
Author Organization [facility] Address [address], [address] [place] [address] Care Team Providers Care Services Delivery Driver Name Role Phone Anju Jacobsen MD Primary Care Provider [phone] Reason for Visit * Reason Comments Hip Pain * Auth/Cert Specialty Diagnoses / Procedures Referred By Contac t Referred To Contact Diagnoses Anterior dislocation of right hip, initial encounter (HCC) Naif Barron DO [address] [place] [address] Phone: tel: fax: [facility] [address] [place] [address] Referral ID Status Reason Start Date Expiration Date Visits Re quested Visits Authorized [id number] Encounter Details Date Type Department Care Team (Late st Contact Info) Description 12/14/2024 1:55 PM EDT - 12/14/2024 4:35 PM EDT Surgery [facility] OR [address] [place] [address] Ramses Abarca DO [address] [place] [address] HIP IRRIGATION AND DEBRIDEMENT, REVISION OF HEMIARTHROPLASTY Surgery Details Date/Time Status Location OR Service Patient Class Case Class Case Type Trauma Case? 12/14/2024 1:55 PM Posted [facility] OR OR 14 Orthopedics Inpatient Elective No Panel 1 Procedure LRB Anes Op Region Wound Class Comments HIP IRRIGATION AND DEBRIDEMENT, REVISION OF HEMIARTHROPLASTY Right General Class II Clean Contaminated Surgeon Surgeon Role Service Panel Ramses Abarca, DO Primary Orthopedics 1 documented in this encounter Social History Tobacco [...] any time in the past 12 [facility], were you homeless or living in a halfway (including now)? No 12/14/2024 AUDIT-C Answer Date [...] things needed for daily living? No 12/14/2024 [facility] Utilities Answer Date Recorded In the past 12 months has e electric, gas, oil, or water company threatened to [...] Sign Reading Time Taken Comments Blood Pressure 139/60 12/14/2024 12:42 PM EDT Pulse 88 12/14/2024 12:42 PM EDT Temperature 36 C (96.8 F) 12/14/2024 12:42 PM EDT Respiratory Rate 19 12/14/2024 12:42 PM EDT Oxygen Saturation 100% 12/14/2024 12:42 PM EDT Inhaled Oxygen Concentration - - Weight 54.9 kg (121 lb) 12/14/2024 12:42 PM EDT Height 162.6 cm (5' 4 ) 12/14/2024 12:42 PM EDT Body Mass Index 20.77 12/14/2024 12:42 PM EDT documented in this encounter Functional Status documented as of this encounter Discharge Summaries * Edgar Roche MD - 12/20/2024 9:27 AM EDT Images from the original note were not included. [facility] Office: [phone] Flex Nicolas DO, Solo Rivas DO, Ananda [...] Duong MD, Elaine Herzog MD, Esther Eason, GENERAL DENTIST/OWNER, Roxana Dimas, GENERAL DENTIST/OWNER, Lucius Ramos, GENERAL DENTIST/OWNER, OPAL Hogan, Fany Limon, GENERAL DENTIST/OWNER, Leeann Costello, GENERAL DENTIST/OWNER, Trini Lewis, GENERAL DENTIST/OWNER, Sherice Dolan, GENERAL DENTIST/OWNER, DEQUAN RichardC, Gloria Tucker, GENERAL DENTIST/OWNER, Rosalia Franco, GENERAL DENTIST/OWNER, Sylwia Foreman, GENERAL DENTIST/OWNER, Harleen Mercado, GENERAL DENTIST/OWNER, DEQUAN LimC, DEQUAN AdamesC, Joana Geiger, GENERAL DENTIST/OWNER, Isreal Taylor, GENERAL DENTIST/OWNER, Melyssa Hernadez, GENERAL DENTIST/OWNER, Sagrario Gould, [facility], Kelly Lopes, GENERAL DENTIST/OWNER, Tena Blanchard, GENERAL DENTIST/OWNER [facility] IN-PATIENT SERVICE [facility] Discharge Summary Patient ID: Suzan Escalona : 1945 ACCOUNT: [id number] Patient's PCP: Anju Jacobsen MD Admit Date: 12/13/2024 Discharge Date: 12/20/2024 Length of Stay: 7 Code Status: Prior Admitting Physician: No admitting provider for patient encounter. Discharge Physician: Edgar Delaney Sra, MD Active Discharge Diagnoses: Hospital Problem Lists: Principal Problem: Anterior dislocation of right hip, initial encounter (HCC) Active Problems: GERD (gastroesophageal reflux disease) Anemia [...] to recent surgery, trauma and/or infection. 4. Ckka-ye-xejrrmbp edema in the subcutaneous fat about the [...] from day of discharge. Discharge plan: Disposition: [facility] Physician Follow Up: Rafaela Yen MD [address], [address] [facility] [id number] Schedule an appointment as soon as possible for a visit in 1 month(s) Anju Jacobsen MD [facility] [facility] [phone] Schedule an appointment as soon as possible [...] his office on 01/01 at 8:00am. Call [phone] to schedule/confirmor with any questions/concerns. Discharge Medications: [...] start doxy 100 mg po bid x longterm - if CK 200 stop dapto and call Dr Yen ID [phone]. ferrous sulfate 325 (65 Fe) MG tablet [...] encounter Discharge Instructions * Discharge Instructions* Antwan Martines, - 12/14/2024 5:18 PM EDT Orthopaedic Instructions: [...] his office on 01/01 at 8:00am. Call [phone] to schedule/confirmor with any questions/concerns. * Discharge Instr - JOSE MANUEL* Nikki Hartley RN - 12/17/2024 4:00 PM EDT Continuity of Care Form Patient Name: Suzan Escalona : 1945 Admit date: 12/13/2024 Discharge date: 12/20/24 Code Status Order: DNR-CC Advance Directives: Date/Time Healthcare Directive Type of Healthcare Directive Copy in Chart Healthcare Agent Appointed Healthcare Agent's Name Healthcare Agent's Phone Number 12/14/24 4415 No, patient does not have an advance directive for healthcare treatment -- -- -- -- -- Admitting Physician: All Taylor DO PCP: Anju Jacobsen MD Discharging Nurse: Nikki Discharging Hospital Unit/Room#: 0234/0234-01 Discharging Unit Emergency Contact: Extended Emergency Contact Information Primary Emergency Contact: Erwin Escalona [facility] Mobile Relation: Spouse Past Surgical History: Past Surgical History: Procedure Laterality Date APPENDECTOMY BACK SURGERY CHOLECYSTECTOMY COLONOSCOPY 2006 2016 HIP SURGERY Right 12/14/2024 HIP IRRIGATION AND DEBRIDEMENT, REVISION OF HEMIARTHROPLASTY - Right HIP SURGERY Right 12/14/2024 HIP IRRIGATION AND DEBRIDEMENT, REVISION OF HEMIARTHROPLASTY performed by Ramses Abarca DO at [facility] OR HYSTERECTOMY (CERVIX STATUS UNKNOWN) Immunization History: Immunization History Administered Date(s) Administered COVID-19, Inactive, MODERNA BLUE border, Primary or Immunocompromised, (age 12y+) 06/18/2020, 07/16/2020, 08/09/2020, 10/08/2021 COVID-19, Inactive, MODERNA Bivalent, (age 12y+) 04/29/2022 Active Problems: Patient Active Problem List Diagnosis Code Lumbar degenerative disc disease M51.369 Anterior dislocation of right hip, initial encounter ([facility]) S73.034A Hypothyroidism E03.9 GERD (gastroesophageal reflux disease) K21.9 Anemia D64.9 Hyponatremia E87.1 Hypokalemia E87.6 Closed dislocation of right hip ([facility]) 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 RISK OF UNPLANNED READMISSION 2.0 16.9 Total Score Discharging to Facility/ Agency Name: Jasmin Ramirez Address: Phone: Fax: Dialysis Facility (if applicable) Name: Address: Dialysis Schedule: Phone: Fax: Rooms Director/Director International signature: PHYSICIAN SECTION Prognosis: Fair Condition at [...] the diagnosis listed and that she requires Custodial Facilityfor less 30 days. Update Admission H&P: [...] start doxy 100 mg po bid x longterm - if CK 200 stop dapto and call Dr Yen ID [phone]. 7 g 1 12/18/2024 5 cefTRIAXone (ROCEPHIN) infusion Infuse 2,000 mg intravenously every 12 hours Stop after 01/27/25 - then stop and pull line - 120 g 1 12/18/2024 5 pramipexole (MIRAPEX) 0.25 MG tablet Take 1 [...] s:Closed dislocation of right hip, initial encounter ([facility]) Take 1 tablet by mouth every 6 hours as needed for Pain for up to 5 days. Max Daily Amount: 4 tablets 20 tablet 12/17/2024 documented as of this encounter Progress Notes * Edgar Roche MD - 12/20/2024 2:16 PM EDT Physician Progress Note PATIENT: SUAZN ESCALONA CSN #: [id number] : 1945 ADMIT DATE: 12/13/2024 3:18 PM [...] were not included. [facility] - Infectious diseases evaluation admission date [...] 52 I will reconsiled 6 weeks then residential doxy Case disc w Dr Abarca and family Infection Control Recommendations [place] Precautions Contact Isolation Antimicrobial Stewardship Recommendations Simplification [...] Date APPENDECTOMY BACK SURGERY CHOLECYSTECTOMY COLONOSCOPY 2005 2016 HIP SURGERY Right 12/14/2024 HIP IRRIGATION AND DEBRIDEMENT, REVISION OF HEMIARTHROPLASTY - Right HIP SURGERY Right 12/14/2024 HIP IRRIGATION AND DEBRIDEMENT, REVISION OF HEMIARTHROPLASTY performed by Ramses Abarca DO at [facility] OR HYSTERECTOMY (CERVIX STATUS UNKNOWN) Medications: aspirin [...] Yen MD Office: Perfect serve / office [phone] * Wendy Samuel PTA - 12/20/2024 9:51 AM EDT Physical Therapy Facility/Department: [address] ORTHO/MED SURG Physical Therapy Daily Treatment [...] RW. Pt requires extensive assistance to ambulate at this time.) Assessment Body Structures, Functions, Activity Limitations [...] relief (positioned R LE in neutral position) [facility] Basic Mobility - Inpatient How much help [...] climbing 3-5 steps with a railing?: Total [facility] Inpatient Mobility Raw Score : 6 AM-PAC Inpatient T-Scale Score : 23.55 Mobility Inpatient CMS 0-100% Score: 100 Mobility Inpatient [facility] G-Code Modifier : CN Restrictions/Precautions Restrictions/Precautions Restrictions/Precautions: [...] Treatment Minutes: 28 Minutes Cosigned by Juan Wade, PT at 12/20/2024 3:44 PM EDT * Edgar Roche MD - 12/19/2024 7:12 PM EDT Images from the original note were not included. [facility] Office: [phone] Flex Nicolas DO, Solo Rivas DO, Ananda [...] Quinten Quigley MD, River Zuniga MD, Kolby Vasquze MD, Lucius Nickerson DO,Briana Newberry MD, Naif Barron DO, Jimy Davis MD, Moises Valentine MD, All Duong MD, Elen Duong MD, Elaine Herzog MD, Esther Eason CNP, Roxana Dimas CNP, Lucius Ramos CNP, OPAL Hogan, Fany Limon, ANGELIC, Leeann Costello, GENERAL DENTIST/OWNER, Trini Lewis, GENERAL DENTIST/OWNER, Sherice Dolan, GENERAL DENTIST/OWNER, Grecia Brown PA-C, Gloria Tucker, ANGELIC, Rosalia Franco, GENERAL DENTIST/OWNER, Sylwia Foreman, GENERAL DENTIST/OWNER, Harleen Mercado, GENERAL DENTIST/OWNER, DEQUAN LimC, Barbara Stapleton, DEQUANC, Joana Geiger, GENERAL DENTIST/OWNER, Isreal Taylor, GENERAL DENTIST/OWNER, Melyssa Hernadez, GENERAL DENTIST/OWNER, Sagrario Gould, [facility], Kelly Lopes, GENERAL DENTIST/OWNER, Tena Blanchard, GENERAL DENTIST/OWNER [facility] IN-PATIENT SERVICE [facility] Progress Note 12/19/2024 7:21 PM Name: Suzan Escalona Acct: [id number] Room: 0234/0234-01 Day: 6 Admit Date: 12/13/2024 3:18 PM PCP: Anju Jacobsen MD Code Status: DNR-CC Subjective: Seen at bedside, hemodynamically stable Intermittently confused Labs reviewed electrolytes replaced Hemoglobin 7.5 Brief History: Per previous documentation 79-year-old patient presents from [facility] for evaluation of right lower extremity pain. [...] 20.7* -- -- 16.8* Chemistry: Recent Labs 12/17/24 0427 12/18/24 0832 12/19/24 0503 NA 128* 127* 128* [...] Value Date/Time PHART 7.333 12/14/2024 04:06 PM [id number] 41.1 12/14/2024 04:06 PM PO2ART 203.9 12/14/2024 04:06 PM FOY3FLO 21.3 12/14/2024 04:06 PM NBEA 4.2 12/14/2024 04:06 PM [id number] 99.3 12/14/2024 04:06 PM FIO2 60% 12/14/2024 [...] to recent surgery, trauma and/or infection. 4. Dcny-jc-bjgzurby edema in the subcutaneous fat about the [...] Anterior dislocation of right hip, initial encounter ([facility]) 12/13/2024 Yes GERD (gastroesophageal reflux disease) 12/13/2024 Yes Anemia 12/13/2024 Yes Hyponatremia 12/13/2024 Yes Hypokalemia 12/13/2024 Yes Closed dislocation of right hip (HCC) 12/14/2024 Yes Infection of right prosthetic hip [...] indwelling cath: Patient had Cam exchanged at [facility] on 11/20/2024 per patient's spouse. Will [...] Occupational Therapy Occupational Therapy Initial Evaluation Facility/Department: [address] ORTHO/MED SURG Patient Name: Suzan Escalona [...] for falls,Nurse notified, Left in bed AM-PAC [facility] Daily Activity - Inpatient How much help [...] How much help for eating meals?: None AM-PAC Inpatient Daily Activity Raw Score: 16 [facility] Inpatient ADL T-Scale Score : 35.96 ADL [...] Level of Assist for Transfers: Independent Active Retail Branch Manager: No Patient's Retail Branch Manager Info: Occupation: Retired Type of Occupation: Retired [...] were not included. [facility] - Infectious diseases evaluation admission date [...] v- I will reconsiled 6 weeks then residential doxy Case disc w Dr Abarca and family Infection Control Recommendations [place] Precautions Contact Isolation Antimicrobial Stewardship Recommendations Simplification [...] HEMIARTHROPLASTY performed by Ramses Abarca DO at [facility] OR HYSTERECTOMY (CERVIX STATUS UNKNOWN) Medications: aspirin [...] Yen MD Office: Perfect serve / office [phone] * Juan Wade Dorene, PT - 12/19/2024 12:41 PM EDT Physical Therapy Facility/Department: [address] ORTHO/MED SURG Physical Therapy Initial Evaluation [...] Patient at risk for falls, Gait belt AM-PAC AM-PAC Basic Mobility - Inpatient How [...] climbing 3-5 steps with a railing?: Total [facility] Inpatient Mobility Raw Score : 13 [facility] Inpatient T-Scale Score : 36.74 Mobility Inpatient CMS 0-100% Score: 64.91 Mobility Inpatient [facility] G-Code Modifier : CL Restrictions/Precautions Restrictions/Precautions Restrictions/Precautions: [...] Level of Assist for Transfers: Independent Active Retail Branch Manager: No Patient's Retail Branch Manager Info: Occupation: Retired Type of Occupation: Retired [...] Individual Minutes Time In: 0750 Time Out: 817 Minutes: 28 * Hali Ridley SLP - 12/19/2024 10:58 AM EDT [facility] Speech Language Pathology Date: 12/19/2024 Patient Name: Suzan Escalona Date of : 1945 AGE: 79 y.o. Patient Not Available for Speech Therapy Due to: [] Testing [] Hemodialysis [] Cancelled by RN [] Surgery [] Intubation/Sedation/Pain Medication [] Medical instability [x] Other: Pt with PT/OT. Next scheduled treatment: 12/19 PM as able. Completed by: Hali Ridley M.A., CCC-SADDLE STITCH OPERATOR * Rafaela Yen MD - 12/18/2024 3:53 PM EDT Images from the original note were not included. [facility] - Infectious diseases evaluation admission date [...] v- I will reconsiled 6 weeks then residential doxy Case disc w Dr Abarca and family Infection Control Recommendations [place] Precautions Contact Isolation Antimicrobial Stewardship Recommendations Simplification [...] Date APPENDECTOMY BACK SURGERY CHOLECYSTECTOMY COLONOSCOPY 2005 2016 HIP SURGERY Right 12/14/2024 HIP IRRIGATION AND DEBRIDEMENT, REVISION OF HEMIARTHROPLASTY - Right HIP SURGERY Right 12/14/2024 HIP IRRIGATION AND DEBRIDEMENT, REVISION OF HEMIARTHROPLASTY performed by Ramses Abarca DO at [facility] OR HYSTERECTOMY (CERVIX STATUS UNKNOWN) Medications: aspirin [...] Yen MD Office: Perfect serve / office [phone] * All Schmidt I, - 12/18/2024 3:25 PM EDT Physician Progress Note PATIENT: SUZAN ESCALONA CSN #: [id number] : 1945 ADMIT DATE: 12/13/2024 3:18 PM [...] deltoids), Hand (interosseous) Fluid Accumulation: Mild Extremities Ski Top Trimmer Strength: Not Performed Nutrition Assessment: RD f/u [...] Measures: Height: 162.6 cm (5' 4 ) [place] Body Weight (IBW): 120 lbs (55 kg) Current Body Weight: 54.9 kg (121 lb 0.5 oz), 100.9 % IBW. Current BMI (kg/m2): 20.8 Estimated Daily Nutrient Needs: Energy Requirements Based On: Kcal/kg Weight Used for Energy Requirements: Current Energy (kcal/day): 6721-6810 kcals/day Weight Used for Protein Requirements: Current Protein (g/day): 66-76 g/day Method Used for Fluid Requirements: 1 ml/kcal Fluid (ml/day): 3409-0580 ml/day Nutrition Diagnosis: Moderate malnutrition related to [...] determine Nuvia Sims RDN, LD, MS Contact: [phone] * All Schmidt DO - 12/18/2024 8:19 AM EDT Images from the original note were not included. [facility] Office: [phone] Flex Nicolas DO, Solo Rivas DO, Ananda [...] Duong MD, Elaine Herzog MD, Esther Eason, GENERAL DENTIST/OWNER, Roxana Dimas, GENERAL DENTIST/OWNER, Lucius Ramos, GENERAL DENTIST/OWNER, Samira, [facility], Fany Limon, GENERAL DENTIST/OWNER, Leeann Costello, GENERAL DENTIST/OWNER, Trini Lewis, GENERAL DENTIST/OWNER, Sherice Dolan, GENERAL DENTIST/OWNER, Grecia Brown, PA-C, Gloria Tucker, GENERAL DENTIST/OWNER, Rosalia Franco, GENERAL DENTIST/OWNER, Sylwia Foreman, GENERAL DENTIST/OWNER, Harleen Mercado, GENERAL DENTIST/OWNER, Franklin Valencia, PA-C, Barbara Stapleton, PA-C, Joana Geiger, GENERAL DENTIST/OWNER, Isreal Taylor, GENERAL DENTIST/OWNER, Melyssa Hernadez, GENERAL DENTIST/OWNER, Sagrario Gould, [facility], Kelly Lopes, GENERAL DENTIST/OWNER, Tena Blanchard, GENERAL DENTIST/OWNER [facility] IN-PATIENT SERVICE [facility] Progress Note 12/18/2024 8:19 AM Name: Suzan Escalona Acct: [id number] Room: 0234/0234-01 Day: 5 Admit Date: 12/13/2024 3:18 PM [...] 127 Brief History: 79-year-old patient presents from [facility] for evaluation of right lower extremity pain. [...] Meds: sodium chloride 2 g Oral TID WC enoxaparin 40 mg SubCUTAneous Daily linezolid 600 [...] Intake/Output Summary (Last 24 hours) at 12/18/2024 08 Last data filed at 12/17/20241999 Gross per [...] results for input(s): LABALBU , LABA1C , J7LVLLH , FT4 , TSH , AST , ALT , LDH , GGT , ALKPHOS , BILITOT , BILIDIR , AMMONIA , AMYLASE , LIPASE , LACTATE , CHOL , HDL , CHOLHDLRATIO , TRIG , VLDL , WSX70XD , PHENYTOIN , PHENYF , URICACID , POCGLU in the last 72 hours. Invalid input(s): PROT , B6FXQDI , LABGGT , LDLCHOLESTEROL ABG: Lab Results Component Value Date/Time PHART 7.333 12/14/2024 04:06 PM ZJI7DJW 41.1 12/14/2024 04:06 PM PO2ART 203.9 12/14/2024 04:06 PM ILQ9ZFU 21.3 12/14/2024 04:06 PM NBEA 4.2 12/14/2024 04:06 PM W9AZOTBO 99.3 12/14/2024 04:06 PM FIO2 60% 12/14/2024 [...] to recent surgery, trauma and/or infection. 4. Zfus-qe-hljufqyq edema in the subcutaneous fat about the [...] Anterior dislocation of right hip, initial encounter ([facility]) 12/13/2024 Yes Hypothyroidism 12/13/2024 Yes GERD (gastroesophageal reflux disease) 12/13/2024 Yes Anemia 12/13/2024 Yes Hyponatremia 12/13/2024 Yes Hypokalemia 12/13/2024 Yes Closed dislocation of right hip ([facility]) 12/14/2024 Yes Infection of right prosthetic hip [...] indwelling cath: Patient had Cam exchanged at [facility] on 11/20/2024 per patient's spouse. Will [...] 8:19 AM * Anju Garland APRN - NP - 12/17/2024 7:58 AM EDT Images from the original note were not included. [facility] Office: [phone] Flex Nicolas DO, Solo Rivas DO, Ananda Galaviz DO, Wilner Wilson DO, Zabrina Landin MD, Charmaine Kendrick MD, Vandana Sotomayor MD, Jaki Borja MD, Antwan Fowler MD, Hermilo Qureshi MD, Nikole Coleman MD, lAl Schmidt DO, Catalino Nicolas DO, Kate Ling MD, Ranjit Vann DO, Bev Connolly MD, Lisa Caceres MD, America Tucker MD, Lamont Maguire MD, Ankit Ridley MD,Edgar Roche MD, Quinten Quigley MD, River Zuniga MD, Kolby Vasquez MD, Lucius Nickerson DO,Briana Newberry MD, Naif Barron DO, Jimy Davis MD, Moises Valentine MD, All Duong MD, Elen Duong MD, Elaine Herzog MD, Esther Eason, GENERAL DENTIST/OWNER, Roxana Dimas, GENERAL DENTIST/OWNER, Lucius Ramos, GENERAL DENTIST/OWNER, OPAL Hogan, Fany Limon, GENERAL DENTIST/OWNER, Leeann Costello, GENERAL DENTIST/OWNER, Trini Lewis, GENERAL DENTIST/OWNER, Sherice Dolan, GENERAL DENTIST/OWNER, Grecia Brown, PA-C, Gloria Tucker, GENERAL DENTIST/OWNER, Rosalia Franco, GENERAL DENTIST/OWNER, Sylwia Foreman, GENERAL DENTIST/OWNER, Harleen Mercado, GENERAL DENTIST/OWNER, Franklin Valencia, PA-C, Barbara Stapleton, PA-C, Joana Geiger, GENERAL DENTIST/OWNER, Isreal Taylor, GENERAL DENTIST/OWNER, Melyssa Hernadez, GENERAL DENTIST/OWNER, Sagrario Gould, [facility], Kelly Lopes, GENERAL DENTIST/OWNER, Tena Blanchard, GENERAL DENTIST/OWNER [facility] IN-PATIENT SERVICE [facility] Progress Note 12/17/2024 7:58 AM Name: Suzan Escalona Acct: [id number] Room: Pending sale to [facility]/0234-01 Day: 4 Admit Date: 12/13/2024 3:18 PM [...] nursing Brief History: 79-year-old patient presents from [facility] for evaluation of right lower extremity pain. [...] Max:98.4 ??F (36.9 ??C) Recent Labs 12/14/24 1450 12/14/24 1606 POCGLU 142* 151* I/O (24Hr): Intake/Output [...] Value Date/Time PHART 7.333 12/14/2024 04:06 PM JAI4HUF 41.1 12/14/2024 04:06 PM PO2ART 203.9 12/14/2024 04:06 PM OUV6LYW 21.3 12/14/2024 04:06 PM NBEA 4.2 12/14/2024 04:06 PM K5QKZJEG 99.3 12/14/2024 04:06 PM FIO2 60% 12/14/2024 [...] to recent surgery, trauma and/or infection. 4. Chbv-vw-laxqbglv edema in the subcutaneous fat about the [...] Anterior dislocation of right hip, initial encounter ([facility]) 12/13/2024 Yes Hypothyroidism 12/13/2024 Yes GERD (gastroesophageal reflux disease) 12/13/2024 Yes Anemia 12/13/2024 Yes Hyponatremia 12/13/2024 Yes Hypokalemia 12/13/2024 Yes Closed dislocation of right hip ([facility]) 12/14/2024 Yes Infection of right prosthetic hip [...] indwelling cath: Patient had Cam exchanged at [facility] on 11/20/2024 per patient's spouse. Will [...] RN - 12/17/2024 7:50 AM EDT Notified BURNER TENDER Anju HgB 7.0 this morning. * Luc Gutierrez MD - 12/17/2024 5:36 AM EDT [facility] - Daily Progress Note Today's Date [...] DNR-CC She presented as a transfer from [facility] for Ortho evaluation of right hip dislocation. [...] and progress note Discussed with nursing Staff, neighborhood planner Dr Schmidt Infection Control and Prevention measures reviewed [place] precaution All prior entries were reviewed IM notes reviewed Administer medications as ordered Faith Yen to review and simplify treatment on 12-18-28 Prognosis: Guarded Discharge planning reviewed Follow up as outpatient. Thank you for allowing us to participate in the care of this patient. Please call with questions. Luc Gutierrez MD 12/17/2024 Office: * Lily Bustillo - 12/16/2024 11:23 AM EDT [facility] PROGRESS NOTE Shift date: 12/16/2024 Shift day: Wednesday Shift # 1 Room # 0234/0234-01 Name: Suzan Escalona Episcopalian: Non-yazidism Place of adventist: None Referral: Routine Visit/Referral from previous shift production associate Admit Date & Time: 12/13/2024 3:18 PM Assessment: Suzan Escalona is a 79 y.o. female in the hospital. Upon entering the room pattern chart writer observes patient sitting upright in bed. She is alert. is also in the room, sitting bedside on couch. Intervention: Agricultural And Forestry Supervisor introduced self and title as Chaplain Lily from [facility]. Agricultural And Forestry Supervisor offered space for patient and spouse to express feelings, needs, and concerns and provided a ministry presence. Patient shares concern about when she will be able to go home. She misses her benavides retriever at home. We engage in conversation about their home and their love of their dog. Outcome: This pattern chart writer provides supportive presence by affirmations and active listening. Agricultural And Forestry Supervisor offers prayerat bedside. Patient and are both receptive. expresses gratitude for this visit. Plan: Chaplains will remain available to offer spiritual and emotional support as needed. 12/16/24 1122 Encounter Summary Encounter Overview/Reason Spiritual/Emotional Needs Service Provided For Patient and family together Referral/Consult From Rounding Support System Spouse Last Encounter 12/16/24 Complexity of Encounter Low Begin Time 1105 End Time 1120 Total Time Calculated 15 min Assessment/Intervention/Outcome Assessment Anxious;Sad Intervention Active listening;Prayer (assurance of)/[place];Sustaining Presence/Ministry of presence Outcome Engaged in conversation;Receptive;Coping . [facility] [phone] * Anju Garland APRN - BURNER TENDER - 12/16/2024 10:49 AM EDT Images from the original note were not included. [facility] Office: [phone] Flex Nicolas DO, Solo Rivas DO, Ananda [...] Elen Duong MD, Elaine Herzog MD, Esther Eason CNP, Roxana Dimas CNP, Lucius Ramos CNP, OPAL Hogan, Fany Limon, ANGELIC, Leeann Costello, ANGELIC, Trini Lewis CNP, Sherice Dolan CNP, Grecia Brown PA-C, Gloria Tucker CNP, Rosalia Franco, GENERAL DENTIST/OWNER, Sylwia Foreman, GENERAL DENTIST/OWNER, Harleen Mercado, GENERAL DENTIST/OWNER, Franklin Valencia PA-C, Barbara Stapleton PA-C, Joana Geiger, GENERAL DENTIST/OWNER, Isreal aTylor, GENERAL DENTIST/OWNER, Melyssa Hernadez, GENERAL DENTIST/OWNER, Sagrario Gould, BOILER TENDER, Kelly Lopes, GENERAL DENTIST/OWNER, Tena Blanchard, GENERAL DENTIST/OWNER [facility] IN-PATIENT SERVICE [facility] Progress Note 12/16/2024 10:49 AM Name: Suzan Escalona Acct: [id number] Room: [id number]-[facility] Day: 3 Admit Date: 12/13/2024 3:18 PM [...] states she is in a hospital in [place] but then her speech has a tendency to drift off Labs, vitals reviewed, patient on 4 L nasal cannula Potassium and magnesium both low today, supplementation ordered Receiving Venofer for ELE Swallow study planned Brief History: 79-year-old patient presents from [facility] for evaluation of right lower extremity pain. [...] Max:98.8 ??F (37.1 ??C) Recent Labs 12/14/24 0712/14/24144912/14/24 1606 POCGLU 109* 142* 151* I/O (24Hr): Intake/Output Summary (Last 24 hours) at 12/16/2024 1049 Last data filed at 12/16/2024 0600 Gross per 24 hour Intake -- Output 775 ml Net -775 ml Labs: Hematology: Recent Labs 12/13/24162912/13/24205412/13/24205412/14/2441012/14/24144912/14/24 1606 12/15/24 0640 WBC -- 9.1 -- [...] this interval not displayed. Chemistry: Recent Labs 12/13/24205412/14/2441012/14/24144925 1606 12/15/24 0640 NA 131* 133* 134* 133* 136 [...] -- -- 0.8 0.8 -- Recent Labs 12/14/24 0411 12/14/24 0746 12/14/24 1450 12/14/24 1606 12/15/24 0640 TSH -- -- -- -- 0.97 AST 40* -- -- -- -- ALT 11 -- -- -- -- ALKPHOS 80 -- -- -- -- BILITOT 0.3 -- -- -- -- POCGLU -- 109* 142* 151* -- ABG: Lab Results Component Value Date/Time PHART 7.333 12/14/2024 04:06 PM JHV4SLC 41.1 12/14/2024 04:06 PM PO2ART 203.9 12/14/2024 04:06 PM KSP2HCU 21.3 12/14/2024 04:06 PM NBEA 4.2 12/14/2024 04:06 PM O0SXJAAE 99.3 12/14/2024 04:06 PM FIO2 60% 12/14/2024 [...] to recent surgery, trauma and/or infection. 4. Zxvy-wg-gibroesx edema in the subcutaneous fat about the [...] Anterior dislocation of right hip, initial encounter ([facility]) 12/13/2024 Yes Hypothyroidism 12/13/2024 Yes GERD (gastroesophageal reflux disease) 12/13/2024 Yes Anemia 12/13/2024 Yes Hyponatremia 12/13/2024 Yes Hypokalemia 12/13/2024 Yes Closed dislocation of right hip (HCC) 12/14/2024 Yes Infection of right prosthetic hip [...] indwelling cath: Patient had Cam [facility] on 11/20/2024 per patient's spouse. Will aim [...] pertinent history and exam findings with the HVAC TECH. I have evaluated the History, physical findings and pictures of the patient and the hernandez elements of the encounter have been performed by me. I have reviewed the laboratory data, other diagnostic studies and discussed them with the HVAC TECH. I have updated the medical record where necessary. I agree with the assessment, plan and orders as documented by the HVAC TECH. In addition diagnostic and decision making elements, [...] and progress note Discussed with nursing Staff, neighborhood planner Dr Schmidt Infection Control and Prevention measures reviewed [place] precaution All prior entries were reviewed IM notes reviewed Administer medications as ordered Zosyn Linezolid Prognosis: Guarded Discharge planning reviewed Follow up as outpatient. Luc Gutierrez MD 12/16/2024 [facility] - Daily Progress Note Today's Date [...] DNR-CC She presented as a transfer from [facility] for Ortho evaluation of right hip dislocation. [...] this interval not displayed. BMP: Recent Labs 12/14/2441012/14/240 12/14/24 1606 12/15/24 0640 NA 133* < [...] 11 AST 40* No results found for: VANCOTROUGH Medications: linezolid 600 mg Oral 2 times [...] APRN Pager: - Office: * Quang Givens, DO - 12/16/2024 6:00 AM EDT Orthopedic Progress [...] Dr. Abarca 01/01 - Please page Ortho business continuity specialist with any questions Posterior Hip Precautions Don???t bend your hip past a 90 degree angle. Don???t cross your legs. Don???t twist your hip inwards- keep knees and toes pointed upwards. Quang Givens DO Orthopedic Surgery, PGY-1 [place], [place] Cosigned by Ramses Abarca DO at 12/16/2024 9:37 AM EDT * Rafaela Yen MD - 12/15/2024 12:41 PM EDT Images from the original note were not included. [facility] - Infectious diseases evaluation admission date [...] Dr Abarca and family Infection Control Recommendations [place] Precautions Contact Isolation Antimicrobial Stewardship Recommendations Simplification [...] HEMIARTHROPLASTY performed by Ramses Abarca DO at [facility] OR HYSTERECTOMY (CERVIX STATUS UNKNOWN) Medications: calcium [...] following labs: CBC with Differential: Recent Labs 12/14/2441012/14/240 12/14/24 1606 12/15/24 0640 WBC 7.4 -- [...] not displayed. Hepatic Function Panel: Recent Labs 09/25/25 0411 BILITOT 0.3 ALKPHOS 80 ALT 11 [...] Yen MD Office: Perfect serve / office [phone] * Nella Isaacs RN - 12/15/2024 9:04 AM EDT Per BURNER TENDER Anju Garland, pt came with cam and was exchanged at [facility] and to keep it in and gets it exchanged every month outpt. * Anju Garland APRN - REAL - 12/15/2024 7:57 AM EDT Images from the original note were not included. [facility] Office: [phone] Flex Nicolas DO, Solo Rivas DO, Ananda [...] Duong MD, Elaine Herzog MD, Esther Eason, GENERAL DENTIST/OWNER, Roxana Dimas, GENERAL DENTIST/OWNER, Lucius Ramos, GENERAL DENTIST/OWNER, Samira, [facility], Fany Limon, GENERAL DENTIST/OWNER, Leeann Costello, GENERAL DENTIST/OWNER, Trini Lewis, GENERAL DENTIST/OWNER, Sherice Dolan, GENERAL DENTIST/OWNER, Grecia Brown, PA-C, Gloria Tucker, GENERAL DENTIST/OWNER, Rosalia Franco, GENERAL DENTIST/OWNER, Sylwia Foreman, GENERAL DENTIST/OWNER, Harleen Mercado, GENERAL DENTIST/OWNER, Franklin Valencia, PA-C, Barbara Stapleton, PA-C, Joana Geiger, GENERAL DENTIST/OWNER, Isreal Taylor, GENERAL DENTIST/OWNER, Melyssa Hernadez, GENERAL DENTIST/OWNER, Sagrario Gould, BOILER TENDER, Kelly Lopes, GENERAL DENTIST/OWNER, Tena Blanchard, GENERAL DENTIST/OWNER [facility] IN-PATIENT SERVICE [facility] Progress Note 12/15/2024 7:57 AM Name: Suzan Escalona Acct: [id number] Room: [address] [place] [address] Day: 2 Admit Date: 12/13/2024 3:18 PM [...] states she is in a hospital in [place] but then her speech has a tendency to drift off Labs, vitals reviewed, patient on 4 L nasal cannula Potassium and magnesium both low today, supplementation ordered Receiving Venofer for ELE Swallow study planned Brief History: 79-year-old patient presents from [facility] for evaluation of right lower extremity pain. [...] 2113.34 ml Labs: Hematology: Recent Labs 12/13/24 1630 12/13/24 2055 12/13/245 12/14/24 0411 12/14/24 1450 12/14/24 1606 12/15/24 [...] interval not displayed. Chemistry: Recent Labs 12/13/24205412/14/2441012/14/24144912/14/24 1606 NA 131* 133* 134* 133* K [...] LACTACIDWB -- -- 0.8 0.8 Recent Labs 12/14/2441012/14/2474512/14/24144912/14/24 1606 AST 40* -- -- -- ALT 11 -- -- -- ALKPHOS 80 -- -- -- BILITOT 0.3 -- -- -- POCGLU -- 109* 142* 151* ABG: Lab Results Component Value Date/Time PHART 7.333 12/14/2024 04:06 PM OTT3BTZ 41.1 12/14/2024 04:06 PM PO2ART 203.9 12/14/2024 04:06 PM ZCV1JBL 21.3 12/14/2024 04:06 PM NBEA 4.2 12/14/2024 04:06 PM W1MBBAGC 99.3 12/14/2024 04:06 PM FIO2 60% 12/14/2024 [...] to recent surgery, trauma and/or infection. 4. Muep-od-cqdkqrzm edema in the subcutaneous fat about the [...] Anterior dislocation of right hip, initial encounter ([facility]) 12/13/2024 Yes Hypothyroidism 12/13/2024 Yes GERD (gastroesophageal reflux disease) 12/13/2024 Yes Anemia 12/13/2024 Yes Hyponatremia 12/13/2024 Yes Hypokalemia 12/13/2024 Yes Closed dislocation of right hip ([facility]) 12/14/2024 Yes Infection of right prosthetic hip [...] indwelling cath: Patient had Cam exchanged at [facility] on 11/20/2024 per patient's spouse. Will aim to have this exchanged again on 12/20/2024 as patient is still admitted Protonix, hold Lovenox Dysphagia: Follow-up on modified barium swallow study ordered for today, advance diet as indicated SETH Diego NP 12/15/2024 7:57 AM * Quang Givens DO - 12/15/2024 5:19 AM EDT Orthopedic Progress [...] pillow and legs belowknee. Pillow removed by pattern chart writer for better examination and appropriate alignment [...] Dr. Abarca 01/01 - Please page Ortho business continuity specialist with any questions Posterior Hip Precautions Don???t bend your hip past a 90 degree angle. Don???t cross your legs. Don???t twist your hip inwards- keep knees and toes pointed upwards. Quang Givens DO Orthopedic Surgery, PGY-1 [place], [place] Cosigned by Ramses Abarca DO at 12/15/2024 1:16 PM EDT * Marco Antonio Pastor - 12/14/2024 6:48 PM EDT Agricultural And Forestry Supervisor introduced self to spouse who was in hallway. Spouse did not appear to mind shift production associate presence and engaged in conversation. Spouse discussed patient's health over the past month and what led tohospital visit. Spouse stated, She just got out of surgery . Agricultural And Forestry Supervisor provided a supportive presencethrough active listening and words of affirmation. * Tevin Guerrero RN - 12/14/2024 5:[address] Cazares that hgb was 5.9, 2 units PRBC as given Asked if want to repeat H and H Okay to repeat * Tevin Guerrero RN - 12/14/2024 5:21 PM EDT Xray at bedside * Maryan Campbell SLP - 12/14/2024 12:10 PM EDT SADDLE STITCH OPERATOR Therapy [facility] Speech Language Pathology Date: 12/14/2024 Patient Name: Suzan Escalona Date of : 1945 AGE: 79 y.o. Patient Not Available for Speech Therapy Due to: [] Testing [] Hemodialysis [] Cancelled by RN [] Surgery [] Intubation/Sedation/Pain Medication [] Medical instability [x] Other: Pt NPO for surgery Next scheduled treatment: 12/15/24 Completed by: ARANZA Garcia, M.S. [facility]-SADDLE STITCH OPERATOR * Nuvia Sims RD - 12/14/2024 9:55 AM EDT Comprehensive Nutrition Assessment Type and Reason for Visit: Initial, Positive nutrition screen Nutrition Recommendations/Plan: Continue NPO as medically necessary Recommend high kcal/high PRO ONS TID post-op Will monitor diet adv, GI status, wt, NFPE, and POC Malnutrition Assessment: Malnutrition Status: Insufficient data (12/14/24 7040) Nutrition Assessment: 79 y.o.F admitted d/t R hip dislocation. Pt NPO for OR today. +nutrition screen r/t wt loss, decreased intake. Pt out of room at time of RD visit. Per chart, limited wt hx to assess, no recent hx. TOM PO intake SUPERVISOR KOSHER DI[employer]ARY [employer]ICE. RD recommends high kcal/high PRO ONS post-op [...] Measures: Height: 162.6 cm (5' 4.02 ) [place] Body Weight (IBW): 120 lbs (55 kg) Current Body Weight: 54.9 kg (121 lb 0.5 oz), 100.9 % IBW. Current BMI (kg/m2): 20.8 Estimated Daily Nutrient Needs: Energy Requirements Based On: Kcal/kg Weight Used for Energy Requirements: Current Energy (kcal/day): 4001-4768 kcals/day Weight Used for Protein Requirements: Current Protein (g/day): 66-76 g/day Method Used for Fluid Requirements: 1 ml/kcal Fluid (ml/day): 3827-1838 ml/day Nutrition Diagnosis: Predicted inadequate energy intake [...] determine Nuvia Sims RDN, LD, MS Contact: [phone] * Hollie Whitmore OT - 12/14/2024 8:07 AM EDT Images from the original note were not included. Occupational Therapy [facility] Occupational Therapy Not Seen Note DATE: 12/14/2024 NAME: Suzan Escalona : 1945 Patient not seen this date for Occupational Therapy due to: Surgery/Procedure: Pt plan for OR this date with ortho. Next Scheduled Treatment: 12/15/24 * Anju Garland APRN - BURNER TENDER - 12/14/2024 8:04 AM EDT Images from the original note were not included. [facility] Office: [phone] Flex Nicolas DO, Solo Rivas DO, nAanda Galaviz DO, Wilner Wilson DO, Zabrina Landin [...] Duong MD, Elaine Herzog MD, Esther Eason, GENERAL DENTIST/OWNER, Roxana Dimas, GENERAL DENTIST/OWNER, Lucius Ramos, GENERAL DENTIST/OWNER, Samira [facility], Fany Limon, GENERAL DENTIST/OWNER, Leeann Costello, GENERAL DENTIST/OWNER, Trini Lewis, GENERAL DENTIST/OWNER, Sherice Dolan, GENERAL DENTIST/OWNER, Grecia Brown, PA-C, Gloria Tucker, GENERAL DENTIST/OWNER, Rosalia Franco, GENERAL DENTIST/OWNER, Sylwia Foreman, GENERAL DENTIST/OWNER, Harleen Mercado, GENERAL DENTIST/OWNER, Franklin Valencia, PA-C, Barbara Stapleton, PA-C, Joana Geiger, GENERAL DENTIST/OWNER, Isreal Taylor, GENERAL DENTIST/OWNER, Melyssa Hernadez, [facility], Sagrario Gould, [facility], Kelly Lopes, GENERAL DENTIST/OWNER, Tena Blanchard, GENERAL DENTIST/OWNER [facility] IN-PATIENT SERVICE [facility] Progress Note 12/14/2024 8:04 AM Name: Suzan Escalona Acct: [id number] Room: OBS Day: 1 Admit Date: 12/13/2024 [...] am. Brief History: 79-year-old patient presents from [facility] for evaluation of right lower extremity pain. [...] mg SubCUTAneous Daily ceFAZolin 2,000 mg IntraVENous Sales Service Manager to OR piperacillin-tazobactam 3,375 mg IntraVENous Q8H [...] medical history of Anemia, GERD (gastroesophageal reflux disease), and Hypothyroidism. Social History: reports that she has [...] Net 19.52 ml Labs: Hematology: Recent Labs 12/13/24162912/13/24205412/14/24 0411 WBC -- 9.1 -- RBC -- [...] , PHART , PH , POCPCO2 , KEB9ASS , PCO2 , POCPO2 , PO2ART , PO2 , POCHCO3 , ITI1ADI , HCO3 , NBEA , PBEA , BEART , BE , THGBART , THB , DBH7AIO , KFCH0DHF , Y4EEZVGT , O2SAT , FIO2 Lab Results Component [...] Anterior dislocation of right hip, initial encounter ([facility]) 12/13/2024 Yes Hypothyroidism 12/13/2024 Yes GERD (gastroesophageal reflux disease) 12/13/2024 Yes Anemia 12/13/2024 Yes Hyponatremia 12/13/2024 Yes Hypokalemia 12/13/2024 Yes Closed dislocation of right hip ([facility]) 12/14/2024 Yes Plan: Right hip anterior dislocation [...] Diego NP 12/14/2024 8:04 AM * Oliver Real DO - 12/14/2024 5:00 AM EDT Orthopedic Progress Note Patient: Suzan Escalona Date of : 1945 79 y.o. female Subjective: Patient seen and examined this morning. Sleeping comfortably upon entering the room. No complaints or concerns. No issues overnight per nursing. Pain [...] compressible. TA/EHL/FHL/GS motor complexes intact. Sural/saphenous/SPN/DPN/plantar nerves sensitive to light touch. Extremity is warm well-perfused [...] will evaluate post-op - Please page Ortho business continuity specialist with any questions Oliver Real DO Orthopedic Surgery Resident, PGY-2 [place], [place] Cosigned by Ramses Abarca DO at 12/14/2024 5:25 AM EDT * Erwin Gaming RPH - 12/13/2024 11:17 PM EDT [facility] Pharmacokinetic Monitoring Service - [...] Gaming RPH 12/13/2024 11:15 PM * Rob Mcgowan RN - 12/13/2024 3:37 PM EDT Pre-transfer report: R hip d/L Spoke with Don Escalona [age] yo R hip stu Nov 10 Dislocated on XR Ortho there asking for transfer documented in this encounter Plan of Treatment Upcoming Encounters Date Type Department Care Team (Late st Contact Info) Description 01/03/2025 11:30 AM EDT Office Visit [facility] [address] [place] [phone] Ramses Abarca DO [address] [place] [address] DOS: 12/14, R hip I&D/Hemirev 01/31/2025 2:15 PM EST Office Visit [facility] [address] [place] [address] [id number] Rafaela Yen MD [address], [address] [place], [place] [id number] 1 month post hospital follow up Scheduled [...] POC Glucose Fingerstick (12/20/2024 7:17 AM EDT) POC Glucose 105 65 - 105 mg/dL 12/20/2024 7:17 AM EDT [facility] 12/20/2024 7:17 AM EDT 12/20/2024 7:44 AM EDT Edgar Delaney Sra, MD POINT OF CARE TEST ORDERA BLES Final Result [facility] [address] [place] [address], [facility] [phone] * Magnesium (12/20/2024 6:09 AM EDT) Pathologist [facility] Magnesium 1.7 1.6 - 2.4 mg/dL 12/20/2024 6:09 AM EDT [facility] 12/20/2024 6:09 AM EDT 12/20/2024 6:20 AM EDT us Rafaela Yen MD CHEMISTRY ORDERABLES Final Re sult [facility] [address] [place] [address], [facility] [phone] * (ABNORMAL) CBC with Auto Differential (12/20/2024 6:09 AM EDT) Pathologist [facility] WBC 5.8 3.5 - 11.3 k/uL 12/20/2024 6:09 AM EDT [facility] RBC 2.44(L) 3.95 - 5.11 m/uL 12/20/2024 6:09 AM EDT [facility] Hemoglobin 7.2(L) 11.9 - 15.1 g/dL 12/20/2024 6:09 AM EDT [facility] Hematocrit 21.2(L) 36.3 - 47.1 % 12/20/2024 6:09 AM EDT [facility] MCV 86.9 82.6 - 102.9 fL 12/20/2024 6:09 AM EDT [facility] MCH 29.5 25.2 - 33.5 pg 12/20/2024 6:09 AM EDT [facility] MCHC 34.0 28.4 - 34.8 g/dL 12/20/2024 6:09 AM EDT [facility] RDW 14.1 11.8 - 14.4 % 12/20/2024 6:09 AM EDT [facility] Platelets 296 138 - 453 k/uL 12/20/2024 6:09 AM EDT [facility] MPV 9.2 8.1 - 13.5 fL 12/20/2024 6:09 AM EDT [facility] NRBC Automated 0.0 0.0 per 100 WBC 12/20/2024 6:09 AM EDT [facility] Neutrophils % 42 36 - 65 % 12/20/2024 6:09 AM EDT [facility] Lymphocytes % 22(L) 24 - 43 % 12/20/2024 6:09 AM EDT [facility] Monocytes % 15(H) 3 - 12 % 12/20/2024 6:09 AM EDT [facility] Eosinophils % 19(H) 1 - 4 % 12/20/2024 6:09 AM EDT [facility] Basophils % 0 0 - 2 % 12/20/2024 6:09 AM EDT [facility] Immature Granulocytes % 2(H) 0 % 12/20/2024 6:09 AM EDT [facility] Neutrophils Absolute 2.45 1.50 - 8.10 k/uL 12/20/2024 6:09 AM EDT [facility] Lymphocytes Absolute 1.25 1.10 - 3.70 k/uL 12/20/2024 6:09 AM EDT [facility] Monocytes Absolute 0.87 0.10 - 1.20 k/uL 12/20/2024 6:09 AM EDT [facility] Eosinophils Absolute 1.12(H) 0.00 - 0.44 k/uL 12/20/2024 6:09 AM EDT [facility] Basophils Absolute <0.03 0.00 - 0.20 k/uL 12/20/2024 6:09 AM EDT [facility] Immature Granulocytes Absolute 0.11 0.00 - 0.30 k/uL 12/20/2024 6:09 AM EDT [facility] 12/20/2024 6:09 AM EDT 12/20/2024 6:20 AM EDT us Rafaela Yen MD HEMATOLOGY ORDERABLES Final R esult [facility]PE[facility] [address] [place] [address] * (ABNORMAL) Basic Metabolic Panel (12/20/2024 6:09 AM EDT) Sodium 129(L) 136 - 145 mmol/L 12/20/2024 6:09 AM EDT [facility] Potassium 3.1(L) 3.7 - 5.3 mmol/L 12/20/2024 6:09 AM EDT [facility] Chloride 96(L) 98 - 107 mmol/L 12/20/2024 6:09 AM EDT [facility] CO2 21 20 - 31 mmol/L 12/20/2024 6:09 AM EDT [facility] Anion Gap 12 9 - 16 mmol/L 12/20/2024 6:09 AM EDT [facility] Glucose 106(H) 74 - 99 mg/dL 12/20/2024 6:09 AM EDT [facility] BUN 3(L) 8 - 23 mg/dL 12/20/2024 6:09 AM EDT [facility] Creatinine 0.4(L) 0.6 - 0.9 mg/dL 12/20/2024 6:09 AM EDT [facility] Est, Glom Filt Rate >90 >60 mL/min/1. 73m2 12/20/2024 6:09 AM EDT [facility] Comment: These results are not intended for [...] 8.6 - 10.4 mg/dL 12/20/2024 6:09 AM T [facility] 12/20/2024 6:09 AM EDT 12/20/2024 6:20 AM EDT us Rafaela Yen MD CHEMISTRY ORDERABLES Final Re sult [facility] [phone] * CK (12/20/2024 6:09 AM EDT) Total CK 50 26 - 192 U/L 12/20/2024 6:09 AM EDT [facility] Blood BLOOD SPECIMEN / Unknown 12/20/2024 6:09 AM EDT 12/20/2024 6:20 AM EDT Rafaela Yen MD CHEMISTRY ORDERABLES Final Re sult Performing Organization Address [facility] Co de Phone Number [facility] [address] [phone] * Magnesium (12/19/2024 8:34 PM EDT) Magnesium 2.1 1.6 - 2.4 mg/dL 12/19/2024 8:34 PM EDT [facility] Blood BLOOD SPECIMEN / Unknown 12/19/2024 8:34 PM EDT 12/19/2024 8:49 PM EDT Edgar Delaney Sra, MD CHEMISTRY ORDERABLES Angelina l Result Performing Organization Address [facility] Co de Phone Number [facility] [address] [place] [address], [facility] [phone] * POC Glucose Fingerstick (12/19/2024 5:00 PM EDT) POC Glucose 97 65 - 105 mg/dL 12/19/2024 5:00 PM EDT [facility] 12/19/2024 5:00 PM EDT 12/19/2024 5:07 PM EDT Edgar Delaney Sra, MD POINT OF CARE TEST ORDERA BLES Final Result Performing Organization Address [facility] [place] [address], [facility] [phone] * XR HIP 2-3 VW W PELVIS [...] Incompletely imagedpresacral nerve stimulator. Oliver Real DO IM DIAGNOSTIC IMAGING ORDERABLE S Final Result * [...] the procedure including risks, benefits, and alternatives. [place] protocol was observed. The left upper arm [...] peel-a-way sheath and a 34 cm 4 Yoruba PICC was advanced with fluoroscopic guidance with the tip at the cavo-atrial junction; a 0.018 inch glidewire was required to pass somewhat angled segment at the axillary subclavian junction, followed by a 4 Yoruba angled glide catheter. Through the latter, the [...] of theprocedure including risks, benefits, and alternatives. [place] protocol wasobserved. The left upper arm was [...] peel-a-way sheath and a 34 cm 4 Yoruba PICC was advanced with fluoroscopic guidance with the tip at the cavo-atrial junction; a 0.018inch glidewire was required to pass somewhat angled segment at the axillary subclavian junction, followed by a 4 Yoruba angled glide catheter.Through the latter, the standard [...] * (ABNORMAL) Magnesium (12/19/2024 5:03 AM EDT) Pathologist [facility] Magnesium 1.3(L) 1.6 - 2.4 mg/dL 12/19/2024 5:03 AM EDT [facility] 12/19/2024 5:03 AM EDT 12/19/2024 5:22 AM EDT Quang Givens DO CHEMISTRY ORDERABLES Final Resul t [facility] [address] [place] [address] * (ABNORMAL) CBC with Auto Differential (12/19/2024 5:03 AM EDT) Pathologist [facility] WBC 7.3 3.5 - 11.3 k/uL 12/19/2024 5:03 AM EDT [facility] RBC 2.57(L) 3.95 - 5.11 m/uL 12/19/2024 5:03 AM EDT [facility] Hemoglobin 7.5(L) 11.9 - 15.1 g/dL 12/19/2024 5:03 AM EDT [facility] Hematocrit 23.0(L) 36.3 - 47.1 % 12/19/2024 5:03 AM EDT [facility] MCV 89.5 82.6 - 102.9 fL 12/19/2024 5:03 AM EDT [facility] MCH 29.2 25.2 - 33.5 pg 12/19/2024 5:03 AM EDT [facility] MCHC 32.6 28.4 - 34.8 g/dL 12/19/2024 5:03 AM EDT [facility] RDW 13.8 11.8 - 14.4 % 12/19/2024 5:03 AM EDT [facility] Platelets 293 138 - 453 k/uL 12/19/2024 5:03 AM EDT [facility] MPV 9.7 8.1 - 13.5 fL 12/19/2024 5:03 AM EDT [facility] NRBC Automated 0.0 0.0 per 100 WBC 12/19/2024 5:03 AM EDT [facility] Neutrophils % 54 36 - 65 % 12/19/2024 5:03 AM EDT [facility] Lymphocytes % 16(L) 24 - 43 % 12/19/2024 5:03 AM EDT [facility] Monocytes % 9 3 - 12 % 12/19/2024 5:03 AM EDT [facility] Eosinophils % 19(H) 1 - 4 % 12/19/2024 5:03 AM EDT [facility] Basophils % 1 0 - 2 % 12/19/2024 5:03 AM EDT [facility] Immature Granulocytes % 2(H) 0 % 12/19/2024 5:03 AM EDT [facility] Neutrophils Absolute 3.96 1.50 - 8.10 k/uL 12/19/2024 5:03 AM EDT [facility] Lymphocytes Absolute 1.15 1.10 - 3.70 k/uL 12/19/2024 5:03 AM EDT [facility] Monocytes Absolute 0.63 0.10 - 1.20 k/uL 12/19/2024 5:03 AM EDT [facility] Eosinophils Absolute 1.41(H) 0.00 - 0.44 k/uL 12/19/2024 5:03 AM EDT [facility] Basophils Absolute 0.05 0.00 - 0.20 k/uL 12/19/2024 5:03 AM EDT [facility] Immature Granulocytes Absolute 0.14 0.00 - 0.30 k/uL 12/19/2024 5:03 AM EDT [facility] 12/19/2024 5:03 AM EDT 12/19/2024 5:22 AM EDT Quang Givens DO HEMATOLOGY ORDERABLES Final Resu lt [facility] [address] [phone] * (ABNORMAL) Basic Metabolic Panel (12/19/2024 5:03 AM EDT) Sodium 128(L) 136 - 145 mmol/L 12/19/2024 5:03 AM EDT [facility] Potassium 3.1(L) 3.7 - 5.3 mmol/L 12/19/2024 5:03 AM EDT [facility] Chloride 95(L) 98 - 107 mmol/L 12/19/2024 5:03 AM EDT [facility] CO2 17(L) 20 - 31 mmol/L 12/19/2024 5:03 AM EDT [facility] Anion Gap 16 9 - 16 mmol/L 12/19/2024 5:03 AM EDT [facility] Glucose 71(L) 74 - 99 mg/dL 12/19/2024 5:03 AM EDT [facility] BUN 4(L) 8 - 23 mg/dL 12/19/2024 5:03 AM EDT [facility] Creatinine 0.4(L) 0.6 - 0.9 mg/dL 12/19/2024 5:03 AM EDT [facility] Est, Glom Filt Rate >90 >60 mL/min/1. 73m2 12/19/2024 5:03 AM EDT [facility] Comment: These results are not intended for [...] - 10.4 mg/dL 12/19/2024 5:03 AM EDT [facility] 12/19/2024 5:03 AM EDT 12/19/2024 5:22 AM EDT [employer] CHEMISTRY ORDERABLES Final Resul t Performing Organization Address [facility] Co de Phone Number [facility] [address] [place] [address] * CK (12/19/2024 5:03 AM EDT) Total CK 70 26 - 192 U/L 12/19/2024 5:03 AM EDT [facility] 12/19/2024 5:03 AM EDT 12/19/2024 5:22 AM EDT [employer] CHEMISTRY ORDERABLES Final Resul t Performing Organization Address [facility] Phone Number [facility] [address] [place] [address], [facility] [phone] * (ABNORMAL) C-Reactive Protein (12/19/2024 5:03 AM EDT) CRP 16.8(H) 0.0 - 5.0 mg/L 12/19/2024 5:03 AM EDT [facility] Blood BLOOD SPECIMEN / Unknown 12/19/2024 5:03 AM EDT 12/19/2024 5:22 AM EDT [employer] CHEMISTRY ORDERABLES Final Resul t Performing Organization Address [facility] de Phone Number [facility] [address] [place] [address], [facility] [phone] * Magnesium (12/18/2024 8:32 AM EDT) Magnesium 1.6 1.6 - 2.4 mg/dL 12/18/2024 8:32 AM EDT [facility] 12/18/2024 8:32 AM EDT 12/18/2024 8:37 AM EDT All Taylor DO CHEMISTRY ORDERABLES Fin al Result [facility] [address] [place] [address], [facility] [phone] * (ABNORMAL) Basic Metabolic Panel w/ Reflex to MG (12/18/2024 8:32 AM EDT) Sodium 127(L) 136 - 145 mmol/L 12/18/2024 8:32 AM EDT [facility] Potassium 3.2(L) 3.7 - 5.3 mmol/L 12/18/2024 8:32 AM EDT [facility] Chloride 98 98 - 107 mmol/L 12/18/2024 8:32 AM EDT [facility] CO2 19(L) 20 - 31 mmol/L 12/18/2024 8:32 AM EDT [facility] Anion Gap 10 9 - 16 mmol/L 12/18/2024 8:32 AM EDT [facility] Glucose 78 74 - 99 mg/dL 12/18/2024 8:32 AM EDT [facility] BUN 6(L) 8 - 23 mg/dL 12/18/2024 8:32 AM EDT [facility] Creatinine 0.4(L) 0.6 - 0.9 mg/dL 12/18/2024 8:32 AM EDT [facility] Est, Glom Filt Rate >90 >60 mL/min/1. 73m2 12/18/2024 8:32 AM EDT [facility] Comment: These results are not intended for [...] - 10.4 mg/dL 12/18/2024 8:32 AM EDT [facility] Blood BLOOD SPECIMEN / Unknown 12/18/2024 8:32 AM EDT 12/18/2024 8:37 AM EDT All Taylor DO CHEMISTRY ORDERABLES Fin al Result Performing Organization Address City/[facility]/[place] [address], [facility] [phone] * (ABNORMAL) Hemoglobin and Hematocrit (12/17/2024 3:13 PM EDT) Hemoglobin 9.3(L) 11.9 - 15.1 g/dL 12/17/2024 3:13 PM EDT [facility] Hematocrit 29.1(L) 36.3 - 47.1 % 12/17/2024 3:13 PM EDT [facility] BLOOD SPECIMEN / Unknown 12/17/2024 3:13 PM EDT 12/17/2024 3:16 PM EDT Anju Garland APRN - BURNER TENDER HEMATOLOGY ORDERABLES Fin al Result Performing Organization Address City/[facility]/ZIP Co de Phone Number [facility] [address] [place] [address], [facility] [phone] * (ABNORMAL) Hemoglobin and Hematocrit (12/17/2024 8:41 AM EDT) Hemoglobin 7.3(L) 11.9 - 15.1 g/dL 12/17/2024 8:41 AM EDT [facility] Hematocrit 21.1(L) 36.3 - 47.1 % 12/17/2024 8:41 AM EDT [facility] BLOOD SPECIMEN / Unknown 12/17/2024 8:41 AM EDT 12/17/2024 8:52 AM EDT Anju Garland HVAC TECH - BURNER TENDER HEMATOLOGY ORDERABLES Fin al Result Performing Organization Address City/[facility]/ZIP Co de Phone Number [facility] [address] [place], [place] [address] [phone] * (ABNORMAL) Magnesium (12/17/2024 4:27 AM EDT) Magnesium 1.4(L) 1.6 - 2.4 mg/dL 12/17/2024 4:27 AM EDT [facility] 12/17/2024 4:27 AM EDT 12/17/2024 4:32 AM EDT Anju Garland HVAC TECH - BURNER TENDER CHEMISTRY ORDERABLES Angelina l Result Performing Organization Address City/[facility]/ZIP Co de Phone Number [address] [phone] * (ABNORMAL) C-Reactive Protein (12/17/2024 4:27 AM EDT) CRP 20.7(H) 0.0 - 5.0 mg/L 12/17/2024 4:27 AM EDT [facility] 12/17/2024 4:27 AM EDT 12/17/2024 4:32 AM EDT Anju Garland APRN - BURNER TENDER CHEMISTRY ORDERABLES Angelina l Result Performing Organization Address [facility]/ZIP Co de Phone Number [address] [phone] * (ABNORMAL) Basic Metabolic Panel w/ Reflex to MG (12/17/2024 4:27 AM EDT) Sodium 128(L) 136 - 145 mmol/L 12/17/2024 4:27 AM EDT [facility] Potassium 3.3(L) 3.7 - 5.3 mmol/L 12/17/2024 4:27 AM EDT [facility] Chloride 98 98 - 107 mmol/L 12/17/2024 4:27 AM EDT [facility] CO2 22 20 - 31 mmol/L 12/17/2024 4:27 AM EDT [facility] Anion Gap 8(L) 9 - 16 mmol/L 12/17/2024 4:27 AM EDT [facility] Glucose 88 74 - 99 mg/dL 12/17/2024 4:27 AM EDT [facility] BUN 7(L) 8 - 23 mg/dL 12/17/2024 4:27 AM EDT [facility] Creatinine 0.5(L) 0.6 - 0.9 mg/dL 12/17/2024 4:27 AM EDT [facility] Est, Glom Filt Rate >90 >60 mL/min/1. 73m2 12/17/2024 4:27 AM EDT [facility] Comment: These results are not intended for [...] - 10.4 mg/dL 12/17/2024 4:27 AM EDT [facility] Blood BLOOD SPECIMEN / Unknown 12/17/2024 4:27 AM EDT 12/17/2024 4:32 AM EDT Anju Garland APRN - REAL CHEMISTRY ORDERABLES Angelina diamond Result [facility] [address] [place] [address], [facility] [phone] * (ABNORMAL) CBC (12/17/2024 4:27 AM EDT) WBC 6.9 3.5 - 11.3 k/uL 12/17/2024 4:27 AM EDT [facility] RBC 2.39(L) 3.95 - 5.11 m/uL 12/17/2024 4:27 AM EDT [facility] Hemoglobin 7.0(LL) 11.9 - 15.1 g/dL 12/17/2024 4:27 AM EDT [facility] Hematocrit 20.9(L) 36.3 - 47.1 % 12/17/2024 4:27 AM EDT [facility] MCV 87.4 82.6 - 102.9 fL 12/17/2024 4:27 AM EDT [facility] MCH 29.3 25.2 - 33.5 pg 12/17/2024 4:27 AM EDT [facility] MCHC 33.5 28.4 - 34.8 g/dL 12/17/2024 4:27 AM EDT [facility] RDW 13.5 11.8 - 14.4 % 12/17/2024 4:27 AM EDT [facility] Platelets 190 138 - 453 k/uL 12/17/2024 4:27 AM EDT [facility] MPV 9.4 8.1 - 13.5 fL 12/17/2024 4:27 AM EDT [facility] NRBC Automated 0.0 0.0 per 100 WBC 12/17/2024 4:27 AM EDT [facility] Blood BLOOD SPECIMEN / Unknown 12/17/2024 4:27 AM EDT 12/17/2024 4:32 AM EDT Anju Garland APRN - BURNER TENDER HEMATOLOGY ORDERABLES Fin al Result Performing Organization Address City/[facility]/[place] [address], [facility] [phone] * Magnesium (12/16/2024 11:03 AM EDT) Magnesium 1.7 1.6 - 2.4 mg/dL 12/16/2024 11:03 AM EDT [facility] 12/16/2024 11:0 3 AM EDT 12/16/2024 11:16 AM EDT Anju Garland APRN - BURNER TENDER CHEMISTRY ORDERABLES [place] [address], [facility] [phone] * (ABNORMAL) Basic Metabolic Panel w/ Reflex to MG (12/16/2024 11:03 AM EDT) Sodium 130(L) 136 - 145 mmol/L 12/16/2024 11:03 AM EDT [facility] Comment: TEST CONFIRMED Potassium 3.1(L) 3.7 - 5.3 mmol/L 12/16/2024 11:03 AM EDT [facility] Comment: Specimen hemolysis has exceeded the interference as defined by Barber. Value may be falsely increased. Suggest recollection if clinically indicated. TEST CONFIRMED Chloride 99 98 - 107 mmol/L 12/16/2024 11:03 AM EDT [facility] Comment: TEST CONFIRMED CO2 20 20 - 31 mmol/L 12/16/2024 11:03 AM EDT [facility] Anion Gap 11 9 - 16 mmol/L 12/16/2024 11:03 AM EDT [facility] Glucose 94 74 - 99 mg/dL 12/16/2024 11:03 AM EDT [facility] BUN 6(L) 8 - 23 mg/dL 12/16/2024 11:03 AM EDT [facility] Creatinine 0.5(L) 0.6 - 0.9 mg/dL 12/16/2024 11:03 AM EDT [facility] Est, Glom Filt Rate >90 >60 mL/min/1. 73m2 12/16/2024 11:03 AM EDT [facility] Comment: These results are not intended for [...] 8.6 - 10.4 mg/dL 12/16/2024 11:03 AM EDT [facility] Blood BLOOD SPECIMEN / Unknown 12/16/2024 11:03 AM EDT 12/16/2024 11:16 AM EDT us Anju Garland HVAC TECH - BURNER TENDER CHEMISTRY ORDERABLES Angelina diamond Result [facility] [address] [place] [address], [facility] [phone] * (ABNORMAL) CBC (12/16/2024 11:03 AM EDT) Pathologist [facility] WBC 9.2 3.5 - 11.3 k/uL 12/16/2024 11:03 AM EDT [facility] RBC 2.82(L) 3.95 - 5.11 m/uL 12/16/2024 11:03 AM EDT [facility] Hemoglobin 8.4(L) 11.9 - 15.1 g/dL 12/16/2024 11:03 AM EDT [facility] Hematocrit 25.0(L) 36.3 - 47.1 % 12/16/2024 11:03 AM EDT [facility] MCV 88.7 82.6 - 102.9 fL 12/16/2024 11:03 AM EDT [facility] MCH 29.8 25.2 - 33.5 pg 12/16/2024 11:03 AM EDT [facility] MCHC 33.6 28.4 - 34.8 g/dL 12/16/2024 11:03 AM EDT [facility] RDW 13.4 11.8 - 14.4 % 12/16/2024 11:03 AM EDT [facility] Platelets 206 138 - 453 k/uL 12/16/2024 11:03 AM EDT [facility] MPV 9.5 8.1 - 13.5 fL 12/16/2024 11:03 AM EDT [facility] NRBC Automated 0.0 0.0 per 100 WBC 12/16/2024 11:03 AM EDT [facility] Blood BLOOD SPECIMEN / Unknown 12/16/2024 11:03 AM EDT 12/16/2024 11:16 AM EDT us Anju Garland HVAC TECH - BURNER TENDER HEMATOLOGY ORDERABLES Fin al Result [facility] [address] [place] [address], [facility] [phone] * Infectious Disease Intervention (12/15/2024 1:00 PM EDT) Pathologist [facility] Intervention Drug-Lab Mismatch 12/15/2024 1:00 PM EDT [facility] 12/15/2024 1:00 PM EDT 12/15/2024 3:25 PM EDT us Rafaela Yen MD MICROBIOLOGY - GENERAL ORDERA BLES Final Result MOLINA [address] [place] [id number], [facility] [phone] * [place] MODIFIED BARIUM SWALLOW W VIDEO [...] performed in conjunction with the speech-language pathologist (SADDLE STITCH OPERATOR). Various liquid, solid and/or semi-solid barium [...] were performed in conjunction with the speech-language pathologist(SADDLE STITCH OPERATOR). Various liquid, solid and/or semi-solid barium [...] full discussion offindings and recommendations. Anju Garland HVAC TECH - BURNER TENDER IMG FLUOROSCOPY ORDERABLE S Final Result * TSH reflex to FT4 (12/15/2024 6:40 AM EDT) TSH 0.97 0.27 - 4.20 uIU/mL 12/15/2024 6:40 AM EDT [facility] 12/15/2024 6:40 AM EDT 12/15/2024 6:56 AM EDT Quang Givens DO CHEMISTRY ORDERABLES Final Resul t [facility] [address] [place] [address], [facility] [phone] * (ABNORMAL) Magnesium (12/15/2024 6:40 AM EDT) Magnesium 1.0(L) 1.6 - 2.4 mg/dL 12/15/2024 6:40 AM EDT [facility] 12/15/2024 6:40 AM EDT 12/15/2024 6:56 AM EDT Quang Givens DO CHEMISTRY ORDERABLES Final Resul t Performing Organization Address City/[facility]/ZIP Co de Phone Number [facility] [address] [place] [address], [facility] [phone] * (ABNORMAL) CBC (12/15/2024 6:40 AM EDT) WBC 10.0 3.5 - 11.3 k/uL 12/15/2024 6:40 AM EDT [facility] RBC 3.14(L) 3.95 - 5.11 m/uL 12/15/2024 6:40 AM EDT [facility] Hemoglobin 9.1(L) 11.9 - 15.1 g/dL 12/15/2024 6:40 AM EDT [facility] Hematocrit 27.6(L) 36.3 - 47.1 % 12/15/2024 6:40 AM EDT [facility] MCV 87.9 82.6 - 102.9 fL 12/15/2024 6:40 AM EDT [facility] MCH 29.0 25.2 - 33.5 pg 12/15/2024 6:40 AM EDT [facility] MCHC 33.0 28.4 - 34.8 g/dL 12/15/2024 6:40 AM EDT [facility] RDW 13.4 11.8 - 14.4 % 12/15/2024 6:40 AM EDT [facility] Platelets 200 138 - 453 k/uL 12/15/2024 6:40 AM EDT [facility] MPV 9.5 8.1 - 13.5 fL 12/15/2024 6:40 AM EDT [facility] NRBC Automated 0.0 0.0 per 100 WBC 12/15/2024 6:40 AM EDT [facility] 12/15/2024 6:40 AM EDT 12/15/2024 6:56 AM EDT Quang Givens DO HEMATOLOGY ORDERABLES Final Resu lt [facility] [address] [place] [address], [facility] [phone] * (ABNORMAL) Basic Metabolic Panel w/ Reflex to MG (12/15/2024 6:40 AM EDT) Sodium 136 136 - 145 mmol/L 12/15/2024 6:40 AM EDT [facility] Potassium 3.4(L) 3.7 - 5.3 mmol/L 12/15/2024 6:40 AM EDT [facility] Comment: Specimen hemolysis has exceeded the interference as defined by Barber. Value may be falsely increased. Suggest recollection if clinically indicated. Chloride 106 98 - 107 mmol/L 12/15/2024 6:40 AM EDT [facility] CO2 17(L) 20 - 31 mmol/L 12/15/2024 6:40 AM EDT [facility] Anion Gap 13 9 - 16 mmol/L 12/15/2024 6:40 AM EDT [facility] Glucose 167(H) 74 - 99 mg/dL 12/15/2024 6:40 AM EDT [facility] BUN 5(L) 8 - 23 mg/dL 12/15/2024 6:40 AM EDT [facility] Creatinine 0.5(L) 0.6 - 0.9 mg/dL 12/15/2024 6:40 AM EDT [facility] Est, Glom Filt Rate >90 >60 mL/min/1. 73m2 12/15/2024 6:40 AM EDT [facility] Comment: These results are not intended for [...] - 10.4 mg/dL 12/15/2024 6:40 AM EDT [facility] 12/15/2024 6:40 AM EDT 12/15/2024 6:56 AM EDT [facility] CHEMISTRY ORDERABLES Final Resul t Performing Organization Address [facility] [place] [address], [facility] [phone] * (ABNORMAL) C-Reactive Protein (12/15/2024 6:40 AM EDT) CRP 50.6(H) 0.0 - 5.0 mg/L 12/15/2024 6:40 AM EDT [facility] Blood BLOOD SPECIMEN / Unknown 12/15/2024 6:40 AM EDT 12/15/2024 6:56 AM EDT [facility] CHEMISTRY ORDERABLES Final Resul t Performing Organization Address [facility] de Phone Number [facility] [address] [place] [address], [facility] [phone] * (ABNORMAL) Hemoglobin and hematocrit, blood (12/14/2024 5:29 PM EDT) POC Hemoglobin (calc) 10.3(L) 12.0 - 16.0 g/dL 12/14/2024 5:29 PM EDT [facility] Al Detal POC Hematocrit 30(L) 36 - 46 % 12/14/2024 5:29 PM EDT [facility] 12/14/2024 5:29 PM EDT 12/14/2024 5:32 PM EDT All Schmidt I, DO HEMATOLOGY ORDERABLES Fi nal Result Performing Organization Address [facility] Co de Phone Number [facility] [address] [place] [address], [facility] [phone] * XR HIP 2-3 VW W PELVIS [...] * Transfuse RBC (12/14/2024 4:35 PM EDT) Result [facility] Beverley Huber MD NURSING TREATMENT ORDERABLES - BLOOD ADMIN Final Result * FLUORO FOR SURGICAL PROCEDURES (12/14/2024 4:24 PM EDT) Narrative [facility] - 12/14/2024 4:25 PM EDT Radiology exam is complete. No Radiologist dictation. Please follow up with ordering provider. Ramses Abarca DO IMG FLUOROSCOPY ORDERABLES Final Result [facility] * Transfuse RBC (12/14/2024 4:23 PM EDT) Beverley Huber MD NURSING TREATMENT ORDERABLES - BLOOD ADMIN Final Result * (ABNORMAL) OPEN HEART PANEL (12/14/2024 4:06 PM EDT) pH, Arterial 7.333(L) 7.350 - 7.450 12/14/2024 4:06 PM EDT [facility] pCO2, Arterial 41.1 32 - 45 mmHg 12/14/2024 4:06 PM EDT [facility] pO2, Arterial 203.9(H) 75 - 95 mmHg 12/14/2024 4:06 PM EDT [facility] HCO3, Arterial 21.3(L) 22 - 27 mmol/L 12/14/2024 4:06 PM EDT [facility] Negative Base Excess, Art 4.2(H) 0.0 - 2.0 mmol/L 12/14/2024 4:06 PM EDT [facility] O2 Sat, Arterial 99.3 94 - 100 % 12/14/2024 4:06 PM EDT [facility] Carboxyhemoglobin 0.2 0 - 5 % 025 4:06 PM EDT [facility] Comment: Reference Range: Non-Smokers 0-2% Average Smoker 2-4% Heavy Smoker <10% Pt Temp 36.3 12/14/2024 4:06 PM EDT [facility] Mauro Test INFORMATION NOT PROVIDED 12/14/2024 4:06 PM EDT [facility] FIO2 60% 12/14/2024 4:06 PM EDT [facility] Hemoglobin 5.9(LL) 11.9 - 15.1 gm/dL 12/14/2024 4:06 PM EDT [facility] Hematocrit 17.0(L) 36.3 - 47.1 % 12/14/2024 4:06 PM EDT [facility] POC Glucose 151(H) 65 - 105 mg/dL 12/14/2024 4:06 PM EDT [facility] Chloride, Whole Blood 108 98 - 110 mmol/L 12/14/2024 4:06 PM EDT [facility] Potassium, Whole Blood 3.0(L) 3.6 - 5.0 mmol/L 12/14/2024 4:06 PM EDT [facility] Sodium, Whole Blood 133(L) 136 - 145 mmol/L 12/14/2024 4:06 PM EDT [facility] 12/14/2024 4:06 PM EDT 12/14/2024 4:12 PM EDT All Schmidt I, DO CHEMISTRY ORDERABLES Fin al Result Performing Organization Address [facility] Co de Phone Number [facility] [address] [place] [address], [facility] [phone] * Lactic Acid (12/14/2024 4:06 PM EDT) Lactic Acid, Whole Blood 0.8 0.7 - 2.1 mmol/L 12/14/2024 4:06 PM EDT [facility] 12/14/2024 4:06 PM EDT 12/14/2024 4:12 PM EDT All Schmidt I, DO CHEMISTRY ORDERABLES Fin al Result Performing Organization Address [facility] Co de Phone Number [facility] [address] [place] [address], [facility] [phone] * (ABNORMAL) Calcium, Ionized (12/14/2024 4:06 PM EDT) Calcium, Ionized 1.05(L) 1.13 - 1.33 mmol/L 12/14/2024 4:06 PM EDT [facility] 12/14/2024 4:06 PM EDT 12/14/2024 4:12 PM EDT All Schmidt I, DO CHEMISTRY ORDERABLES Fin al Result Performing Organization Address [facility] de Phone Number [facility] [address] [place] [address], [facility] [phone] * Culture, Anaerobic and Aerobic (12/14/2024 3:35 PM EDT) Specimen Description .HIP SWAB 12/14/2024 3:35 PM EDT [facility] Special Requests Site: Swab 12/14/2024 3:35 PM EDT [facility] Direct Exam FEW NEUTROPHILS 12/14/2024 3:35 PM EDT [facility] Direct Exam NO ORGANISMS SEEN 12/14/2024 3:35 PM EDT [facility] Culture NORMAL SKIN DANN 12/14/2024 3:35 PM EDT [facility] Culture No anaerobic organisms isolated at 5 days. 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, initial encounter [T84.51XA] us Ramses Abarca DO MICROBIOLOGY - GENERAL ORD ERABLES Final Result [facility] [address] [place] [address], [facility] [phone] * (ABNORMAL) OPEN HEART PANEL (12/14/2024 2:50 PM EDT) pH, Arterial 7.367 7.350 - 7.450 12/14/2024 2:50 PM EDT [facility] pCO2, Arterial 37.2 32 - 45 mmHg 12/14/2024 2:50 PM EDT [facility] pO2, Arterial 222.3(H) 75 - 95 mmHg 12/14/2024 2:50 PM EDT [facility] HCO3, Arterial 20.9(L) 22 - 27 mmol/L 12/14/2024 2:50 PM EDT [facility] Negative Base Excess, Art 4.0(H) 0.0 - 2.0 mmol/L 12/14/2024 2:50 PM EDT [facility] O2 Sat, Arterial 99.5 94 - 100 % 12/14/2024 2:50 PM EDT [facility] Carboxyhemoglobin 0.3 0 - 5 % 025 2:50 PM EDT [facility] Comment: Reference Range: Non-Smokers 0-2% Average Smoker 2-4% Heavy Smoker <10% Pt Temp 36.5 12/14/2024 2:50 PM EDT [facility] Mauro Test INFORMATION NOT PROVIDED 12/14/2024 2:50 PM EDT [facility] FIO2 60 12/14/2024 2:50 PM EDT [facility] Hemoglobin 8.3(L) 11.9 - 15.1 gm/dL 12/14/2024 2:50 PM EDT [facility] Hematocrit 24.0(L) 36.3 - 47.1 % 12/14/2024 2:50 PM EDT [facility] POC Glucose 142(H) 65 - 105 mg/dL 12/14/2024 2:50 PM EDT [facility] Chloride, Whole Blood 104 98 - 110 mmol/L 12/14/2024 2:50 PM EDT [facility] Potassium, Whole Blood 2.7(LL) 3.6 - 5.0 mmol/L 12/14/2024 2:50 PM EDT [facility] Sodium, Whole Blood 134(L) 136 - 145 mmol/L 12/14/2024 2:50 PM EDT [facility] 12/14/2024 2:50 PM EDT 12/14/2024 3:00 PM EDT [employer]ry Schmidt I, DO CHEMISTRY ORDERABLES Fin al Result Performing Organization Address City/[facility]/ZIP Co de Phone Number [address] [phone] * Lactic Acid (12/14/2024 2:50 PM EDT) Lactic Acid, Whole Blood 0.8 0.7 - 2.1 mmol/L 12/14/2024 2:50 PM EDT [facility] 12/14/2024 2:50 PM EDT 12/14/2024 3:00 PM EDT byydrick Venaxischristina I, DO CHEMISTRY ORDERABLES Fin al Result Performing Organization Address City/[facility]/ZIP Co de Phone Number [address] [phone] * (ABNORMAL) Calcium, Ionized (12/14/2024 2:50 PM EDT) Calcium, Ionized 1.09(L) 1.13 - 1.33 mmol/L 12/14/2024 2:50 PM EDT [facility] 12/14/2024 2:50 PM EDT 12/14/2024 3:00 PM EDT All Taylor DO CHEMISTRY ORDERABLES Fin al Result [facility] [address] [phone] * TYPE AND SCREEN (12/14/2024 1:42 PM EDT) [facility] Blood Bank Sample Expiration 12/17/2024,2359 12/14/2024 2:13 PM EDT [employer] Arm Band Number [id number] 12/14/2024 2:16 PM EDT [employer] ABO/Rh O POSITIVE 12/14/2024 2:13 PM EDT [employer] Antibody Screen NEGATIVE 12/14/2024 2:16 PM EDT [employer] Unit Number [id number] 12/14/2024 2:16 PM EDT [employer] Component Leukocyte Reduced Red Cell 12/14/2024 2:16 PM EDT [facility] Unit Divison 00 12/14/2024 2:16 PM EDT [employer] Dispense Status Blood Bank TRANSFUSED 12/15/2024 6:54 AM EDT [facility] Unit Issue Date/Time [id number] 12/15/2024 6:54 AM EDT [facility] Product Code Blood Bank [id number] 12/15/2024 6:54 AM EDT [facility] Blood Bank Unit Type and Rh O POS 12/15/2024 6:54 AM EDT [facility] Blood Bank ISBT Product Blood Type 5100 12/15/2024 6:54 AM EDT [facility] Blood Bank Blood Product Expiration Date [id number] 12/15/2024 6:54 AM EDT [facility] Transfusion Status OK TO TRANSFUSE 12/14/2024 2:16 PM EDT [facility] Crossmatch Result COMPATIBLE 12/14/2024 2:16 PM EDT [facility] Unit Number [id number] 12/14/2024 2:16 PM EDT [facility] Component Leukocyte Reduced Red Cell 12/14/2024 2:16 PM EDT [facility] Unit Divison 00 12/14/2024 2:16 PM EDT [facility] Dispense Status Blood Bank TRANSFUSED 12/15/2024 6:54 AM EDT [facility] Unit Issue Date/Time [id number] 12/15/2024 6:54 AM EDT [facility] Product Code Blood Bank [id number] 12/15/2024 6:54 AM EDT [facility] Blood Bank Unit Type and Rh O POS 12/15/2024 6:54 AM EDT [facility] Blood Bank ISBT Product Blood Type 5100 12/15/2024 6:54 AM EDT [facility] Blood Bank Blood Product Expiration Date [id number] 12/15/2024 6:54 AM EDT [facility] Transfusion Status OK TO TRANSFUSE 12/14/2024 2:16 PM EDT [employer] Crossmatch Result COMPATIBLE 12/14/2024 2:16 PM EDT [employer] Blood BLOOD SPECIMEN / Unknown 12/14/2024 1:42 PM EDT 12/14/2024 1:42 PM EDT Beverley Huber MD BLOOD BANK TEST ORDERABLES Fi nal Result Performing Organization Address [facility]/State/[facility] Co de Phone Number [facility] [place] [address], [facility] [phone] * CT HEAD WO CONTRAST (12/14/2024 8:32 [...] 3. 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 us Ankit Ridley MD IMG CT ORDERABLES Final Result * (ABNORMAL) POC Glucose Fingerstick (12/14/2024 7:46 AM EDT) POC Glucose 109(H) 65 - 105 mg/dL 12/14/2024 7:46 AM EDT [facility] 12/14/2024 7:46 AM EDT 12/14/2024 7:52 AM EDT us Lurdesbry Chaunceychristina I, DO POINT OF CARE TEST ORDER CINTHYA Final Result [facility] [address] [place] [address], [facility] [phone] * CT HIP RIGHT WO CONTRAST (12/14/2024 [...] to recent surgery, trauma and/or infection. 4. Xyeu-hq-pkpaexyb edema in the subcutaneous fat about the [...] bladder which can be seen with cystitis. Ukfm-bj-niogkkzh edema in the subcutaneous fat about the [...] urinary bladder which can be seenwith cystitis. Iypv-gq-xzavtscm edema in the subcutaneous fat about the [...] to recent surgery, trauma and/or infection. 4. [id number] edema in the subcutaneous fat about the bilateral hip/thighs, right greater than left. 5. Moderate edema/fluid in the presacral fat. 6. Mild fat stranding of the urinary bladder which can be seen withcystitis. Correlate with urinalysis. 7. Mild left hip osteoarthrosis. us Neetu Felipe DO IMG CT ORDERABLES Final Result * (ABNORMAL) Comprehensive Metabolic Panel w/ Reflex to MG (12/14/2024 4:11 AM EDT) Pathologist [facility] Sodium 133(L) 136 - 145 mmol/L 12/14/2024 4:11 AM EDT [facility] Potassium 3.8 3.7 - 5.3 mmol/L 12/14/2024 4:11 AM EDT [facility] Chloride 99 98 - 107 mmol/L 12/14/2024 4:11 AM EDT [facility] CO2 19(L) 20 - 31 mmol/L 12/14/2024 4:11 AM EDT [facility] Anion Gap 15 9 - 16 mmol/L 12/14/2024 4:11 AM EDT [facility] Glucose 113(H) 74 - 99 mg/dL 12/14/2024 4:11 AM EDT [facility] BUN 6(L) 8 - 23 mg/dL 12/14/2024 4:11 AM EDT [facility] Creatinine 0.4(L) 0.6 - 0.9 mg/dL 12/14/2024 4:11 AM EDT [facility] Est, Glom Filt Rate >90 >60 mL/min/1. 73m2 12/14/2024 4:11 AM EDT [facility] Comment: These results are not intended for [...] - 10.4 mg/dL 12/14/2024 4:11 AM EDT [facility] Total Protein 5.5(L) 6.6 - 8.7 g/dL 12/14/2024 4:11 AM EDT [facility] Albumin 2.5(L) 3.5 - 5.2 g/dL 12/14/2024 4:11 AM EDT [facility] Albumin/Globulin Ratio 0.8(L) 1.0 - 2.5 12/14/2024 4:11 AM EDT [facility] Total Bilirubin 0.3 0.0 - 1.2 mg/dL 12/14/2024 4:11 AM EDT [facility] Alkaline Phosphatase 80 35 - 104 U/L 12/14/2024 4:11 AM EDT [facility] ALT 11 10 - 35 U/L 12/14/2024 4:11 AM EDT [facility] AST 40(H) 10 - 35 U/L 12/14/2024 4:11 AM EDT [facility] 12/14/2024 4:11 AM EDT 12/14/2024 4:22 AM EDT Naif Vegachase Barron DO CHEMISTRY ORDERABLES Final Result [facility] [address] [place] [address], [facility] [phone] * (ABNORMAL) CBC (12/14/2024 4:11 AM EDT) WBC 7.4 3.5 - 11.3 k/uL 12/14/2024 4:11 AM EDT [facility] RBC 2.69(L) 3.95 - 5.11 m/uL 12/14/2024 4:11 AM EDT [facility] Hemoglobin 7.9(L) 11.9 - 15.1 g/dL 12/14/2024 4:11 AM EDT [facility] Hematocrit 23.7(L) 36.3 - 47.1 % 12/14/2024 4:11 AM EDT [facility] MCV 88.1 82.6 - 102.9 fL 12/14/2024 4:11 AM EDT [facility] MCH 29.4 25.2 - 33.5 pg 12/14/2024 4:11 AM EDT [facility] MCHC 33.3 28.4 - 34.8 g/dL 12/14/2024 4:11 AM EDT [facility] RDW 13.3 11.8 - 14.4 % 12/14/2024 4:11 AM EDT [facility] Platelets 323 138 - 453 k/uL 12/14/2024 4:11 AM EDT [facility] MPV 9.2 8.1 - 13.5 fL 12/14/2024 4:11 AM EDT [facility] NRBC Automated 0.0 0.0 per 100 WBC 12/14/2024 4:11 AM EDT [facility] 12/14/2024 4:11 AM EDT 12/14/2024 4:22 AM EDT us Naif Barron DO HEMATOLOGY ORDERABLES Final Result Performing Organization Address [facility]/ZIP Co de Phone Number [facility] [address] [place] [address], [facility] [phone] * (ABNORMAL) Protime-INR (12/14/2024 4:11 AM EDT) Protime 20.0(H) 11.7 - 14.9 sec 12/14/2024 4:11 AM EDT [facility] INR 1.6 12/14/2024 4:11 AM EDT [facility] Comment: Therapeutic Range: Moderate Anticoagulant Intensity: INR = 2.0-3.0 High Anticoagulant Intensity: INR = 2.5-3.5 12/14/2024 4:11 AM EDT 12/14/2024 4:22 AM EDT us Naif Barron DO HEMATOLOGY ORDERABLES Final Result Performing Organization Address [facility]/ZIP Co de Phone Number [facility] [address] [place] [address], [facility] [phone] * Culture, Blood 2 (12/14/2024 4:11 AM EDT) Specimen Description .BLOOD 12/14/2024 4:11 AM EDT [facility] Special Requests LEFT AC 9 ML 12/14/2024 4:11 AM EDT [facility] Culture NO GROWTH 5 DAYS 12/14/2024 4:11 AM EDT [facility] BLOOD SPECIMEN / Unknown 12/14/2024 4:11 AM EDT 12/14/2024 4:26 AM EDT us Ankit Ridley MD MICROBIOLOGY - GENERAL ORDERABL ES Final Result Performing Organization Address [facility]/ZIP Co de Phone Number [facility] [address] [place] [address], [facility] [phone] * Culture, Blood 1 (12/14/2024 4:00 AM EDT) Specimen Description .BLOOD 12/14/2024 4:00 AM EDT [facility] Special Requests LEFT UPPER ARM 7 ML 12/14/2024 4:00 AM EDT [facility] Culture NO GROWTH 5 DAYS 12/14/2024 4:00 AM EDT [facility] BLOOD SPECIMEN / Unknown 12/14/2024 4:00 AM EDT 12/14/2024 4:27 AM EDT Ankit Ridley MD MICROBIOLOGY - GENERAL ORDERABL ES Final Result [facility] [address] [place] [address], [facility] [phone] * XR CHEST PORTABLE (12/14/2024 2:28 AM [...] isidentified. IMPRESSION: No acute airspace disease identified. Esther Eason HVAC TECH - GENERAL DENTIST/OWNER IMG DIAGNOSTIC IMAGING ORDERABLES Final Result * EKG 12 Lead (12/13/2024 11:34 PM EDT) Ventricular Rate 88 BPM [facility] Atrial Rate 88 BPM [facility] P-R Interval 130 ms [facility] QRS Duration 82 ms [facility] Q-T Interval 380 ms [facility] QTc Calculation (Bazett) 459 ms [facility] P Williams 69 degrees [facility] R Williams -13 degrees [facility] T Williams 18 degrees [facility] 12/13/2024 11:3 4 PM EDT Narrative [facility] - 12/14/2024 4:47 PM EDT Normal sinus rhythm Normal ECG No previous ECGs available Procedure Note Carrie Guajardo MD - 12/14/2024 Normal sinus rhythm Normal ECG No previous ECGs available Ankit Ridley MD ECG ORDERABLES Final Result [facility] STV MUSE * (ABNORMAL) Iron and TIBC (12/13/2024 11:27 PM EDT) Iron 17(L) 37 - 145 ug/dL 12/13/2024 11:27 PM EDT [facility] TIBC 106(L) 250 - 450 ug/dL 12/13/2024 11:27 PM EDT [facility] Iron % Saturation 16(L) 20 - 55 % 12/13/2024 11:27 PM EDT [facility] UIBC 89(L) 112 - 347 ug/dL 12/13/2024 11:27 PM EDT [facility] BLOOD SPECIMEN / Unknown 12/13/2024 11:27 PM EDT 12/13/2024 11:32 PM EDT Ankit Ridley MD CHEMISTRY ORDERABLES Final Resu lt [address] [phone] * (ABNORMAL) Reticulocytes (12/13/2024 11:27 PM EDT) [facility] Retic Ct Pct 1.4 0.5 - 1.9 % 12/13/2024 11:27 PM EDT [facility] Absolute Retic # 0.034 0.030 - 0.080 M/uL 12/13/2024 11:27 PM EDT [facility] Immature Retic Fract 15.2 2.7 - 18.3 % 12/13/2024 11:27 PM EDT [facility] Retic Hemoglobin 28.0(L) 28.2 - 35.7 pg 12/13/2024 11:27 PM EDT [facility] Al [facility]al BLOOD SPECIMEN / Unknown 12/13/2024 11:27 PM EDT 12/13/2024 11:32 PM EDT Ankit Ridley MD HEMATOLOGY [place]AB[place] [address], [facility] [phone] * (ABNORMAL) Vitamin B12 & Folate (12/13/2024 11:27 PM EDT) [facility] Vitamin B-12 1423(H) 232 - 1245 pg/mL 12/13/2024 11:27 PM EDT [facility] Folate 22.4 4.8 - 24.2 ng/mL 12/13/2024 11:27 PM EDT [facility] Al Detal BLOOD SPECIMEN / Unknown 12/13/2024 11:27 PM EDT 12/13/2024 11:32 PM EDT Ankit Ridley MD CHEMISTRY [place] [address], [facility] [phone] * Ferritin (12/13/2024 11:27 PM EDT) [facility] Ferritin 316 ng/mL 12/13/2024 11:27 PM EDT [facility] Comment:No reference range e stablished for this age/gender. BLOOD SPECIMEN / Unknown 12/13/2024 11:27 PM EDT 12/13/2024 11:32 PM EDT Ankit Ridley MD CHEMISTRY ORDERABLES Final Resu lt Performing Organization Address [facility] Co de Phone Number [facility] [address] [place] [address] * Ethanol (12/13/2024 11:27 PM EDT) Ethanol Lvl <10 <10 mg/dL 12/13/2024 11:27 PM EDT [facility] Ethanol percent <0.010 <0.010 % 12/13/2024 11:27 PM EDT [facility] BLOOD SPECIMEN / Unknown 12/13/2024 11:27 PM EDT 12/13/2024 11:32 PM EDT us Ankit Ridley MD CHEMISTRY ORDERABLES Final Resu lt Performing Organization Address [facility] de Phone Number [facility] [address] [place] [address], [facility] [phone] * XR FEMUR RIGHT (MIN 2 VIEWS) [...] IMPRESSION: 1. Right hip prosthesis in place. Antwan Martines DO [facility] ORDER CINTHYA Final Result * [...] reduction right total hip arthroplasty. No fracture. us Marshall Kelly DO [facility] ORDERABLE S Final Result * Troponin (12/13/2024 8:55 PM EDT) Pathologist [facility] Troponin, High Sensitivity 14 0 - 14 ng/L 12/13/2024 8:55 PM EDT [facility] Comment:High Sensitivity Tro ponin values cannot be compared with other Troponin methodologies. 12/13/2024 8:55 PM EDT 12/13/2024 9:00 PM EDT us Antwanfallon Martines DO CHEMISTRY ORDERABLES Final R esult [facility] [address] [place] [address], [facility] [phone] * (ABNORMAL) Basic Metabolic Panel (12/13/2024 8:55 PM EDT) Sodium 131(L) 136 - 145 mmol/L 12/13/2024 8:55 PM EDT [facility] Potassium 3.4(L) 3.7 - 5.3 mmol/L 12/13/2024 8:55 PM EDT [facility] Comment: Specimen hemolysis has exceeded the interference as defined by [facility]. Value may be falsely increased. Suggest recollection if clinically indicated. Chloride 98 98 - 107 mmol/L 12/13/2024 8:55 PM EDT [facility] CO2 20 20 - 31 mmol/L 12/13/2024 8:55 PM EDT [facility] Anion Gap 13 9 - 16 mmol/L 12/13/2024 8:55 PM EDT [facility] Glucose 117(H) 74 - 99 mg/dL 12/13/2024 8:55 PM EDT [facility] BUN 7(L) 8 - 23 mg/dL 12/13/2024 8:55 PM EDT [facility] Creatinine 0.4(L) 0.6 - 0.9 mg/dL 12/13/2024 8:55 PM EDT [facility] Est, Glom Filt Rate >90 >60 mL/min/1. 73m2 12/13/2024 8:55 PM EDT [facility] Comment: These results are not intended for [...] - 10.4 mg/dL 12/13/2024 8:55 PM EDT [facility] Blood BLOOD SPECIMEN / Unknown 12/13/2024 8:55 PM EDT 12/13/2024 9:00 PM EDT us Antwan Martines DO CHEMISTRY ORDERABLES Final R esult [facility] [address] [phone] * (ABNORMAL) CBC (12/13/2024 8:55 PM EDT) WBC 9.1 3.5 - 11.3 k/uL 12/13/2024 8:55 PM EDT [facility] RBC 2.79(L) 3.95 - 5.11 m/uL 12/13/2024 8:55 PM EDT [facility] Hemoglobin 8.0(L) 11.9 - 15.1 g/dL 12/13/2024 8:55 PM EDT [facility] Hematocrit 24.7(L) 36.3 - 47.1 % 12/13/2024 8:55 PM EDT [facility] MCV 88.5 82.6 - 102.9 fL 12/13/2024 8:55 PM EDT [facility] MCH 28.7 25.2 - 33.5 pg 12/13/2024 8:55 PM EDT [facility] MCHC 32.4 28.4 - 34.8 g/dL 12/13/2024 8:55 PM EDT [facility] RDW 13.2 11.8 - 14.4 % 12/13/2024 8:55 PM EDT [facility] Platelets 325 138 - 453 k/uL 12/13/2024 8:55 PM EDT [facility] MPV 9.0 8.1 - 13.5 fL 12/13/2024 8:55 PM EDT [facility] NRBC Automated 0.0 0.0 per 100 WBC 12/13/2024 8:55 PM EDT [facility] BLOOD SPECIMEN / Unknown 12/13/2024 8:55 PM EDT 12/13/2024 9:00 PM EDT us Antwan Martines DO HEMATOLOGY ORDERABLES Final Result [place] [address], [facility] [phone] * XR HIP RIGHT (2-3 VIEWS) (12/13/2024 [...] - 30 mm/Hr 12/13/2024 4:30 PM EDT [facility] Blood BLOOD SPECIMEN / Unknown 12/13/2024 4:30 PM EDT 12/13/2024 4:35 PM EDT [employer] DO HEMATOLOGY ORDERABLES Final Result Performing Organization Address [facility] [place] [address], [facility] [phone] * (ABNORMAL) C-Reactive Protein (12/13/2024 4:30 PM EDT) CRP 88.6(H) 0.0 - 5.0 mg/L 12/13/2024 4:30 PM EDT [facility] BLOOD SPECIMEN / Unknown 12/13/2024 4:30 PM EDT 12/13/2024 4:35 PM EDT Antwan Martines DO CHEMISTRY ORDERABLES Final R esult Performing Organization Address [facility] Co de Phone Number [facility] [address] [place] [address], [facility] [phone] documented in this encounter Visit Diagnoses Diagnosis Anterior dislocation of right hip, initial encounter (HCC)- Primary Closed dislocation of right hip, initial encounter ([facility]) 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, initial encounter Hyponatremia Hyposmolality and/or hyponatremia Hypothyroidism Unspecified hypothyroidism GERD (gastroesophageal reflux disease) Esophageal reflux Anemia Anemia, unspecified Hyponatremia Hyposmolality and/or hyponatremia Hypokalemia Hypopotassemia Infection of right prosthetic hip joint Infection and inflammatory reaction due to internal joint prosthesis CRP elevated Elevated C-reactive protein (CRP) 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 New Bag 12/19/2024 7:49 PM EDT 330 mg 100 mL/hr New Bag 12/18/2024 6:35 PM EDT 330 mg 100 mL/hr ferrous sulfate (FE TABS 325) EC tablet 325 mg 325 mg, Oral, DAILY WITH BREAKFAST, First dose on Karla 12/14/24 at 0830, Until Discontinued Given 12/20/2024 9:29 AM EDT 325 mg Given 12/19/2024 9:43 AM EDT 325 mg Given 12/17/2024 9:23 AM EDT 325 mg magnesium sulfate 2000 mg in 50 [...] 10:37 AM EDT 2,000 mg 25 mL/hr ondansetron (ZOFRAN) injection 4 mg 4 mg, [...] Given 12/17/2024 9:23 AM EDT 40 mg potassium bicarb-citric acid (EFFER-K) effervescent tablet 40 [...] 12/17/2024 7:39 AM EDT 40 mEq potassium chloride (KLOR-CON M) [...] and each half swallowed separately. potassium chloride 10 mEq/100 mL IVPB (Peripheral [...] patients with CrCl less than 30 mL/min. pramipexole (MIRAPEX) tablet 0.25 mg 0.25 mg, Oral, NIGHTLY, First dose on Karla 12/14/24 at 2100, Until Discontinued, Give 2-3 hours before bedtime. Given 12/19/2024 9:43 PM EDT 0.25 mg Given 12/18/2024 10:39 PM EDT 0.25 mg Given 12/17/2024 8:12 PM EDT 0.25 mg sodium chloride flush 0.9 % injection 5-40 mL 5-40 mL, IntraVENous, EVERY 12 HOURS SCHEDULED (2 times per day), First dose on [facility] 12/14/24 at 0900, Until Discontinued, For Line [...] (2 times per day), First dose on [facility] 12/18/24 at 2100, Until Discontinued, For Line [...] Line = 20 mL/lumen sodium chloride tablet 2 g 2 g, Oral, 3 TIMES DAILY WITH MEALS, First dose (after last modification) on Wed12/17/24 at 0815, Until Discontinued Given 12/20/2024 9:28 AM EDT 2 g Given 12/19/2024 6:10 PM EDT 2 g Given 12/19/2024 12:48 PM EDT 2 g therapeutic multivitamin-minerals 1 tablet 1 tablet, Oral, DAILY, First dose on [place] 12/14/24 at 0900, Until Discontinued Given 12/20/2024 9:28 AM EDT 1 tablet Given 12/19/2024 9:42 AM EDT 1 tablet Given 12/17/2024 9:23 AM EDT 1 tablet thiamine tablet 100 mg 100 mg, Oral, DAILY, First dose on [place] 12/14/24 at 0900, Until Discontinued Given 12/20/2024 9:29 AM EDT 100 mg Given 12/19/2024 9:42 AM EDT 100 mg Given 12/17/2024 9:23 AM EDT 100 mg tobramycin (NEBCIN) injection PRN, Starting on Wed12/14/24 at 1528, Until [place] 12/14/24 at 1647, Intra-op Given 12/14/2024 3:28 PM EDT 3.6 g Hip R ight vancomycin (VANCOCIN) injection PRN, Starting on [place] 12/14/24 at 1529, Until [place] 12/14/24 at 1647, Intra-op Given 12/14/2024 3:29 PM EDT 1,000 mg Hip R ight documented in this encounter Active and Recently Administered Medications Times are shown in EDT. Scheduled Medication Order 12/18/2024 12/19/2024 12/20/2024 ascorbic acid (VITAMIN C) tablet 500 mg 500 mg, Oral, DAILY, First dose on Wed12/14/24 at 0900, Until Discontinued 1011 (Not Given - Provider: Laura Felix RN - Reason: Nausea) 0943 (Given - Provider: Jessica Ott RN) 09 (Given - Provider: Nikki Hartley, RN) aspirin chewable tablet 81 mg 81 mg, Oral, 2 times daily, First dose on Wed12/18/24 at 0915, Until Discontinued 100 (Not Given - Provider: Laura Felix RN - Reason: Nausea)2238 (Given - Provider: Fritz Hanson RN) 09 (Given - Provider: Jessica Ott RN)2138 (Given - Provider: Fariba Espinoza, JYOTHI) 927 (Given - Provider: Nikki Hartley, JYOTHI) cefTRIAXone (ROCEPHIN) 2,000 mg in sterile water 20 mL IV syringe 2,000 mg, IntraVENous, EVERY 24 HOURS, First dose on Wed12/18/24 at 1800, Administer as slow IV Push over 5 mins Reconstitute 2 g vials with 19.2 mL of designated diluent to produce a 100mg/mL solution 182 (Given - Provider: Laura Felix RN) 1810 [...] Fariba Espinoza, JYOTHI)2028 (Stopped - Provider: Fariba Espinoza, JYOTHI) ferrous sulfate (FE TABS 325) EC tablet [...] (2 times per day), First dose on [place] 12/14/24 at 0900, Until Discontinued, For Line [...] RN - Reason: Other - Comment: Flushed IV)1947 (Not Given - Provider: Fariba Espinoza RN - Reason: Other - Comment: duplicate order) 0929 (Not Given - Provider: Nikki Hartley RN [...] RN) 1009 (Given - Provider: Jessica Ott RN)1947 (Given - Provider: Fariba Espinoza RN) 0929 (Given - Provider: Nikki Hartley RN) sodium chloride tablet 2 g 2 g, Oral, 3 TIMES DAILY WITH MEALS, First dose (after last modification) on [place] 12/17/24 at 0815, Until Discontinued 1010 (Not Given [...] Ott RN) 0928 (Given - Provider: Nikki Hartley, JYOTHI) thiamine tablet 100 mg 100 mg, Oral, DAILY, First dose on [place] 12/14/24 at 0900, Until Discontinued 1011 (Not Given - Provider: Laura Felix RN - Reason: Nausea) 0942 (Given - Provider: Jessica Ott RN) 0929 (Given - Provider: Nikki Hartley RN) PRN Medication Order 12/18/2024 12/19/2024 12/20/2024 [...] Jessica Ott RN)1248 (Stopped - Provider: Jessica Ott, RN)1256 (New Bag - Provider: Jessica Ott RN)1525 (Stopped - Provider: Jessica Ott RN) ondansetron (ZOFRAN) injection 4 mg(Linked Group 2) 4 mg, IntraVENous, EVERY 6 HOURS PRN, Starting on Karla 12/14/24 at 0128, Until Wed12/20/24 at 1616, Nausea, Vomiting, Administer if oral route cannot be used. 0954 (Given - Provider: Laura Felix RN) 1219 (Given - Provider: Nikki Hartley, RN) ondansetron (ZOFRAN-ODT) disintegrating tablet 4 mg(Linked Group 2) 4 mg, Oral, EVERY 8 HOURS PRN, Starting on [place]la 12/14/24 at 0128, Until Wed12/20/24 at 1616, Nausea, Vomiting 0954 (See Alternative - Provider: Laura Felix, JYOTHI) 1219 (See Alternative - Provider: Nikki Hartley, RN) oxyCODONE-acetaminophen (PERCOCET) 5-325 MG per tablet [...] Espinoza RN)1213 (See Alternative - Provider: Nikki Hartley, RN) oxyCODONE-acetaminophen (PERCOCET) 5-325 MG per tablet 2 tablet(Linked Group 3) 2 tablet, Oral, EVERY 4 HOURS PRN, Starting on [place]la 12/14/24 at 2237, Until Wed12/20/24 at 1616, Pain Severe (7-10), Maximum dose of acetaminophen is 4000 mg from all sources in 24 hours. 0014 (Given - Provider: Fariba Espinoza RN)0604 (Given - Provider: Fariba Espinoza RN) 2138 (See Alternative - Provider: Fariba Espinoza RN) 0757 (Given - Provider: Fariba Espinoza RN)1213 (Given - Provider: Nikki Hartley RN) polyethylene glycol (GLYCOLAX) packet 17 g 17 g, Oral, DAILY PRN, Starting on Kar[place] 12/14/24 at 0128, Until Wed12/20/24 at 1616, Constipation, [...] Felix RN) 1033 (Given - Provider: Jessica Ott RN) potassium chloride (KLOR-CON M) extended release tablet [...] (See Alternative - Provider: Jessica Ott RN) potassium chloride 10 mEq/100 mL IVPB (Peripheral [...] Oral, EVERY 4 HOURS PRN, Starting on Wed12/14/24 at 2237, Until Wed12/20/24 at 1616, Pain Severe (7-10), Maximum dose of acetaminophen is 4000 mg from all sources in 24 hours. Group 4: potassium chloride (KLOR-CON M) extended release tablet 40 mEqJump to med 40 mEq, Oral, PRN, Starting on Wed12/14/24 at 0128, Until Wed12/20/24 at 1616, Potassium [...] med 40 mEq, Oral, PRN, Starting on Wed12/14/24 [...] mL/min. documented in this encounter Care Teams Services Delivery Driver Relationship Specialty Start Date End Date Anju Jacobsen MD PCP - General Family Medicine 01/18/18 documented as of this encounter
[2024-12-25] VITALS (14 sets, daily range): BP systolic 164–180; BP diastolic 70–98; PULSE 74–91; TEMP 36.3–36.5; O2SAT 96–100
--- NOTE | 2024-12-25 12:51 | ED.GENADUL1 ---
HPI HPI - General Adult General Chief complaint: Recheck/Abnormal Lab/Rx Time Seen by Provider: 12/25/24 12:47 Source: other Source information: [facility] staff and [facility] Mode of arrival: ambulance History of Present Illness HPI narrative: cc - low Hb Patient sent from the [facility] after their blood testing revealed the patient's Hb to be less than 6. She apparently is at the [facility] re[facility]bing after hip surgery x 2 - she had a fracture that required surgical repair and then apparently dislocated the hip and had to go back to the OR. The patient is a poor historian and cannot give us much history. But she denied any blood in urine or stool and denied black tarry stools. She denied abdominal pain, nausea, vomiting, chest pain and shortness of breath. According to her med list she takes aspirin, iron but no blood thinner. Related Data Home Medications ?Medication ?Instructions ?Recorded ?Confirmed ascorbic acid (vitamin C) 500 mg 500 mg PO DAILY 12/25/24 12/25/24 capsule aspirin 81 mg capsule 81 mg PO DAILY 12/25/24 12/25/24 carboxymethylcellulose sodium 1 % 1 drp ophthalmic (eye) Q2H PRN dry 12/25/24 12/25/24 eye gel in a dropperette eye(s) ceftriaxone 2 gram solution for 2 g IV BID 12/25/24 12/25/24 injection daptomycin 350 mg/50 mL in 0.9 % 219.2 mg IV Q24H 12/25/24 12/25/24 sodium chloride intravenous piggyback ferrous sulfate 325 mg (65 mg 325 mg PO DAILY 12/25/24 12/25/24 iron) tablet magnesium hydroxide 400 mg/5 mL 30 ml PO DAILY PRN constipation 12/25/24 12/25/24 oral suspension multivitamin 1 tab PO DAILY 12/25/24 12/25/24 oxycodone-acetaminophen 5 mg-325 1 tab PO Q6H PRN pain 12/25/24 12/25/24 mg tablet (Percocet) pantoprazole 40 mg tablet,delayed 40 mg PO DAILY 12/25/24 12/25/24 release pramipexole 0.25 mg tablet 0.25 mg PO QPM 12/25/24 12/25/24 sodium chloride 1,000 mg soluble 1,000 mg PO Q8H 12/25/24 12/25/24 tablet Allergies Allergy/AdvReac Type Severity Reaction Status Date / Time codeine Allergy Severe altered Verified 12/25/24 12:48 mental status morphine (From Duramorph Allergy Severe Rash Verified 12/25/24 12:48 (PF)) moxifloxacin Allergy Severe Anaphylaxis Verified 12/25/24 12:48 Penicillins Allergy Severe Nausea Verified 12/25/24 12:48 Exam Narrative Exam Narrative: Nurses notes and vital signs reviewed and patient is not hypoxic. afebrile General: Ill-appearing and pale. Skin: Warm, dry, generalized Pallor noted. No rash. Head: Normocephalic, atraumatic. Neck: Supple, non-tender. Eye: Pupils are equal, round and EOMI. No scleral icterus. Ears, Nose, Mouth, and Throat: Oral mucosa is dry Cardiovascular: Regular Rate and Rhythm without murmur, gallop or rub. Respiratory: No accessory muscle use or respiratory distress. Lungs are clear to auscultation, no wheezing, rales or rhonchi Musculoskeletal: UEs with normal ROM, no calf or popliteal tenderness, no lower extremity edema/swelling. She has a femur wedge/abductor pillow between her legs. GI: Abdomen is soft, non-distended. Normal bowel sounds. No masses appreciated. No tenderness to palpation. No rebound, guarding, or rigidity noted. Neurological: A&O x4. No cranial nerve dysfunction observed. No truncal ataxia. Moves all extremities. Sensation intact. Psychiatric: Cooperative and interactive. Normal mood and affect. Constitutional Vital Signs, click to edit/add: Last Vital Signs Temp 97.4 F L 12/25/24 16:19 Pulse 74 12/25/24 16:19 Resp 18 12/25/24 16:19 BP 180/76 H 12/25/24 16:19 Pulse Ox 100 12/25/24 16:19 O2 Del Method Room Air 12/25/24 12:42 Course Vital Signs Vital signs: Vital Signs Temperature 97.7 F 12/25/24 12:42 Pulse Rate 91 H 12/25/24 12:42 Respiratory Rate 20 12/25/24 12:42 Blood Pressure 164/70 H 12/25/24 12:42 Pulse Oximetry 96 12/25/24 12:42 Oxygen Delivery Method Room Air 12/25/24 12:42 Temperature 97.4 F L 12/25/24 16:19 Pulse Rate 74 12/25/24 16:19 Respiratory Rate 18 12/25/24 16:19 Blood Pressure 180/76 H 12/25/24 16:19 Pulse Oximetry 100 12/25/24 16:19 Oxygen Delivery Method Room Air 12/25/24 12:42 Medical Decision Making MDM Narrative Medical decision making narrative: [facility] for evaluation and likely blood transfusion after hemoglobin was found to be less than 6 on blood testing through their facility. Patient is a DNR comfort care but agreed to have the patient undergo right hip surgery and subsequent right hip revision. Type and screen was ordered as well as repeat blood testing. She was also ordered to receive 2 units of packed red blood cells, pretreatment with Tylenol and Benadryl. Was ordered to receive Zofran to prevent any nausea because I ordered Dilaudid for pain and I want her to undergo CT scanning of the pelvis to ensure that there is no complication associated with this hip repair. arrived and gave additional history. The patient apparently had her first surgery at [facility] with Dr. Collins and then had her revision at [facility]. He understood that she would likely need to go back there if she has any complications or other worrisome changes in this hip. Radiologist had difficulty sending his report but the hip is clearly dislocated. I spoke with the pt and and they agreed to have the patient transferred back to [facility] for orthopedic intervention. Call placed to transfer line @ 1538. They called back at 1545 to let me know that they had spoken with ortho money room supervisor and they requested an ED to ED transfer. I spoke with Dr Mendiola (ED physician) at 1550 and the patient was accepted for transfer to [facility]. Arrangements being made for transportation from [facility] to [facility] Lab Data Lab results reviewed: Yes I reviewed the patient's lab results Labs: Lab Results 12/25/24 12/25/24 Range/Units 12:52 14:00 WBC 8.3 (4.0-11.0) 10^3/uL RBC 1.92 L (4.20-5.40) 10^6/uL Hgb 5.9 L* (12.0-16.0) g/dL Hct 17.3 L* (36.0-48.0) % MCV 90.1 (81.0-99.0) fL MCH 30.7 (26.7-34.0) pg MCHC 34.1 (29.9-35.2) g/dL RDW 18.4 H (11.0-15.0) % Plt Count 412 (150-450) 10^3/uL MPV 8.7 L (9.5-13.5) fL Neut % (Auto) 60.4 (43.0-75.0) % Lymph % (Auto) 17.6 L (20.5-60.0) % Morgan % (Auto) 9.4 (1.7-12.0) % Eos % (Auto) 10.9 H (0.9-7.0) % Baso % (Auto) 0.5 (0.2-2.0) % Neut # (Auto) 5.0 (1.4-6.5) 10^3/uL Lymph # (Auto) 1.5 (1.2-3.8) 10^3/uL Morgan # (Auto) 0.8 (0.3-0.8) 10^3/uL Eos # (Auto) 0.9 H (0.0-0.7) 10^3/uL Baso # (Auto) 0.0 (0.0-0.1) 10^3/uL Abs Immat Gran (auto) 0.10 H (0.00-0.03) 10^3/uL Imm/Tot Granulo (auto) 1.2 H (0.0-0.5) % PT 12.7 H (9.0-11.6) sec INR 1.22 APTT 35.9 (22.3-36.2) sec Sodium 130 L (136-145) mmol/L Potassium 2.3 L* (3.5-5.1) mmol/L Chloride 95 L (98-107) mmol/L Carbon Dioxide 26.1 (21.0-32.0) mmol/L Anion Gap 11.2 BUN 3.0 L (7.0-18.0) mg/dL Creatinine 0.29 L (0.55-1.02) mg/dL Est GFR ( Amer) >60 (>=60 mL/min/1.73m^2) Est GFR (Non-Af Amer) >60 (>=60 mL/min/1.73m^2) BUN/Creatinine Ratio 10.3 Glucose 96 (74-106) mg/dL Calcium 7.7 L (8.5-10.1) mg/dL Total Bilirubin 0.4 (0.2-1.0) mg/dL AST 25 (15-37) U/L ALT 10 L (14-59) U/L Alkaline Phosphatase 89 (46-116) U/L Total Protein 5.0 L (6.4-8.2) g/dL Albumin 1.7 L (3.4-5.0) g/dL Globulin 3.3 g/dL Albumin/Globulin Ratio 0.5 Stool Occult Blood Negative Blood Type O Positive Antibody Screen Negative Crossmatch See Detail Imaging Data ct pelvis: Radiologist's impression: ITS Impressions Pelvis CT 12/25/24 14:10 IMPRESSION: THERE APPEARS TO BE SUPERIOR DISLOCATION OF THE FEMORAL WELL THE ACETABULAR COMPONENT OF THE PATIENT'S RIGHT [place] WITH PSEUDOARTICULATION INVOLVING THE ILIAC BONE SIMILAR IN CONFIGURATION TO THE PRIOR STUDY. NO FRACTURE IS NOTED. THERE APPEARS TO BE A HEMATOMA WHICH IS PARTIALLY VISUALIZED INVOLVING THE RIGHT GLUTEAL MUSCULATURE EXTENDING INTO THE LATERAL SOFT TISSUES. Impression dictated by: Fredy Hendrickson Jr., DTawnyOTawny 12/25/2024 3:36 PM Dictation Location: [place] [address] Electronically authenticated by: [id number] Y Date: 12/25/2024 15:36 Critical Care Time Critical Care Time Critical Care Time: Yes Total Critical Care Time: 40 Attestation: Critical Care Time: 40 minutes, critical care time is separate from any procedures that are performed. The following was considered in the determination of critical care but not limited to the level medical decision-making, intensive cardiac and/or respiratory monitor, frequent vital sign monitoring, evaluation of laboratory studies, evaluation of a radiographic studies, oxygen monitoring and constant monitoring. Discharge Plan Discharge Chief Complaint: Recheck/Abnormal Lab/Rx Clinical Impression: Anemia requiring transfusions, Dislocation of hip, right, closed Patient Disposition: [facility] Time of Disposition Decision: 15:00 Discharge Location: [facility]
--- OUTSIDE RECORDS SUMMARY | 2024-12-25 12:53 | XMS_ITS | Encounter Summary ---
Author Organization [facility] Address [address] [facility] [place] [address] Care Team Providers Care Chief Librarian Extension Department Name Role Phone Jadyn Leung MD Primary Care Provider [phone] Jadyn Leung MD Unavailable [phone] Encounter Details Date Type Department Care Team (Late st Contact Info) Description 04/10/2024 Clinisync Result Encounter [facility] External Department Unsolicited Rubi Wade MD [address] [place] [address] Social History Tobacco Use Types Packs/Day Years [...] 02/06/2025 1:15 PM EST Office Visit [facility] [address] [place] [phone] Catalino Collins DO [address] [place] [address] documented as of this encounter Procedures Procedure Name Priority Date/Time Associated Diagnosis Comments XR CHEST 2 VIEWS 04/10/2024 3:43 PM EST [facility] EGFR Routine 04/10/2024 3:37 PM EST [facility] CBC W/INDICES Routine 04/10/2024 3: 37 PM EST [facility] BMP Routine 04/10/2024 3:37 PM EST documented in this encounter Results * XR CHEST 2 VIEWS (04/10/2024 3:43 PM EST) Anatomical Region Laterality Modality Other 04/10/2024 3:43 PM EST Narrative 04/10/2024 4:28 PM EST Exam Date/Time: 04/10/2024 16:01 EST Reason for Exam: H25.12 Report IMPRESSION: NO EVIDENCE OF ACTIVE CHEST DISEASE. CLINICAL HISTORY: H25.12. COMPARISON: 01/24/2024. COMMENT: The heart is normal in size. There is dense calcification of the mitral valve annulus. There is mild tortuosity of the descending thoracic aorta and there is calcification at the aortic arch. The mediastinum is unremarkable. There are minimal chronic streaky densities at the lung bases, consistent with fibrosis or chronic atelectasis. No infiltration nor pleural effusion is evident. There is old anterior compression deformity of the T12 vertebral body. There are radiopaque prosthetic spacer devices within visualized L1-L2 and L2-L3 interspaces. There are old healed rib fractures on right. No significant change is noted when compared to the prior exam. Ordering Provider: Rubi Wade FINAL REPORT Dictated: 04/10/2024 4:25 pm Francisco Beth M.D. Signed (Electronic Signature): 04/10/2024 4:25 pm Signed by: Francisco Beth M.D. Transcribed by: DANIEL Technologist: DEBORAH Technical Comments Radiation Dose: Kar in mGy = na DAP = na Procedure Note Radiology, Radiologist, - 04/10/2024 Exam Date/Time: 04/10/2024 16:01 EST Reason for Exam: H25.12 Report IMPRESSION: NO EVIDENCE OF ACTIVE CHEST DISEASE. CLINICAL HISTORY: H25.12. COMPARISON: 01/24/2024. COMMENT: The heart is normal in size. There is dense calcification of the mitralvalve annulus. There is mild tortuosity of the descending thoracic aorta andthere is calcification at the aortic arch. The mediastinum is unremarkable. Thereare minimal chronic streaky densities at the lung bases, consistent with fibrosis orchronic atelectasis. No infiltration nor pleural effusion is evident. There is oldanterior compression deformity of the T12 vertebral body. There are radiopaqueprosthetic spacer devices within visualized L1-L2 and L2-L3 interspaces. There areold healed rib fractures on right. No significant change is noted when compared to the prior exam. Ordering Provider: Rubi Wade FINAL REPORT Dictated: 04/10/2024 4:25 pm Francisco Beth M.D. Signed (Electronic Signature): 04/10/2024 4:25 pm Signed by: Francisco Beth M.D. Transcribed by: DANIEL Technologist: DEBORAH Technical Comments Radiation Dose: Ka,r in mGy = na DAP = na us Rubi Wade MD [facility] Final Result * [facility] EGFR (04/10/2024 3:37 PM EST) [facility] EGFR 92 >=59 mL/min/1.73 m2 [facility] Blood 04/10/2024 3:37 PM EST 04/10/2024 4:36 PM EST Narrative [facility] - 04/10/2024 5:03 PM EST Original Ordering Provider: MD Rubi Wade us Rubi Wade MD [facility] Final Result [facility] * (ABNORMAL) [facility] BMP (04/10/2024 3:37 PM EST) [facility] GLUCOSE:MCNC:PT :SER/PLAS:QN: 93 55 - 199 mg/dL [facility] UREA NITROGEN:MCNC:P T:SER/PLAS:QN: 8 5 - 21 mg/dL [facility] CREATININE:[facility]NC :PT:SER/PLAS:QN : 0.6 0.5 - 1.3 mg/dL [facility] UREA NITROGEN/CREATI NINE:MRTO:PT:SE R/PLAS:QN: 13 10 - 20 No Units [facility] CALCIUM:[facility]NC:PT :SER/PLAS:QN: 9.8 8.9 - 11.1 mg/dL [facility] SODIUM:SCNC:PT: SER/PLAS:QN: 129(L) 135 - 145 mmol/L [facility] POTASSIUM:SCNC: PT:SER/PLAS:QN: 3.7 3.5 - 5.3 mmol/L [facility] CHLORIDE:SCNC:P T:SER/PLAS:QN: 95(L) 101 - 111 mmol/L [facility] CARBON DIOXIDE:SCNC:PT :SER/PLAS:QN: 24 21 - 31 mmol/L [facility] ANION GAP:SCNC:PT:SER /PLAS:QN: 14 6 - 16 mEq/L [facility] Blood 04/10/2024 3:37 PM EST 04/10/2024 4:36 PM EST Narrative [facility] - 04/10/2024 5:03 PM EST Original Ordering Provider: MD Rubi Wade us Rubi Wade MD [facility] Final Result [facility] * (ABNORMAL) [facility] CBC W/INDICES (04/10/2024 3:37 PM EST) FT LEUKOCYTES 6.4 4.0 - 11.0 E9/L [facility] ERYTHROCYTES:NCNC :PT:BLD:QN:AUTOMA ISIDRO COUNT 3.4(L) 4.3 - 5.9 E12/L [facility] HEMOGLOBIN:MCNC:P T:BLD:QN: 11.0(L) 12.0 - 16.0 gm/dL [facility] HEMATOCRIT:VFR:PT :BLD:QN:AUTOMATED COUNT 32.2(L) 34.0 - 46.0 % [facility] ERYTHROCYTE DISTRIBUTION WIDTH:RATIO:PT:RB C:QN:AUTOMATED COUNT 12.4 10.9 - 14.2 % FT FT ERYTHROCYTE MEAN CORPUSCULAR HEMOGLOBIN:ENTMAS S:PT:RBC:QN 31.9 27.0 - 34.0 pg FT FT ERYTHROCYTE MEAN CORPUSCULAR HEMOGLOBIN CONCENTRATION:MCN C:PT:RBC:QN 34.1 31.4 - 36.0 gm/dL FT [facility] ERYTHROCYTE MEAN CORPUSCULAR VOLUME:ENTVOL:PT: RBC:QN:AUTOMATED COUNT 93.6 80.0 - 100.0 fL FT FT PLATELET MEAN VOLUME:ENTVOL:PT: BLD:QN:AUTOMATED COUNT 8.1 6.4 - 10.8 fL FT FT PLATELETS:NCNC:PT :BLD:QN:AUTOMATED COUNT 256.0 150.0 - 500.0 E9/L FT ERYTHROCYTE SIZE:MORPH:PT:BLD :NOM: NORMAL [facility] Blood 04/10/2024 3:37 PM EST 04/10/2024 4:36 PM EST Narrative [facility] - 04/10/2024 4:42 PM EST Original Ordering Provider: MD Rubi Wade us Rubi Wade MD [facility]ROY[facility] Final Result [facility] documented in this encounter Visit Diagnoses Not on filedocumented in this encounter Additional Health Concerns Assessment Noted Time PHQ-9 Depression Total Score: 0 10/20/19 23 12:00 PM EDT documented as of this encounter Care Teams Chief Librarian Extension Department Relationship Specialty Start Date End Date Jadyn Leung MD [address] [place] [address] PCP - General Family Medicine 08/11/22 Jadyn Leung MD [address] [place] [address] PCP - ACO Reach 07/21/23 documented as of this encounter
--- OUTSIDE RECORDS SUMMARY | 2024-12-25 12:53 | XMS_ITS | Encounter Summary ---
Author Organization [facility] Address [address] [place] [address] Care Team Providers Care Manager Exchange Name Role Phone Anju Jacobsen Primary Care Provider [phone] Encounter Details Date Type Department Care Team (Late st Contact Info) Description 10/01/2021 Legacy Encounter [facility] Dept Provider, [facility] Conversion Social History Tobacco Use Types Packs/Day Years Used Date Smoking Tobacco: Never Smokeless Tobacco: Never Comments Unknown Sex and Gender Information Value Date Recorded Sex Assigned at Not on file Legal Sex Female 4:13 PM EDT Gender Identity Not on file Sexual Orientation Not on file documented as of this encounter Miscellaneous Notes * Telephone Encounter - Legacy Conversion Provider - 10/01/2021 3:31 PM EDT Records from12/22/16, 08/07/13, 02/27/11, 09/07/07, 09/08/06 faxed to [facility]. EDT documented in this encounter Plan of Treatment Not on file documented as of this encounter Visit Diagnoses Not on filedocumented in this encounter Care Teams Manager Exchange Relationship Specialty Start Date End Date Anju Jacobsen [facility] [address] [place] [address] PCP - General 01/18/18 documented as of this encounter
--- OUTSIDE RECORDS SUMMARY | 2024-12-25 12:53 | XMS_ITS | Encounter Summary ---
Author Organization [facility] Address [address] [facility] [place] [address] Care Team Providers Care Steel Buffer Name Role Phone Jadyn Leung MD Primary Care Provider [phone] Jadyn Leung MD Unavailable [phone] Reason for Visit * Reason Comments Med Refill Encounter Details Date Type Department Care Team (Late st Contact Info) Description 03/06/2024 Refill [facility] [place] [facility] [address] [place] [phone] Jadyn Leung MD [address] [place] [address] Parkinson's disease (HCC) Social History Tobacco Use Types Packs/Day Years Used Date Smoking Tobacco: Unknown Alcohol Use Standard Drinks/Week Comments Yes 0 (1 standard drink = 0.6 oz pure alcohol) monthly, Caffeine intake: 1 cup coffee PHQ-2 Answer Date Recorded Patient Health Questionnaire-2 Score 0 10/20/2022 Comments Unknown Sex and Gender Information Value Date Recorded Sex Assigned at Not on file Legal Sex Female 7:24 PM EDT Gender Identity Not on file Sexual Orientation Not on file documented as of this encounter Plan of Treatment Upcoming Encounters Date Type Department Care Team (Late Contact Info) Description 02/06/2025 1:15 PM EST Office Visit [facility] [address] [place] [phone] Catalino Collins DO [address] [place] [place] [address] documented as of this encounter Visit Diagnoses Diagnosis Parkinson's disease (HCC) Paralysis agitans documented in this encounter Additional Health Concerns Assessment Noted Time PHQ-9 Depression Total Score: 0 10/20/19 23 12:00 PM EDT documented as of this encounter Care Teams Steel Buffer Relationship Specialty Start Date End Date Jadyn Leung MD [address] [place] [address] PCP - General Family Medicine 08/11/22 Jadyn Leung MD [address] [place] [address] PCP - ACO Reach 07/21/23 documented as of this encounter
--- OUTSIDE RECORDS SUMMARY | 2024-12-25 12:53 | XMS_ITS | Clinical Summary ---
Author Organization [facility] Address [address] [place] [address] Care Team Providers Care Customer Care Voice Consultant Name Role Phone Unavailable Primary Care Provider Unavailabl e Allergies Active Allergy Reactions Criticality Noted Date Comments Moxifloxacin Hcl Anaphylaxis 05/11/2011 Codeine Mental Status Change 05/11/2011 Morphine (Pf) Rash 05/11/2011 Penicillins Vomiting 05/11/2011 Medications estradiol (ESTRACE) 1 mg ORAL tablet Take 1 tablet by mouth once daily. 0 2 Active levothyroxine (SYNTHROID) 25 mcg ORAL tablet Take 1 tablet by mouth once daily. 0 2 Active esomeprazole (NEXIUM) 40 mg ORAL capsule Take 1 capsule by mouth once daily. 0 2 Active loratadine 10 mg ORAL tablet Take 1 tablet by mouth once daily. 0 2 Active clonazePAM (KLONOPIN) 0.5 mg ORAL tablet Take 1 tablet by mouth twice daily. 0 2 Active darifenacin (ENABLEX) 15 mg ORAL 24 hr tablet Take 1 tablet by mouth once daily. 0 2 Active betamethasone dipropionate 0.05 % TOPICAL cream 0 2 Active acetaminophen-hyd rocodone 5-500 mg ORAL tablet Take 1 tablet by mouth every 4 hours as needed for Pain. 0 2 Active prochlorperazine 10 mg ORAL tablet Take 1 tablet by mouth every 6 hours as needed. 0 2 Active hydrOXYzine HCl 25 mg ORAL tablet Take 1 tablet by mouth daily at bedtime. 0 2 Active clobetasol 0.05 % TOPICAL ointment 0 2 Active collagenase (SANTYL) TOPICAL ointment Apply to affected area once daily. 0 2 Active fluocinonide-emol lient 0.05 % TOPICAL cream Apply to affected area twice daily. 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 Wound infection 05/11/2011 Ulcer of leg, chronic, left 05/11/2011 Neoplasm of uncertain behavior of skin 2 Social History Tobacco Use Types Packs/Day Years Used Date Smoking Tobacco: Never Assessed Comments Unknown Sex and Gender Information Value Date Recorded Sex Assigned at Not on file Legal Sex Female 9:47 AM EST Gender Identity Not on file Sexual Orientation Not on file Plan of Treatment Health Maintenance Due Date Last Done Comments Anxiety Screening 1963 Depression Screening 1965 Hepatitis C Screening 1965 Diabetes Screening 1992 Pneumococcal Vaccine: 50+ (1 of 1 - PCV) 1997 Shingrix Vaccine (1 of 2) 1997 Bone Density Screening 2012 RSV Vaccine (1 - 1-dose 75+ series) 2022 Advance Directive Discussion 03/22/2024 Influenza Vaccine (#1) 2024 2, 12/12/2020, 01/29/2017, Additional history exists DTaP,Tdap,Td Vaccine (2 - Td or Tdap) 11/17/2025 11/18/2015 Insurance MEDICARE Member Subscriber Plan / Payer (Ef fective 2012-Present) Name:Tracie Banuelos Member ID:[id number] Relation to Subscriber:Self Name:Tracie Banuelos Subscriber ID:[id number] Payer ID:Not on file Group ID:Not on file Type:Medicare Address: [facility] [place] [phone]
--- OUTSIDE RECORDS SUMMARY | 2024-12-25 12:53 | XMS_ITS | Encounter Summary ---
Author Organization [facility] Address [address], [address] [place] [address] Care Team Providers Care Bowling Alley Mechanic Name Role Phone Anju Jacobsen MD Primary Care Provider Encounter Details Date Type Department Care Team (Latest Contact Info) Description 12/13/2024 Travel Social History Tobacco Use Types Packs/Day Years [...] any time in the past 12 m [facility], were you homeless or living in a [facility] (including now)? No 12/14/2024 AUDIT-C Answer Date [...] things needed for daily living? No 12/14/2024 [facility] Utilities Answer Date Recorded In the past 12 months has th e electric, gas, oil, or water company [...] on file documented as of this encounter Functional Status documented as of this encounter Plan of Treatment Upcoming Encounters Date Type Department Care Team (Late st Contact Info) Description 01/03/2025 11:30 AM EDT Office Visit [facility] [address] [facility] [address] [place] [phone] Ramses Abarca DO [address] [place] [address] DOS: 12/14, R hip I&D/Hemirev 01/31/2025 2:15 PM EST Office Visit [facility], [facility]. [address] [facility] [address] [place], [place] [phone] Rafaela Yen MD [address] [facility], [facility] [address] [place], [place] [phone] 1 month post hospital follow up documented as of this encounter Visit Diagnoses Not on filedocumented in this encounter Care Teams Bowling Alley Mechanic Relationship Specialty Start Date End Date Anju Jacobsen MD PCP - General Family Medicine 01/18/18 documented as of this encounter
--- OUTSIDE RECORDS SUMMARY | 2024-12-25 12:53 | XMS_ITS | Clinical Summary ---
Author Organization [facility] Address [address] [place] [address] Care Team Providers Care Sales Superintendent Name Role Phone Anju Jacobsen Primary Care Provider [phone] Active Problems Problem Noted Date Diagnosed Date Lumbar degenerative disc disease 12/22/2016 Family History Medical History Relation Name Comments Cancer Mother leukemia Relation Name Status Comments Mother Social History Tobacco Use Types Packs/Day Years Used Date Smoking Tobacco: Never Smokeless Tobacco: Never Comments Unknown Sex and Gender Information Value Date Recorded Sex Assigned at Not on file Legal Sex Female 4:13 PM EDT Gender Identity Not on file Sexual Orientation Not on file Plan of Treatment Not on file Care Teams Sales Superintendent Relationship Specialty Start Date End Date Anju Jacobsen [address] [address] PCP - General 01/18/18
--- OUTSIDE RECORDS SUMMARY | 2024-12-25 12:53 | XMS_ITS | Encounter Summary ---
Author Organization [facility] Address [address] [facility], [address] [place] [address] Care Team Providers Care Virtual Assistant For Advertisers Name Role Phone Anju Jacobsen MD Primary Care Provider [phone] Encounter Details Date Type Department Care Team (Late st Contact Info) Description 12/13/2024 Telephone [facility] [address] [place] [address] Jose Ochoa DO [address] [place] [address] Social History Tobacco Use Types Packs/Day Years [...] any time in the past 12 m [facility], were you homeless or living in a correction (including now)? No 12/14/2024 AUDIT-C Answer Date [...] things needed for daily living? No 12/14/2024 [facility] Utilities Answer Date Recorded In the [...] Upcoming Encounters Date Type Department Care Team ([facility] st Contact Info) Description 01/03/2025 11:30 AM EDT Office Visit [facility] [address] [facility] [address] [place] [phone] Ramses Abarca DO [address] [facility] [address] [place] [address] DOS: 12/14, R hip I&D/Hemirev 01/31/2025 2:15 PM EST Office Visit [facility] [address] [facility] [address] [place] [address] Rafaela Yen MD [address] [facility] [address] [facility] [place], [place] [id number] 1 month post hospital follow up documented as of this encounter Visit Diagnoses Not on filedocumented in this encounter Care Teams Virtual Assistant For Advertisers Relationship Specialty Start Date End Date Anju Jacobsen MD PCP - General Family Medicine 01/18/18 documented as of this encounter
--- OUTSIDE RECORDS SUMMARY | 2024-12-25 12:53 | XMS_ITS | Encounter Summary ---
Author Organization [facility] Address [address] [facility] [place] [address] Care Team Providers Care Nurse Informatics Educator Name Role Phone Jadyn Leung MD Primary Care Provider [phone] Jadyn Leung MD Unavailable [phone] Encounter Details Date Type Department Care Team (Late st Contact Info) Description 01/24/2024 Clinisync Result Encounter [facility] External Department Unsolicited Rubi Wade MD [address] [place] [address] Social History Tobacco Use Types Packs/Day Years [...] 02/06/2025 1:15 PM EST Office Visit [facility] [address] [place] [phone] Catalino Collins DO [address] [place] [address] documented as of this encounter Procedures Procedure Name Priority Date/Time Associated Diagnosis Comments XR CHEST 2 VIEWS 01/24/2024 11:5 2 AM EST documented in this encounter Results * XR CHEST 2 VIEWS (01/24/2024 11:52 AM EST) Anatomical Region Laterality Modality Other 01/24/2024 11:5 2 AM EST Narrative 01/25/2024 10:27 AM EST Exam Date/Time: 01/24/2024 12:05 EST Reason for Exam: H25.12 Report IMPRESSION: NO EVIDENCE OF ACUTE CHEST DISEASE. CLINICAL HISTORY: H2.. PST. COMPARISON: 07/30/2023. COMMENT: The heart is normal in size. There is dense calcification of the mitral valve annulus. There is mild tortuosity of the descending thoracic aorta and there is calcification of ureter arch. The mediastinum is otherwise unremarkable. There are minimal streaky densities of the lung bases, that may be due to atelectasis or fibrosis. There is a small calcified granuloma at the left lung base laterally. No infiltration nor pleural effusion is evident. There is old anterior compression deformity of the T12 vertebral body. There are radiopaque prosthetic spacer devices within visualized lumbar interspaces. There are old healed rib fractures on the right. No significant change is noted when compared to the prior exam. Ordering Provider: Rubi Wade FINAL REPORT Dictated: 01/25/2024 10:23 am Francisco Beth M.D. Signed (Electronic Signature): 01/25/2024 10:23 am Signed by: Francisco Beth M.D. Transcribed by: DANIEL Technologist: MARYCARMEN Technical Comments Radiation Dose: Ka,r in mGy = . DAP = . Procedure Note Radiology, Radiologist, - 01/25/2024 Exam Date/Time: 01/24/2024 12:05 EST Reason for Exam: H25.12 Report IMPRESSION: NO EVIDENCE OF ACUTE CHEST DISEASE. CLINICAL HISTORY: H2.. PST. COMPARISON: 07/30/2023. COMMENT: The heart is normal in size. There is dense calcification of the mitralvalve annulus. There is mild tortuosity of the descending thoracic aorta andthere is calcification of ureter arch. The mediastinum is otherwise unremarkable.There are minimal streaky densities of the lung bases, that may be due toatelectasis or fibrosis. There is a small calcified granuloma at the left lung baselaterally. No infiltration nor pleural effusion is evident. There is old anteriorcompression deformity of the T12 vertebral body. There are radiopaque prostheticspacer devices within visualized lumbar interspaces. There are old healed rib fractureson the right. No significant change is noted when compared to the prior exam. Ordering Provider: Rubi Wade FINAL REPORT Dictated: 01/25/2024 10:23 am Francisco Beth M.D. Signed (Electronic Signature): 01/25/2024 10:23 am Signed by: Francisco Beth M.D. Transcribed by: DANIEL Technologist: MARYCARMEN Technical Comments Radiation Dose: Ka,r in mGy = . DAP = . us Rubi Wade MD [facility] Final Result documented in this encounter Visit Diagnoses Not on filedocumented in this encounter Additional Health Concerns Assessment Noted Time PHQ-9 Depression Total Score: 0 10/20/19 23 12:00 PM EDT documented as of this encounter Care Teams Nurse Informatics Educator Relationship Specialty Start Date End Date Jadyn Leung MD [address] [place] [address] PCP - General Family Medicine 08/11/22 Jadyn Leung MD [address] [place] [address] PCP - ACO Reach 07/21/23 documented as of this encounter
--- OUTSIDE RECORDS SUMMARY | 2024-12-25 12:54 | XMS_ITS | Encounter Summary ---
Author Organization [facility] Address [address] [facility] [place] [address] Care Team Providers Care Investigations Manager Name Role Phone Jadyn Leung MD Primary Care Provider [phone] Jadyn Leung MD Unavailable [phone] Encounter Details Date Type Department Care Team (Late st Contact Info) Description 11/10/2024 [facility] [address] [place] [phone] Grace No, [employer] DIRECT[employer] [address] [place] [address] Social History Tobacco Use Types Packs/Day Years [...] EST Office Visit [facility] [place] [facility] [address] [phone] Catalino Collins DO [address] [place] [address] documented as of this encounter Procedures Procedure Name Priority Date/Time Associated Diagnosis Comments CONGENITAL TRANSTHORACIC ECHO (TTE) COMPLETE Routine 11/10/2024 12:40 PM EDT documented in this encounter Results * Congenital transthoracic echo (TTE) complete (11/10/2024 12:40 PM EDT) Anatomical Region Laterality Modality Heart Ultrasound Grace No NP CV ECHO PROCEDURES Final Result documented in this encounter Visit Diagnoses Not on filedocumented in this encounter Additional Health Concerns Assessment Noted Time PHQ-9 Depression Total Score: 0 10/20/19 12:00 PM EDT documented as of this encounter Care Teams Investigations Manager Relationship Specialty Start Date End Date Jadyn Leung MD [address] [place] [address] PCP - General Family Medicine 08/11/22 Jadyn Leung MD [address] [place] [address] PCP - ACO Reach 07/21/23 documented as of this encounter
--- OUTSIDE RECORDS SUMMARY | 2024-12-25 12:54 | XMS_ITS | Continuity of Care Document ---
Author Organization [facility] Address [address] [place] [address] Phone [phone] Assessments Date Code Description Provider 09/08/2018 E87.1 Hypo-osmolality and hyponatr emia Karmen Kamadana M.D. 09/08/2018 E87.6 Hypokalemia Karmen Kamadana M.D. 09/08/2018 E83.40 Disorders of magnesium metab olism, unspecified Karmen Kamadana M.D. 09/08/2018 R33.9 Retention of urine, unspecif ied Karmen Kamadana M.D. 09/07/2018 E87.1 Hypo-osmolality and hyponatr emia Karmen Kamadana M.D. 09/07/2018 E87.6 Hypokalemia Karmen Kamadana M.D. 09/07/2018 E83.40 Disorders of magnesium metab olism, unspecified Karmen Kamadana M.D. 09/07/2018 R33.9 Retention of urine, unspecif ied Karmen Kamadana M.D. 09/06/2018 E87.1 Hypo-osmolality and hyponatr emia Karmen Kamadana M.D. 09/06/2018 E87.6 Hypokalemia Karmen Kamadana M.D. 09/06/2018 E83.40 Disorders of magnesium metab olism, unspecified Karmen Kamadana M.D. 09/06/2018 R33.9 Retention of urine, unspecif ied Karmen Kamadana M.D.
--- OUTSIDE RECORDS SUMMARY | 2024-12-25 12:54 | XMS_ITS | Encounter Summary ---
Author Organization [facility] Address [address] [place] [address] Phone Care Team Providers Care Director Client Services Name Role Phone Jadyn Leung MD Primary Care Provider [phone] Encounter Details Date Type Department Care Team (Late st Contact Info) Description 03/14/2021 Orders Only [facility] [address] [place] [address] Conversion, Onbase Social History Tobacco Use Types Packs/Day Years Used Date Smoking Tobacco: Never Assessed Comments Unknown Sex and Gender Information Value Date Recorded Sex Assigned at Not on file Legal Sex Female 8:03 PM EST Gender Identity Not on file Sexual Orientation Not on file documented as of this encounter Plan of Treatment Scheduled Orders Name Type Priority Associated Diagnoses Orde r Schedule OUTSIDE LAB SCAN Lab Ordered: 03/14/2021 documented as of this encounter Visit Diagnoses Not on filedocumented in this encounter Care Teams Director Client Services Relationship Specialty Start Date End Date Jadyn Leung MD [address] [place] [address] PCP - General 01/13/21 documented as of this encounter
--- OUTSIDE RECORDS SUMMARY | 2024-12-25 12:54 | XMS_ITS | Encounter Summary ---
Author Organization [facility] Address [address] [place] [address] Phone Care Team Providers Care Tree Chipper Name Role Phone Jadyn Leung MD Primary Care Provider [phone] Encounter Details Date Type Department Care Team (Late st Contact Info) Description 11/23/2017 Orders Only [facility] [address] [place] [address] Conversion, Onbase Social History Tobacco Use Types [...] r Schedule OUTSIDE LAB SCAN Lab Ordered: 11/23/2017 documented as of this encounter Visit Diagnoses Not on filedocumented in this encounter Care Teams Tree Chipper Relationship Specialty Start Date End Date Jadyn Leung MD [address] [place] [address] PCP - General 01/13/21 documented as of this encounter
--- OUTSIDE RECORDS SUMMARY | 2024-12-25 12:54 | XMS_ITS | Encounter Summary ---
Author Organization [facility] Address [address] [place] [address] Phone Care Team Providers Care Extrusion Former Name Role Phone Jadyn Leung MD Primary Care Provider [phone] Encounter Details Date Type Department Care Team (Late st Contact Info) Description 04/29/2002 Scanned Document [facility] [address] [place] [phone] Scanning, Generic Provider Social History Tobacco Use Types Packs/Day Years Used Date Smoking Tobacco: Never Assessed Comments Unknown Sex and Gender Information Value Date Recorded Sex Assigned at Not on file Legal Sex Female 8:03 PM EST Gender Identity Not on file Sexual Orientation Not on file documented as of this encounter Plan of Treatment Not on file documented as of this encounter Visit Diagnoses Not on filedocumented in this encounter Care Teams Extrusion Former Relationship Specialty Start Date End Date Jadyn Leung MD [address] [place] [address] PCP - General 01/13/21 documented as of this encounter
--- OUTSIDE RECORDS SUMMARY | 2024-12-25 12:54 | XMS_ITS | Encounter Summary ---
Author Organization [facility] Address [address] [place] [address] Phone Care Team Providers Care Scrub Tech Name Role Phone Jadyn Leung MD Primary Care Provider [phone] Encounter Details Date Type Department Care Team (Late st Contact Info) Description 11/30/2020 Orders Only [facility] LE[facility] [address] [place] [address] Conversion, Onbase Social History Tobacco Use Types [...] r Schedule OUTSIDE LAB SCAN Lab Ordered: 11/30/2020 documented as of this encounter Visit Diagnoses Not on filedocumented in this encounter Care Teams Scrub Tech Relationship Specialty Start Date End Date Jadyn Leung MD [address] [place] [address] PCP - General 01/13/21 documented as of this encounter
--- OUTSIDE RECORDS SUMMARY | 2024-12-25 12:54 | XMS_ITS | Encounter Summary ---
Author Organization [facility] Address [address] [place] [address] Phone Care Team Providers Care Costume Specialist Name Role Phone Jadyn Leung MD Primary Care Provider [phone] Encounter Details Date Type Department Care Team (Late st Contact Info) Description 02/20/2022 Orders Only [facility] LE[facility] [address] [place] [address] Conversion, Onbase Social History Tobacco Use Types [...] r Schedule OUTSIDE LAB SCAN Lab Ordered: 02/20/2022 OUTSIDE LAB SCAN Lab Ordered: 02/20/2022 documented as of this encounter Visit Diagnoses Not on filedocumented in this encounter Care Teams Costume Specialist Relationship Specialty Start Date End Date Jadyn Leung MD [address] [place] [address] PCP - General 01/13/21 documented as of this encounter
--- OUTSIDE RECORDS SUMMARY | 2024-12-25 12:54 | XMS_ITS | Encounter Summary ---
Author Organization [facility] Address [address] [facility] [address] [place] [address] Care Team Providers Care Clinical Data Specialist Name Role Phone Anju Jacobsen MD Primary Care Provider [phone] Reason for Visit * Reason Onset Date Comments Appointment Requested 12/21/2024 Post hosp Encounter Details Date Type Department Care Team (Late st Contact Info) Description 12/21/2024 Telephone [facility]. [address] [place] [address] [place] [address] Rafaela Yen MD [address] [facility] [place] [id number] Appointment Requested (Post hosp ) Social History Tobacco Use Types Packs/Day Years [...] in the past 12 m [facility], were you homeless or living in a fci (including now)? No 12/14/2024 AUDIT-C Answer Date [...] things needed for daily living? No 12/14/2024 [facility] Utilities Answer Date Recorded In [...] EDT Office Visit [facility] [address] [place] [phone] Ramses Abarca DO [address] [place] [address] DOS: 12/14, R hip I&D/Hemirev 01/31/2025 2:15 PM EST Office Visit [facility], [facility]. [address] [facility] [address] [place] [address] Rafaela Yen MD [address] [facility] [place] [address] 1 month post hospital follow up documented as of this encounter Visit Diagnoses Not on filedocumented in this encounter Care Teams Clinical Data Specialist Relationship Specialty Start Date End Date Anju Jacobsen MD PCP - General Family Medicine 01/18/18 documented as of this encounter
--- OUTSIDE RECORDS SUMMARY | 2024-12-25 12:54 | XMS_ITS | Encounter Summary ---
Author Organization [facility] Address [address] [place] [address] Phone Care Team Providers Care Contact Lens Assistant Name Role Phone Jadyn Leung MD Primary Care Provider [phone] Encounter Details Date Type Department Care Team (Late st Contact Info) Description 11/21/2017 Orders Only [facility] [address] [place] [address] Conversion, Onbase Social History Tobacco Use Types [...] r Schedule OUTSIDE LAB SCAN Lab Ordered: 11/21/2017 documented as of this encounter Visit Diagnoses Not on filedocumented in this encounter Care Teams Contact Lens Assistant Relationship Specialty Start Date End Date Jadyn Leung MD [address] [place] [address] PCP - General 01/13/21 documented as of this encounter
--- OUTSIDE RECORDS SUMMARY | 2024-12-25 12:54 | XMS_ITS | Clinical Summary ---
Author Organization [facility] Address [address] [place] [address] Care Team Providers Care Hotshot Superintendent Name Role Phone Jadyn Leung MD Primary Care Provider [phone] Jadyn Leung MD Unavailable [phone] Allergies Active Allergy Reactions Criticality Noted Date Comments Codeine Unknown 08/06/2022 Moxifloxacin Unknown 08/06/2022 Penicillin G Unknown 08/06/2022 Medications Probiotic Product (PROBIOTIC BLEND PO) Active folic acid (Folvite) 400 MCG tablet Take 0.4 mg by mouth Daily Active Thiamine HCl (vitamin B-1) 250 MG tablet Active pantoprazole (ProtoNix) 40 MG EC tabletIndications :Gastroesophageal reflux disease without esophagitis TAKE 1 TABLET BY MOUTH EVERY DAY IN THE MORNING DO NOT SPLIT, CRUSH, OR CHEW 90 tablet 3 12/07/19 24 Active pramipexole (Mirapex) 0.125 MG tabletIndications :Parkinson's disease (HCC) Take 2 tablets (0.25 mg) by mouth at bedtime 180 tablet 3 03/07/20 24 Active sodium chloride 1 g tabletIndications :Protein-calorie malnutrition, unspecified severity (HHS-HCC) Take 1 tablet (1 g) by mouth Daily 90 tablet 3 03/28/19 25 026 Active oxyCODONE-acetami nophen (Percocet) 5-325 MG tablet Take by mouth 11/15/19 25 Active nystatin (Mycostatin) 130922 UNIT/GM powder Apply topically in the morning and before bedtime. Active Multiple Vitamin (multivitamin) tablet Take 1 tablet by mouth Daily Active magnesium hydroxide (Milk of Magnesia) 400 MG/5ML suspension Take by mouth at bedtime Active diphenhydrAMINE-z inc acetate (BENADryl) cream Apply topically 3 (three) times a day as needed for itching Active carboxymethylcell ulose (Artificial Tears) 1 % ophthalmic solution 1 drop in the morning and 1 drop in the evening and 1 drop before bedtime. Active solifenacin (VESIcare) 10 MG tablet Take 5 mg by mouth Daily 025 Discontinued fludrocortisone (Florinef) 0.1 MG tabletIndications :Orthostatic hypotension due to Parkinson's disease (HCC) Take 1 tablet (0.1 mg) by mouth 1 (one) time each day at the same time. 90 tablet 3 10/20/19 025 Discontinued levothyroxine (Synthroid, Levoxyl) 25 MCG tabletIndications :Acquired hypothyroidism TAKE 1 TABLET BY MOUTH EVERY DAY 90 tablet 3 12/01/19 025 Discontinued cetirizine (ZyrTEC) 10 MG tablet Take 10 mg by mouth in the morning. 12/17/19 025 Discontinued hydrOXYzine HCl (Atarax) 25 MG tabletIndications :Anxiety TAKE 1 TABLET BY MOUTH EVERY 12 HOURS NEEDED FOR ITCHING 60 tablet 10/04/19 025 Discontinued Active Problems Problem Noted Date Diagnosed Date Anxiety 08/06/2022 Assessment & Plan (10/19/2022 1:07 PM EDT): Stable, continue to monitor. No change in regimen. Ataxia 08/06/2022 Assessment & Plan (10/19/2022 1:07 PM EDT): Stable, continue to monitor. No change in regimen. Atonic bladder 08/06/2022 Assessment & Plan (10/19/2022 1:06 PM EDT): Stable, continue to monitor. No change in regimen. Episode of recurrent major depressive disorder 0 08/06/2022 Assessment & Plan (10/19/2022 1:07 PM EDT): Stable, continue to monitor. No change in regimen. ETOH abuse 08/06/2022 Assessment & Plan (10/19/2022 1:07 PM EDT): Stable, continue to monitor. No change in regimen. Frequent falls 08/06/2022 Assessment & Plan (10/19/2022 1:07 PM EDT): Stable, continue to monitor. No change in regimen. Gastroesophageal reflux disease without esophagi tis 08/06/2022 Assessment & Plan (10/19/2022 1:06 PM EDT): Stable, continue to monitor. No change in regimen. Hypothyroidism 08/06/2022 Assessment & Plan (10/19/2022 1:07 PM EDT): Stable, continue to monitor. No change in regimen. Malnutrition (HHS-HCC) 08/06/2022 Assessment & Plan (10/19/2022 1:07 PM EDT): Stable, continue to monitor. No change in regimen. Orthostatic hypotension due to Parkinson's disea se 08/06/2022 Assessment & Plan (10/19/2022 1:06 PM EDT): Stable, continue to monitor. No change in regimen. Parkinson disease 08/06/2022 Assessment & Plan (10/19/2022 1:06 PM EDT): Stable, continue to monitor. No change in regimen. Rheumatoid arthritis with positive rheumatoid fa ctor 08/06/2022 Assessment & Plan (10/19/2022 1:07 PM EDT): Stable, continue to monitor. No change in regimen. Rotator cuff arthropathy of right shoulder 08/06 Urinary incontinence 08/06/2022 Assessment & Plan (10/19/2022 1:06 PM EDT): Stable, continue to monitor. No change in regimen. Lumbar degenerative disc disease 12/22/2016 Assessment & Plan (10/19/2022 1:07 PM EDT): Stable, continue to monitor. No change in regimen. Resolved Problems Problem Noted Date Diagnosed Date Resolved Date Rheumatoid arthritis of foot 10/19/2022 10/19/2022 Encounters Date Type Department Care Team Description 12/22/2024 Patient Outreach [facility] [address] [place] [phone] Leeann Robertson LPN 12/13/2024 Telephone [facility] [address] [place] [phone] Ana Ott MA Transfering patient to [facility] 12/12/2024 9:50 AM EDT Ancillary Procedure [facility] [address] [place] [address] 12/12/2024 9:45 AM EDT Ancillary Procedure [facility] [address] [place] [address] 12/12/2024 9:45 AM EDT Office Visit [facility] [address] [place] [address] Catalino Collins, Closed fracture of right hip requiring operative repair, sequela (Primary Dx); Right elbow pain 12/12/2024 8:05 AM EDT Ancillary Procedure [facility] [address] [place] [phone] 12/12/2024 Clinisync Result Encounter [facility] External Department Unsolicited Catalino Collins, 12/12/2024 Travel 12/05/20[facility] [address] [place] [phone] Christina Sims RN hip drainage 11/16/2024 [facility] [address] [place] [phone] Leeann Robertson, PERLA 11/12/2024 Clinisync Result Encounter [facility] External Department Unsolicited Catalino Collins, DO 11/11/2024 Clinisync Result Encounter [facility] External Department Unsolicited Catalino Collins, DO 11/10/2024 Clinisync Result Encounter [facility] External Department Unsolicited Catalino Collins, DO 11/10/2024 Clinisync Result Encounter [facility] External Department Unsolicited Catalino Collins, DO 11/10/2024 Orders Only [facility] [address] [place] [phone] Grace No NP 11/09/2024 Abstract [facility] [address] [place] [address] Catalino Collins, DO 11/08/2024 Patient Outreach [facility] [address] [address] Celestina Romano LPN 10/03/2024 [facility] [address] [place] [phone] Jadyn Leung MD Anxiety from Last 3 Months Immunizations Immunization Administration Dates Next Due Influenza, High Dose Seasona l, Preservative Free 01/29/2017 Influenza, High-dose Seasona l, Quadrivalent, Preservative Free 02/25/2022,12/12/2020,01/29/2017,2016 Influenza, Recombinant, inje ctable, preservative free 04/05/2024 Moderna Bivalent Booster Vaccination 04/29/2022 Moderna SARS-CoV-2 Vaccination 07/15/2020,2020 SARS-COV-2 (COVID-19) vaccin e, mRNA, spike protein, LNP, bivalent, preservative free, 30 mcg/0.3 mL dose, wild-sucrose formulation 04/29/2022 Tdap 11/18/2015 Family History Medical History Relation Name Comments Heart attack Father Diabetes Maternal Grandfather Diabetes Maternal Grandmother Leukemia Mother Breast cancer Other grandmother, c ousin, aunt Colon cancer Other uncle Relation Name Status Comments Father Maternal Grandfather Maternal Grandmother Mother Other Social History Tobacco Use Types Packs/Day Years Used Date Smoking Tobacco: Unknown Tobacco Cessation:Counseling Given: Not Answered Alcohol Use Standard Drinks/Week Comments Yes 0 (1 standard drink = 0.6 oz pure alcohol) monthly, Caffeine intake: 1 cup coffee PHQ-2 Answer Date Recorded Patient Health Questionnaire-2 Score 0 10/20/2022 Comments No Sex and Gender Information Value Date Recorded Sex Assigned at Not on file Legal Sex Female 7:24 PM EDT Gender Identity Not on file Sexual Orientation Not on file Last Filed Vital Signs Vital Sign Reading Time Taken Comments Blood Pressure 130/70 04/05/2024 12:36 PM EST Pulse 96 06/16/2023 11:05 AM EDT Temperature 36.6 C (97.9 F) 04/05/2024 12:36 PM EST Respiratory Rate - - Oxygen Saturation 100% 06/16/2023 11:05 AM EDT Inhaled Oxygen Concentration - - Weight 48.7 kg (107 lb 6.4 oz) 04/05/2024 12:36 PM EST Height 162.6 cm (5' 4 ) 12/12/2024 9:33 AM EDT Body Mass Index 18.44 04/05/2024 12:36 PM EST Plan of Treatment Upcoming Encounters Date Type Department Care Team (Late st Contact Info) Description 02/06/2025 1:15 PM EST Office Visit [facility] [address] [facility] [place] [address] Catalino Collins DO [address] [facility] [place] [address] Health Maintenance Due Date Last Done Comments Pneumococcal Vaccine: 65+ Ye ars (1 of 2 - PCV) 1966 Influenza Vaccine (#1) 2024 5, 02/25/2022, 12/12/2020, Additional history exists Procedures Procedure Name Priority Date/Time Associated Diagnosis Comments XR ELBOW 3+ VIEWS RIGHT 12/12/2024 1:23 PM EDT [facility] CBC W/ AUTO DIFF Routine 11/12/2024 5:47 AM EDT [facility] EGFR Routine 11/12/2024 5:47 AM EDT [facility] LYTES Routine 11/12/2024 5:47 AM EDT [facility] CREATININE Routine 11/12/2024 5:47 AM EDT [facility] BUN Routine 11/12/2024 5:47 AM EDT [facility] EGFR Routine 11/11/2024 5:17 AM EDT [facility] LYTES Routine 11/11/2024 5:17 AM EDT [facility] CREATININE Routine 11/11/2024 5:17 AM EDT [facility] BUN Routine 11/11/2024 5:17 AM EDT [facility] CBC W/ AUTO DIFF Routine 11/11/2024 5:02 AM EDT [facility] HCT & HGB Routine 11/10/2024 1:37 PM EDT XR HIP 1 VIEW RIGHT + PELVIS 11/10/2024 12:51 PM EDT CONGENITAL TRANSTHORACIC ECHO (TTE) COMPLETE Routine 11/10/2024 12:40 PM EDT from Last 3 Months Results * XR ELBOW 3+ VIEWS RIGHT (12/12/2024 1:23 PM EDT) Anatomical Region Laterality Modality Other 12/12/2024 1:23 PM EDT Narrative 12/12/2024 2:32 PM EDT Exam Date/Time: 12/12/2024 13:52 EDT Reason for Exam: Post Op Report IMPRESSION: HEALING NONDISPLACED SUPRACONDYLAR DISTAL RIGHT HUMERAL FRACTURE. PROBABLY CHRONIC HEALED RIGHT RADIAL HEAD FRACTURE. EXAM: XR Elbow 3+ Views Right DATE: 12/12/2024 1:23 PM CLINICAL HISTORY: Post Op. COMPARISON: 11/09/2024 TECHNIQUE: AP, lateral, oblique, and axial radiographs of the right elbow were obtained. FINDINGS: A nondisplaced supracondylar distal right humerus fracture remains in anatomic alignment with surrounding callus formation. A fracture of the anterior aspect of the radial head appears healed with mild chronic deformity. There is no sizable joint effusion, dislocation, worrisome bone destruction, radiodense foreign bodies, or other significant changes identified. Ordering Provider: Catalino Collins FINAL REPORT Dictated: 12/12/2024 2:29 pm Edwar Bishop MD Signed (Electronic Signature): 12/12/2024 2:29 pm Signed by: Edwar Bishop MD Transcribed by: DANIEL Technologist: FLIP Procedure Note Radiology, Radiologist, MD - 12/12/2024 Exam Date/Time: 12/12/2024 13:52 EDT Reason for Exam: Post Op Report IMPRESSION: HEALING NONDISPLACED SUPRACONDYLAR DISTAL RIGHT HUMERALFRACTURE. PROBABLY CHRONIC HEALED RIGHT RADIAL HEAD FRACTURE. EXAM: XR Elbow 3+ Views Right DATE: 12/12/2024 1:23 PM CLINICAL HISTORY: Post Op. COMPARISON: 11/09/2024 TECHNIQUE: AP, lateral, oblique, and axial radiographs of the right elbowwere obtained. FINDINGS: A nondisplaced supracondylar distal right humerus fracture remains inanatomic alignment with surrounding callus formation. A fracture of the anterior aspect of the radial head appears healed withmild chronic deformity. There is no sizable joint effusion, dislocation, worrisome bonedestruction, radiodense foreign bodies, or other significant changes identified. Ordering Provider: Catalino Collins FINAL REPORT Dictated: 12/12/2024 2:29 pm Edwar Bishop MD Signed (Electronic Signature): 12/12/2024 2:29 pm Signed by: Edwar Bishop MD Transcribed by: DANIEL Technologist: FLIP us Catalino Collins DO [facility] Final Resu lt * (ABNORMAL) [facility] LYTES (11/12/2024 5:47 AM EDT) Only the most recent of2 resultswithin the time period is included. Pathologist [facility] SODIUM LVL 128(L) 135 - 145 mmol/L [facility] POTASSIUM 3.8 3.5 - 5.3 mmol/L [facility] CHLORIDE 97(L) 101 - 111 mmol/L [facility] CO2 27 21 - 31 mmol/L [facility] AGAP 8 6 - 16 mEq/L [facility] Blood 11/12/2024 5:47 AM EDT 11/12/2024 6:05 AM EDT Narrative [facility] - 11/12/2024 6:53 AM EDT Original Ordering Provider: DO Catalino Collins Catalino Collins DO [facility] Final Result [facility] * [facility] EGFR (11/12/2024 5:47 AM EDT) Only the most recent of2 resultswithin the time period is included. [facility] EGFR 89 >=59 mL/min/1.73 m2 [facility] Blood 11/12/2024 5:47 AM EDT 11/12/2024 6:05 AM EDT Narrative [facility] - 11/12/2024 6:53 AM EDT Original Ordering Provider: DO Catalino Collins Catalino Collins DO [facility] Final Result Performing Organization Address [facility] Co de Phone Number [facility] * [facility] CREATININE (11/12/2024 5:47 AM EDT) Only the most recent of2 resultswithin the time period is included. [facility] CREATININE 0.7 0.5 - 1.3 mg/dL [facility] Blood 11/12/2024 5:47 AM EDT 11/12/2024 6:05 AM EDT Narrative [facility] - 11/12/2024 6:53 AM EDT Original Ordering Provider: DO Catalino Collins us Catalino Collins DO [facility] Final Result Performing Organization Address City/[facility]/ZIP Co de Phone Number [facility] * (ABNORMAL) [facility] CBC W/ AUTO DIFF (11/12/2024 5:47 AM EDT) Only the most recent of2 resultswithin the time period is included. WBC 7.2 4.0 - 11.0 E9/L [facility] RBC 3.1(L) 4.3 - 5.9 E12/L [facility] HGB 9.5(L) 12.0 - 16.0 gm/dL [facility] HCT 27.7(L) 34.0 - 46.0 % [facility] RDW 13.4 10.9 - 14.2 % [facility] MCH 30.9 27.0 - 34.0 pg [facility] MCHC 34.1 31.4 - 36.0 gm/dL [facility] MCV 90.5 80.0 - 100.0 fL [facility] MPV 7.1 6.4 - 10.8 fL [facility] PLATELET 308.0 150.0 - 500.0 E9/L [facility] SEGS MAN 58.0 36.0 - 75.0 % [facility] LYMPH MAN 24.0 14.0 - 50.0 % [facility] MONOCYTE MAN 18.0(H) 4.0 - 14.0 % [facility] EOS MAN 0.0 0.0 - 8.0 % [facility] BASOPHIL MAN 0.0 0.0 - 2.0 % [facility] NEUTRO ABS MAN 4.2 E9/L [facility] LYMPH ABS MAN 1.7 1.0 - 4.0 E9/L [facility] MONO ABS MAN 1.3(H) 0.2 - 1.0 E9/L [facility] EOS ABS MAN 0.0 0.0 - 0.5 E9/L [facility] BASOPHIL ABS MAN 0.0 0.0 - 0.2 E9/L [facility] RBC MORPH NORMAL [facility] Blood 11/12/2024 5:47 AM EDT 11/12/2024 6:05 AM EDT Narrative [facility]INISYNC - 11/12/2024 7:10 AM EDT Original Ordering Provider: DO Catalino Collins Catalino MACDONALD Final Result [facility] * [facility] BUN (11/12/2024 5:47 AM EDT) Only the most recent of2 resultswithin the time period is included. [facility] BUN 14 5 - 21 mg/dL [facility] Blood 11/12/2024 5:47 AM EDT 11/12/2024 6:05 AM EDT Narrative [facility]NC - 11/12/2024 6:53 AM EDT Original Ordering Provider: DO Catalino Collins us Catalino Collins DO [facility] Final Result Performing Organization Address [facility] Phone Number [facility] * (ABNORMAL) [facility] HCT & HGB (11/10/2024 1:37 PM EDT) Pathologist [facility] HGB 11.8(L) 12.0 - 16.0 gm/dL [facility] HCT 33.2(L) 34.0 - 46.0 % [facility] Blood 11/10/2024 1:37 PM EDT 11/10/2024 1:40 PM EDT Narrative CLINISYNC - 11/10/2024 1:43 PM EDT In PACU. Spoke w/ Kaye and made aware of overdue draw [id number] 11/10/2024 13:20:04 EDT Original Ordering Provider: DO Catalino Collins us Catalino Collins DO CLINISYROYCE Final Result Performing Organization Address [facility] Phone Number [facility] * XR HIP 1 VIEW RIGHT + PELVIS (11/10/2024 12:51 PM EDT) Anatomical Region Laterality Modality Other 11/10/2024 12:5 1 PM EDT Narrative 11/10/2024 2:28 PM EDT Exam Date/Time: 11/10/2024 13:44 EDT Reason for Exam: Post Op Report IMPRESSION: UNREMARKABLE RECENT RIGHT HIP HEMIARTHROPLASTY PLACEMENT. EXAM: XR Hip 1 View Right + Pelvis DATE: 11/10/2024 12:51 PM CLINICAL HISTORY: Post Op. COMPARISON: 11/09/2024 TECHNIQUE: A portable AP radiograph of the pelvis and crosstable lateral radiograph of the right hip were obtained. FINDINGS: A right hip hemiarthroplasty is noted in expected position. There is no dislocation, periprosthetic fracture, or other findings of concern identified. Mild soft tissue emphysema is noted from recent placement. Ordering Provider: Catalino Collins FINAL REPORT Dictated: 11/10/2024 2:25 pm Edwar Bishop MD Signed (Electronic Signature): 11/10/2024 2:25 pm Signed by: Edwar Bishop MD Transcribed by: DANIEL Technologist: KISHA Procedure Note Radiology, Radiologist, - 11/10/2024 Exam Date/Time: 11/10/2024 13:44 EDT Reason for Exam: Post Op Report IMPRESSION: UNREMARKABLE RECENT RIGHT HIP HEMIARTHROPLASTY PLACEMENT. EXAM: XR Hip 1 View Right + Pelvis DATE: 11/10/2024 12:51 PM CLINICAL HISTORY: Post Op. COMPARISON: 11/09/2024 TECHNIQUE: A portable AP radiograph of the pelvis and crosstable lateralradiograph of the right hip were obtained. FINDINGS: A right hip hemiarthroplasty is noted in expected position. There is no dislocation, periprosthetic fracture, or other findings ofconcern identified. Mild soft tissue emphysema is noted from recent placement. Ordering Provider: Catalino Collins FINAL REPORT Dictated: 11/10/2024 2:25 pm Edwar Bishop MD Signed (Electronic Signature): 11/10/2024 2:25 pm Signed by: Edwar Bishop MD Transcribed by: DANIEL Technologist: KISHA us Catalino Collins DO [facility] Final Resu lt * Congenital transthoracic echo (TTE) complete (11/10/2024 12:40 PM EDT) Anatomical Region Laterality Modality Heart Ultrasound us Grace No NP CV ECHO PROCEDURES Final Result from Last 3 Months Insurance MEDICARE BS Care Teams Hotshot Superintendent Relationship Specialty Start Date End Date Jadyn Leung MD [address] [address] PCP - General Family Medicine 08/11/22 Jadyn Leung MD [address] [address] PCP - ACO Reach 07/21/23
--- OUTSIDE RECORDS SUMMARY | 2024-12-25 12:54 | XMS_ITS | Encounter Summary ---
Author Organization [facility] Address [address] [facility] [place] [address] Care Team Providers Care Transporter Driver Name Role Phone Jadyn Leung MD Primary Care Provider [phone] Jadyn Leung MD Unavailable [phone] Encounter Details Date Type Department Care Team (Late st Contact Info) Description 11/09/2024 Abstract [facility] [address] [place] [phone] Catalino Collins, [address] [place], [place] [id number] Social History Tobacco Use Types Packs/Day Years [...] Description 02/06/2025 1:15 PM EST [facility] [address] [facility] [place] [phone] Catalino Collins DO [address] [place], [place] [id number] documented as of this encounter Visit Diagnoses Not on filedocumented in this encounter Additional Health Concerns Assessment Noted Time PHQ-9 Depression Total Score: 0 10/20/19 23 12:00 PM EDT documented as of this encounter Care Teams Transporter Driver Relationship Specialty Start Date End Date Jadyn Leung MD [address] [place] [address] PCP - General Family Medicine 08/11/22 Jadyn Leung MD [address] [place] [address] PCP - ACO Reach 07/21/23 documented as of this encounter
--- OUTSIDE RECORDS SUMMARY | 2024-12-25 12:55 | XMS_ITS | Clinical Summary ---
Author Organization [facility] Address [address] [place] [address] Phone Care Team Providers Care Diversity Manager Name Role Phone Jadyn Leung MD Primary Care Provider [phone] Allergies Active Allergy Reactions Criticality Noted Date Comments Penicillins Rash Low 01/01/2023 Medications solifenacin (VESIcare) 10 mg tabletIndication s:Urinary incontinence without sensory awareness Take 1 tablet by mouth once daily 30 tablet Active Additional Information Patient not taking.Reported on 06/08/2023 Encounters Date Type Department Care Team Description 12/20/2024 Scanned Document [facility] [address] [place] [address] Scanning, Generic Provider 12/13/2024 Scanned Document [facility] [address] [place] [address] Scanning, Generic Provider from Last 3 Months Social History Tobacco Use Types Packs/Day Years Used Date Smoking Tobacco: Never Smokeless Tobacco: Never Tobacco Cessation:Counseling Given: Not Answered Alcohol Use Standard Drinks/Week Comments Yes 2 (1 standard drink = 0.6 oz pur e alcohol) a week Comments Unknown Sex and Gender Information Value Date Recorded Sex Assigned at Not on file Legal Sex Female 8:03 PM EST Gender Identity Not on file Sexual Orientation Not on file Last Filed Vital Signs Vital Sign Reading Time Taken Comments Blood Pressure 179/79 06/08/2023 10:54 AM EDT Pulse 77 06/08/2023 10:54 AM EDT Temperature 36.6 C (97.9 F) 06/08/2023 10:54 AM EDT Respiratory Rate - - Oxygen Saturation - - Inhaled Oxygen Concentration - - Weight 49 kg (108 lb) 06/08/2023 10:54 AM EDT Height 162.6 cm (5' 4 ) 01/01/2023 11:46 AM EDT Body Mass Index 18.54 01/01/2023 11:46 AM EDT Plan of Treatment Health Maintenance Due Date Last Done Comments Lipid Panel 1945 Medicare Annual Wellness Visit (AWV) 1945 Diabetes Screening 1965 Hepatitis C Screening 1965 Pneumococcal Vaccine (1 of 1 - PCV) 1997 Zoster Vaccines (1 of 2) 1997 Bone Density Scan 2012 RSV High Risk: (Elderly (60+) or Population) (1 - 1-dose 75+ series) 2022 COVID-19 Vaccine (5 - season) 2024 04/29/2022, 10/08/2021, 08/09/2020, Additional history exists Influenza Vaccine (#1) 2024 , 12/12/2020, 01/29/2017, Additional history exists DTaP/Tdap/Td Vaccines (2 - Td or Tdap) 11/17/2025 11/18/2015 HIB Vaccines Aged Out No longer eligi ble based on patient's age to complete this topic HPV Vaccines Aged Out No longer eligi ble based on patient's age to complete this topic Hepatitis A Vaccines Aged Out No long er eligible based on patient's age to complete this topic Hepatitis B Vaccines Aged Out No long er eligible based on patient's age to complete this topic IPV Vaccines Aged Out No longer eligi ble based on patient's age to complete this topic Meningococcal Vaccine Aged Out No eric zane eligible based on patient's age to complete this topic Rotavirus Vaccines Aged Out No longer eligible based on patient's age to complete this topic Insurance [facility] MEDICARE PART A AND B [facility] MEDICARE PART A AND B Care Teams Diversity Manager Relationship Specialty Start Date End Date Jadyn Leung MD [address] [place] [address] [facility] - General 01/13/21
--- OUTSIDE RECORDS SUMMARY | 2024-12-25 12:55 | XMS_ITS | Encounter Summary ---
Author Organization [facility] Address [address] [facility] [place] [address] Care Team Providers Care Console Operator Name Role Phone Jadyn Leung MD Primary Care Provider [phone] Jadyn Leung MD Unavailable [phone] Encounter Details Date Type Department Care Team (Late st Contact Info) Description 12/12/2024 Clinisync Result Encounter [facility] External Department Unsolicited Catalino Collins, [address] [place] [address] Social History Tobacco Use Types Packs/Day Years [...] 02/06/2025 1:15 PM EST Office Visit [facility] [address] [place] [address] Catalino Collins DO [address] [place] [address] documented as of this encounter Procedures Procedure Name Priority Date/Time Associated Diagnosis Comments XR ELBOW 3+ VIEWS RIGHT 12/12/2024 1:23 PM EDT documented in this encounter Results * XR ELBOW 3+ VIEWS RIGHT [...] DANIEL Technologist: FLIP Procedure Note Radiology, Radiologist, - 12/12/2024 Exam Date/Time: 12/12/2024 13:52 EDT [...] Collins DO [facility] Final Resu lt documented in this encounter Visit Diagnoses Not on filedocumented in this encounter Additional Health Concerns Assessment Noted Time PHQ-9 Depression Total Score: 0 10/20/19 23 12:00 PM EDT documented as of this encounter Care Teams Console Operator Relationship Specialty Start Date End Date Jadyn Leung MD [address] [place] [address] PCP - General Family Medicine 08/11/22 Jadyn Leung MD [address] [place] [address] PCP - ACO Reach 07/21/23 documented as of this encounter
--- OUTSIDE RECORDS SUMMARY | 2024-12-25 12:55 | XMS_ITS | Encounter Summary ---
Author Organization [facility] Address [address] [facility] [place] [address] Care Team Providers Care Vacuum Drier Tender Name Role Phone Jadyn Leung MD Primary Care Provider [phone] Jadyn Leung MD Unavailable [phone] Encounter Details Date Type Department Care Team (Latest Contact Info) Description 12/12/2024 Travel Social History Tobacco Use Types Packs/Day [...] Office Visit [facility] [place] [facility] [address] [place] [phone] Catalino Collins DO [address] [place] [address] documented as of this encounter Visit Diagnoses Not on filedocumented in this encounter Additional Health Concerns Assessment Noted Time PHQ-9 Depression Total Score: 0 10/20/19 23 12:00 PM EDT documented as of this encounter Care Teams Vacuum Drier Tender Relationship Specialty Start Date End Date Jadyn Leung MD [address] [place] [address] PCP - General Family Medicine 08/11/22 Jadyn Leung MD [address] [place] [address] PCP - ACO Reach 07/21/23 documented as of this encounter
--- OUTSIDE RECORDS SUMMARY | 2024-12-25 12:55 | XMS_ITS | Encounter Summary ---
Author Organization [facility] Address [address] [place] [address] Phone Care Team Providers Care Business Analyst Name Role Phone Jadyn Leung MD Primary Care Provider [phone] Encounter Details Date Type Department Care Team (Late st Contact Info) Description 12/20/2024 Scanned Document [facility] [address] [place] [phone] Scanning, Generic Provider Social History Tobacco Use Types Packs/Day Years Used Date Smoking Tobacco: Never Smokeless Tobacco: Never Alcohol Use Standard Drinks/Week Comments Yes 2 [...] encounter Additional Health Concerns Assessment Noted Time A fall risk assessment has been complete d for the patient 01/01/2023 11:49 AM EDT documented as of this encounter Care Teams Business Analyst Relationship Specialty Start Date End Date Jadyn Leung MD [address] [place] [address] PCP - General 01/13/21 documented as of this encounter
--- OUTSIDE RECORDS SUMMARY | 2024-12-25 12:55 | XMS_ITS | Encounter Summary ---
Author Organization [facility] Address [address] [place] [address] Phone Care Team Providers Care Scissors Grinder Name Role Phone Jadyn Leung MD Primary Care Provider [phone] Encounter Details Date Type Department Care Team (Late st Contact Info) Description 12/14/2018 Orders Only [email or web address] [address] [place] [address] Conversion, Onbase Social History Tobacco Use Types [...] r Schedule OUTSIDE LAB SCAN Lab Ordered: 12/14/2018 documented as of this encounter Visit Diagnoses Not on filedocumented in this encounter Care Teams Scissors Grinder Relationship Specialty Start Date End Date Jadyn Leung MD [address] [place] [address] PCP - General 01/13/21 documented as of this encounter
--- OUTSIDE RECORDS SUMMARY | 2024-12-25 12:55 | XMS_ITS | Encounter Summary ---
Author Organization [facility] Address [address] [place] [address] Phone Care Team Providers Care Medical Dermatologist Name Role Phone Jadyn Leung MD Primary Care Provider [phone] Encounter Details Date Type Department Care Team (Late st Contact Info) Description 12/13/2024 Scanned Document [facility] [address] [place] [phone] Scanning, Generic Provider Social History Tobacco Use [...] documented as of this encounter Care Teams Medical Dermatologist Relationship Specialty Start Date End Date Jadyn Leung MD [address] [place] [address] PCP - General 01/13/21 documented as of this encounter
--- OUTSIDE RECORDS SUMMARY | 2024-12-25 12:55 | XMS_ITS | Encounter Summary ---
Author Organization [facility] Address [address] [place] [address] Care Team Providers Care Signal Operator Linguist Name Role Phone Jadyn Leung MD Primary Care Provider [phone] Jadyn Leung MD Unavailable [phone] Encounter Details Date Type Department Care Team (Late st Contact Info) Description 12/22/2024 Patient Outreach [facility] [address] [place] [phone] Leeann Robertson LPN Social History Tobacco Use Types Packs/Day Years [...] on file documented as of this encounter Progress Notes * Leeann Robertson LPN - 12/22/2024 9:41 AM EDT Images from the original note were not included. <December 22, 2024, 09:50 - Leeann Robertson LPN> Hospital Course: 79-year-old female who was admitted [...] send on supplements Currently stable for discharge Flowsheet Row Patient Outreach from 12/22/[address] [facility] with Leeann Robertson LPN Hospital Information ED, Hospital or Jail Facility Discharge? Hospital Patient has been contacted within two business days of discharge No [DUE TO GOING TO SNF] Have two attempts been made to contact the patient within two business days of being discharged? 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, initial encounter, Hyponatremia Discharge Date 12/20/24 Discharged To: Jail Facility (specify SNF in comments) Discharge [facility] Rebeca Mendez Admission Date 12/13/24 Medications Appointments Self Management Patient Teaching Wrap Up documented in this encounter Plan of Treatment Upcoming Encounters Date Type Department Care Team (Late st Contact Info) Description 02/06/2025 1:15 PM EST Office Visit [facility] [address] [place] [phone] Catalino Collins, [address] [place] [address] documented as of this encounter Visit Diagnoses Not on filedocumented in this encounter Additional Health Concerns Assessment Noted Time PHQ-9 Depression Total Score: 0 10/20/19 23 12:00 PM EDT documented as of this encounter Care Teams Signal Operator Linguist Relationship Specialty Start Date End Date Jadyn Leung MD [address] [place] [address] PCP - General Family Medicine 08/11/22 Jadyn Leung MD [address] [place] [address] PCP - ACO Reach 07/21/23 documented as of this encounter
--- OUTSIDE RECORDS SUMMARY | 2024-12-25 12:55 | XMS_ITS | Encounter Summary ---
Author Organization [facility] Address [address] [place] [address] Phone Care Team Providers Care Ob/Gyn Doctor Name Role Phone Jadyn Leung MD Primary Care Provider [phone] Encounter Details Date Type Department Care Team (Late st Contact Info) Description 02/24/2018 Orders Only [facility] [address] [place] [address] Conversion, Onbase Social History Tobacco Use Types [...] r Schedule OUTSIDE LAB SCAN Lab Ordered: 02/24/2018 documented as of this encounter Visit Diagnoses Not on filedocumented in this encounter Care Teams Ob/Gyn Doctor Relationship Specialty Start Date End Date Jadyn Leung MD [address] [place] [address] PCP - General 01/13/21 documented as of this encounter
--- OUTSIDE RECORDS SUMMARY | 2024-12-25 12:55 | XMS_ITS | Encounter Summary ---
Author Organization [facility] Address [address] [facility] [place] [address] Care Team Providers Care Workers Compensation Defense Attorney Name Role Phone Jadyn Leung MD Primary Care Provider [phone] Rosey Malagon DO Unavailable Unavailabl e Jadyn Leung MD Unavailable [phone] Encounter Details Date Type Department Care Team (Late Contact Info) Description 09/25/2022 Abstract [facility] [place] [facility] [address] [place] [address] Jadyn Leung MD [address] [place] [address] Social History Tobacco Use Types Packs/Day Years Used Date Smoking Tobacco: Never Tobacco Cessation:Counseling Given: Not Answered Alcohol Use Standard Drinks/Week Comments Yes 0 (1 standard drink = 0.6 oz pure alcohol) monthly, Caffeine intake: 1 cup coffee PHQ-2 Answer Date Recorded Patient Health Questionnaire-2 Score 0 08/11/2022 Comments Unknown Sex and Gender Information Value Date Recorded Sex Assigned at Not on file Legal Sex Female 7:24 PM EDT Gender Identity Not on file Sexual Orientation Not on file documented as of this encounter Plan of Treatment Upcoming Encounters Date Type Department Care Team (Late Contact Info) Description 02/06/2025 1:15 PM EST Office Visit [facility] [place] [facility] [address] [place] [address] Catalino Collins DO [address] [place], [place] [address] documented as of this encounter Visit Diagnoses Not on filedocumented in this encounter Care Teams Workers Compensation Defense Attorney Relationship Specialty Start Date End Date Jadyn Leung MD [address] [place] [address] PCP - General Family Medicine 08/11/22 Rosey Malagon DO PCP - ACO Reach 08/13/22 05/20/23 Jadyn Leung MD [address] [place] [address] PCP - ACO Reach 07/21/23 documented as of this encounter
--- OUTSIDE RECORDS SUMMARY | 2024-12-25 12:55 | XMS_ITS | Encounter Summary ---
Author Organization [facility] Address [address] [place] [address] Phone Care Team Providers Care Feed Mill Manager Name Role Phone Jadyn Leung MD Primary Care Provider [phone] Encounter Details Date Type Department Care Team (Late st Contact Info) Description 02/08/2018 Orders Only [facility] [address] [place] [address] Conversion, Onbase Social History Tobacco Use Types [...] r Schedule OUTSIDE LAB SCAN Lab Ordered: 02/08/2018 documented as of this encounter Visit Diagnoses Not on filedocumented in this encounter Care Teams Feed Mill Manager Relationship Specialty Start Date End Date Jadyn Leung MD [address] [place] [address] PCP - General 01/13/21 documented as of this encounter
--- OUTSIDE RECORDS SUMMARY | 2024-12-25 12:55 | XMS_ITS | Clinical Summary ---
Author Organization [facility] Address [address] [facility] [place] [address] Care Team Providers Care Supervisor Capacitor Processing Name Role Phone Unavailable Primary Care Provider Unavailabl e Source Comments The following information is NOT included in Care Everywhere downloads:Psychiatric notes, ECG results, Cardiac Rehab notes, Pulmonary Function notes, data from SmartForms (includes but not limited toPregnancy data,audiograms, eye exams, pre-surgical evaluation notes, well-child exam data).[facility] Immunizations Immunization Administration Dates Next Due Influenza, injectable, high dose seasonal, trivalent, preservative free (EYD=828) 01/29/2017 Influenza, injectable, high- dose seasonal, quadrivalent, preservative free (ITC=350) 02/25/2022,12/12/2020 Influenza, injectable, recom binant, trivalent, preservative free (SPJ=335) 04/05/2024 Moderna Bivalent (6m-5y dose 1 or 2, 25 mcg/0.25 mL; 6-11y any dose, 25 mcg/0.25 mL; 12+ yrs any dose, 50 mcg/0.5 mL) COVID-19, mRNA, (ZOM=589) 04/29/2022 Tdap (GNT=149) 11/18/2015 Social History Tobacco Use Types Packs/Day Years Used Date Smoking Tobacco: Never Assessed Comments Unknown Sex and Gender Information Value Date Recorded Sex Assigned at Not on file Legal Sex Female 10:57 PM EST Gender Identity Not on file Sexual Orientation Not on file Plan of Treatment Health Maintenance Due Date Last Done Comments Hepatitis C Antibody 1965 Hepatitis A (HAV) Vaccine (optional start 19+ years) 1966 Pneumococcal Vaccine(s) (50+ yrs) (1 of 1 - PCV) 1997 Shingles (RZV) Vaccine (1 of 2) 1997 Hepatitis B (HBV) Vaccine (optional start 60+ years) 2007 Bone Densitometry 2012 Annual Wellness Visit (G0438) 04/22/2013 RSV vaccine (adult) (1 - 1-d ose 75+ series) 2022 COVID-19 Vaccine (2024-2 6 season) 2024 04/29/2022, 04/29/2022, 10/08/2021, Additional history exists Influenza Vaccine (#1) 2024 , 02/25/2022, 12/12/2020, Additional history exists Tetanus (Td or Tdap) Booster 11/17/2025 11/18/2015 Tdap Booster Completed 11/18/2015 Pap Smear Discontinued Insurance [facility]IC[facility] Address: [address] [place] [address]
--- OUTSIDE RECORDS SUMMARY | 2024-12-25 12:55 | XMS_ITS | Encounter Summary ---
Author Organization [facility] Address [address] [place] [address] Care Team Providers Care Dead Mail Checker Name Role Phone Unavailable Primary Care Provider Unavailabl e Encounter Details Date Type Department Care Team (Late st Contact Info) Description 06/19/2021 Abstract PATIENT ACUITY SCORE Social History Tobacco Use Types Packs/Day Years [...]
--- OUTSIDE RECORDS SUMMARY | 2024-12-25 12:55 | XMS_ITS ---
Author Organization [facility] Address [address] [place] [address] Care Team Providers Care Cutter And Presser Name Role Phone Jadyn Leung MD Primary Care Provider [phone] Jaydn Leung MD Unavailable [phone] Senior Living Facility Transitional Care Management Status:Enrolled (Active) Start date:12/20/2024 Enrollment date:12/22/2024 Enrollment reason:Identified using hospital discharge data Overview Patient discharged from [facility] on 12/20. Patient admitted to [facility]. Please contact SNF facility for JL (inpt to SNF) within 48 hours. Case Team Name Relationship Phone Leeann Robertson LPN(Responsible Staff) Licensed Pr actical Nurse [phone] Continued Care and Services Coordination
--- OUTSIDE RECORDS SUMMARY | 2024-12-25 12:55 | XMS_ITS | Encounter Summary ---
Author Organization [facility] Address [address] [place] [address] Care Team Providers Care Wirer Maintenance Name Role Phone Jadyn Leung MD Primary Care Provider [phone] Jadyn Leung MD Unavailable [phone] Reason for Visit * Reason Onset Date Comments Transfering patient to [facility] 12/13/2024 Encounter Details Date Type Department Care Team (Late st Contact Info) Description 12/13/2024 Telephone [facility] [address] [facility] [place] [address] Ana Ott MA Transfering patient to [facility] Social History Tobacco Use Types Packs/Day Years [...] encounter Miscellaneous Notes * Telephone Encounter - Ana Ott MA - 12/13/2024 2:[address] Ochoa accepted patient. U is coordinating transportation to [facility] to be admitted. Called patients and informed. * Telephone Encounter - Ana Ott MA - 12/13/2024 10:02 AM EDT Per MTP called [facility], Dr. Jose Ochoa, referral line and spoke with Miracle at [phone]. 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 Images were pushed over to there PACS. She sta malka that Dr. Sanders is in surgery all day but she will try to have him look over images in between. She stated that if she does not here back today that he is in office in the morning tomorrow and she will let us know then. Called patients , Kennedi, at [phone] and informed that his original request for patient go to [facility] was declined due to the surgeon being unable to take the patient. Let him know we are awaiting to here back from [facility] and will update him as soon as we can. Also called TCU and spoke with nurse Bernal at [phone] and informed of all info above and thatwe will update once we can. documented in this encounter Plan of Treatment Upcoming Encounters Date Type Department Care Team (Late st Contact Info) Description 02/06/2025 1:15 PM EST Office Visit [facility] [address] [place] [address] Catalino Collins DO [address] [place] [address] documented as of this encounter Visit Diagnoses Not on filedocumented in this encounter Additional Health Concerns Assessment Noted Time PHQ-9 Depression Total Score: 0 10/20/19 23 12:00 PM EDT documented as of this encounter Care Teams Wirer Maintenance Relationship Specialty Start Date End Date Jadyn Leung MD [address] [place] [address] PCP - General Family Medicine 08/11/22 Jadyn Leung MD [address] [place] [address] PCP - ACO Reach 07/21/23 documented as of this encounter
--- OUTSIDE RECORDS SUMMARY | 2024-12-25 12:55 | XMS_ITS | Clinical Summary ---
Author Organization [facility] Address [address], [address] [place] [address] Care Team Providers Care Wireworker Supervisor Name Role Phone Anju Jacobsen MD Primary Care Provider [phone] Allergies Active Allergy Reactions Criticality Noted Date Comments Codeine 05/11/2011 Other reaction(s): Mental Status Change Morphine Rash Low 12/22/2016 Moxifloxacin Anaphylaxis High 05/11/2011 Penicillins Nausea And Vomiting Low 05/11/2011 Medications pramipexole (MIRAPEX) 0.25 MG tablet Take 1 tablet by mouth nightly Active pantoprazole (PROTONIX) 40 MG tablet Take 1 tablet by mouth daily Active Multiple Vitamins-Minera ls (THERAPEUTIC MULTIVITAMIN-MD NERALS) tablet Take 1 tablet by mouth daily Active ascorbic acid (VITAMIN C) 500 MG tablet Take 1 tablet by mouth daily Active ferrous sulfate (IRON 325) 325 (65 Fe) MG tablet Take 1 tablet by mouth daily (with breakfast) Active sodium chloride 1 g tablet Take 1 tablet by mouth 3 times daily Active carboxymethylce llulose 1 % ophthalmic solution Place 1 drop into both eyes every 2 hours as needed for Dry Eyes Active magnesium hydroxide (MILK OF MAGNESIA) 400 MG/5ML suspension Take 30 mLs by mouth daily as needed for Constipation Active DAPTOmycin (CUBICIN) infusion Infuse 219.2 mg intravenously in the morning. 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 7 g 1 12/19/19 Active cefTRIAXone (ROCEPHIN) infusion Infuse 2,000 mg intravenously every 12 hours Stop after 01/27/25 - then stop and pull line - 120 g 1 12/19/19 Active aspirin 81 MG chewable tablet Take 1 tablet by mouth in the morning and at bedtime 12/20/19 Active potassium chloride (KLOR-CON M) 10 MEQ extended release tablet Take 1 tablet by mouth 2 times daily 12/21/19 Active magnesium oxide (MAG-OX) 400 MG tablet Take 1 tablet by mouth daily 12/21/19 Active oxybutynin (DITROPAN) 5 MG tablet Take 1 tablet by mouth 3 times daily Discontinu ed(Stop Taking at Discharge) clonazePAM (KLONOPIN) 0.5 MG tablet Take 0.5 mg by mouth 2 times daily as needed.. Discontinu ed(DISCONT INUED BY ANOTHER CLINICIAN) ibuprofen (ADVIL;MOTRIN) 800 MG tablet Take 1 tablet by mouth every 6 hours as needed for Pain Discontinu ed(Stop Taking at Discharge) levothyroxine (SYNTHROID) 25 MCG tablet Take 25 mcg by mouth Daily Discontinu ed(Medicat ion Clarified) pantoprazole sodium (PROTONIX) 40 MG PACK packet Take 40 mg by mouth every morning (before breakfast) Discontinu ed(Medicat ion Clarified) pramipexole (MIRAPEX) 0.125 MG tablet Take 2 tablets by mouth nightly Discontinu ed(Medicat ion Clarified) sulfamethoxazol e-trimethoprim (BACTRIM;SEPTRA ) 400-80 MG per tablet Take 1 tablet by mouth 2 times daily Discontinu ed(Therapy completed) folic acid (FOLVITE) 1 MG tablet Take 1 tablet by mouth daily Discontinu ed(Stop Taking at Discharge) thiamine (B-1) 100 MG/ML injection Infuse 1 mL intravenously daily Discontinu ed(Stop Taking at Discharge) oxyCODONE-aceta minophen (PERCOCET) 5-325 MG per tablet Take 1 tablet by mouth every 4 hours as needed for Pain. 025 Discontinu ed(Stop Taking at Discharge) oxyCODONE-aceta minophen (PERCOCET) 5-325 MG per tabletIndicatio ns:Closed dislocation of right hip, initial encounter ([facility]) Take 1 tablet by mouth every 6 hours as needed for Pain for up to 5 days. 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 CRP elevated 12/14/2024 Anterior dislocation of right hip, initial encou nter 12/13/2024 Hyponatremia 12/13/2024 Hypokalemia 12/13/2024 Lumbar degenerative disc disease 12/22/2016 GERD (gastroesophageal reflux disease) Anemia Resolved Problems Problem Noted Date Diagnosed Date Resolved Date Hypothyroidism 12/19/2024 Encounters Date Type Department Care Team Description 12/21[facility]2024 [facility] [place] [id number] Rafaela Yen MD Appointment Requested (Post hosp ) 12/14/2024 1:55 PM EDT - 12/14/2024 4:35 PM EDT Surgery [facility] OR [address] [place] [id number] Ramses Abarca, DO HIP IRRIGATION AND DEBRIDEMENT, REVISION OF HEMIARTHROPLASTY 12/14/2024 1:50 PM EDT Anesthesia Event [facility] OR [address] [place] [id number] Luis Salinas MD Noble, Erica N, HEAD SAMPLER - BIAZZI NITRATOR OPERATOR 12/13/2024 3:18 PM EDT - 12/20/2024 2:16 PM EDT Hospital Encounter [facility] Ortho/Med Surg [address] [place] [address] Alek Joe MD Krebs, William, DO Barron, Naif Nicole, All Boles I, Edgar HANSON Sra, MD Closed dislocation of right hip, initial encounter ([facility]) (Primary Dx); 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 No 12/14/2024 AUDIT-C Answer Date [...] things needed for daily living? No 12/14/2024 [facility] Utilities Answer Date Recorded In the past 12 months has e [employer], [employer], oil, or water [employer] threatened to shut off services in your [...] Mass Index 20.77 12/14/2024 12:42 PM EDT Plan of Treatment Upcoming Encounters Date Type Department Care Team (Late st Contact Info) Description 01/03/2025 11:30 AM EDT Office Visit [facility] [address] [place] [address] Ramses Abarca DO [address] [place] [address] DOS: 12/14, R hip I&D/Hemirev 01/31/2025 2:15 PM EST Office Visit [facility], [facility] [address] [place], [place] [id number] Rafaela Yen MD [address], [address] [place] [address] 1 month post hospital follow up Health Maintenance Due Date Last Done Comments Depression Screen 1959 Hepatitis C screen 1965 Pneumococcal 50+ years Vaccine (1 of 1 - PCV) 1997 Shingles vaccine (1 of 2) 1997 DEXA (modify frequency per FRAX score) 2002 Respiratory Syncytial Virus (RSV) or age 60 yrs+ (1 - 1-dose 75+ series) 2022 Flu vaccine (#1) 10/20/2024 04/05/2024, 09/2021, 12/12/2020, Additional history exists COVID-19 Vaccine ( season) 2024 04/29/2022, 10/08/2021, 08/09/2020, Additional history exists Annual Wellness Visit (Medicare) 12/13/2024 DTaP/Tdap/Td vaccine (2 - Td or Tdap) 11/17/2025 11/18/2015 Hepatitis A vaccine Aged Out No longe r eligible based on patient's age to complete this topic Hepatitis B vaccine Aged Out No longe r eligible based on patient's age to complete this topic Hib vaccine Aged Out No longer eligi ble based on patient's age to complete this topic Meningococcal (ACWY) vaccine Aged Out No longer eligible based on patient's age to complete this topic Meningococcal B vaccine Aged Out No l onger eligible based on patient's age to complete this topic Polio vaccine Aged Out No longer elig ible based on patient's age to complete this topic Medical Devices Implanted Type Area Row Boss Device Identifier Shelf Expiration Date Model / Serial / Lot Cement Bone 40 Gm W/ Gentmycn Hi Visc Palacos R+G - [id number] Implanted:Qty: 1 on 12/14/2024 by Ramses Abarca DO at [facility] Right: Hip [employer] [id number] 02/18/2027 [id number] / / [id number] Stem Fem Sz 1 L120mm Hip Co Chrom Hi Offset Prostalac - [id number] Implanted:Qty: 1 on 12/14/2024 by Ramses Abarca DO at [facility] Right: Hip [employer]J [employer] [id number] 04/21/2034 [id number] / / [id number] Head Bplr Od45mm Id28mm Fem Hip Self Cntr - [id number] Implanted:Qty: 1 on 12/14/2024 by Ramses Abarca, DO at [facility] Right: Hip [employer] [id number] 09/18/2029 [id number] / / [id number] Head Fem [id number] Nk L+1.5mm Hip Mtl On 03/04 Tapr - [id number] Implanted:Qty: 1 on 12/14/2024 by Ramses Abarca, DO at [facility] Right: Hip JN [employer] [id number] 07/19/2029 [id number] / / [id number] Impl Capped H7 Bipolar Liner And Head Depuysynthes - [id number] Implanted:Qty: 1 on 12/14/2024 by Ramses Abarca, DO at [facility] [employer] [id number] / / Explanted Type Area Row Boss Device Identifier Shelf Expiration Date Model / Serial / Lot Right Hip Stem And Head Explanted Explanted:Qty: 2 on 12/14/2024 by Ramses Abarca, DO at [facility] Right: Hip Procedures Procedure Name Priority Date/Time Associated Diagnosis Comments POC GLUCOSE FINGERSTICK Routine 12/21/19 7:17 AM EDT MAGNESIUM Routine 12/20/2024 6:09 AM EDT CBC WITH AUTO DIFFERENTIAL Routine 12/20/2024 6:09 AM EDT BASIC METABOLIC PANEL Routine 12/20/2024 6:09 AM EDT CK Routine 12/20/2024 6:09 AM EDT MAGNESIUM Routine 12/19/2024 8:34 PM EDT POC GLUCOSE FINGERSTICK Routine 12/20/19 5:00 PM EDT XR HIP 2-3 VW W PELVIS RIGHT STAT 12/19/2024 5:00 PM EDT IR PICC WO SQ PORT/PUMP > 5 YEARS Routine 12/19/2024 4:39 PM EDT MAGNESIUM Routine 12/19/2024 5:03 AM EDT CBC WITH AUTO DIFFERENTIAL Routine 12/19/2024 5:03 AM EDT BASIC METABOLIC PANEL Routine 12/19/2024 5:03 AM EDT CK Routine 12/19/2024 5:03 AM EDT C-REACTIVE PROTEIN Routine 12/19/2024 5: 03 AM EDT MAGNESIUM Routine 12/18/2024 8:32 AM EDT BASIC METABOLIC PANEL W/ REFLEX TO MG FOR LOW K Routine 12/18/2024 8:32 AM EDT HEMOGLOBIN AND HEMATOCRIT Timed 12/17/2024 3:13 PM EDT HEMOGLOBIN AND HEMATOCRIT Routine 12/17/2024 8:41 AM EDT MAGNESIUM Routine 12/17/2024 4:27 AM EDT C-REACTIVE PROTEIN Routine 12/17/2024 4: 27 AM EDT BASIC METABOLIC PANEL W/ REFLEX TO MG FOR LOW K Routine 12/17/2024 4:27 AM EDT CBC Routine 12/17/2024 4:27 AM EDT MAGNESIUM Routine 12/16/2024 11:03 AM EDT BASIC METABOLIC PANEL W/ REFLEX TO MG FOR LOW K Routine 12/16/2024 11:03 AM EDT CBC Routine 12/16/2024 11:03 AM EDT INFECTIOUS DISEASE INTERVENTION Routine 12/15/2024 1:00 PM EDT FL MODIFIED BARIUM SWALLOW W VIDEO Routine 12/15/2024 10:31 AM EDT TSH REFLEX TO FT4 Routine 12/15/2024 6:4 0 AM EDT MAGNESIUM Routine 12/15/2024 6:40 AM EDT CBC Routine 12/15/2024 6:40 AM EDT BASIC METABOLIC PANEL W/ REFLEX TO MG FOR LOW K Routine 12/15/2024 6:40 AM EDT C-REACTIVE PROTEIN Routine 12/15/2024 6: 40 AM EDT HGB/HCT Routine 12/14/2024 5:29 PM [...] WO CONTRAST STAT 12/14/2024 6:38 AM EDT COMPREHENSIVE METABOLIC PANEL W/ REFLEX TO MG FOR LOW K Routine 12/14/2024 4:11 AM EDT CBC Routine 12/14/2024 4:11 AM EDT PROTIME-INR Routine 12/14/2024 4:11 AM EDT CULTURE, BLOOD 2 Stat [facility] Label print 12/14/2024 4:11 AM EDT CULTURE, BLOOD 1 Stat [employer] Label print 12/14/2024 4:00 AM EDT XR CHEST PORTABLE STAT 12/14/2024 2:2 8 AM EDT EKG 12-LEAD STAT 12/13/2024 11:34 PM EDT IRON AND TIBC Stat [employer] Label print 12/13/2024 11:27 PM EDT RETICULOCYTES Stat [employer] Label print 12/13/2024 11:27 PM EDT VITAMIN B12 & FOLATE Stat [employer] Label print 12/13/2024 11:27 PM EDT FERRITIN Stat [facility] Label print 12/13/2024 11:27 PM EDT ETHANOL Stat [employer] Label print 12/13/2024 11:27 PM EDT XR FEMUR RIGHT (MIN 2 VIEWS) STAT 12/13/2024 11:02 PM EDT XR HIP RIGHT (2-3 VIEWS) STAT 12/13/2024 9:45 PM EDT TROPONIN Routine 12/13/2024 8:55 PM EDT BASIC METABOLIC PANEL Stat [employer] Label print 12/13/2024 8:55 PM EDT CBC Stat [employer] Label print 12/13/2024 8:55 PM EDT XR HIP RIGHT (2-3 VIEWS) STAT 12/13/2024 4:40 PM EDT SEDIMENTATION RATE Stat [employer] Label print 12/13/2024 4:30 PM EDT C-REACTIVE PROTEIN Stat [employer] Label print 12/13/2024 4:30 PM EDT from Last 3 Months Results * POC Glucose Fingerstick (12/20/2024 7:17 AM EDT) Only the most recent of3 resultswithin the time period is included. POC Glucose 105 65 - 105 mg/dL 12/20/2024 7:17 AM EDT [facility] 12/20/2024 7:17 AM EDT 12/20/2024 7:44 AM EDT Edgar Delaney Sra, MD POINT OF CARE TEST ORDERA BLES Final Result [facility] [address] [place] [address], [facility] [phone] * (ABNORMAL) CBC with Auto Differential (12/20/2024 6:09 AM EDT) Only the most recent of2 resultswithin the time period is included. WBC 5.8 3.5 - 11.3 k/uL 12/20/2024 6:09 AM EDT [facility] RBC 2.44(L) 3.95 - 5.11 m/uL 12/20/2024 6:09 AM EDT [facility] Hemoglobin 7.2(L) 11.9 - 15.1 g/dL 12/20/2024 6:09 AM EDT [facility] Hematocrit 21.2(L) 36.3 - 47.1 % 12/20/2024 6:09 AM EDT [facility] MCV 86.9 82.6 - 102.9 fL 12/20/2024 6:09 AM EDT [facility] MCH 29.5 25.2 - 33.5 pg 12/20/2024 6:09 AM EDT [facility] MCHC 34.0 28.4 - 34.8 g/dL 12/20/2024 6:09 AM EDT [facility] RDW 14.1 11.8 - 14.4 % 12/20/2024 6:09 AM EDT [facility] Platelets 296 138 - 453 k/uL 12/20/2024 6:09 AM EDT [facility] MPV 9.2 8.1 - 13.5 fL 12/20/2024 6:09 AM EDT [facility] NRBC Automated 0.0 0.0 per 100 WBC 12/20/2024 6:09 AM EDT [facility] Neutrophils % 42 36 - 65 % 12/20/2024 6:09 AM EDT [facility] Lymphocytes % 22(L) 24 - 43 % 12/20/2024 6:09 AM EDT [facility] Monocytes % 15(H) 3 - 12 % 12/20/2024 6:09 AM EDT [facility] Eosinophils % 19(H) 1 - 4 % 12/20/2024 6:09 AM EDT [facility] Basophils % 0 0 - 2 % 12/20/2024 6:09 AM EDT [facility] Immature Granulocytes % 2(H) 0 % 12/20/2024 6:09 AM EDT [facility] Neutrophils Absolute 2.45 1.50 - 8.10 k/uL 12/20/2024 6:09 AM EDT [facility] Lymphocytes Absolute 1.25 1.10 - 3.70 k/uL 12/20/2024 6:09 AM EDT [facility] Monocytes Absolute 0.87 0.10 - 1.20 k/uL 12/20/2024 6:09 AM EDT [facility] Eosinophils Absolute 1.12(H) 0.00 - 0.44 k/uL 12/20/2024 6:09 AM EDT [facility] Basophils Absolute <0.03 0.00 - 0.20 k/uL 12/20/2024 6:09 AM EDT [facility] Immature Granulocytes Absolute 0.11 0.00 - 0.30 k/uL 12/20/2024 6:09 AM EDT [facility] 12/20/2024 6:09 AM EDT 12/20/2024 6:20 AM EDT Rafaela Yen MD HEMATOLOGY ORDERABLES Final R esult Performing Organization Address City/[facility]/ZIP Co de Phone Number [facility] [address] [place] [address], [facility] [phone] * Magnesium (12/20/2024 6:09 AM EDT) Only the most recent of7 resultswithin the time period is included. Magnesium 1.7 1.6 - 2.4 mg/dL 12/20/2024 6:09 AM EDT [facility] 12/20/2024 6:09 AM EDT 12/20/2024 6:20 AM EDT Rafaela Yen MD CHEMISTRY ORDERABLES Final Re sult Performing Organization Address City/[facility]/ZIP Co de Phone Number [facility] [address] [place] [address], [facility] [phone] * CK (12/20/2024 6:09 AM EDT) Only the most recent of2 resultswithin the time period is included. Total CK 50 26 - 192 U/L 12/20/2024 6:09 AM EDT [facility] Blood BLOOD SPECIMEN / Unknown 12/20/2024 6:09 AM EDT 12/20/2024 6:20 AM EDT us Rafaela Yen MD CHEMISTRY ORDERABLES Final Re sult [facility] [address] [place] [address], [facility] [phone] * (ABNORMAL) Basic Metabolic Panel (12/20/2024 6:09 AM EDT) Only the most recent of3 resultswithin the time period is included. Sodium 129(L) 136 - 145 mmol/L 12/20/2024 6:09 AM EDT [facility] Potassium 3.1(L) 3.7 - 5.3 mmol/L 12/20/2024 6:09 AM EDT [facility] Chloride 96(L) 98 - 107 mmol/L 12/20/2024 6:09 AM EDT [facility] CO2 21 20 - 31 mmol/L 12/20/2024 6:09 AM EDT [facility] Anion Gap 12 9 - 16 mmol/L 12/20/2024 6:09 AM EDT [facility] Glucose 106(H) 74 - 99 mg/dL 12/20/2024 6:09 AM EDT [facility] BUN 3(L) 8 - 23 mg/dL 12/20/2024 6:09 AM EDT [facility] Creatinine 0.4(L) 0.6 - 0.9 mg/dL 12/20/2024 6:09 AM EDT [facility] Est, Glom Filt Rate >90 >60 mL/min/1. 73m2 12/20/2024 6:09 AM EDT [facility] Comment: These results are not intended for [...] - 10.4 mg/dL 12/20/2024 6:09 AM EDT [facility] 12/20/2024 6:09 AM EDT 12/20/2024 6:20 AM EDT us Rafaela Yen MD CHEMISTRY ORDERABLES Final Re sult [facility] [address] [place] [address], [facility] [phone] * XR HIP 2-3 VW W PELVIS RIGHT (12/19/2024 5:00 PM EDT) Only the most recent of2 resultswithin the time period is included. Anatomical Region Laterality Modality Pelvis, Hip Computed [...] the right hip. Incompletely imagedpresacral nerve stimulator. us Oliver Real DO IMG DIAGNOSTIC IMAGING ORDERABLE S Final [...] the procedure including risks, benefits, and alternatives. [place] protocol was observed. The left upper arm [...] peel-a-way sheath and a 34 cm 4 Citizen [place] PICC was advanced with fluoroscopic guidance with the tip at the cavo-atrial junction; a 0.018 inch glidewire was required to pass somewhat angled segment at the axillary subclavian junction, followed by a 4 [place] angled glide catheter. Through the latter, the [...] of theprocedure including risks, benefits, and alternatives. [place] protocol wasobserved. The left upper arm was [...] peel-a-way sheath and a 34 cm 4 Citizen [place] PICC was advanced with fluoroscopic guidance with the tip at the cavo-atrial junction; a 0.018inch glidewire was required to pass somewhat angled segment at the axillary subclavian junction, followed by a 4 [place] angled glide catheter.Through the latter, the standard [...] is ready for use at this time. us Edgar Delaney Sra, MD IMG IR ORDERABLES Final R esult * (ABNORMAL) C-Reactive Protein (12/19/2024 5:03 AM EDT) Only the most recent of4 resultswithin the time period is included. CRP 16.8(H) 0.0 - 5.0 mg/L 12/19/2024 5:03 AM EDT [facility] Blood BLOOD SPECIMEN / Unknown 12/19/2024 5:03 AM EDT 12/19/2024 5:22 AM EDT Quang Givens DO CHEMISTRY ORDERABLES Final Resul t [facility] [address] [place] [address], [facility] [phone] * (ABNORMAL) Basic Metabolic Panel w/ Reflex to MG (12/18/2024 8:32 AM EDT) Only the most recent of4 resultswithin the time period is included. Sodium 127(L) 136 - 145 mmol/L 12/18/2024 8:32 AM EDT [facility] Potassium 3.2(L) 3.7 - 5.3 mmol/L 12/18/2024 8:32 AM EDT [facility] Chloride 98 98 - 107 mmol/L 12/18/2024 8:32 AM EDT [facility] CO2 19(L) 20 - 31 mmol/L 12/18/2024 8:32 AM EDT [facility] Anion Gap 10 9 - 16 mmol/L 12/18/2024 8:32 AM EDT [facility] Glucose 78 74 - 99 mg/dL 12/18/2024 8:32 AM EDT [facility] BUN 6(L) 8 - 23 mg/dL 12/18/2024 8:32 AM EDT [facility] Creatinine 0.4(L) 0.6 - 0.9 mg/dL 12/18/2024 8:32 AM EDT [facility] Est, Glom Filt Rate >90 >60 mL/min/1. 73m2 12/18/2024 8:32 AM EDT [facility] Comment: These results are not intended for [...] - 10.4 mg/dL 12/18/2024 8:32 AM EDT [facility] Blood BLOOD SPECIMEN / Unknown 12/18/2024 8:32 AM EDT 12/18/2024 8:37 AM EDT All Schmidt I, CHEMISTRY ORDERABLES Fin al Result Performing Organization Address [facility] de Phone Number [facility] [address] [place] [address], [facility] [phone] * (ABNORMAL) Hemoglobin and Hematocrit (12/17/2024 3:13 PM EDT) Only the most recent of2 resultswithin the time period is included. Hemoglobin 9.3(L) 11.9 - 15.1 g/dL 12/17/2024 3:13 PM EDT [facility] Hematocrit 29.1(L) 36.3 - 47.1 % 12/17/2024 3:13 PM EDT [facility] BLOOD SPECIMEN / Unknown 12/17/2024 3:13 PM EDT 12/17/2024 3:16 PM EDT Anju Edwards NP HEMATOLOGY ORDERABLES Fin al Result Performing Organization Address City/[facility] Co de Phone Number [facility] [address] [place] [address], [facility] [phone] * (ABNORMAL) CBC (12/17/2024 4:27 AM EDT) Only the most recent of5 resultswithin the time period is included. WBC 6.9 3.5 - 11.3 k/uL 12/17/2024 4:27 AM EDT [facility] RBC 2.39(L) 3.95 - 5.11 m/uL 12/17/2024 4:27 AM EDT [facility] Hemoglobin 7.0(LL) 11.9 - 15.1 g/dL 12/17/2024 4:27 AM EDT [facility] Hematocrit 20.9(L) 36.3 - 47.1 % 12/17/2024 4:27 AM EDT [facility] MCV 87.4 82.6 - 102.9 fL 12/17/2024 4:27 AM EDT [facility] MCH 29.3 25.2 - 33.5 pg 12/17/2024 4:27 AM EDT [facility] MCHC 33.5 28.4 - 34.8 g/dL 12/17/2024 4:27 AM EDT [facility] RDW 13.5 11.8 - 14.4 % 12/17/2024 4:27 AM EDT [facility] Platelets 190 138 - 453 k/uL 12/17/2024 4:27 AM EDT [facility] MPV 9.4 8.1 - 13.5 fL 12/17/2024 4:27 AM EDT [facility] NRBC Automated 0.0 0.0 per 100 WBC 12/17/2024 4:27 AM EDT [facility] Blood BLOOD SPECIMEN / Unknown 12/17/2024 4:27 AM EDT 12/17/2024 4:32 AM EDT Anju Garland APRN - HAND PLATE STACKER HEMATOLOGY ORDERABLES Fin al Result [facility] [address] [place] [address] * Infectious Disease Intervention (12/15/2024 1:00 PM EDT) Intervention Drug-Lab Mismatch 12/15/2024 1:00 PM EDT [facility] 12/15/2024 1:00 PM EDT 12/15/2024 3:25 PM EDT Rafaela Yen MD MICROBIOLOGY - GENERAL ORDERA BLES Final Result Performing Organization Address City/[facility]/ZIP Co de Phone Number [facility] [address] [place] [address], [facility] [phone] * FL MODIFIED BARIUM SWALLOW W VIDEO [...] performed in conjunction with the speech-language pathologist (TACK CLEANER). Various liquid, solid and/or semi-solid barium preparations [...] were performed in conjunction with the speech-language pathologist(TACK CLEANER). Various liquid, solid and/or semi-solid barium preparations [...] full discussion offindings and recommendations. Anju Garland APRN - REAL IMG FLUOROSCOPY ORDERABLE S Final Result * TSH reflex to FT4 (12/15/2024 6:40 AM EDT) TSH 0.97 0.27 - 4.20 uIU/mL 12/15/2024 6:40 AM EDT [facility] 12/15/2024 6:40 AM EDT 12/15/2024 6:56 AM EDT Quang Givens DO CHEMISTRY ORDERABLES Final Resul t [facility] [address] [place] [address], [facility] [phone] * (ABNORMAL) Hemoglobin and hematocrit, blood (12/14/2024 5:29 PM EDT) POC Hemoglobin (calc) 10.3(L) 12.0 - 16.0 g/dL 12/14/2024 5:29 PM EDT [facility] POC Hematocrit 30(L) 36 - 46 % 12/14/2024 5:29 PM EDT [facility] 12/14/2024 5:29 PM EDT 12/14/2024 5:32 PM EDT Mohammad Mashaleh I, DO HEMATOLOGY ORDERABLES Fi nal Result Performing Organization Address City/[facility]/ZIP Co de Phone Number [facility] [address] [place] [address], [facility] [phone] * Transfuse RBC (12/14/2024 4:35 PM EDT) Only the most recent of2 resultswithin the time period is included. Beverley Huber MD NURSING TREATMENT ORDERABLES - BLOOD ADMIN Final Result * FLUORO FOR SURGICAL PROCEDURES (12/14/2024 4:24 PM EDT) Narrative [facility] CONSOLID[facility] - 12/14/2024 4:25 PM EDT Radiology exam is complete. No Radiologist dictation. Please follow up with ordering provider. Rasmes Abarca DO IMG FLUOROSCOPY ORDERABLES Final Result Performing Organization Address City/[facility]/ZIP Co de Phone Number [facility] CONSOLIDATED * (ABNORMAL) OPEN HEART PANEL (12/14/2024 4:06 PM EDT) Only the most recent of2 resultswithin the time period is included. pH, Arterial 7.333(L) 7.350 - 7.450 12/14/2024 4:06 PM EDT [facility] pCO2, Arterial 41.1 32 - 45 mmHg 12/14/2024 4:06 PM EDT [facility] pO2, Arterial 203.9(H) 75 - 95 mmHg 12/14/2024 4:06 PM EDT [facility] HCO3, Arterial 21.3(L) 22 - 27 mmol/L 12/14/2024 4:06 PM EDT [facility] Negative Base Excess, Art 4.2(H) 0.0 - 2.0 mmol/L 12/14/2024 4:06 PM EDT [facility] O2 Sat, Arterial 99.3 94 - 100 % 12/14/2024 4:06 PM EDT [facility] Carboxyhemoglobin 0.2 0 - 5 % 025 4:06 PM EDT [facility] Comment: Reference Range: Non-Smokers 0-2% Average Smoker 2-4% Heavy Smoker <10% Pt Temp 36.3 12/14/2024 4:06 PM EDT [facility] Mauro Test INFORMATION NOT PROVIDED 12/14/2024 4:06 PM EDT [facility] FIO2 60% 12/14/2024 4:06 PM EDT [facility] Hemoglobin 5.9(LL) 11.9 - 15.1 gm/dL 12/14/2024 4:06 PM EDT [facility] Hematocrit 17.0(L) 36.3 - 47.1 % 12/14/2024 4:06 PM EDT [facility] POC Glucose 151(H) 65 - 105 mg/dL 12/14/2024 4:06 PM EDT [facility] Chloride, Whole Blood 108 98 - 110 mmol/L 12/14/2024 4:06 PM EDT [facility] Potassium, Whole Blood 3.0(L) 3.6 - 5.0 mmol/L 12/14/2024 4:06 PM EDT [facility] Sodium, Whole Blood 133(L) 136 - 145 mmol/L 12/14/2024 4:06 PM EDT [facility] 12/14/2024 4:06 PM EDT 12/14/2024 4:12 PM EDT [facility] I, DO CHEMISTRY ORDERABLES Fin al Result Performing Organization Address City/[facility]/ZIP Co de Phone Number [facility] [address] [place] [address] * Lactic Acid (12/14/2024 4:06 PM EDT) Only the most recent of2 resultswithin the time period is included. Lactic Acid, Whole Blood 0.8 0.7 - 2.1 mmol/L 12/14/2024 4:06 PM EDT [facility] 12/14/2024 4:06 PM EDT 12/14/2024 4:12 PM EDT [employer] I, DO CHEMISTRY ORDERABLES Fin al Result Performing Organization Address City/[facility]/ZIP Co de Phone Number [facility] [address] [place] [address], [facility] [phone] * (ABNORMAL) Calcium, Ionized (12/14/2024 4:06 PM EDT) Only the most recent of2 resultswithin the time period is included. Pathologist [facility] Calcium, Ionized 1.05(L) 1.13 - 1.33 mmol/L 12/14/2024 4:06 PM EDT [facility] 12/14/2024 4:06 PM EDT 12/14/2024 4:12 PM EDT [employer] DO CHEMISTRY ORDERABLES Fin al Result Performing Organization Address City/[facility]/[place] [address], [facility] [phone] * Culture, Anaerobic and Aerobic (12/14/2024 3:35 PM EDT) [facility] Specimen Description .HIP SWAB 12/14/2024 3:35 PM EDT [facility] Special Requests Site: Swab 12/14/2024 3:35 PM EDT [facility] Direct Exam FEW NEUTROPHILS 12/14/2024 3:35 PM EDT [facility] Direct Exam NO ORGANISMS SEEN 12/14/2024 3:35 PM EDT [facility] Culture NORMAL SKIN DANN 12/14/2024 3:35 PM EDT [facility] Culture No anaerobic organisms isolated at 5 days. 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, initial encounter [T84.51XA] Ramses Abarca DO MICROBIOLOGY - GENERAL ORD ERABLES Final Result Performing Organization Address City/[facility]/ZIP Co de Phone Number [facility] [address] [place] [address], [facility] [phone] * TYPE AND SCREEN (12/14/2024 1:42 PM EDT) [facility] Blood Bank Sample Expiration 12/17/2024,2359 12/14/2024 2:13 PM EDT [facility] Arm Band Number [id number] 12/14/2024 2:16 PM EDT [facility] ABO/Rh O POSITIVE 12/14/2024 2:13 PM EDT [facility] Antibody Screen NEGATIVE 12/14/2024 2:16 PM EDT [facility] Unit Number [id number] 12/14/2024 2:16 PM EDT [facility] Component Leukocyte Reduced Red Cell 12/14/2024 2:16 PM EDT [facility] Unit Divison 00 12/14/2024 2:16 PM EDT [facility] Dispense Status Blood Bank TRANSFUSED 12/15/2024 6:54 AM EDT [facility] Unit Issue Date/Time [id number] 12/15/2024 6:54 AM EDT [facility] Product Code Blood Bank [id number] 12/15/2024 6:54 AM EDT [facility] Blood Bank Unit Type and Rh O POS 12/15/2024 6:54 AM EDT [facility] Blood Bank ISBT Product Blood Type 5100 12/15/2024 6:54 AM EDT [facility] Blood Bank Blood Product Expiration Date [id number] 12/15/2024 6:54 AM EDT [facility] Transfusion Status OK TO TRANSFUSE 12/14/2024 2:16 PM EDT [facility] Crossmatch Result COMPATIBLE 12/14/2024 2:16 PM EDT [facility] Unit Number [id number] 12/14/2024 2:16 PM EDT [facility] Component Leukocyte Reduced Red Cell 12/14/2024 2:16 PM EDT [facility] Unit Divison 00 12/14/2024 2:16 PM EDT [facility] Dispense Status Blood Bank TRANSFUSED 12/15/2024 6:54 AM EDT [facility] Unit Issue Date/Time [id number] 12/15/2024 6:54 AM EDT [facility] Product Code Blood Bank [id number] 12/15/2024 6:54 AM EDT [facility] Blood Bank Unit Type and Rh O POS 12/15/2024 6:54 AM EDT [facility] Blood Bank ISBT Product Blood Type 5100 12/15/2024 6:54 AM EDT [facility] Blood Bank Blood Product Expiration Date [id number] 12/15/2024 6:54 AM EDT [facility] Transfusion Status OK TO TRANSFUSE 12/14/2024 2:16 PM EDT [facility] Crossmatch Result COMPATIBLE 12/14/2024 2:16 PM EDT [facility] Blood BLOOD SPECIMEN / Unknown 12/14/2024 1:42 PM EDT 12/14/2024 1:42 PM EDT us Beverley Huber MD BLOOD BANK TEST ORDERABLES Fi nal Result [facility] [address] [place] [address], [facility] [phone] * CT HEAD WO CONTRAST (12/14/2024 8:32 [...] visualized skull or soft tissues. Procedure Note Ruiz, Chevy V, MD - 12/14/2024 EXAMINATION: CT OF THE [...] MD IMG CT ORDERABLES Final Result * CT HIP RIGHT WO CONTRAST (12/14/2024 [...] to recent surgery, trauma and/or infection. 4. Sare-bm-jmamhdiz edema in the subcutaneous fat about the [...] bladder which can be seen with cystitis. Odoa-qh-visaaxyv edema in the subcutaneous fat about the [...] urinary bladder which can be seenwith cystitis. Pfor-sc-tszlsajy edema in the subcutaneous fat about the [...] to recent surgery, trauma and/or infection. 4. Illr-ts-wbxoirpp edema in the subcutaneous fat about the bilateral hip/thighs, right greater than left. 5. Moderate edema/fluid in the presacral fat. 6. Mild fat stranding of the urinary bladder which can be seen withcystitis. Correlate with urinalysis. 7. Mild left hip osteoarthrosis. Neetu Felipe DO IMG CT ORDERABLES Final Result * Culture, Blood 2 (12/14/2024 4:11 AM EDT) Specimen Description .BLOOD 12/14/2024 4:11 AM EDT [facility] Special Requests LEFT AC 9 ML 12/14/2024 4:11 AM EDT [facility] Culture NO GROWTH 5 DAYS 12/14/2024 4:11 AM EDT [facility] BLOOD SPECIMEN / Unknown 12/14/2024 4:11 AM EDT 12/14/2024 4:26 AM EDT Ankit Ridley MD MICROBIOLOGY - GENERAL ORDERABL ES Final Result [facility] [address] [place] [address], [facility] [phone] * (ABNORMAL) Comprehensive Metabolic Panel w/ Reflex to MG (12/14/2024 4:11 AM EDT) Sodium 133(L) 136 - 145 mmol/L 12/14/2024 4:11 AM EDT [facility] Potassium 3.8 3.7 - 5.3 mmol/L 12/14/2024 4:11 AM EDT [facility] Chloride 99 98 - 107 mmol/L 12/14/2024 4:11 AM EDT [facility] CO2 19(L) 20 - 31 mmol/L 12/14/2024 4:11 AM EDT [facility] Anion Gap 15 9 - 16 mmol/L 12/14/2024 4:11 AM EDT [facility] Glucose 113(H) 74 - 99 mg/dL 12/14/2024 4:11 AM EDT [facility] BUN 6(L) 8 - 23 mg/dL 12/14/2024 4:11 AM EDT [facility] Creatinine 0.4(L) 0.6 - 0.9 mg/dL 12/14/2024 4:11 AM EDT [facility] Est, Glom Filt Rate >90 >60 mL/min/1. 73m2 12/14/2024 4:11 AM EDT [facility] Comment: These results are not intended for [...] - 10.4 mg/dL 12/14/2024 4:11 AM EDT [facility] Total Protein 5.5(L) 6.6 - 8.7 g/dL 12/14/2024 4:11 AM EDT [facility] Albumin 2.5(L) 3.5 - 5.2 g/dL 12/14/2024 4:11 AM EDT [facility] Albumin/Globulin Ratio 0.8(L) 1.0 - 2.5 12/14/2024 4:11 AM EDT [facility] Total Bilirubin 0.3 0.0 - 1.2 mg/dL 12/14/2024 4:11 AM EDT [facility] Alkaline Phosphatase 80 35 - 104 U/L 12/14/2024 4:11 AM EDT [facility] ALT 11 10 - 35 U/L 12/14/2024 4:11 AM EDT [facility] AST 40(H) 10 - 35 U/L 12/14/2024 4:11 AM EDT [facility] 12/14/2024 4:11 AM EDT 12/14/2024 4:22 AM EDT us Naif Barron DO CHEMISTRY ORDERABLES Final Result [facility] [address] [place] [address], [facility] [phone] * (ABNORMAL) Protime-INR (12/14/2024 4:11 AM EDT) Protime 20.0(H) 11.7 - 14.9 sec 12/14/2024 4:11 AM EDT [facility] INR 1.6 12/14/2024 4:11 AM EDT [facility] Comment: Therapeutic Range: Moderate Anticoagulant Intensity: INR = 2.0-3.0 High Anticoagulant Intensity: INR = 2.5-3.5 12/14/2024 4:11 AM EDT 12/14/2024 4:22 AM EDT Naif Barron DO HEMATOLOGY ORDERABLES Final Result Performing Organization Address [facility] Co de Phone Number [facility] [address] [place] [address], [facility] [phone] * Culture, Blood 1 (12/14/2024 4:00 AM EDT) Pathologist [facility] Specimen Description .BLOOD 12/14/2024 4:00 AM EDT [facility] Special Requests LEFT UPPER ARM 7 ML 12/14/2024 4:00 AM EDT [facility] Culture NO GROWTH 5 DAYS 12/14/2024 4:00 AM EDT [facility] BLOOD SPECIMEN / Unknown 12/14/2024 4:00 AM EDT 12/14/2024 4:27 AM EDT Ankit Ridley MD MICROBIOLOGY - GENERAL ORDERABL ES Final Result Performing Organization Address [facility] Co de Phone Number [facility] [address] [place] [address] * XR CHEST PORTABLE (12/14/2024 2:28 AM [...] isidentified. IMPRESSION: No acute airspace disease identified. [facility] HEAD SAMPLER - UTILITIES OPERATOR IMG DIAGNOSTIC IMAGING ORDERABLES Final Result * EKG 12 Lead (12/13/2024 11:34 PM EDT) Ventricular Rate 88 BPM [facility] Atrial Rate 88 BPM [facility] P-R Interval 130 ms [facility] QRS Duration 82 ms [facility] Q-T Interval 380 ms [facility] QTc Calculation (Bazett) 459 ms [facility] M[facility] P [place] 69 degrees [facility] R [place] -13 degrees [facility] T [place] 18 degrees [facility] 12/13/2024 11:3 4 PM EDT Narrative [facility] M[facility] - 12/14/2024 4:47 PM EDT Normal sinus rhythm Normal ECG No previous ECGs available Procedure Note Carrie Guajardo MD - 12/14/2024 Normal sinus rhythm Normal ECG No previous ECGs available Ankit Ridley MD ECG ORDERABLES Final Result PN STV MUSE * (ABNORMAL) Vitamin B12 & Folate (12/13/2024 11:27 PM EDT) Pathologist [facility] Vitamin B-12 1423(H) 232 - 1245 pg/mL 12/13/2024 11:27 PM EDT [facility] Folate 22.4 4.8 - 24.2 ng/mL 12/13/2024 11:27 PM EDT [facility] BLOOD SPECIMEN / Unknown 12/13/2024 11:27 PM EDT 12/13/2024 11:32 PM EDT Ankit Ridley MD CHEMISTRY ORDERABLES Final Resu lt Performing Organization Address [facility] Co de Phone Number [facility] [address] [place] [address], [facility] [phone] * (ABNORMAL) Iron and TIBC (12/13/2024 11:27 PM EDT) Pathologist [facility] Iron 17(L) 37 - 145 ug/dL 12/13/2024 11:27 PM EDT [facility] TIBC 106(L) 250 - 450 ug/dL 12/13/2024 11:27 PM EDT [facility] Iron % Saturation 16(L) 20 - 55 % 12/13/2024 11:27 PM EDT [facility] UIBC 89(L) 112 - 347 ug/dL 12/13/2024 11:27 PM EDT [facility] BLOOD SPECIMEN / Unknown 12/13/2024 11:27 PM EDT 12/13/2024 11:32 PM EDT Ankit Ridley MD CHEMISTRY ORDERABLES Final Resu lt Performing Organization Address [facility]/ZIP Co de Phone Number [facility] [address] [place] [address], [facility] [phone] * (ABNORMAL) Reticulocytes (12/13/2024 11:27 PM EDT) Pathologist [facility] Retic Ct Pct 1.4 0.5 - 1.9 % 12/13/2024 11:27 PM EDT [facility] Absolute Retic # 0.034 0.030 - 0.080 M/uL 12/13/2024 11:27 PM EDT [facility] Immature Retic Fract 15.2 2.7 - 18.3 % 12/13/2024 11:27 PM EDT [facility] Retic Hemoglobin 28.0(L) 28.2 - 35.7 pg 12/13/2024 11:27 PM EDT [facility] BLOOD SPECIMEN / Unknown 12/13/2024 11:27 PM EDT 12/13/2024 11:32 PM EDT us Ankit Ridley MD HEMATOLOGY ORDERABLES Final Res ult Performing Organization Address City/[facility]/[place] [address], [facility] [phone] * Ferritin (12/13/2024 11:27 PM EDT) Ferritin 316 ng/mL 12/13/2024 11:27 PM EDT [facility] Comment:No reference range e stablished for this age/gender. BLOOD SPECIMEN / Unknown 12/13/2024 11:27 PM EDT 12/13/2024 11:32 PM EDT us Ankit Ridley MD CHEMISTRY ORDERABLES Final Resu lt Performing Organization Address City/[facility]/[place] [address], [facility] [phone] * Ethanol (12/13/2024 11:27 PM EDT) Ethanol Lvl <10 <10 mg/dL 12/13/2024 11:27 PM EDT [facility] Ethanol percent <0.010 <0.010 % 12/13/2024 11:27 PM EDT [facility] BLOOD SPECIMEN / Unknown 12/13/2024 11:27 PM EDT 12/13/2024 11:32 PM EDT us Ankit Ridley MD CHEMISTRY ORDERABLES Final Resu lt [facility] [place] [address] [place] [address], [facility] [phone] * XR FEMUR RIGHT (MIN 2 VIEWS) [...] Right hip prosthesis in place. us Antwan Martines DO IMG DIAGNOSTIC IMAGING ORDER CINTHYA Final Result * XR HIP RIGHT (2-3 VIEWS) (12/13/2024 9:45 PM EDT) Only the most recent of2 resultswithin the time period is included. Anatomical Region Laterality Modality Hip, Pelvis, Thigh [...] * Troponin (12/13/2024 8:55 PM EDT) Pathologist [facility] Troponin, High Sensitivity 14 0 - 14 ng/L 12/13/2024 8:55 PM EDT [facility] Comment:High Sensitivity Tro ponin values cannot be compared with other Troponin methodologies. 12/13/2024 8:55 PM EDT 12/13/2024 9:00 PM EDT Antwan Martines DO CHEMISTRY ORDERABLES Final R esult Performing Organization Address City/[facility]/ZIP Co de Phone Number [facility] [address] [place] [address], [facility] [phone] * Sedimentation Rate (12/13/2024 4:30 PM EDT) Pathologist [facility] Sed Rate, Automated 12 0 - 30 mm/Hr 12/13/2024 4:30 PM EDT [facility] Blood BLOOD SPECIMEN / Unknown 12/13/2024 4:30 PM EDT 12/13/2024 4:35 PM EDT Antwan Quevedo Reimagwendolyn DO HEMATOLOGY ORDERABLES Final Result Performing Organization Address City/[facility]/ZIP Co de Phone Number [facility] [address] [place], [place] [address] [phone] from Last 3 Months [place] [address] [facility] MEDICARE [place] [address] Advance Directives Documents on File Type Date Recorded Patient Practice Or Student Teacher Expl anation ACP-Advance Directive 12/21/2024 11:28 AM ACP-Do Not Resuscitate 12/21/2024 11:28 AM * DNR-CC (Latest Code Status on File) Date Activated Date Inactivated Comments 12/15/2024 8:56 AM 12/20/2024 4:21 PM * Full Code Date Activated Date Inactivated Comments 12/15/2024 7:51 AM 12/15/2024 8:56 AM * Full Code Date Activated Date Inactivated Comments 12/14/2024 1:28 AM 12/14/2024 6:30 PM Care Teams Wireworker Supervisor Relationship Specialty Start Date End Date Anju Jacobsen MD PCP - General Family Medicine 01/18/18
--- OUTSIDE RECORDS SUMMARY | 2024-12-25 12:55 | XMS_ITS | Encounter Summary ---
Author Organization [facility] Address [address] [facility] [place] [address] Care Team Providers Care Regional Sales Director Name Role Phone Jadyn Leung MD Primary Care Provider [phone] Rosey Malagon DO Unavailable Unavailabl e Jadyn Leung MD Unavailable [phone] Encounter Details Date Type Department Care Team (Late Contact Info) Description 09/14/2022 Abstract [facility] [address] [place] [phone] Jadyn Leung MD [address] [place] [address] Social History Tobacco Use Types Packs/Day Years Used Date Smoking Tobacco: Never Assessed PHQ-2 Answer Date Recorded Patient Health Questionnaire-2 [...] Description 02/06/2025 1:15 PM EST [facility] [address] [place] [place] [phone] Catalino Collins DO [address] [place] [address] documented as of this encounter Visit Diagnoses Not on filedocumented in this encounter Care Teams Regional Sales Director Relationship Specialty Start Date End Date Jadyn Leung MD [address] [place] [address] PCP - General Family Medicine 08/11/22 Rosey Malagon DO PCP - ACO Reach 08/13/22 05/20/23 Jadyn Leung MD [address] [place] [address] PCP - ACO Reach 07/21/23 documented as of this encounter
--- OUTSIDE RECORDS SUMMARY | 2024-12-25 12:55 | XMS_ITS | Encounter Summary ---
Author Organization [facility] Address [address] [facility] [place] [address] Care Team Providers Care Resource Coordinator Name Role Phone Jadyn Leung MD Primary Care Provider [phone] Rosey Malagon DO Unavailable Unavailabl e Jadyn Leung MD Unavailable [phone] Encounter Details Date Type Department Care Team (Late Contact Info) Description 11/12/2022 Abstract [facility] [place] [address] [place] [phone] Jadyn Leung MD [address] [place] [address] Social History Tobacco Use Types Packs/Day Years [...] EST Office Visit [facility] [place] [address] [facility] [place] [phone] Catalino Collins DO [address] [place], [place] [phone] documented as of this encounter Visit Diagnoses Not on filedocumented in this encounter Additional Health Concerns Assessment Noted Time PHQ-9 Depression Total Score: 0 10/20/19 23 12:00 PM EDT documented as of this encounter Care Teams Resource Coordinator Relationship Specialty Start Date End Date Jadyn Leung MD [address] [place] [address] PCP - General Family Medicine 08/11/22 Rosey Malagon DO PCP - ACO Reach 08/13/22 05/20/23 Jadyn Leung MD [address] [place] [address] PCP - ACO Reach 07/21/23 documented as of this encounter
--- OUTSIDE RECORDS SUMMARY | 2024-12-25 12:55 | XMS_ITS | Encounter Summary ---
Author Organization [facility] Address [address] [place] [address] Care Team Providers Care Assembler [employer] Spider Name Role Phone Unavailable Primary Care Provider Unavailabl e Encounter Details Date Type Department Care Team (Late st Contact Info) Description 09/18/2021 Abstract PATIENT ACUITY SCORE Social History Tobacco [...]
[2024-12-25 13:02] LABS: Immature Granulocytes Abs Auto 0.10 10^3/uL (0.00-0.03); Immature Granulocytes Pct Auto 1.2 % (0.0-0.5); Lymphocytes Absolute Auto 1.5 10^3/uL (1.2-3.8); Mean Corpuscular HGB Conc 34.1 g/dL (29.9-35.2); Mean Corpuscular Hemoglobin 30.7 pg (26.7-34.0); Mean Corpuscular Volume 90.1 fL (81.0-99.0); Platelet Count 412 10^3/uL (150-450); Red Blood Count 1.92 10^6/uL (4.20-5.40); White Blood Count 8.3 10^3/uL (4.0-11.0)
[2024-12-25 13:12] LABS: Hematocrit 17.3 % (36.0-48.0); Hemoglobin 5.9 g/dL (12.0-16.0)
[2024-12-25 13:17] LABS: INR 1.22; Partial Thromboplastin Time 35.9 sec (22.3-36.2); Prothrombin Time 12.7 sec (9.0-11.6)
[2024-12-25 13:19] LABS: Alanine Aminotransferase 10 U/L (14-59); Albumin Globulin Ratio 0.5; Albumin Level 1.7 g/dL (3.4-5.0); Alkaline Phosphatase 89 U/L (46-116); Anion Gap 11.2; Aspartate Amino Transferase 25 U/L (15-37); Blood Urea Nitrogen 3.0 mg/dL (7.0-18.0); Calcium 7.7 mg/dL (8.5-10.1); Carbon Dioxide 26.1 mmol/L (21.0-32.0); Chloride 95 mmol/L (98-107); Estimated GFR (African America >60 (>=60 mL/min/1.73m^2); Estimated GFR (Non-African Ame >60 (>=60 mL/min/1.73m^2); Globulin 3.3 g/dL; Glucose 96 mg/dL (74-106); Sodium 130 mmol/L (136-145); Total Protein 5.0 g/dL (6.4-8.2)
[2024-12-25 13:24] LABS: Potassium 2.3 mmol/L (3.5-5.1)
[2024-12-25] MEDS: HYDROMORPHONE HCL 0.5 MG/0.5 ML SYRINGE IVP (13:43)
--- NOTE | 2024-12-25 14:10 | CT_ITS ---
The [address] [address] Patient Name: SUZAN ESCALONA MRN: [id number] date: 1945 Sex: F Assigned Patient Location: ER Current Patient Location: Accession/Order Number: [id number] Exam Date: 12/25/2024 14:05 Report Date: 12/25/2024 15:36 At the request of: AVRIL PULIDO Procedure: CT pelvis wo con CT PELVIS without INTRAVENOUS CONTRAST: CLINICAL HISTORY: hip pain after surgery COMPARISON: Right hip 12/12/2024 TECHNIQUE: Spiral images were obtained through the pelvis without the administration of IV contrast. This CT exam was performed using one or more following dose reduction techniques: Automated exposure control, adjustment of the mA and/or kV according to patient size, or use of iterative reconstruction technique. FINDINGS: There appears to be superior dislocation of the femoral as well as the acetabular component of the patient's right SARAVANAN with pseudoarticulation involving the iliac bone similar configuration to the prior study. Streak hardware artifact is seen limiting evaluation. No definitive fracture is noted. Pubic rami appear intact. Left hip demonstrates mild degenerative change. Additional degenerative changes seen involving the visualized lower lumbar spine, SI joints and pubic symphysis. Soft tissues demonstrate body wall anasarca. Presumed partially visualized hematoma involving the right gluteus muscle tear extending into the lateral soft tissues. Intrapelvic contents demonstrates a Cam catheter is in place. Cystic or similar device is noted. CT/CT pelvis wo con IMPRESSION: THERE APPEARS TO BE SUPERIOR DISLOCATION OF THE FEMORAL WELL THE ACETABULAR COMPONENT OF THE PATIENT'S RIGHT SARAVANAN WITH PSEUDOARTICULATION INVOLVING THE ILIAC BONE SIMILAR IN CONFIGURATION TO THE PRIOR STUDY. NO FRACTURE IS NOTED. THERE APPEARS TO BE A HEMATOMA WHICH IS PARTIALLY VISUALIZED INVOLVING THE RIGHT GLUTEAL MUSCULATURE EXTENDING INTO THE LATERAL SOFT TISSUES. Impression dictated by: Fredy Hendrickson Jr., D.O. 12/25/2024 3:36 PM Dictation Location: [place] [address] Electronically authenticated by: [id number] Y Date: 12/25/2024 15:36
--- NOTE | 2024-12-25 14:16 | PC.NURSE ---
pt incontinent of stool at this time. this RN and another complete skin care and readjust in bed for comfort. wound vac remains attached and running. pt given pain medications prior
[2024-12-25] MEDS: DIPHENHYDRAMINE HCL 25 MG CAPSULE PO (14:45)
[2024-12-25] MEDS: ACETAMINOPHEN 325 MG TABLET 650 MG PO (14:45)
--- NOTE | 2024-12-25 15:15 | PC.NURSE ---
PT BROUGHT IN FROM [facility] FOR ABNORMAL HCG, HCT AND POTASSIUM - ALL BEING LOW. PT HAD GOTTEN A REPLACEMENT OF HER R HIP AND REINJURED IT DISCLOCATING IT APPROX 1.5WKS AGO. WAS THEN TRANSFERRED TO [facility] FOR REPAIR. D/C'D TO [facility] APPROX 1 WEEK AGO FOR REHAB. PT DOES HAVE DEMENTIA AND IS ONLY ALERT TO SELF. R HIP INCISION SITE WITH WOUND VAC ATTACHED AND WORKING,
[2024-12-25] MEDS: HYDROMORPHONE HCL 1 MG/ML CARTRIDGE IVP (17:28)
--- NOTE | 2024-12-25 18:06 | PC.NURSE ---
1700 - trifold transfer packet signed by d/t pt only being alert to self.
== END 2024-12-25 18:05 | disposition short-term general hospital (02) ==
PROVIDERS: Emergency Provider Emergency Medicine; PCP Student in an Organized Health Care Education/Training Program
DX: T84.020A Dislocation of internal right hip prosthesis, initial encounter (principal); D64.9 Anemia, unspecified; Z79.82 Long term (current) use of aspirin; Z66 Do not resuscitate
CPT/HCPCS: 36415; 36430; 36569; 36592; 72192; 76376; 80053; 85025; 85610; 85730; 86850; 86900; 86901; 86923; 96374; 96375; 96376; 99285; G0328; J1171; J2405; P9016